=== PATIENT | female | born 1950 | race African-American/Black ===

== ENCOUNTER → 2018-02-22 | Outpatient (RCR) | payer MEDICARE, OTHER ==
[~2018-02-22] MED LIST: CIPRO500 MG PO; CLONAZEPAM1 MG PO; CLONIDINE HCL0.3 MG PO; CYCLOBENZAPRINE10 MG PO; FUROSEMIDE40 MG PO; GABAPENTIN600 MG PO; HYDROCODON-ACE1 EAC9 PO; LEVOTHYROXINE50 MCG PO; LISINOPRIL10 MG PO; LISINOPRIL2.5 MG PO; MELOXICAM7.5 MG PO; METOPROLOL TART50 MG PO; NADOLOL40 MG PO; OMEPRAZOLE40 MG PO; ORENCIA 250 MG250 MG SQ; PREDNISONE5 MG PO; SEROQUEL25 MG PO
== END ==
LOC: PT 09:40
PROVIDERS: ATTEND Internal Medicine
DX: M25.561 Pain in right knee (principal); M54.5 Low back pain; M62.81 Muscle weakness (generalized); R29.6 Repeated falls
CPT/HCPCS: 97110; 97162; G8978; G8979

== ENCOUNTER 2018-03-12 09:43 | Outpatient (RCR) | payer MEDICARE, OTHER | END 2018-03-24 | LOC: PT 09:43 | PROVIDERS: ATTEND Internal Medicine | DX: M54.5 Low back pain (principal); R29.6 Repeated falls ==

== ENCOUNTER → 2019-02-26 | Outpatient (CLI) | payer MEDICARE, OTHER | LOC: MAMMO 09:53 | PROVIDERS: ATTEND Internal Medicine | DX: Z12.31 Encounter for screening mammogram for malignant neoplasm of breast (principal) | CPT/HCPCS: 77067 ==

== ENCOUNTER → 2019-06-10 | Outpatient (CLI) | payer MEDICARE, OTHER ==
--- NOTE | 2019-06-10 09:51 | Diagnostic Imaging Report ---
Examination: MRI BRAIN WO CONTRAST History: Vertigo. Falls. Dizziness. Comparison studies: Not available for comparison. Technique: Sagittal T2; axial DWI, FLAIR, GRE or SWI, T1, Coronal FLAIR. Intravenous contrast: None Findings: Scalp: No abnormal signal. No masses. Bone marrow: Normal in signal intensity. Brain volume: Adequate for age. No volume loss. Ventricles: Normal in size and configuration. No hydrocephalus. Extra-axial spaces: No abnormalities. Parenchyma: Patchy areas of T2/FLAIR signal abnormality in the central marcel. There is mild banding/ capping of the frontal horn of the bilateral lateral ventricles. No masses, hemorrhage, or acute vascular insults. Suprasellar and sellar region: There is a 9.1 mm ovoid T2 hyperintense lesion in the anterior aspect of the sella. This lesion could represent an adenoma or Rathke's cleft cyst. Craniocervical junction: No abnormalities. The foramen magnum is patent. No Chiari malformations. Vessels: Normal flow-voids in the arteries and sinuses. Additional findings:None. IMPRESSION: No acute intracranial abnormalities. 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 A sella MRI with and without contrast is recommended for further evaluation to ensure that this is entirely cystic. Mild chronic microvascular ischemic change of the marcel. Signed by: Dr. Jayla Brian M.D. on 06/10/2019 9:47 AM
== END ==
LOC: MRI 08:00
PROVIDERS: ATTEND Internal Medicine
DX: H81.49 Vertigo of central origin, unspecified ear (principal); H83.09 Labyrinthitis, unspecified ear
CPT/HCPCS: 70551

== ENCOUNTER → 2019-06-25 | Outpatient (CLI) | payer MEDICARE, OTHER ==
[~2019-06-25] MED LIST changes: +FENTANYL CITRATE/PF 100MCG/2 ML INJ ONE; +GADOBENATE DIMEGLUMINE 1 ML IV ONE; +SODIUM CHLORIDE 0.9% 100 ML 100 ML ONE
[2019-06-25 09:57] LABS: CREATININE, SERUM 1.47 mg/dL (0.57-1.11)
--- NOTE | 2019-06-25 16:17 | Diagnostic Imaging Report ---
History: Disorder of the pituitary gland Comparison studies: MRI of the brain 06/10/2019 Technique: Pre-and post coronal and sagittal T1. Coronal T2. Axial DWI through the brain. Dynamic postcontrast coronal through the sella Intravenous contrast: 20 cc of MultiHance Findings: Sella: Normal in size and configuration. Pituitary gland: Nonenhancing cystic lesion at the anterior sella measuring 0.8 x 0.9 x 0.8 cm (SI-AP-Trans), with mild effacement of the suprasellar cistern, without mass effect over the adjacent structures. . Pituitary stalk: Normal in size and at midline. Optic chiasm: Well visualized and unremarkable. Cavernous sinuses: Normal in size and symmetric. Internal carotid arteries: Normal flow void appearance. Sphenoid sinuses: No T2 hyperintense mucosal inflammatory changes. Stable T2/flair hyperintensities of the white matter. IMPRESSION: 1. Stable nonenhancing cystic subcentimeter lesion at the anterior pituitary gland as described above, with similar diagnostic considerations including adenoma, Rathke cleft cysts and pars intermedia cyst. 2. Mild chronic microvascular ischemic changes Signed by: DR Pio Osuna M.D. on 06/25/2019 4:14 PM
== END ==
LOC: MRI 09:13
PROVIDERS: ATTEND Internal Medicine
DX: E23.7 Disorder of pituitary gland, unspecified (principal); D35.2 Benign neoplasm of pituitary gland
CPT/HCPCS: 36415; 70553; 82565; 84520; A9577; J3010

== ENCOUNTER → 2019-11-06 | Outpatient (CLI) | payer MEDICARE, OTHER ==
[~2019-11-06] MED LIST changes: -FENTANYL CITRATE/PF 100MCG/2 ML INJ ONE; -GADOBENATE DIMEGLUMINE 1 ML IV ONE; -SODIUM CHLORIDE 0.9% 100 ML 100 ML ONE
--- NOTE | 2019-11-06 12:43 | Diagnostic Imaging Report ---
EXAMINATION: MR angiogram of the [place] without contrast. CLINICAL HISTORY: Vertigo, imbalance, multiple folds, weakness. COMPARISON: Brain MRI 06/10/2019 TECHNIQUE: 3D TOF MR angiogram sequences of the head was performed without contrast. MIP images of the arteries were isolated into anterior-posterior groups. The source images, reformatted axial and coronal images, and investment representative projections of the MIP images through 180 degrees of rotation and tumbling were reviewed. Image quality: Suboptimal study artifact from patient's motion. FINDINGS: The vessels of the [place] and posterior circulation are patent, there is no evidence of significant stenosis. No vascular malformation or aneurysmal dilatation is identified. Minimal prominence of the basilar tip. Anatomic variation: Anterior Communicating Artery: Probably present, motion prevents an accurate evaluation. Posterior Communicating Arteries: Patent bilaterally The right A1 is hypoplastic. Vertebral arteries: The right is dominant IMPRESSION: Suboptimal evaluation due to motion artifact, grossly no large vessel occlusion, significant stenoses or vascular malformations. Signed by: Dr. Jesica Saab M.D. on 11/06/2019 12:41 PM
--- NOTE | 2019-11-06 12:56 | Diagnostic Imaging Report ---
EXAMINATION: MRI of the brain and sella turcica without contrast HISTORY: Disorder of the pituitary gland.Vertigo, imbalance, multiple folds, weakness. COMPARISON: Brain MRI from 06/10/2019 and similar to seek a MRI from 06/25/2019 TECHNIQUE: Brain: Sagittal T2; axial DWI, T2, FLAIR, T1-IR, T2 gradient echo; coronal FLAIR. Sella turcica: Thin section images of the sella consisting of coronal dynamic T1, sagittal and coronal T1 pre/post contrast, coronal T2. Whole brain DWI/ADC. IMAGE QUALITY: Artifact from patient motion mildly limits evaluation of some of the sequences. Brain MRI findings: Parenchyma: 1. Persistent mild pontine and supratentorial periventricular white matter chronic microvascular ischemic changes. 2. No mass, hemorrhage, acute or chronic infarcts. Skull: Unremarkable. Vessels: Expected flow voids present in the major arteries and dural sinuses. Extra-axial spaces: No abnormal signal intensity or mass effect. Brain volume: Within normal limits for age. Ventricles: No hydrocephalus or displacement. Foramen magnum: Unremarkable. Paranasal / mastoid sinuses: No significant inflammatory disease. Pituitary MRI findings: Pituitary gland: Unchanged approximately 9 mm homogeneously low T1 and high T2 signal intensity lesion within the anterior gland/adenohypophysis, which likely corresponds to a pituitary adenoma with cystic degeneration. The neurohypophysis is not well-visualized. Sella [place]: Normal in size and configuration. Pituitary stalk: Well visualized and unremarkable. Optic chiasm: Well visualized and unremarkable.. Cavernous sinuses: Normal in size and symmetric. Internal carotid arteries: Normal flow void appearance. IMPRESSION: Brain MRI: 1. Stable minimal chronic microvascular ischemic changes compared to MRI of 06/10/2019. 2. Otherwise no intracranial abnormalities. Pituitary gland MRI: Stable approximately 9 mm pituitary adenoma compared to MRI of 06/25/2019. Signed by: Dr. Jesica Saab M.D. on 11/06/2019 12:53 PM
== END ==
LOC: MRI 08:24
PROVIDERS: ATTEND Internal Medicine
DX: E23.7 Disorder of pituitary gland, unspecified (principal); D35.2 Benign neoplasm of pituitary gland; H81.4 Vertigo of central origin
CPT/HCPCS: 70544; 70551

== ENCOUNTER 2019-11-21 12:49 | Inpatient (IN) | payer MEDICARE, OTHER ==
[~2019-11-21] VITALS: Ht 167.6 cm; Wt 136.1 kg
--- OUTSIDE RECORDS SUMMARY | 2019-11-21 12:54 | XMS REPORT ---
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 Allergies, Adverse Reactions, Alerts This patient has no known allergies or adverse reactions. Medications This patient has no known medications. Results Test Description Test Time Test Comments Text Results Atomic Results Result Comments MRI PITUITARY GLAND WO 2019-11-06 12:40:00 [place] [address] Patient Name: GILLES LIZAMA MR #: [id number] : 1950 Age/Sex: 69/F Req #: [id number] Adm Physician: Ordered by: ANA LUISA SORENSEN MD Report #: [id number] Location: MRI Room/Bed: Procedure: [id number] MRI/MRI PITUITARY GLAND WO Exam Date: Exam Time: REPORT STATUS: Signed EXAMINATION: MRI of the brain and sella turcica without contra st HISTORY: Disorder of the pituitary gland.Vertigo, imbalance, multiple folds, weakness. COMPARISON: Brain MRI from 06/10/2019 and similar to seek a MRI from 06/25/2019 TECHNIQUE: Brain: Sagittal T2; axial DWI, T2, FLAIR, T1- IR, T2 gradient echo; coronal FLAIR. Sella turcica: Thin section images of the sella consisting of coronal dynamic T1, sagittal and coronal T1 pre/post contrast, coronal T2. Whole brain DWI/ADC. IMAGE QUALITY: Artifact from patient motion mildly limits evaluation of some of the sequences. Brain MRI findings: Parenchyma: 1. Persistent mild pontine and supratentorial periventricular white matter chronic microvascular ischemic changes. 2. No mass, hemorrhage, acute or chronic infarcts. Skull: Unremarkable. Vessels: Expected flow voids present in the major arteries and dural sinuses. Extra-axial spaces: No abnormal signal intensity or mass effect. Brain volume: Within normal limits for age. Ventricles: No hydrocephalus or displacement. Foramen magnum: Unremarkable. Paranasal / mastoid sinuses: No significant inflammatory disease. Pituitary MRI findings: Pituitary gland: Unchanged approximately 9 mm homogeneously low T1 and high T2 signal intensity lesion within the anterior gland/adenohypophysis, which likely corresponds to a pituitary adenoma with cystic degeneration. The neurohypophysis is not well- visualized. Sella Turc[place]: Normal in size and configuration. Pituitary stalk: Well visualized and unremarkable. Optic chiasm: Well visualized and unremarkable.. Cavernous sinuses: Normal in size and symmetric. Internal carotid arteries: Normal flow void appearance. IMPRESSION: Brain MRI: 1. Stable minimal chronic microvascular ischemic changes compared to MRI of 06/10/2019. 2. Otherwise no intracranial abnormalities. Pituitary gland MRI: Stable approximately 9 mm pituitary adenoma compared to MRI of 06/25/2019. Signed by: Dr. Magan Saab M.D. on 11/06/2019 12:53 PM Dictated By: MAGAN SAAB MD 1253 Transcribed By: JOSE ALBERTO on 11/06/19 1253 COPY TO: ANA LUISA SORENSEN MD MRI BRAIN WO 2019-11-06 12:40:00 [place] [address] Patient Name: GILLES LIZAMA MR #: [id number] : 1950 Age/Sex: 69/F Req #: [id number] Adm Physician: Ordered by: ANA LUISA SORENSEN MD Report #: [id number] Location: MRI Room/Bed: Procedure: [id number] MRI/MRI BRAIN WO Exam Date: Exam Time: REPORT STATUS: Signed EXAMINATION: MRI of the brain and sella turcica without contrast HISTORY: Disorder of the pituitary gland.Vertigo, imbalance, multiple folds, weakness. COMPARISON: Brain MRI from 06/10/2019 and similar to seek a MRI from 06/25/2019 TECHNIQUE: Brain: Sagittal T2; axial DWI, T2, FLAIR, T1-IR, T2 gradient echo; coronal FLAIR. Sella turcica: Thin section images of the sella consisting of coronal dynamic T1, sagittal and coronal T1 pre/post contrast, coronal T2. Whole brain DWI/ADC. IMAGE QUALITY: Artifact from patient motion mildly limits evaluation of some of the sequences. Brain MRI findings: Parenchyma: 1. Persistent mild pontine and supratentorial periventricular white matter chronic microvascular ischemic changes. 2. No mass, hemorrhage, acute or chronic infarcts. Skull: Unremarkable. Vessels: Expected flow voids present in the major arteries and dural sinuses. Extra-axial spaces: No abnormal signal intensity or mass effect. Brain volume: Within normal limits for age. Ventricles: No hydrocephalus or displacement. Foramen magnum: Unremarkable. Paranasal / mastoid sinuses: No significant inflammatory disease. Pituitary MRI findings: Pituitary gland: Unchanged approximately 9 mm homogeneously low T1 and high T2 signal intensity lesion within the anterior gland/adenohypophysis, which likely corresponds to a pituitary adenoma with cystic degeneration. The neurohypophysis is not well-visualized. Sella Turcica: Normal in size and configuration. Pituitary stalk: Well visualized and unremarkable. Optic chiasm: Well visualized and unremarkable.. Cavernous sinuses: Normal in size and symmetric. Internal carotid arteries: Normal flow void appearance. IMPRESSION: Brain MRI: 1. Stable minimal chronic microvascular ischemic changes compared to MRI of 06/10/2019. 2. Otherwise no intracranial abnormalities. Pituitary gland MRI: Stable approximately 9 mm pituitary adenoma compared to MRI of 06/25/2019. Signed by: Dr. Magan Saab M.D. on 11/06/2019 12:53 PM Dictated By: MAGAN SAAB MD 1253 Transcribed By: JOSE ALBERTO on 11/06/19 1253 COPY TO: ANA LUISA SORENSEN MD MRA HEAD WO 2019-11-06 12:15:00 [place] [address] Patient Name: GILLES LIZAMA MR #: [id number] : 1950 Age/Sex: 69/F Req #: [id number] Adm Physician: Ordered by: ANA LUISA SORENSEN MD Report #: [id number] Location: MRI Room/Bed: Procedure: [id number] MRI/MRA HEAD WO Exam Date: Exam Time: REPORT STATUS: Signed EXAMINATION: MR angiogram of the [place] without contrast. CL INICAL HISTORY: Vertigo, imbalance, multiple folds, weakness. COMPARISON: Brain MRI 06/10/2019 TECHNIQUE: 3D TOF MR angiogram sequences of the head was performed without contrast. MIP images of the arteries were isolated into anterior-posterior groups. The source images, reformatted axial and coronal images, and cash applications representative projections of the MIP images through 180 degrees of rotation and tumbling were reviewed. Image quality: Suboptimal study artifact from patient's motion. FINDINGS: The vessels of the [place] and posterior circulation are patent, there is no evidence of significant stenosis. No vascular malformation or aneurysmal dilatation is identified. Minimal prominence of the basilar tip. Anatomic variation: Anterior Communicating Artery: Probably present, motion prevents an accurate evaluation. Posterior Communicating Arteries: Patent bilaterally The right A1 is hypoplastic. Vertebral arteries: The right is dominant IMPRESSION: Suboptimal evaluation due to motion artifact, grossly no large vessel occlusion, significant stenoses or vascular malformations. Signed by: Dr. Magan Saab M.D. on 11/06/2019 12:41 PM Dictated By: MAGAN SAAB MD 1241 Transcribed By: JOSE ALBERTO on 11/06/19 1241 COPY TO: ANA LUISA SORENSEN MD MRI PITUITARY GLAND WOW 2019-06-25 16:05:00 [place] [address] Patient Name: GILLES LIZAMA MR #: [id number] : 1950 Age/Sex: 68/F Req #: [id number] Adm Physician: Ordered by: ANA LUISA SORENSEN MD Report #: [id number] Location: MRI Room/Bed: Procedure: [id number] MRI/MRI PIT[place]ARY GL[place] WOW Exam Date: Exam Time: REPORT STATUS: Signed History: Disorder of the pituitary gland Comparison studies: MRI of the brain 06/10/2019 Technique: Pre-and post coronal and sagittal T1. Coronal T2. Axial DWI through the brain. Dynamic postcontrast coronal through the sella Intravenous contrast: 20 cc of MultiHance Findings: Sella: Normal in size and configuration. Pituitary gland: Nonenhancing cystic lesion at the anterior sella measuring 0.8 x 0.9 x 0.8 cm (SI-AP-Trans), with mild effacement of the suprasellar cistern, without mass effect over the adjacent structures. . Pituitary stalk: Normal in size and at midline. Optic chiasm: Well visualized and unremarkable. Cavernous sinuses: Normal in size and symmetric. Internal carotid arteries: Normal flow void appearance. Sphenoid sinuses: No T2 hyperintense mucosal inflammatory changes. Stable T2/flair hyperintensities of the white matter. IMPRESSION: 1. Stable nonenhancing cystic subcentimeter lesion at the anterior pituitary gland as described above, with similar diagnostic considerations including adenoma, Rathke cleft cysts and pars intermedia cyst. 2. Mild chronic microvascular ischemic changes Signed by: DR Pio Osuna M.D. on 06/25/2019 4:14 PM Dictated By: PIO LYNN MD 13 Transcribed By: JOSE ALBERTO on 06/25/191613 COPY TO: ANA LUISA SORENSEN MD MRI BRAIN WO 2019-06-10 09:39:00 [place] [address] Patient Name: GILLES LIZAMA MR #: [id number] : 1950 Age/Sex: 68/F Req #: [id number] Adm Physician: Ordered by: ANA LUISA SORENSEN MD Report #: [id number] Location: MRI Room/Bed: Procedure: [id number] MRI/MRI BRAIN WO Exam Date: Exam Time: REPORT STATUS: Signed Examination: MRI BRAIN WO CONTRAST History: Vertigo. Falls. Dizziness. Comparison studies: Not available for comparison. Technique: Sagittal T2; axial DWI, FLAIR, GRE or SWI, T1, Coronal FLAIR. Intravenous contrast: None Findings: Scalp: No abnormal signal. No masses. Bone marrow: Normal in signal intensity. Brain volume: Adequate for age. No volume loss. Ventricles: Normal in size and configuration. No hydrocephalus. Extra-axial spaces: No abnormalities. Parenchyma: Patchy areas of T2/FLAIR signal abnormality in the central marcel. There is mild banding/ capping of the frontal horn of the bilateral lateral ventricles. No masses, hemorrhage, or acute vascular insults. Suprasellar and sellar region: There is a 9.1 mm ovoid T2 hyperintense lesion in the anterior aspect of the sella. This lesion could represent an adenoma or Rathke's cleft cyst. Craniocervical junction: No abnormalities. The foramen magnum is patent. No Chiari malformations. Vessels: Normal flow-voids in the arteries and sinuses. Additional findings:None. IMPRESSION: No acute intracranial abnormalities. 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 A sella MRI with and without contrast is recommended for further evaluation to ensure that this is entirely cystic. Mild chronic microvascular ischemic change of the marcel. Signed by: Dr. Jayal Brian M.D. on 06/10/2019 9:47 AM Dictated By: JAYLA DICKSON MD 6 Transcribed By: JOSE ALBERTO on 06/10/19946 COPY TO: ANA LUISA SORENSEN MD MAMMOGRAPHY DIGITAL SCR BILAT 2019-02-26 11:03:00 [place] [address] Patient Name: GILLES LIZAMA MR #: [id number] : 1950 Age/Sex: 68/F Req #: [id number] Adm Physician: Ordered by: ANA LUISA SORENSEN MD Report #: [id number] Location: MAMMO Room/Bed: Procedure: [id number] MG/MAMMOGRAPHY DIGITAL SCR BILAT Exam Date: 02/26/19 Exam Time: 1000 REPORT STATUS: Signed #[id number] - [id number] #BILATERAL DIGITAL SCREENING MAMMOGRAM WITH CAD: 02/26/2019 CLINICAL: Routine screening. Comparison is made to exams dated: 02/05/2018 mammogram and 02/01/2016 mammogram - [facility]. Current study contains 6 films. The tissue of both breasts is predominantly fatty. Current study was also evaluated with a Computer Aided Detection (CAD) system. There are benign vascular calcifications and a lymph node in both breasts. There also are benign scattered calcifications in both breasts. No significant masses, calcifications, or other findings are seen in either breast. There has been no significant interval change. IMPRESSION: BENIGN There is no mammographic evidence of malignancy. A 1 year screening mammogram is recommended. The patient will be notified by letter of the results. Venkatesh pantoja/michael:03/15/2019 09:17:57 [employer]: Jyoti CEDENO)(Hilario), [facility] letter sent: Compared to Prior B9 Mammogram BI-RADS: 2 Benign Dictated By: VENKATESH HEATON DO 6 Transcribed By: MICHAEL on 03/15/19916 COPY TO: ANA LUISA SORENSEN MD
[2019-11-21 13:00] VITALS: BP 176/78
--- NOTE | 2019-11-21 13:00 | NUR ---
Received patient direct admit, sitting at the bedside. Respiration even and unlabored without SOB. Call light in reach.
[2019-11-21] MEDS ORDERED: LOSARTAN POTASSIUM 100 MG TAB PO SCH (13:30)
[2019-11-21 13:33] VITALS: BP 176/78
[2019-11-21] MEDS ORDERED: CLINDAMYCIN 300MG 50 ML IV SCH (14:00)
[2019-11-21] MEDS ORDERED: CLINDAMYCIN 600MG / 50ML 50 ML IV SCH (14:00)
--- NOTE | 2019-11-21 14:14 | History and Physical ---
CHIEF COMPLAINT: "I do not feel well." HISTORY OF PRESENT ILLNESS: This is a 69-year-old woman, who states that for at least the last 6 to 8 weeks, she has not felt well. The patient states she becomes very short of breath with minimal exertion. The patient also states she has been experiencing dizzy spells as well as unsteady gait for the last 4 to 5 weeks. The patient actually underwent an MRI of the head on November 06, 2019, which did not reveal any gross abnormalities. The patient did undergo an MRI of the pituitary gland on November 06, 2019, which revealed persistent mild pontine and supratentorial periventricular white matter chronic microvascular ischemic changes, but no mass, hemorrhages, or obvious infarcts were appreciated. The patient also states she becomes short of breath with minimal exertion. She also complains of abscess-type lesions in the dorsal aspect of right forearm and elbow area that has been present for at least a week. Denies any fever or chills, but states she does not feel well. REVIEW OF SYSTEMS: GENERAL: No fever or chills, but the patient does not feel well for the last 2 weeks. HEENT: No headaches. No vision changes, but she does complain of dizziness intermittently. CARDIOVASCULAR/RESPIRATORY: No chest pain or tightness, but complains of shortness of breath, particularly with any exertion. Denies any palpitations. GI: No nausea, vomiting, diarrhea, or constipation. : No UTI symptoms, but in September 2019, she was diagnosed with E. coli urinary tract infection, but it was fully treated with a 7-day course of oral Bactrim. NEUROMUSCULAR: Complains of worsening swelling in her bilateral lower extremities. She also has chronic pain issues. PAST MEDICAL HISTORY: 1. Chronic fatigue. 2. Extreme obesity, BMI of 45. 3. Depression. 4. Rheumatoid arthritis. 5. 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 6. Stage 3 chronic kidney disease. 7. Chronic diastolic congestive heart failure. 8. Recent urinary tract infection (E. Coli). 9. Chronic venous insufficiency (lower extremities). 10. Hypothyroidism. 11. Obstructive sleep apnea. 12. Peripheral neuropathy. 13. Overactive bladder. 14. Chronic insomnia. 15. Chronic pain syndrome. PAST SURGICAL HISTORY: 1. Lumbar spine surgery. 2. Total abdominal hysterectomy. 3. Left total knee replacement. ALLERGIES: MORPHINE. FAMILY HISTORY: The patient has two sisters, who have coronary artery bypass grafting. The patient's mother had severe osteoarthritis. The patient also has two sisters, who have type 2 diabetes mellitus. SOCIAL HISTORY: This woman is and lives with . She is unemployed, but receiving disability benefits. No history of tobacco or alcohol use. MEDICATIONS: 1. Xyzal 5 mg daily. 2. Gabapentin 600 mg b.i.d. 3. Breo Ellipta inhaler one puff daily. 4. Vitamin B12 1000 mcg daily. 5. Ondansetron 8 mg every 8 hours p.r.n. nausea and vomiting. 6. Levothyroxine 50 mcg daily. 7. Astelin nasal spray two sprays each nostril daily. 8. Flonase two sprays to each nostril twice a day. 9. Metoprolol tartrate 25 mg b.i.d. 10. Seroquel 200 mg at bedtime. 11. Ranitidine 300 mg at bedtime. 12. Prednisone 2.5 mg daily. 13. Omeprazole 40 mg daily. 14. Isosorbide mononitrate 30 mg daily. 15. Duloxetine 30 mg b.i.d. 16. Hydralazine 25 mg daily. 17. Multivitamin daily. 18. Clonazepam 1 mg at bedtime p.r.n. insomnia/anxiety. 19. Hydrocodone/acetaminophen 10/325 one b.i.d. p.r.n. pain. PHYSICAL EXAMINATION: GENERAL: She is awake, alert and fully oriented. She does not appear to be in any obvious respiratory distress, but she does have a flat depressed affect. She is very pleasant and cooperative. VITAL SIGNS: Blood pressure is 150/86, pulse 74, respiratory rate 16, oxygen saturation 99% on room air, and temperature 97.2. Height 5 feet 6 inches, weight 279 pounds, and BMI 45. INTEGUMENT: Skin is warm and dry. No pallor, jaundice, or diaphoresis. HEENT: Anicteric sclerae. Moist mucous membranes. NECK: Supple. CARDIOVASCULAR: Distant heart sounds. Regular rate and rhythm. No S3 or gallop. LUNGS: No rales. No rhonchi. ABDOMEN: Obese. EXTREMITIES: The patient has 3+ edema in bilateral legs. The patient has 4+ edema in bilateral pedal area. On the dorsal aspect of the right forearm, the patient has three abscesses with surrounding erythema and warmth. The patient also has a draining abscess on the right olecranon that has purulent drainage. NEUROLOGIC: Intact. No gross focal deficits. She has decreased pinprick sensation to plantar aspect of bilateral feet. DIAGNOSES: 1. Right forearm folliculitis with surrounding cellulitis. 2. [id number] diastolic heart failure. 3. Rwpbb-fn-dsbwybj renal failure. 4. Extreme obesity, BMI of 45. 5. Depression. 6. Rheumatoid arthritis. 7. 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 8. Rheumatoid arthritis. PLAN: 1. Order 2D echocardiogram. 2. Order blood cultures. 3. Start intravenous antibiotics for the patient's right forearm folliculitis with surrounding cellulitis. 4. Congestive heart failure medical management with intravenous furosemide. 5. Consult Cardiology. 6. Check renal function. 7. Check white blood cell count. 8. Check a B-type natriuretic peptide level to assess for intravascular volume overload. I spent 50 minutes in the care of this patient. MD ARCHIE Mae/KAATRZYNA /[id number] MTDBruce
[2019-11-21] MEDS: METOPROLOL SUCCINATE 50 MG TAB XL PO SCH (15:06)
[2019-11-21] MEDS: FUROSEMIDE INJ 10 MG/ML 4 ML VIAL IV SCH ×2 (15:07→21:49)
[2019-11-21] MEDS: ISOSORBIDE MONONITRATE 30 MG TAB CR PO SCH ×2 (15:07→18:45)
[2019-11-21 15:30] VITALS: BP 215/95
--- NOTE | 2019-11-21 15:42 | Diagnostic Imaging Report ---
EXAMINATION: CHEST SINGLE (PORTABLE) INDICATION: Shortness of breath COMPARISON: None FINDINGS: LINES/TUBES:None LUNGS:The lungs are well-inflated. No focal consolidation or pulmonary edema. PLEURA:No pleural effusion or pneumothorax. MEDIASTINUM:The cardiomediastinal silhouette appears normal in size and shape. Atherosclerotic calcifications of the thoracic aorta. BONES/SOFT TISSUES:No acute osseous injury. ABDOMEN:No free air under the diaphragm. IMPRESSION: No focal pneumonia or pulmonary edema. Signed by: Alberto Hoyt MD on 11/21/2019 3:40 PM
[2019-11-21 16:10] LABS: BASOPHILS # (AUTO) 0.1 (0.0-0.1); BASOPHILS % 0.4 % (0.0-1.0); EOSINOPHILS % 0.1 % (0.0-6.0); HEMATOCRIT 28.2 % (34.2-44.1); HEMOGLOBIN 8.4 g/dL (12.0-16.0); LYMPHOCYTES # (AUTO) 2.6 (1.0-3.2); LYMPHOCYTES % 20.8 % (18.0-39.1); MEAN CORPUSCULAR HEMOGLOBIN 27.5 pg (28-32); MEAN CORPUSCULAR HGB CONC 29.8 g/dL (31-35); MEAN CORPUSCULAR VOLUME 92.2 fL (81-99); MONOCYTES # (AUTO) 0.5 (0.2-0.8); MONOCYTES % 3.9 % (4.4-11.3); NEUTROPHILS # (AUTO) 8.8 (2.1-6.9); NEUTROPHILS % 71.9 % (38.7-80.0); PLATELET COUNT 453 x10e3/uL (140-360); RED BLOOD COUNT 3.06 x10e6/uL (3.6-5.1); RED CELL DISTRIBUTION WIDTH 15.5 % (11.7-14.4)
[2019-11-21 16:32] LABS: ALBUMIN/GLOBULIN RATIO 0.8 (0.8-2.0); ANION GAP 12.2 mmol/L (8-16); CALCIUM 9.1 mg/dL (8.4-10.2); CREATININE, SERUM 1.49 mg/dL (0.57-1.11)
[2019-11-21 16:38] LABS: POTASSIUM 5.2 mmol/L (3.5-5.1)
[2019-11-21 18:27] LABS: BILIRUBIN,URINE NEGATIVE (NEGATIVE); CLARITY,URINE CLEAR (CLEAR); COLOR,URINE YELLOW (YELLOW); KETONES,URINE NEGATIVE (NEGATIVE); LEUKOCYTE ESTERASE ,URINE NEGATIVE (NEGATIVE); NITRITE,URINE NEGATIVE (NEGATIVE); PROTEIN,URINE DIPSTICK NEGATIVE (NEGATIVE); URINE UROBILINOGEN 0.2 mg/dL (0.2 - 1)
[2019-11-21] MEDS: VANCOMYCIN 1GM/NS 250 ML 250 ML IV SCH (18:36)
[2019-11-21 18:37] LABS: FERRITIN 68.25 ng/mL (4.63-204.00)
[2019-11-21 18:39] LABS: BACTERIA,URINE RARE /HPF; EPITHELIAL CELLS,URINE FEW /LPF; WBC,URINE (MAN) 0-5 /HPF (0-5)
[2019-11-21] MEDS ORDERED: SODIUM CHLORIDE 0.9% 250ML 250 ML ONE (18:40)
[2019-11-21] MEDS: HYDRALAZINE HCL 25 MG TAB PO SCH (18:45)
--- NOTE | 2019-11-21 19:10 | NUR ---
Report given to night nurse, patient lying in bed with eyes open. Respiration even and unlabored without SOB. Call light in reach.
[2019-11-21 20:46] LABS: LYMPHOCYTES % (MANUAL) 20 % (19-48); MONOCYTES % (MANUAL) 2 % (3.4-9.0); NEUTROPHILS % (MANUAL) 76 % (40-74); PLATELET ESTIMATE SLIGHTLY INCREASED; PLATELET MORPHOLOGY COMMENT NORMAL; RBC MORPHOLOGY COMMENT NORMAL
[2019-11-21 20:52] VITALS: BP 170/74
[2019-11-21 20:58] VITALS: BP 142/70
[2019-11-21] MEDS: CLONAZEPAM 1 MG TAB PO PRN (21:49)
[2019-11-21] MEDS: HYDROCODONE/APAP 10MG-325MG TAB PO PRN (21:49)
[2019-11-22] VITALS (8 sets, daily range): BP systolic 94–142; BP diastolic 51–69
[2019-11-22] MEDS: CLINDAMYCIN 600MG / 50ML 50 ML IV SCH ×3 (01:29→17:46)
[2019-11-22] MEDS: VANCOMYCIN 1GM/NS 250 ML 250 ML IV SCH (05:39)
[2019-11-22] MEDS: FUROSEMIDE INJ 10 MG/ML 4 ML VIAL IV SCH (05:39)
--- NOTE | 2019-11-22 06:00 | NUR ---
PT C/O PAIN AND MEDICATED WITH ORDERED PAIN MEDICATION
[2019-11-22] MEDS: LEVOTHYROXINE SODIUM 50 MCG TAB PO SCH (06:23)
[2019-11-22 06:55] LABS: BASOPHILS % 0.4 % (0.0-1.0); EOSINOPHILS % 0.1 % (0.0-6.0); HEMATOCRIT 26.3 % (34.2-44.1); HEMOGLOBIN 7.7 g/dL (12.0-16.0); LYMPHOCYTES # (AUTO) 3.4 (1.0-3.2); LYMPHOCYTES % 31.1 % (18.0-39.1); MEAN CORPUSCULAR HEMOGLOBIN 26.9 pg (28-32); MEAN CORPUSCULAR HGB CONC 29.3 g/dL (31-35); MONOCYTES # (AUTO) 0.9 (0.2-0.8); MONOCYTES % 7.7 % (4.4-11.3); NEUTROPHILS # (AUTO) 6.4 (2.1-6.9); NEUTROPHILS % 57.5 % (38.7-80.0); PLATELET COUNT 404 x10e3/uL (140-360); RED BLOOD COUNT 2.86 x10e6/uL (3.6-5.1); RED CELL DISTRIBUTION WIDTH 15.6 % (11.7-14.4)
--- NOTE | 2019-11-22 07:20 | NUR ---
BEDSIDE REPORT GIVEN TO THE ONCOMING NURSE
[2019-11-22 07:21] LABS: ANION GAP 14.2 mmol/L (8-16); CALCIUM 9.3 mg/dL (8.4-10.2); CREATININE, SERUM 1.9 mg/dL (0.57-1.11); POTASSIUM 4.2 mmol/L (3.5-5.1)
[2019-11-22] MEDS: PREDNISONE 5 MG TAB PO SCH (08:38)
[2019-11-22] MEDS: ISOSORBIDE MONONITRATE 30 MG TAB CR PO SCH ×2 (08:38→17:46)
[2019-11-22] MEDS: METOPROLOL SUCCINATE 50 MG TAB XL PO SCH (08:39)
[2019-11-22] MEDS: HYDRALAZINE HCL 25 MG TAB PO SCH ×2 (09:00→17:46)
[2019-11-22 10:23] LABS: CHOL/HDL RATIO 3.6 (3.0-3.6)
--- NOTE | 2019-11-22 10:58 | Progress Note ---
DATE: 11/22/2019 CHIEF COMPLAINT: "I still feel weak". HISTORY OF PRESENT ILLNESS: This is a 69-year-old woman, who is a primary treating diagnosis is right upper extremity folliculitis with surrounding cellulitis. Moreover, she has been diagnosed with kvywm-ta-mfmlibr renal failure as well as acute diastolic heart failure. The patient had blood work performed on admission, which revealed serum iron 23, TIBC level of 273, percent iron saturation of 8, and transferrin level 185. The patient's ferritin level was low at 68. The patient's vitamin B12 level was normal at 1899. The patient's TSH level was normal at 2.264. On admission, the patient's BUN and creatinine was 17 and 1.49 respectively. Today's BUN and creatinine are 23 and 1.9 respectively. The patient had a chest x-ray performed on admission that was unremarkable. The patient's B-type natriuretic peptide level was normal at 80. However, on admission the patient's white blood cell count was 12,200 with 72% segmented neutrophils. White blood cell count today on November 22, 2019, was 11,000 with 57% segmenters. The patient's hemoglobin today is 7.7 g/dL. The patient denies any melena or hematochezia. The patient states she does have constipation issues. The patient states she has not moved her bowels in 2 days. REVIEW OF SYSTEMS: As per HPI. PHYSICAL EXAMINATION: GENERAL: She is awake, alert, and fluent. She has a flat affect, but she is very pleasant and cooperative on exam. VITAL SIGNS: Blood pressure is 104/58, pulse 72, respiratory rate 18, oxygen saturation 98%, and temperature 96.7. Height 5 feet 6 inches, weight is 300 pounds. BMI 48. INTEGUMENT: Skin is warm and dry. No pallor, jaundice, or diaphoresis. HEENT: Anterior sclerae. Moist mucous membranes. NECK: Supple. No evidence of jugular venous distention. CARDIOVASCULAR: Distant hear sounds. Regular rate and rhythm. LUNGS: No rales. No rhonchi. No wheezes. ABDOMEN: Benign. EXTREMITIES: The patient has trace edema in bilateral legs. The patient has 3+ edema in bilateral pedal area. NEUROLOGIC: Intact. No gross deficits appreciated. DIAGNOSES: 1. Right upper extremity folliculitis with surrounding cellulitis. 2. Taiia-ce-tbkossw anemia. 3. Anemia, secondary to chronic disease and iron deficiency. 4. Rheumatoid arthritis. 5. Chronic diastolic congestive heart failure. 6. Jvmcz-rz-nvkykmz renal failure, secondary to acute tubular necrosis. 7. Rheumatoid arthritis. 8. Extreme obesity, BMI 48. PLAN: 1. Consult Nephrology because of the patient's rilrr-rf-ejzglzh renal failure. 2. Order renal ultrasound. 3. Order liver ultrasounds as this patient has fatty liver disease. 4. Hemoccult stool. 5. We will order intravenous iron infusion in the form of ferric sodium gluconate complex 125 mg intravenous daily. 6. We will stop furosemide and angiotensin receptor rico because of the patient's acute renal failure. 7. May consider blood transfusion if hemoglobin drops below 7 g/dL. 8. We will obtain final echocardiogram. 9. Follow blood cultures. 10. Consult Cardiology. I spent 45 minutes in the care of this patient. MD ARCHIE Mae/KATARZYNA /[id number] FATMATA
[2019-11-22] MEDS: DOCUSATE SODIUM 100 MG CAP PO SCH ×2 (12:27→17:46)
[2019-11-22] MEDS: SENNOSIDES 8.6 MG TAB PO SCH ×2 (12:28→17:46)
[2019-11-22] MEDS: SODIUM FERRIC GLUCONATE COMPLX 125 MG in SODIUM CHLORIDE 0.9% 100 ML 100 ML IV SCH (13:09)
--- NOTE | 2019-11-22 13:30 | Diagnostic Imaging Report ---
EXAM: Complete Abdominal Ultrasound INDICATION: ^fatty liver disease, renal failure ^[id number] ^1048 ^Y COMPARISON: None. TECHNIQUE: Transverse and longitudinal images of the upper abdomen were obtained. FINDINGS: Liver: Size: 13.8 cm in the right midclavicular line, normal Appearance: Normal echogenicity, smooth contour Mass: No focal masses Spleen: Size: 7.5 cm in length, normal Echogenicity: Normal Mass: No focal masses Gallbladder: Stones/Sludge: Small amount of sludge. No formed stone. Wall: 0.2 cm Appearance: No pericholecystic fluid or hydrops. Sonographic Soto's Sign: Negative Bile Ducts: Intrahepatic Ducts: No dilatation Extrahepatic Ducts: Common bile duct measures 0.3 cm, no dilatation Pancreas: Visualized portions of the pancreatic head, neck and proximal body are normal. Right Kidney: Size: 10.6 x 5.8 x 4.7 cm Echogenicity: Normal Parenchymal thickness: Normal Collecting System: No hydronephrosis Stone: None Cyst/Mass: None Left Kidney: Size: 9.5 x 4.1 x 4.1 cm Echogenicity: Normal Parenchymal thickness: Normal Collecting System: No hydronephrosis Stone: None Cyst/Mass: None Vessels: Aorta: Visualized portions are normal Inferior Vena Cava: Visualized portions are normal Main Portal Vein: 1.1 cm, normal size with hepatopetal flow. Free Fluid: No ascites or pleural effusion IMPRESSION: Gallbladder sludge. No other sonographic evidence of cholecystitis. Otherwise unremarkable abdominal ultrasound. Signed by: Karl Roberts MD on 11/22/2019 1:28 PM
--- NOTE | 2019-11-22 16:34 | NUR ---
WOUND CARE CONSULT FOR 69 YO FEMALE WITH HX OF RIGHT ARM CELLULITIS. TIANA 19 PUP STATUS AND CONSERVATIVE INTERVENTIONS AND ALTERNATIVE PRESSURE MATTRESS LABS: WBC-11.06 HGB_7.7 GLUCOSE-118 MED: VANCOMYCIN CLINDAMYCIN SKIN ASSESSMENT COMPLETE PATIENT PRESENTS WITH A PARTIAL THICKNESS WOUND TO RIGHT ELBOW MEASURING 0.5 CM X 0.4 CM X 0.8 CM WITH A 0.2 CM CIRCUMFERENTIAL CALLUS UNDERMINING AND PERIWOUND. SEROUS DRAINAGE PRESENT. ABSCESS TO RIGHT LOWER ARM MEASURING 1CMX 1CM. PINK PERIWOUND PRESENT. NO DRAINAGE PRESENT. ABSCESS TO RIGHT DISTAL LOWER ARM MEASURING 1CMX 1CM. PINK PERIWOUND PRESENT. NO DRAINAGE PRESENT. ABSCESS TO RIGHT PROXIMAL LOWER ARM MEASURING 1CMX 1CM. PINK PERIWOUND PRESENT. NO DRAINAGE PRESENT. RECOMMENDATIONS: NURSING TO CONTINUE TO MAINTAIN CONSERVATIVE PUP STATUS AND INTERVENTIONS AND ALTERNATING PRESSURE MATTRESS. NURSING TO CONTINUE TO ASSIST PATIENT OUT OF BED FOR MEALS AND MUCH TOLERATED. NURSING TO CONTINUE TO ASSIST PATIENT NEEDED WITH MEALS AND NUTRITIONAL SUPPLEMENTS TO ENSURE PROPER REQUIREMENTS FOR HEALING. NURSING TO CONTINUE TO OFFLOAD FEET AND HEELS NEEDED WITH PILLOW SUSPENSION WHEN IN BED. NURSING TO CLEAN X 3 ABSCESSES WITH NS DAILY, TO LEAVE OPEN TO AIR AND TO CONTINUE TO MONITOR. NURSING TO CLEAN RIGHT ELBOW PARTIAL THICKNESS WOUND WITH NORMAL SALINE, PAT DRY WITH 4X4 GAUZE, APPLY BACTROBAN OINTMENT, APPLY MAXORB AG, 4X4 GAUZE, SECURE WITH PAPER TAPE DAILY. NURSING TO OBTAIN ANAEROBIC AND AEROBIC WOUND CULTURE TO RIGHT ELBOW WOUND. NURSING TO CONSULT WOUND CARE NEEDED. THANK YOU. Addendum: 11/22/19 at 1652 by Soraida Carlos RN Amended: Links added.
--- NOTE | 2019-11-22 16:46 | Consultation ---
DATE OF CONSULTATION: 11/22/2019 REASON FOR CONSULTATION: CHF. CHIEF COMPLAINT: Shortness of breath and dizziness. HISTORY OF PRESENT ILLNESS: This is a 69-year-old female with history of diastolic dysfunction, hypertension, hypothyroidism, reflux, rheumatoid arthritis, anemia, chronic kidney disease, morbid obesity, frequent UTIs, and chronic pain. The patient presents to [facility] ER with complaints of not feeling well for several weeks with shortness of breath on minimal exertion. Cardiology was consulted for possible CHF exacerbation. The patient is seen in room, reports for the past several months has been short of breath, weak, fatigued, however, went to go see her PCP with the above complaints and was advised to be admitted. BNP noted to be in the 80 range. Chest x-ray with no acute abnormalities. The patient's main complaint is weakness and fatigue. Labs noted with hemoglobin of 7.7. The patient denies any melena, tarry or bloody stools. PAST MEDICAL HISTORY: 1. Hypertension. 2. Hypothyroidism. 3. Reflux. 4. Rheumatoid arthritis. 5. Allergies. 6. Chronic anemia. 7. Chronic kidney disease, stage III. 8. Diastolic dysfunction. 9. Chronic pain. 10. Frequent UTIs. 11. Chronic venous insufficiency. 12. Peripheral neuropathy. 13. Morbid obesity. PAST SURGICAL HISTORY: 1. Left knee replacement 2009. 2. Hysterectomy in 1989. 3. Lumbar surgery. ALLERGIES: MORPHINE. FAMILY HISTORY: Mother at age 73 history of [place], diabetes, and hypertension. Father at age 70 history of hypertension and dementia. Two sisters with history of coronary artery disease, status post bypass surgery. SOCIAL HISTORY: She is retired. She is . No alcohol or tobacco use. REVIEW OF SYSTEMS: GENERAL: Denies any weight changes. Positive for fatigue, weakness. Denies any fevers, chills, or night sweats. SKIN: No rashes. Right elbow sore x1 week. HEENT: Denies any nausea, vision change, blurred vision, double vision, earache, epistaxis, sore throat, or swollen neck. CARDIAC: Denies any chest pain. Positive for dyspnea on exertion. No orthopnea or PND. Positive for lower extremity edema. RESPIRATORY: Positive for shortness of breath. Denies any wheezing, coughing, or hemoptysis. GI: Reports good appetite. Denies any nausea, vomiting, or diarrhea. Positive for constipation. Denies any melena, tarry or bloody stools. URINARY: Positive for frequency or urgency. Denies any dysuria or hematuria. VASCULAR: Positive for lower extremity edema, chronic. MUSCULOSKELETAL: Positive for muscle weakness, joint pains, or back pains. NEUROLOGIC: Denies any tremors, blackout, or seizures. HEMATOLOGY: Denies any bruising. Positive for anemia. ENDOCRINE: Denies any heat or cold intolerance, polyuria, polydipsia, or polyphagia. PHYSICAL EXAMINATION: VITAL SIGNS: Height 66 inches, weight 300 pounds, BMI 48, temperature 98.0, pulse 77, respiratory rate 17, blood pressure 116/63, pulse ox 98% on room air. GENERAL: Appears stated age, reliable informant. No acute distress. SKIN: No rashes, however, there is a right elbow abscess type lesion. HEENT: Normocephalic. pupils are equal and reactive. Extraocular movements intact. Trachea midline. No JVD. No carotid bruit noted. Oral mucosa pink. HEART: Regular rate and rhythm. PMI about 4th and 5th intercostal space. LUNGS: Bilateral breath sounds clear to auscultation. Good airway entry and exit. ABDOMEN: Soft, nontender, and nondistended. No organomegaly noted. MUSCULOSKELETAL: Good muscle strength throughout. Positive lower extremity edema noted VASCULAR: +2 radial pulses bilaterally, +2 DP and PT pulses bilaterally. NEUROLOGIC: Cranial nerves II through XII seem intact. LABORATORY DATA: White count 11.0, hemoglobin 7.7, hematocrit 23, platelets 404. Chemistry of sodium 139, potassium 5.2, chloride 106, bicarb 27, BUN 17, creatinine 1.49. BNP 80. TSH 2.2. Chest x-ray, no acute abnormalities. No EKG in chart. ASSESSMENT: 1. Right elbow cellulitis. 2. Fatigue, weakness, and shortness of breath. 3. Anemia. 4. Chronic kidney disease, stage III. 5. Diastolic dysfunction. 6. Morbid obesity. 7. Hypothyroidism. PLAN: 1. The patient presents to [facility] with complaints of shortness of breath, weakness, fatigue for the past several months, worse in recent history notable anemia 7.7. The patient denies any melena or tarry black stools. 2. We will do echo to evaluate heart function and structure. 3. BNP only 80, which rules out systolic heart failure. 4. Would advise to stop her losartan therapy given her kidney disease plus her hyperkalemia. 5. Would advise to decrease Lasix regimen. 6. We will order fecal occult blood stool. 7. We will continue to monitor the patient and adjust cardiac therapy as clinical course dictates. Thank you very much for this consult. Dictated by Juanpablo Arroyo, LAURO May Torres MD DC/MODL /[id number]
--- NOTE | 2019-11-22 19:00 | NUR ---
Received patient awake, not in distress, no complaints of pain at this time. Call light within reach, advised to call for assistance anytime when needed, advised to elevate arm with pillow, will continue to monitor closely
[2019-11-22] MEDS: CLONAZEPAM 1 MG TAB PO PRN (20:50)
[2019-11-22] MEDS: HYDROCODONE/APAP 10MG-325MG TAB PO PRN (20:50)
[2019-11-23] VITALS (7 sets, daily range): BP systolic 104–147; BP diastolic 55–66
[2019-11-23] MEDS: CLINDAMYCIN 600MG / 50ML 50 ML IV SCH ×3 (02:00→18:20)
[2019-11-23] MEDS: HYDROCODONE/APAP 10MG-325MG TAB PO PRN ×2 (05:09→21:30)
[2019-11-23] MEDS: LEVOTHYROXINE SODIUM 50 MCG TAB PO SCH (05:52)
[2019-11-23 06:50] LABS: BASOPHILS % 0.3 % (0.0-1.0); EOSINOPHILS # (AUTO) 0.2 (0.0-0.4); EOSINOPHILS % 1.6 % (0.0-6.0); HEMATOCRIT 28.3 % (34.2-44.1); HEMOGLOBIN 8.4 g/dL (12.0-16.0); LYMPHOCYTES # (AUTO) 3.4 (1.0-3.2); LYMPHOCYTES % 33.4 % (18.0-39.1); MEAN CORPUSCULAR HEMOGLOBIN 27.4 pg (28-32); MEAN CORPUSCULAR HGB CONC 29.7 g/dL (31-35); MEAN CORPUSCULAR VOLUME 92.2 fL (81-99); MONOCYTES # (AUTO) 0.7 (0.2-0.8); MONOCYTES % 6.5 % (4.4-11.3); NEUTROPHILS # (AUTO) 5.5 (2.1-6.9); NEUTROPHILS % 54.9 % (38.7-80.0); PLATELET COUNT 412 x10e3/uL (140-360); RED BLOOD COUNT 3.07 x10e6/uL (3.6-5.1); RED CELL DISTRIBUTION WIDTH 15.7 % (11.7-14.4)
[2019-11-23 07:08] LABS: ANION GAP 11.4 mmol/L (8-16); CALCIUM 9.3 mg/dL (8.4-10.2); CREATININE, SERUM 1.71 mg/dL (0.57-1.11); POTASSIUM 4.4 mmol/L (3.5-5.1)
--- NOTE | 2019-11-23 07:26 | NUR ---
walking rounds done with rob RN, call light within easy reach
[2019-11-23] MEDS: VANCOMYCIN 1GM/NS 250 ML 250 ML IV SCH (09:00)
[2019-11-23] MEDS: SODIUM FERRIC GLUCONATE COMPLX 125 MG in SODIUM CHLORIDE 0.9% 100 ML 100 ML IV SCH (09:00)
[2019-11-23] MEDS: HYDRALAZINE HCL 25 MG TAB PO SCH ×2 (09:00→17:05)
[2019-11-23] MEDS: MUPIROCIN 2% OINT 22 GM TUBE TOP SCH (09:01)
[2019-11-23] MEDS: DOCUSATE SODIUM 100 MG CAP PO SCH ×2 (09:01→17:05)
[2019-11-23] MEDS: PREDNISONE 5 MG TAB PO SCH (09:01)
[2019-11-23] MEDS: ISOSORBIDE MONONITRATE 30 MG TAB CR PO SCH ×2 (09:01→18:21)
[2019-11-23] MEDS: METOPROLOL SUCCINATE 50 MG TAB XL PO SCH (09:01)
[2019-11-23] MEDS: SENNOSIDES 8.6 MG TAB PO SCH ×2 (09:01→17:00)
[2019-11-23] MEDS: CLONAZEPAM 1 MG TAB PO PRN (09:02)
--- NOTE | 2019-11-23 11:00 | NUR ---
pt right elbow dressing placed, cleaned with normal saline, bactroban placed, covered with 4x4 and secured with paper tape
[2019-11-23] MEDS: ONDANSETRON HCL INJ 2MG/ML 2ML 2 MG/ML VIAL IV PRN ×2 (13:58→21:00)
--- NOTE | 2019-11-23 14:45 | NUR ---
pt c/o nausea, zofran given. pt states she takes zofran at home for nausea after she takes laxatives. pt given education on laxative side effects and difference between stimulant and stimulant free laxatives
--- NOTE | 2019-11-23 15:59 | NUR ---
renal dr to see pt. pt states her stomach cramps. dr explained laxative sennakot given today can have that side effect. pt states pain is between 2-3. abd soft, non distened, pt had a very large solid bm. cont to monitor pt, she states nausea has decreased
--- NOTE | 2019-11-23 20:16 | NUR ---
Received change of shift report from AM nurse. Walking rounds completed.
--- NOTE | 2019-11-23 21:00 | NUR ---
Patient c/o nausea meds given as order by MD. Also c/o abd pain . Called MD and waiting for call back.
[2019-11-23] MEDS ORDERED: PANTOPRAZOLE SOD 40 MG TABEC PO ONE (21:30)
--- NOTE | 2019-11-23 22:00 | NUR ---
S/Yazmin Parada, received orders. Meds given.
--- NOTE | 2019-11-23 23:06 | Consultation ---
DATE OF CONSULTATION: 11/23/2019 REASON FOR CONSULTATION: Acute on chronic kidney disease, stage 3. HISTORY OF PRESENT ILLNESS: The patient is a pleasant 69-year-old female with past medical history of hypertension, CHF with diastolic dysfunction, hypothyroidism, rheumatoid arthritis, obesity, who was admitted with the not feeling well, dizziness on exertion and dizziness. The patient was found to be anemic with a hemoglobin of 8.4. The patient was also found to have right upper extremity cellulitis and started on IV antibiotic. The patient's baseline creatinine is around 1.4. It went up to 1.9 yesterday. The patient was on KIRA inhibitor and Lasix, both of which were put on hold. Today creatinine is better at 1.7. The patient denies having any nausea, vomiting, or diarrhea. PAST MEDICAL HISTORY: As above. PAST SURGICAL HISTORY: Lumbar spine surgery, total abdominal hysterectomy, left total knee replacement. ALLERGIES: TO MORPHINE. FAMILY HISTORY: Positive for osteoarthritis, coronary artery bypass, and diabetes. SOCIAL HISTORY: Lives at home with her . No history of tobacco, alcohol, or intravenous drug abuse. MEDICATIONS: Currently, the patient is on Zofran, clindamycin, isosorbide, prednisone, IV iron, vancomycin, hydralazine 50 mg twice a day, and clonazepam. REVIEW OF SYSTEMS: GENERAL: No fatigue, no fever, no chills. HEENT: No headache or blurry vision. NECK: No dysphagia. CARDIOVASCULAR: No chest pain, PND, or orthopnea. RESPIRATORY: No shortness of breath. Positive dyspnea on exertion. No cough hemoptysis. GI: No nausea, vomiting, diarrhea, constipation, hematemesis, or melena. MUSCULOSKELETAL: No ankle swelling. NEUROLOGIC: No numbness or tingling. SKIN: No new rash. PHYSICAL EXAMINATION: VITAL SIGNS: Blood pressure 104/55, pulse of 79, respirations 18, temperature 98.2, and 98% on room air. GENERAL: Awake, alert, and oriented x3, not in acute distress. HEENT: PERRLA. Extraocular muscles intact. NECK: No elevated JVD. HEART: S1 and S2. LUNGS: Clear to auscultate bilaterally. ABDOMEN: Soft. Bowel sounds positive. Obese. EXTREMITIES: No edema. NEUROLOGICAL: No focal deficits. SKIN: No new rash. LABORATORY DATA: Sodium 138, potassium 4.4, chloride 102, CO2 28, BUN 23, creatinine 1.7, and glucose is 93, calcium 9.3. White count 10.04, hemoglobin 8.4, platelet count 412, ferritin 68, iron 23, percentage saturation 8. BNP 80. Blood culture, urine culture negative. Abdominal ultrasound showed right kidney 10.6 cm, left kidney 9.5 cm. Gallbladder sludge. Echocardiogram done on 11/21/2019. Left ventricle size is normal. EF 65% to 70% and positive diastolic dysfunction. Chest x-ray done on admission, no focal pneumonia, and pulmonary edema. ASSESSMENT AND PLAN: 1. Acute kidney injury, and chronic kidney disease stage 3. The patient likely has underlying hypertensive nephrosclerosis. This acute worsening is likely prerenal insufficiency secondary to infection. Currently on IV antibiotic. Monitor the vancomycin level closely. Currently, off the diuretic and KIRA inhibitor. We will continue to hold those. Repeat lab in the morning. Avoid all other nephrotoxic medications. 2. Right upper extremity cellulitis on clindamycin and vancomycin. Monitor the vancomycin level closely. Blood culture and urine culture negative. 3. Hypertension. Currently blood pressure is on the lower side, moderate. Adjust the medicine as needed. 4. Rheumatoid arthritis, she is currently on prednisone. 5. Anemia which is iron deficient, currently on intravenous iron. 6. Discussed with at bedside. Thank you Dr. Sheppard for the consult. We will follow the patient with you. MD MARGARITA Eastman/MODL /[id number]
[2019-11-24] VITALS (9 sets, daily range): BP systolic 107–144; BP diastolic 58–70
[2019-11-24] MEDS: CLINDAMYCIN 600MG / 50ML 50 ML IV SCH ×3 (01:48→17:26)
--- NOTE | 2019-11-24 02:00 | NUR ---
Patient resting quitly at this time. Removed puric due to patient ambulating to restroom.
[2019-11-24] MEDS: LEVOTHYROXINE SODIUM 50 MCG TAB PO SCH (05:28)
--- NOTE | 2019-11-24 06:46 | NUR ---
Patient resting quitly.
[2019-11-24] MEDS: HYDROCODONE/APAP 10MG-325MG TAB PO PRN ×2 (08:07→19:51)
[2019-11-24] MEDS: PREDNISONE 5 MG TAB PO SCH (08:07)
[2019-11-24] MEDS: SENNOSIDES 8.6 MG TAB PO SCH ×2 (08:07→17:26)
[2019-11-24] MEDS: DOCUSATE SODIUM 100 MG CAP PO SCH ×2 (08:07→17:26)
[2019-11-24] MEDS: VANCOMYCIN 1GM/NS 250 ML 250 ML IV SCH (08:13)
[2019-11-24] MEDS: METOPROLOL SUCCINATE 50 MG TAB XL PO SCH (08:13)
[2019-11-24] MEDS: ISOSORBIDE MONONITRATE 30 MG TAB CR PO SCH ×2 (08:13→17:26)
[2019-11-24] MEDS: HYDRALAZINE HCL 25 MG TAB PO SCH ×2 (09:00→17:26)
[2019-11-24] MEDS ORDERED: PANTOPRAZOLE SOD 40 MG TABEC PO SCH (09:00)
[2019-11-24] MEDS: MUPIROCIN 2% OINT 22 GM TUBE TOP SCH (09:43)
[2019-11-24] MEDS: SODIUM FERRIC GLUCONATE COMPLX 125 MG in SODIUM CHLORIDE 0.9% 100 ML 100 ML IV SCH (09:43)
[2019-11-24] MEDS ORDERED: DIATRIZOATE MEGL/DIATRIZOA SOD 30 ML BTL PO ONE (13:23)
--- NOTE | 2019-11-24 14:30 | NUR ---
Patient walking on hallway with family, she refused any help to assist her, family said she is fine to walk with them . Patient denies any pain or Dizziness.
[2019-11-24] MEDS: ONDANSETRON HCL INJ 2MG/ML 2ML 2 MG/ML VIAL IV PRN ×2 (15:51→19:50)
--- NOTE | 2019-11-24 15:52 | NUR ---
changed dressing on rt elbow, patient tolerated well
--- NOTE | 2019-11-24 17:01 | Diagnostic Imaging Report ---
EXAMINATION: CT of the abdomen and pelvis without contrast. TECHNIQUE: Helical CT images of the abdomen and pelvis were performed from the lung bases to the lesser trochanters. No intravenous contrast was given per renal protocol. Enteric contrast administered. Coronal and sagittal reformatted images were obtained.Dose modulation, iterative reconstruction, and/or weight based adjustment of the mA/kV was utilized to reduce the radiation dose to as low as reasonably achievable. COMPARISON: None. CLINICAL HISTORY:Abdominal pain DISCUSSION: ABSENCE OF INTRAVENOUS CONTRAST DECREASES SENSITIVITY FOR DETECTION OF FOCAL LESIONS AND VASCULAR PATHOLOGY. ABDOMEN/PELVIS: LOWER THORAX: Unremarkable. HEPATOBILIARY:No focal hepatic lesions. No biliary ductal dilation. The gallbladder is normal. SPLEEN: No splenomegaly. PANCREAS: No focal masses or ductal dilatation. ADRENALS: No adrenal nodules. KIDNEYS/URETERS: No hydronephrosis, stones, or solid mass lesions. PELVIC ORGANS/BLADDER: The bladder is normal. Hysterectomy. PERITONEUM/RETROPERITONEUM: No free air or fluid. LYMPH NODES: No intra-abdominal,retroperitoneal, pelvic or inguinal lymphadenopathy. VESSELS: Limited evaluation GI TRACT: No distention or wall thickening. BONES AND SOFT TISSUES: No bony destructive lesions. No soft tissue abnormalities. IMPRESSION: No acute CT finding. Signed by: Dr. Miquel Diehl M.D. on 11/24/2019 4:59 PM
--- NOTE | 2019-11-24 19:31 | NUR ---
Received change of shift report from AM nurse. Walking rounds completed.
--- NOTE | 2019-11-24 22:38 | NUR ---
Patient c/o nausea and pain. Meds given as ordered by MD. Family at bedside.
[2019-11-24] MEDS: CLONAZEPAM 1 MG TAB PO PRN (23:32)
[2019-11-25] VITALS (9 sets, daily range): BP systolic 103–132; BP diastolic 56–72
[2019-11-25] MEDS: CLINDAMYCIN 600MG / 50ML 50 ML IV SCH ×3 (01:08→18:41)
[2019-11-25] MEDS: LEVOTHYROXINE SODIUM 50 MCG TAB PO SCH (05:19)
[2019-11-25 05:57] LABS: BASOPHILS # (AUTO) 0.1 (0.0-0.1); BASOPHILS % 0.5 % (0.0-1.0); EOSINOPHILS # (AUTO) 0.1 (0.0-0.4); EOSINOPHILS % 0.9 % (0.0-6.0); HEMATOCRIT 26.3 % (34.2-44.1); LYMPHOCYTES # (AUTO) 2.7 (1.0-3.2); MEAN CORPUSCULAR HEMOGLOBIN 27.5 pg (28-32); MEAN CORPUSCULAR HGB CONC 30.4 g/dL (31-35); MEAN CORPUSCULAR VOLUME 90.4 fL (81-99); MONOCYTES # (AUTO) 0.7 (0.2-0.8); MONOCYTES % 7.2 % (4.4-11.3); NEUTROPHILS # (AUTO) 6.2 (2.1-6.9); NEUTROPHILS % 62.5 % (38.7-80.0); PLATELET COUNT 391 x10e3/uL (140-360); RED BLOOD COUNT 2.91 x10e6/uL (3.6-5.1); RED CELL DISTRIBUTION WIDTH 15.7 % (11.7-14.4)
[2019-11-25 06:18] LABS: ANION GAP 13.2 mmol/L (8-16); CALCIUM 9.5 mg/dL (8.4-10.2); CREATININE, SERUM 1.75 mg/dL (0.57-1.11); POTASSIUM 4.2 mmol/L (3.5-5.1)
[2019-11-25] MEDS: ISOSORBIDE MONONITRATE 30 MG TAB CR PO SCH ×2 (08:46→17:00)
[2019-11-25] MEDS: DOCUSATE SODIUM 100 MG CAP PO SCH ×2 (08:46→17:00)
[2019-11-25] MEDS: METOPROLOL SUCCINATE 50 MG TAB XL PO SCH (08:46)
[2019-11-25] MEDS: PREDNISONE 5 MG TAB PO SCH (08:46)
[2019-11-25] MEDS: HYDRALAZINE HCL 25 MG TAB PO SCH ×2 (08:46→17:00)
[2019-11-25] MEDS: SENNOSIDES 8.6 MG TAB PO SCH ×2 (08:46→17:00)
[2019-11-25] MEDS: SODIUM FERRIC GLUCONATE COMPLX 125 MG in SODIUM CHLORIDE 0.9% 100 ML 100 ML IV SCH (08:48)
[2019-11-25] MEDS ORDERED: ONDANSETRON HCL INJ 2MG/ML 2ML 2 MG/ML VIAL IV PRN (09:30)
[2019-11-25] MEDS: HYDROCODONE/APAP 10MG-325MG TAB PO PRN ×2 (09:41→18:43)
--- NOTE | 2019-11-25 10:12 | Progress Note ---
DATE: 11/25/2019 CHIEF COMPLAINT/HISTORY OF PRESENT ILLNESS: This is a 69-year-old woman who primary treatment diagnosis is sepsis secondary to right forearm folliculitis with surrounding cellulitis. She was also diagnosed with acute on chronic renal failure on admission. Moreover, she has diastolic heart failure. During this hospitalization, she is found to have Hemoccult-positive stools as well as iron deficiency anemia. The patient is receiving intravenous iron infusion daily in the form of ferric sodium gluconate complex, which she is tolerating quite well. Her main complaint today is periumbilical abdominal pain as well as nausea. The patient underwent an abdominal ultrasound on Monday, November 21, 2019, which revealed gallbladder sludge, otherwise unremarkable. She underwent a CT abdomen and pelvis yesterday on November 24, 2019, which was unremarkable. Today's blood work reveals white blood cell count of 9800 with 62%. Hemoglobin today is 8 g/dL. Blood work today revealed BUN and creatinine of 17 and 1.75 respectively. Potassium 4.2. REVIEW OF SYSTEMS: As per HPI. PHYSICAL EXAMINATION: GENERAL: She is awake and alert. She has a flat depressed affect. Her adult sister is at bedside. VITAL SIGNS: Blood pressure is 132/60, pulse 92, respiratory rate 18, oxygen saturation 95%, and her temperature is 98.8. BMI 48. INTEGUMENT: Skin is warm and dry. No pallor, jaundice, or diaphoresis. HEENT: Anterior sclerae. Moist mucous membranes. NECK: Supple. CARDIOVASCULAR: Distant heart sounds. Regular rate and rhythm. LUNGS: No rales. No rhonchi. ABDOMEN: Obese. She has tenderness on palpating the midepigastric and periumbilical area. Difficult to assess for organomegaly or masses because of the patient's body habitus. EXTREMITIES: The patient has trace edema in bilateral legs. The patient has 3+ edema in the bilateral pedal area, but this is a chronic issue. Right elbow and right forearm abscesses are improving. Surrounding erythema has resolved. NEUROLOGIC: Intact. No gross focal deficits appreciated. DIAGNOSES: 1. Right forearm folliculitis with surrounding cellulitis. 2. Hemoccult-positive stools. 3. Anemia secondary to iron deficiency, chronic disease and chronic kidney disease. 4. Rheumatoid arthritis. 5. Chronic diastolic congestive heart failure. 6. Stage 3 chronic kidney disease. 7. Extreme obesity, BMI 48. 8. Hypertensive heart disease. 9. Depression. PLAN: 1. We will make the patient n.p.o. except medications. 2. We will continue intravenous antibiotics for the patient's folliculitis with cellulitis. 3. We will consult Gastroenterology because of the patient's Hemoccult-positive stools, anemia, and abdominal pain. 4. We will order HIDA scan to assess for any chronic cholecystitis or biliary dyskinesia. 5. We will start antidepressants for patient's depression. 6. We will mobilize the patient with physical therapy. 7. We will continue daily intravenous ferric sodium gluconate infusions for the patient's iron deficiency anemia. 8. I spent 40 minutes in the care of this patient. MD ARCHIE Mae/KATARZYNA /[id number] FATMATA
[2019-11-25] MEDS: MUPIROCIN 2% OINT 22 GM TUBE TOP SCH (10:19)
[2019-11-25] MEDS ORDERED: ONDANSETRON HCL INJ 2MG/ML 2ML 2 MG/ML VIAL IV ONE (10:25)
[2019-11-25] MEDS: PANTOPRAZOLE 40 MG 10ML VIAL IV SCH ×2 (10:43→17:25)
[2019-11-25] MEDS: DESVENLAFAXINE SUCCINATE 50 MG TAB.SR.24H PO SCH (10:43)
[2019-11-25] MEDS: VANCOMYCIN 1GM/NS 250 ML 250 ML IV SCH (11:40)
--- NOTE | 2019-11-25 18:16 | NUR ---
Patient back from Hida scan, c/o abd pain, prn med given, patient refused other oral medications now. family at bedside
--- NOTE | 2019-11-25 20:04 | Diagnostic Imaging Report ---
Hepatobiliary Scan with Gallbladder Ejection Fraction Clinical information: Abdominal pain; gallbladder sludge Report: Following intravenous administration of 6.125 millicuries of Tc-99m mebrofenin, dynamic images of the abdomen in the anterior projection were obtained through 2.7 minutes. Sincalide (CCK analog) 1.5 micrograms was administered intravenously over 30 minutes with additional imaging for determination of gallbladder ejection fraction. Perfusion to the liver is normal. Extraction of tracer from the blood pool by the liver parenchyma is normal. Tracer is seen promptly within the biliary tract. The gallbladder begins to fill by 15 minutes post-injection of tracer and fills adequately. Tracer is seen in the small bowel by 20 minutes. The gallbladder ejection fraction with administration of sincalide is 47% (normal greater than 40%). Impression: 1. Filling of the gallbladder excludes the diagnosis of acute cystic duct obstruction/acute cholecystitis. 2. Normal gallbladder ejection fraction of 47% does not support the clinical diagnosis of chronic cholecystitis/gallbladder dyskinesia. Signed by: Dr. Jyoti Leary M.D. on 11/25/2019 8:01 PM
[2019-11-26] VITALS (10 sets, daily range): BP systolic 111–144; BP diastolic 60–67
[2019-11-26] MEDS: CLINDAMYCIN 600MG / 50ML 50 ML IV SCH ×3 (02:33→18:07)
[2019-11-26 05:48] LABS: BASOPHILS # (AUTO) 0.1 (0.0-0.1); BASOPHILS % 0.9 % (0.0-1.0); EOSINOPHILS # (AUTO) 0.3 (0.0-0.4); EOSINOPHILS % 3.4 % (0.0-6.0); HEMATOCRIT 26.8 % (34.2-44.1); HEMOGLOBIN 8.2 g/dL (12.0-16.0); LYMPHOCYTES # (AUTO) 1.9 (1.0-3.2); MEAN CORPUSCULAR HEMOGLOBIN 27.6 pg (28-32); MEAN CORPUSCULAR HGB CONC 30.6 g/dL (31-35); MEAN CORPUSCULAR VOLUME 90.2 fL (81-99); MONOCYTES # (AUTO) 0.8 (0.2-0.8); MONOCYTES % 8.8 % (4.4-11.3); NEUTROPHILS # (AUTO) 5.9 (2.1-6.9); NEUTROPHILS % 64.6 % (38.7-80.0); PLATELET COUNT 398 x10e3/uL (140-360); RED BLOOD COUNT 2.97 x10e6/uL (3.6-5.1); RED CELL DISTRIBUTION WIDTH 15.7 % (11.7-14.4)
[2019-11-26 06:16] LABS: ALBUMIN 2.9 g/dL (3.5-5.0); ALBUMIN/GLOBULIN RATIO 0.8 (0.8-2.0); ANION GAP 12.8 mmol/L (8-16); CALCIUM 9.3 mg/dL (8.4-10.2); CREATININE, SERUM 1.64 mg/dL (0.57-1.11); POTASSIUM 3.8 mmol/L (3.5-5.1)
[2019-11-26] MEDS: LEVOTHYROXINE SODIUM 50 MCG TAB PO SCH (06:27)
--- NOTE | 2019-11-26 07:30 | NUR ---
PATIENT IN BED RESTING WITH HEAD OF BED ELEVATED, NO DISTRESS NOTED. BED IN LOWER POSITION, CALL LIGHT AT REACH.
[2019-11-26] MEDS: SODIUM FERRIC GLUCONATE COMPLX 125 MG in SODIUM CHLORIDE 0.9% 100 ML 100 ML IV SCH (09:01)
[2019-11-26] MEDS: VANCOMYCIN 1GM/NS 250 ML 250 ML IV SCH (09:20)
[2019-11-26] MEDS: HYDRALAZINE HCL 25 MG TAB PO SCH ×2 (09:31→17:33)
[2019-11-26] MEDS: DOCUSATE SODIUM 100 MG CAP PO SCH ×2 (09:31→17:32)
[2019-11-26] MEDS: PANTOPRAZOLE 40 MG 10ML VIAL IV SCH ×2 (09:31→17:32)
[2019-11-26] MEDS: MUPIROCIN 2% OINT 22 GM TUBE TOP SCH (09:32)
[2019-11-26] MEDS: DESVENLAFAXINE SUCCINATE 50 MG TAB.SR.24H PO SCH (09:32)
[2019-11-26] MEDS: PREDNISONE 5 MG TAB PO SCH (09:32)
[2019-11-26] MEDS: METOPROLOL SUCCINATE 50 MG TAB XL PO SCH (09:32)
[2019-11-26] MEDS: SENNOSIDES 8.6 MG TAB PO SCH ×2 (09:32→17:33)
[2019-11-26] MEDS: ISOSORBIDE MONONITRATE 30 MG TAB CR PO SCH ×2 (09:32→17:32)
--- NOTE | 2019-11-26 10:16 | Progress Note ---
DATE: 11/26/2019 CHIEF COMPLAINT/HISTORY OF PRESENT ILLNESS: This is a 69-year-old woman, whose primary treating diagnosis was right forearm/elbow folliculitis with surrounding cellulitis. The patient was also admitted with a diagnosis of acute on chronic renal failure. The patient's renal function has improved during this hospitalization. The front desk lead felt that the patient's acute kidney injury was likely caused by prerenal insufficiency secondary to infection. Nephrology also felt the patient had underlying hypertensive nephrosclerosis. The patient states she still has mid epigastric abdominal pain. The patient denies any melena or hematochezia. Blood work today revealed white blood cell count of 9100 with 64% segmented neutrophils. Hemoglobin today is 8.2 g/dL. The patient's platelet count is 398,000. The patient's BUN and creatinine today 16 and 1.64 respectively. Potassium is 3.8. Albumin level is 2.9. Amylase is 63 and lipase 9. The patient underwent a HIDA scan yesterday, which revealed a normal gallbladder ejection fraction of 47%, that did not support the clinical diagnosis of chronic cholecystitis/gallbladder dyskinesia. The patient was seen by Gastroenterology yesterday, it is actually scheduled for tentative EGD this afternoon. REVIEW OF SYSTEMS: As per HPI. PHYSICAL EXAMINATION: GENERAL: She is awake and alert. She has a flat depressed affect, but this is her baseline. Her adult sister is at bedside. VITAL SIGNS: Blood pressure 138/64, pulse 98, respiratory rate is 18, temperature 97.1, and oxygen saturation 98% on room air. BMI 48. INTEGUMENT: Skin is warm and dry. No pallor, jaundice, or diaphoresis. HEENT: Anterior sclerae. Moist mucous membranes. NECK: Supple. CARDIOVASCULAR: Distant heart sounds. Regular rate and rhythm. LUNGS: No rales. No rhonchi or wheezes. ABDOMEN: Obese, yet benign. She has mid epigastric tenderness with palpation. Difficult to assess for organomegaly or masses because of the patient's body habitus. EXTREMITIES: Trace edema in the bilateral legs. The patient has 3+ edema in the bilateral pedal area. Right elbow and right forearm abscesses are desiccated and obviously improving. The surrounding erythema and swelling have resolved. NEUROLOGIC: Intact. No gross focal deficits appreciated. DIAGNOSES: 1. Right forearm folliculitis with surrounding cellulitis, resolving. 2. Hemoccult-positive stools. 3. Anemia secondary to iron deficiency, chronic disease and chronic kidney disease. 4. Rheumatoid arthritis. 5. Chronic diastolic congestive heart failure. 6. Stage 3 chronic kidney disease. 7. Acute on chronic renal insufficiency, likely secondary to acute tubular necrosis from infection. 8. Extreme obesity, BMI 48. 9. Hypertensive heart disease. 10. Depression. PLAN: 1. Tentative EGD this afternoon. 2. Intravenous pantoprazole. 3. Continue intravenous iron infusions for the patient's anemia. 4. Continue antidepressants for the patient's depression. 5. Mobilize with physical therapy. I spent 30 minutes in the care of this patient. MD ARCHIE Mae/KATARZYNA /[id number] MTDD
[2019-11-26] MEDS: HYDROCODONE/APAP 10MG-325MG TAB PO PRN ×2 (10:30→15:20)
--- NOTE | 2019-11-26 11:15 | NUR ---
Visit made by Digital Associate. Pt sleeping soundly. Pt's sister at bedside. Digital Associate provided pastoral presence, hospitality, and supportive listening. Digital Associate informed pt's family of the scope of Consumer [employer] Specialist Services and availability. BINTA HICKS Digital Associate Spiritual Care Department O: [phone]
--- NOTE | 2019-11-26 11:31 | NUR ---
MD IN TO SEE PATIENT, NO NEW ORDER RECEIVED.
--- NOTE | 2019-11-26 11:39 | NUR ---
MD IN TO SEE PATIENT, NO NEW ORDER RECEIVED. REMAINS NPO FOR A PROCEDURE.
--- NOTE | 2019-11-26 13:32 | NUR ---
PATIENT OFF UNIT TO ENDO.
--- NOTE | 2019-11-26 15:15 | NUR ---
Visit made by the Spiritual Care Department Pastoral Visitor, Ashley Isaacs. PV provided pastoral presence, hospitality, prayer, and supportive listening. Pastoral Visitor informed pt/family of the scope of Rn Invasive Services and availability. BINTA HICKS Hairpiece Stylist Spiritual Care Department O: [phone]
--- NOTE | 2019-11-26 15:20 | NUR ---
PATIENT BACK TO UNIT FROM ENDO. HAD A EGD, REPORT RECEIVED FROM PACU NURSE. FINDINGS ARE GASTRITIS AND ULCER. C/O PAIN AND WAS MEDICATED ORDERED. BED IN LOWER POSITION, CALL LIGHT AT REACH.
[2019-11-26] MEDS ORDERED: PROPOFOL IV EMULSION 10 MG/ML 20 ML VIAL ONE (17:29)
[2019-11-26] MEDS ORDERED: FENTANYL CITRATE/PF 100MCG/2 ML INJ ONE (17:36)
--- NOTE | 2019-11-26 19:15 | NUR ---
Patient received sitting up in bed. AAO x 3. Sister at bedside. Patient had no complaints of pain. Respirations even and non-labored. Dressing to right elbow clean, dry and intact. Safety measures in place. Patient instructed to call for assistance when needed. Call light within reach.
--- NOTE | 2019-11-26 20:39 | Operative Report ---
DATE OF PROCEDURE: 11/26/2019 SURGEON: Ziggy Taylor MD PROCEDURE: EGD with biopsies. INDICATIONS FOR ESOPHAGOGASTRODUODENOSCOPY: Epigastric pain, guaiac-positive stools. MEDICATIONS: The patient was done under MAC, please see anesthesiologist's note. PROCEDURE IN DETAIL: With the patient in left lateral decubitus position, the flexible fiberoptic Olympus gastroscope was introduced into the esophagus under direct visualization without any difficulty. There was some patchy erythema noted in distal esophagus. The scope was then advanced with ease into the stomach. Mucosa overlying the antrum and the body revealed some diffuse erythema and moderate edema. Biopsies were obtained and sent to stain for H pylori. A serpiginous pyloric ulcer that extends into the pyloric channel was noted. There was no active bleeding. Biopsies were obtained. The scope was then advanced with ease into the duodenal bulb and then to the second portion of the duodenum. It was then withdrawn slowly. Mucosa overlying the proximal second portion and duodenal bulb appeared to be within normal limits. The scope was then withdrawn back into the stomach and retroflexed and mucosa overlying the fundus and cardia appeared to be within normal limits. The scope was then straightened out. It was subsequently withdrawn. The patient tolerated the procedure well. IMPRESSION: 1. Distal esophagitis. 2. Gastritis biopsied, biopsies sent to stain for H pylori. 3. Serpiginous peripyloric ulcer extending into the pyloric channel without active bleeding or stigmata of recent hemorrhage. Biopsies obtained. PLAN: Follow up histology. Continue Protonix 40 mg IV b.i.d. Initiate full liquid diet. Ziggy Taylor MD [facility] /[id number] cc: Quinn Sheppard MD
[2019-11-26] MEDS: SUCRALFATE 1 GM TAB PO SCH (20:54)
[2019-11-27] VITALS: BP 143/70
[2019-11-27] MEDS: CLINDAMYCIN 600MG / 50ML 50 ML IV SCH (02:00)
[2019-11-27 05:38] LABS: BASOPHILS # (AUTO) 0.1 (0.0-0.1); BASOPHILS % 0.6 % (0.0-1.0); EOSINOPHILS # (AUTO) 0.1 (0.0-0.4); EOSINOPHILS % 0.6 % (0.0-6.0); HEMATOCRIT 26.9 % (34.2-44.1); HEMOGLOBIN 8.1 g/dL (12.0-16.0); LYMPHOCYTES # (AUTO) 2.5 (1.0-3.2); LYMPHOCYTES % 26.3 % (18.0-39.1); MEAN CORPUSCULAR HEMOGLOBIN 27.6 pg (28-32); MEAN CORPUSCULAR HGB CONC 30.1 g/dL (31-35); MEAN CORPUSCULAR VOLUME 91.8 fL (81-99); MONOCYTES # (AUTO) 0.8 (0.2-0.8); MONOCYTES % 8.6 % (4.4-11.3); NEUTROPHILS # (AUTO) 5.8 (2.1-6.9); NEUTROPHILS % 62.3 % (38.7-80.0); PLATELET COUNT 378 x10e3/uL (140-360); RED BLOOD COUNT 2.93 x10e6/uL (3.6-5.1)
[2019-11-27] MEDS: LEVOTHYROXINE SODIUM 50 MCG TAB PO SCH (06:00)
[2019-11-27 06:04] LABS: ANION GAP 12.8 mmol/L (8-16); CALCIUM 9.3 mg/dL (8.4-10.2); CREATININE, SERUM 1.39 mg/dL (0.57-1.11); POTASSIUM 3.8 mmol/L (3.5-5.1)
--- NOTE | 2019-11-27 07:00 | NUR ---
Patient resting comfortably. Walking rounds done. Shift report given to oncoming nurse.
--- NOTE | 2019-11-27 07:00 | NUR ---
bedside report done. pt is alert resting in bed, no s/s of distress. call light within reach and instructed pt to call RN for help. sister is at the bedside
[2019-11-27 07:57] VITALS: BP 135/57
[2019-11-27 08:51] VITALS: BP 135/57
[2019-11-27] MEDS: DOCUSATE SODIUM 100 MG CAP PO SCH (09:00)
[2019-11-27] MEDS: SENNOSIDES 8.6 MG TAB PO SCH (09:00)
[2019-11-27] MEDS: ISOSORBIDE MONONITRATE 30 MG TAB CR PO SCH (09:10)
[2019-11-27] MEDS: DESVENLAFAXINE SUCCINATE 50 MG TAB.SR.24H PO SCH (09:11)
[2019-11-27] MEDS: METOPROLOL SUCCINATE 50 MG TAB XL PO SCH (09:11)
[2019-11-27] MEDS: SUCRALFATE 1 GM TAB PO SCH (09:11)
[2019-11-27] MEDS: HYDRALAZINE HCL 25 MG TAB PO SCH (09:11)
[2019-11-27] MEDS: PREDNISONE 5 MG TAB PO SCH (09:11)
[2019-11-27] MEDS: PANTOPRAZOLE 40 MG 10ML VIAL IV SCH (09:15)
[2019-11-27] MEDS: SODIUM FERRIC GLUCONATE COMPLX 125 MG in SODIUM CHLORIDE 0.9% 100 ML 100 ML IV SCH (09:57)
--- NOTE | 2019-11-27 11:00 | NUR ---
Dr. Galvez at the bedside. discussed with pt and sister the option of SNF vs inpatient rehab, pt refused. sister is concerned that the pt will not be compliant with activity at home. Dr. galvez spoke with the pt and both sisters of the patient and discussed that if the pt does not continue activity at home, the could give orders for the patient to be directly admitted to a facility for rehab.
[2019-11-27] MEDS ORDERED: DESVENLAFAXINE100 M2 PO (11:04)
[2019-11-27] MEDS ORDERED: ISOSORBIDE MONO30 MG PO (11:04)
[2019-11-27] MEDS ORDERED: METOPROLOL SUCC50 MG PO (11:04)
[2019-11-27] MEDS ORDERED: DOXYCYCLINE MO100 M1 PO (11:05)
[2019-11-27] MEDS ORDERED: SENNA LAX8.6 MG PO (11:06)
[2019-11-27] MEDS ORDERED: COLACE100 MG PO (11:07)
[2019-11-27] MEDS ORDERED: MUPIROCIN22 GM TOP (11:07)
[2019-11-27] MEDS ORDERED: FERROUS SULFAT325 MG PO (11:08)
[2019-11-27] MEDS ORDERED: HYDRALAZINE HCL25 MG PO (11:09)
[2019-11-27] MEDS ORDERED: SUCRALFATE1 GM PO (11:09)
[2019-11-27] MEDS ORDERED: PANTOPRAZOLE SO40 MG PO (11:09)
--- NOTE | 2019-11-27 11:31 | Discharge Summary ---
ADMIT DIAGNOSES: 1. Right forearm folliculitis with surrounding cellulitis. 2. Sdjcm-gx-cytlxjr diastolic heart failure. 3. Pnsmz-wx-kmkmlcd renal failure. 4. Extreme obesity, BMI of 48. 5. Depression. 6. Rheumatoid arthritis. 7. 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 8. Hypertensive heart disease. DISCHARGE DIAGNOSES: 1. Right forearm folliculitis with surrounding cellulitis, resolved. 2. Zdirz-yc-erenzri diastolic congestive heart failure, resolved. 3. Vccwp-xb-uhgyagi renal failure secondary to acute tubular necrosis, resolved. 4. Stage 3 chronic kidney disease. 5. Extreme obesity, BMI 48. 6. Major depressive disorder. 7. Rheumatoid arthritis. 8. Anemia secondary to chronic kidney disease, iron deficiency and chronic disease. 9. Endoscopically proven peripyloric ulcer. HOSPITAL COURSE: This is a 69-year-old -[place] woman, who was initially admitted to [facility] with diagnosis of right forearm folliculitis with surrounding cellulitis. Also, on admission, she was diagnosed with hrmpj-ol-whgyakr diastolic heart failure as well as adagb-hm-ydzfqci renal insufficiency. It was felt that her qwckp-rc-lkuvdjd renal insufficiency was secondary to acute tubular necrosis. The patient was seen by dietitian teacher during this hospitalization, namely Dr. Cas Jackson. The patient was also seen by Cardiology during this hospital stay, namely Dr. May Torres. The patient underwent echocardiogram during this hospitalization, which revealed a preserved left ventricular ejection fraction of 60 to 65% with diastolic filling pattern indicating impaired relaxation. On admission, the patient's BUN and creatinine got as high as 23 and 1.9 during this hospitalization. On the day of discharge, the patient's BUN and creatinine was 14 and 1.39. The patient underwent abdominal ultrasound during this hospitalization, which was unremarkable, where it did reveal gallbladder sludge. The patient subsequently underwent HIDA scan, which revealed a normal ejection fraction basically excluding chronic cholecystitis/biliary dyskinesia. The patient also underwent a CT of the abdomen and pelvis during this hospitalization, which was unremarkable. The patient was found to have iron-deficiency anemia. During this hospitalization, thus she was started on daily intravenous iron infusions in the form of ferric sodium gluconate complex, which she tolerated quite well. The patient was also found to have Hemoccult-positive stools, thus she was seen by Gastroenterology. The patient underwent EGD, which revealed a small prepyloric ulcer that did not reveal any evidence of active bleeding. The patient's hospitalization was unremarkable. During this hospitalization, she did receive daily physical therapy. Also, during this hospitalization, the patient was started on venlafaxine 50 mg a day for depression. The patient's condition on discharge was stable. DISCHARGE MEDICATIONS: 1. Furosemide 20 mg twice a day (08:00 a.m. and 02:00 p.m.). 2. Mupirocin 2% ointment to be applied each nostril twice a day for 7 days. 3. Colace 100 mg b.i.d. 4. Senokot 17.2 mg b.i.d. 5. Doxycycline 100 mg b.i.d. five days. 6. Metoprolol succinate 50 mg daily. 7. Isosorbide mononitrate 30 mg b.i.d. 8. Venlafaxine 100 mg daily. 9. [place] 10/325 one p.o. b.i.d. p.r.n. pain, 60 prescribed, no refills. 10. Prednisone 5 mg daily. 11. Hydralazine 25 mg b.i.d. 12. Protonix 40 mg b.i.d. 13. Carafate 1 g t.i.d. before meals for the next 6-8 weeks. 14. Iron sulfate 325 mg daily. 15. Clonazepam 1 mg at bedtime p.r.n. anxiety. 16. Levothyroxine 50 mcg daily. FOLLOWUP INSTRUCTIONS: The patient is instructed to follow up with her primary care physician namely myself, Dr. Quinn Sheppard within 1 week. I informed the patient and her adult sisters were present that if the patient does not significantly improve physically within the next 3 days, then I will likely admit her directly to a local alf facility or perhaps an [facility]. MD AAKASH MaeO/MODL /[id number] cc: MD May Ramirez MD [facility]
[2019-11-27 11:48] VITALS: BP 121/60
--- NOTE | 2019-11-27 12:08 | NUR ---
IMM LETTER EXPLAINED TO PT. PT VERBALIZED UNDERSTANDING. IMM LETTER SIGNED. COPY TO PT AND COPY TO CHART. Addendum: 11/27/19 at 1222 by Dori Guy CM PT STATES SHE HAS HOME HEALTH, BUT DOES NOT REMEMBER THE NAME OF THE AGENCY. STATES SHE HAS NURSING AND PHYSICAL THERAPY. PT DENIES SHE NEEDS ANYTHING AT THIS TIME. STATES HER AND 3 SISTERS ALL HELP OUT. PT HAD 2 SISTERS AT THE BEDSIDE. STATES THEY WILL PROVIDE TRANSPORTATION HOME.
[2019-11-27] MEDS ORDERED: ONDANSETRON HCL 4 MG ORAL DISINTEGRATING TAB PO PRN (12:15)
[2019-11-27] MEDS ORDERED: PANTOPRAZOLE SOD 40 MG TABEC PO SCH (16:30)
== END 2019-11-27 12:45 | disposition home or self-care (01) | DRG 606 ==
LOC: MED/SURG3 12:49
PROVIDERS: ADMIT Internal Medicine; ATTEND Internal Medicine
PROC: 0DB78ZX Excision of Stomach, Pylorus, Via Natural or Artificial Opening Endoscopic, Diagnostic (ICD-10-PCS; principal; 2019-11-26 14:00)
DX: L73.9 Follicular disorder, unspecified (principal); I50.33 Acute on chronic diastolic (congestive) heart failure; N17.0 Acute kidney failure with tubular necrosis; I13.0 Hypertensive heart and chronic kidney disease with heart failure and stage 1 through stage 4 chronic kidney disease, or unspecified chronic kidney disease; L03.113 Cellulitis of right upper limb; Z68.42 Body mass index [BMI] 45.0-49.9, adult; F32.2 Major depressive disorder, single episode, severe without psychotic features; F23 Brief psychotic disorder; M06.9 Rheumatoid arthritis, unspecified; N18.3 Chronic kidney disease, stage 3 (moderate); D63.1 Anemia in chronic kidney disease; E03.9 Hypothyroidism, unspecified; E66.01 Morbid (severe) obesity due to excess calories; D63.8 Anemia in other chronic diseases classified elsewhere; K25.9 Gastric ulcer, unspecified as acute or chronic, without hemorrhage or perforation; D50.9 Iron deficiency anemia, unspecified; K20.9 Esophagitis, unspecified; K29.70 Gastritis, unspecified, without bleeding; R53.82 Chronic fatigue, unspecified; I87.2 Venous insufficiency (chronic) (peripheral); G89.4 Chronic pain syndrome; G47.33 Obstructive sleep apnea (adult) (pediatric); G47.00 Insomnia, unspecified
CPT/HCPCS: 36415; 43239; 71045; 74176; 76700; 78227; 80048; 80053; 80061; 80202; 81001; 82150; 82270; 82607; 82728; 82747; 82948; 83540; 83605; 83690; 83880; 84443; 84466; 85025; 87040; 87086; 88305; 88312; 93306; 93307; 97139; 99251; A9537; J1940; J2405; J2916; J3010; J3370; J7050; J7512

== ENCOUNTER 2020-06-07 00:35 | Inpatient (IN) | payer MEDICARE, OTHER ==
[2020-06-07] VITALS (21 sets, daily range): BP systolic 84–139; BP diastolic 42–84
[~2020-06-07] VITALS: Ht 167.6 cm; Wt 121.3 kg
[~2020-06-07 00:35] MED LIST changes: +COLACE100 MG PO; +DESVENLAFAXINE100 M2 PO; +DOXYCYCLINE MO100 M1 PO; +FERROUS SULFAT325 MG PO; +HYDRALAZINE HCL25 MG PO; +ISOSORBIDE MONO30 MG PO; +METOPROLOL SUCC50 MG PO; +MUPIROCIN22 GM TOP; +PANTOPRAZOLE SO40 MG PO; +SENNA LAX8.6 MG PO; +SUCRALFATE1 GM PO
--- NOTE | 2020-06-07 00:39 | Emergency Department Note ---
History of Present Illnes History of Present Illness History of Present Illness This is a 69 year old female brought by EMS for evaluation of decreased mentation and lethargy. Per spouse patient was given her nightly dose of clonazepam and when he went to check on the patient , she was poorly responsive . Seen in ED upon arrival, patient with difficulty to arouse. . Arrival Mode: EMS Brick Tester Required: No Onset (how long ago): hour(s) Radiation: Reports non-radiation Severity: moderate Onset quality: gradual Duration (how long): hour(s) Timing of current episode: constant Progression: unchanged Chronicity: new Context: Reports recent illness Relieving factors: none Exacerbating factors: none Associated symptoms: Reports weakness; Denies fever/chills Treatments prior to arrival: none Past Medical/Family History Physician Review I have reviewed the patient's past medical and family history. Any updates have been documented here. Past Medical History Recent Fever: No Clinical Suspicion of Infectio: No New/Unexplained Change in Ment: Yes Past Medical History: Hypertension, CHF Other Medical History: RHEUMATOID ARTHRITIS OF 1 WEEK AGO PATIENT STOPPED SEEING PAIN DOCTOR. Past Surgical History: Hysterectomy, Knee Replacement Other Surgery: BACK SURGERY Social History Smoking Cessation: Never Smoker Alcohol Use: None Any Illegal Drug Use: No Other Last Tetanus: UTD Review of Systems ROS Narrative Unable to obtain ROS: altered mental status Review of Systems Constitutional: Reports weakness Physical Exam Related Data Allergies: Coded Allergies: morphine (Verified Allergy, Intermediate, SKIN RASH, 10/23/14) Uncoded Allergies: Morphine (Allergy, Unknown, 11/21/19) Triage Vital Signs Vital Signs Date Time Temp Pulse Resp B/P (MAP) Pulse Ox O2 Delivery O2 Flow Rate FiO2 06/07/20 00:35 97.9 95 16 83/61 100 Nasal Cannula 2.0 Vital signs reviewed: Yes Physical Exam CONSTITUTIONAL Constitutional: Present well-nourished, Present morbidly obese, Present ill appearing, Present other (lethargic) HENT HENT: Present normocephalic, Present atraumatic, Present oropharynx clear/moist, Present nose normal HENT L/R: Present left ext ear normal, Present right ext ear normal EYES Eyes: Reports PERRL, Reports conjunctivae normal NECK Neck: Present ROM normal PULMONARY Pulmonary: Present effort normal, Present breath sounds normal CARDIOVASCULAR Cardiovascular: Present LLE edema, Present RLE edema GASTROINTESTINAL Abdominal: Present soft, Present nontender, Present bowel sounds normal GENITOURINARY Genitourinary: Present exam deferred SKIN Skin: Present warm, Present dry MUSCULOSKELETAL Musculoskeletal: Present ROM normal NEUROLOGICAL Neurological: Absent alert, Absent oriented x 3 PSYCHOLOGICAL Psychological: Absent mood/affect normal Results Laboratory Lab results reviewed: Yes Laboratory comments Laboratory Tests Test 06/07/20 02:10 06/07/20 01:23 06/07/20 00:55 Lactic Acid Level 1.5 mmol/L (0.5-2.0) 2.3 mmol/L (0.5-2.0) Urine Color Yellow (YELLOW) Urine Clarity Sl cloudy (CLEAR) Urine pH 5.5 (5 - 7) Urine Specific Foss 1.020 (1.010-1.025) Urine Protein Negative (NEGATIVE) Urine Glucose (UA) Negative (NEGATIVE) Urine Ketones Trace (NEGATIVE) Urine Blood Negative (NEGATIVE) Urine Nitrite Negative (NEGATIVE) Urine Bilirubin Small (NEGATIVE) Urine Urobilinogen 1 mg/dL (0.2 - 1) Urine Leukocyte Esterase Negative (NEGATIVE) Urine RBC 6-10 /HPF (0-5) Urine WBC 6-10 /HPF (0-5) Urine Epithelial Cells Few /LPF (NONE) Urine Amorphous Sediment Moderate (FEW) Urine Bacteria Many /HPF (NONE) Urine Coarse Granular Casts 1-5 (0) Urine Waxy Casts 1-5 (0) White Blood Count 6.40 x10e3/uL (4.8-10.8) Red Blood Count 3.98 x10e6/uL (3.6-5.1) Hemoglobin 10.6 g/dL (12.0-16.0) Hematocrit 35.1 % (34.2-44.1) Mean Corpuscular Volume 88.2 fL (81-99) Mean Corpuscular Hemoglobin 26.6 pg (28-32) Mean Corpuscular Hemoglobin Concent 30.2 g/dL (31-35) Red Cell Distribution Width 15.3 % (11.7-14.4) Platelet Count 378 x10e3/uL (140-360) Neutrophils (%) (Auto) 31.7 % (38.7-80.0) Lymphocytes (%) (Auto) 51.7 % (18.0-39.1) Monocytes (%) (Auto) 10.8 % (4.4-11.3) Eosinophils (%) (Auto) 4.5 % (0.0-6.0) Basophils (%) (Auto) 0.5 % (0.0-1.0) Neutrophils # (Auto) 2.0 (2.1-6.9) Lymphocytes # (Auto) 3.3 (1.0-3.2) Monocytes # (Auto) 0.7 (0.2-0.8) Eosinophils # (Auto) 0.3 (0.0-0.4) Basophils # (Auto) 0.0 (0.0-0.1) Absolute Immature Granulocyte (auto 0.05 x10e3/uL (0-0.1) Prothrombin Time 14.0 seconds (11.9-14.5) Prothromb Time International Ratio 1.03 Sodium Level 142 mmol/L (136-145) Potassium Level 3.0 mmol/L (3.5-5.1) Chloride Level 97 mmol/L (98-107) Carbon Dioxide Level 26 mmol/L (22-29) Anion Gap 22.0 mmol/L (8-16) Blood Urea Nitrogen 15 mg/dL (7-26) Creatinine 3.35 mg/dL (0.57-1.11) Estimat Glomerular Filtration Rate 16 ML/MIN (60-) BUN/Creatinine Ratio 4 (6-25) Glucose Level 107 mg/dL (74-118) Calcium Level 8.8 mg/dL (8.4-10.2) Total Bilirubin 0.3 mg/dL (0.2-1.2) Aspartate Amino Transf (AST/SGOT) 13 IU/L (5-34) Alanine Aminotransferase (ALT/SGPT) < 6 IU/L (0-55) Alkaline Phosphatase 74 IU/L (40-150) Creatine Kinase 40 IU/L (29-168) Creatine Kinase MB 0.50 ng/mL (0-5.0) Troponin I 0.001 ng/mL (0-0.300) B-Type Natriuretic Peptide < 10.0 pg/mL (0-100) Total Protein 6.9 g/dL (6.5-8.1) Albumin 3.6 g/dL (3.5-5.0) Globulin 3.3 g/dL (2.3-3.5) Albumin/Globulin Ratio 1.1 (0.8-2.0) Imaging Imaging results reviewed: Yes Impressions [place] [address] Patient Name: GILLES LIZAMA MR #: [id number] : 1950 Age/Sex: 69/F Req #: [id number] Adm Physician: Ordered by: RAMON ASCENCIO DO Report #: [id number] Location: ER Room/Bed: Procedure: [id number] DX/CHEST SINGLE (PORTABLE) Exam Date: Exam Time: REPORT STATUS: Signed EXAMINATION: CHEST SINGLE (PORTABLE) INDICATION: lethargy COMPARISON: Chest x-ray 11/21/2019 FINDINGS: TUBES and LINES: None. LUNGS: Normal lung volumes. Lungs are clear. No consolidations. PLEURA: No pleural effusion or pneumothorax. HEART AND MEDIASTINUM: The cardiomediastinal silhouette is unremarkable. Aortic calcifications. BONES AND SOFT TISSUES: No acute osseous lesion. Soft tissues are unremarkable. UPPER ABDOMEN: No free air under the diaphragm. IMPRESSION: Left basilar scarring/atelectasis. Signed by: Elroy Mederos DO on 06/07/2020 2:00 AM Dictated By: ELROY MEDEROS DO 9 Transcribed By: JOSE ALBERTO on 06/07/20199 COPY TO: RAMON ASCENCIO DO~ [place] [address] Patient Name: GILLES LIZAMA MR #: [id number] : 1950 Age/Sex: 69/F Req #: [id number] Adm Physician: Ordered by: RAMON ASCENCIO DO Report #: [id number] Location: ER Room/Bed: Procedure: [id number] CT/CT BRAIN WO Exam Date: Exam Time: REPORT STATUS: Signed History: lethargy Comparison studies: None Technique: Axial images were obtained from the skull base to the vertex. Coronal and sagittal images reconstructed from the axial data. Dose modulation, iterative reconstruction, and/or weight based adjustment of the mA/kV was utilized to reduce the radiation dose to as low as reasonably achievable. Intravenous contrast: None Findings: Scalp/skull: No abnormalities. Extra-axial spaces: No masses. No fluid collections. Brain sulci: Appropriate for age Ventricles: Normal in size and configuration. No hydrocephalus. Parenchyma: No abnormal densities No masses, hemorrhage, acute or chronic cortical vascular insults. Sellar/suprasellar region: No abnormalities. Craniocervical junction: Patent foramen magnum. No Chiari one malformation. Incidental findings: Subtle calcifications in the carotid siphons . Impression: No intracranial abnormalities. Signed by: Dr. Benigno Santo M.D. on 06/07/2020 1:54 AM Dictated By: BENIGNO SANTO MD, MD 3 Transcribed By: JOSE ALBERTO on 06/07/20153 COPY TO: RAMON ASCENCIO DO~ Procedures 12 Lead ECG Interpretation ECG Interpretation : ECG: ECG 1 Brick Tester: Interpreted by ED physician Date: Jun 07, 2020 Time: 00:46 Prior ECG tracings: reviewed Rhythm: sinus rhythm Rate: normal BPM: 95 ST segments normal: Yes T waves normal: No T waves flattening: II, III, V1-V6 Other findings: prolonged QTc interval Q waves: V1, V2 Clinical Impression: normal ECG Critical Care Time Total Critical Care Time (min): 31 Critcal care necessary due to: BRAIDER OPERATOR failure or compromise, shock Critcal care time spent by me: discussion w primary provider, evaluation patient response to tx, examination of patient, obtaining hx from patient/surrogate, order/perform tx or interventions, order/review laboratory studies, order/review radiographic studies, re-evaluation of patient condition, review of old charts Assessment & Plan Medical Decision Making MDM Diff Dx : CVA, Sepsis, PNA, UTI, COVID-19 infection, hypovolumia, Assessment & Plan Final Impression: (1) UTI (urinary tract infection) (2) Severe sepsis (3) Renal failure (ARF), acute on chronic Depart Disposition: ADMITTED Home Meds Reported Medications Quetiapine Fumarate (QUETIAPINE FUMARATE) 100 Mg Tablet, 200 MG PO HS, #30 TAB 06/07/20 Lisinopril (LISINOPRIL) 10 Mg Tablet, 40 MG PO BID, #60 TAB 06/07/20 Levocetirizine Dihydrochloride (LEVOCETIRIZINE DIHYDROCHLORIDE) 5 Mg Tablet, 1 TAB PO HS 06/07/20 Gabapentin (GABAPENTIN) 300 Mg Capsule, 300 MG PO TID, #60 CAP 06/07/20 Hydralazine Hcl (HYDRALAZINE HCL) 25 Mg Tab, 25 MG PO BID, TAB 11/27/19 Pantoprazole Sodium* (PROTONIX) 40 Mg Tablet.dr, 40 MG PO BID, TAB 11/27/19 Sucralfate (SUCRALFATE) 1 Gm Tablet, 1 GM PO TIDWM, TAB 11/27/19 Ferrous Sulfate (FERROUS SULFATE) 325 Mg Tablet, 325 MG PO DAILY 11/27/19 Docusate Sodium (COLACE) 100 Mg Cap, 100 MG PO BID, #30 CAP 11/27/19 Mupirocin (MUPIROCIN) 22 Gm Oint...g., 22 GM TOP BID for apply to each nostril, EACH 11/27/19 Sennosides (SENNA LAX) 8.6 Mg Tablet, 17.2 MG PO BID 11/27/19 Doxycycline Monohydrate (DOXYCYCLINE MONOHYDRATE) 100 Mg Tablet, 100 MG PO BID, #10 11/27/19 Metoprolol Succinate (METOPROLOL SUCCINATE) 50 Mg Tab.er.24h, 50 MG PO DAILY, MG 11/27/19 Isosorbide Mononitrate (ISOSORBIDE MONONITRATE ER) 30 Mg Tab.er.24h, 30 MG PO BID, #30 TAB 11/27/19 Desvenlafaxine (Desvenlafaxine ER) 100 Mg Tab.er.24, 100 MG PO DAILY 11/27/19 Furosemide (FUROSEMIDE) 40 Mg Tablet, 20 MG PO BID, #30 TAB 06/21/16 Prednisone (PREDNISONE) 5 Mg Tablet, 5 MG PO DAILY 06/21/16 Levothyroxine Sodium (LEVOTHYROXINE SODIUM) 50 Mcg Tablet, 50 MCG PO DAILY, #30 TAB 06/21/16 Clonazepam (CLONAZEPAM) 1 Mg Tablet, 1 MG PO DAILY, TAB 10/23/14 Hydrocodone Bit/Acetaminophen (HYDROCODON-ACETAMINOPHN 10-325) 1 Each Tablet, MG PO BID PRN for PRN 10/23/14 Medications in the ED Sodium Chloride 1,000 ml @ 0 mls/hr Q0M STAT IV Last administered on 06/07/20at 00:56; Admin Dose 999 MLS/HR; Start 06/07/20 at 00:41; Stop 06/07/20 at 00:43; Status DC Piperacillin Sod/ Tazobactam Sod 50 ml @ 50 mls/hr Q6H IV ; Start 06/07/20 at 01:30; Stop 06/14/20 at 01:29; Status UNV Piperacillin Sod/ Tazobactam Sod 50 ml @ 50 mls/hr ONCE ONCE IV Last administered on 06/07/20at 02:23; Admin Dose 50 MLS/HR; Start 06/07/20 at 01:30; Stop 06/07/20 at 02:29; Status DC RAMON ASCENCIO DO Jun 07, 2020 00:39
[2020-06-07] MEDS ORDERED: SODIUM CHLORIDE 0.9% 1000ML 1,000 ML IV STA ×2 (00:41→02:14)
--- OUTSIDE RECORDS SUMMARY | 2020-06-07 00:49 | XMS REPORT | Clinical Summary ---
Author Author [facility] Address Unknown Phone Unavailable Care Team Providers Care Wheel Roller Name Role Phone Quinn Sheppard MD PCP Allergies Comments Active Allergy Reactions Severity Noted Date Morphine Medications End Date Status Medication Sig Dispensed Refills Start Date Active PROAIR HFA 90 Inhale 1 puff 0 01/07/ mcg/actuation inhaler every 6 (six) 9 hours as needed. Active benzonatate (TESSALON) Take 100 mg 0 01/07/ 01 100 MG capsule by mouth 2 9 (two) times a day as needed. Active carvedilol (COREG) 25 MG Take 25 mg by 0 11/12 / tablet mouth. 9 Active DULoxetine (CYMBALTA) 30 Take 30 mg by 0 01/17 /201 MG capsule mouth 2 (two) 9 times a day. Active fluticasone propionate 2 sprays by 0 12/10/ 01 (FLONASE) 50 Each Nare 9 mcg/actuation nasal spray route daily. Active furosemide (LASIX) 40 mg Take 40 mg by 0 12/10 / tablet mouth daily. 9 Active gabapentin (NEURONTIN) Take 600 mg 0 12/10/ 01 600 mg tablet by mouth 2 9 (two) times a day. Active hydrALAZINE (APRESOLINE) Take 25 mg by 0 01/23 / 25 MG tablet mouth 3 9 (three) times a day. Active HYDROcodone-acetaminophen Take 1 tablet 0 /2 (NORCO) 10-325 mg per by mouth 9 tablet every 8 (eight) hours as needed. Active isosorbide mononitrate Take 30 mg by 0 01/17/2 01 (IMDUR) 30 MG 24 hr mouth 2 (two) 9 tablet times a day. Active SYNTHROID 50 mcg tablet Take 50 mcg 0 by mouth 9 every morning. Active lisinopril Take 40 mg by 0 (PRINIVIL,ZESTRIL) 40 mg mouth 2 (two) 9 tablet times a day. Active omeprazole (PriLOSEC) 40 Take 40 mg by 0 01/17 MG capsule mouth daily. 9 Active predniSONE (DELTASONE) Take 7.5 mg 0 2.5 mg tablet by mouth every morning. rheumatoid arthritis Active QUEtiapine (SEROquel) 100 Take 200 mg 0 MG tablet by mouth nightly. Active Problems Not on file Encounters Care Team Description Date Type Specialty Aretha Davis MA 03/31/2020 Telephone Oncology Aretha Davis MA 03/31/2020 Telephone Oncology 02/26/2020 Travel after 06/07/2019 Social History Date Tobacco Use Types Packs/Day Years Used Never Smoker Smokeless Tobacco: Never Used Drinks/Week oz/Week Comments Alcohol Use No Alcohol Habits Answer Date Recorded How often do you have a drink containing alcohol? Never 01/26/2019 How many drinks containing alcohol do you have on No t asked a typical day when you are drinking? How often do you have six or more drinks on one Not asked occasion? Sex Assigned at Date Recorded Not on file Industry Job Start Date Occupation Not on file Not on file Not on file Travel End Travel History Travel Start No recent travel history available. Last Filed Vital Signs Not on file Plan of Treatment Health Maintenance Due Date Last Done Comments COLONOSCOPY SCREENING 1999 SHINGLES VACCINES (#1) 1999 65+ PNEUMOCOCCAL VACCINE 2014 (1 of 2 - PCV13) BREAST CANCER SCREENING 02/06/2020 02/05/2018, 02/01/2016 INFLUENZA VACCINE 06/25/2020 Results Not on fileafter 06/07/2019 Insurance Type Payer Benefit Subscriber ID Effective Phone Address Plan / Dates Group Medicare MEDICARE MEDICARE xxxxxxxxxxx 2000- DAILY, PART A AND Present [place] Indemnity AETNA AETNA xxxxxxxxxx [id number] [employer] INDEMNITY [id number] Advance Directives For more information, please contact: [phone] 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
--- OUTSIDE RECORDS SUMMARY | 2020-06-07 00:50 | XMS REPORT | Continuity of Care Document ---
Author Author [employer] Address Unknown Phone Unavailable Care Team Providers Care Control Room Helper Name Role Phone [employer] Unavailable Un available Problems Problem Status Onset Date Classification Date Reported Comments Source Obstructive sleep apnea (adult) (pediatric) 09/11/2018 03/25/2019 [facility] Dyspnea, unspecified 08/29/2018 03/13/2019 [facility] SPLIT - 11706 Active 08/23/2018 [facility] R06.00 Active 08/21/2018 [facility] MORBID OBESITY Active 08/17/2015 [facility] 278.01 EXTREME OBESITY / 401.1 BENIGN ES Active 05/14/2015 [facility] 786.50 Active 03/02/2015 [facility] 780.2 Active 04/30/2013 [place] 780.2 - SYNCOPE AND COL Active 04/25/2013 [facility] ORAL ULCERS, DEHYDRATION, ACUTE RENAL FA Active 12/24/2012 [facility] SORE THROAT Active 12/24/2012 [facility] 338 - PAIN NEC Active 01/11/2012 [facility] Arthritis Resolved Problem 05/05/2013 [facility] [place] HTN Resolved Problem 05/05/2013 [facility] [place] HTN (hypertension) Resolved Problem 05/05/2013 [facility] [place],[facility] t Hypertension Resolved Problem 05/05/2013 [facility] [place] Insomnia Resolved Problem 05/05/2013 [facility] [place] Lethargic Active Problem 05/05/2013 [facility] [place] Pain Active Problem 05/05/2013 [facility] [place] Thyroid Resolved Problem 05/05/2013 [facility] [place] Arthritis (disorder) Resolved Problem 03/25/2019 [facility] Essential hypertension (disorder) Resolved Problem 09/2018 [facility] Hypertensive disorder, systemic arterial (disorder) Resolved Problem 03/25/2019 [facility] Insomnia (disorder) Resolved Problem 03/25/2019 [facility] Lethargy (finding) Active Problem 03/25/2019 [facility] Pain (finding) Active Problem 03/25/2019 [facility] Thyroid structure (body structure) Resolved Problem [facility] DEHYDRATION Active [facility] SYNCOPE AND COLLAPSE Active [facility] CHEST PAIN NOS Active [facility] OBSTRUCTIVE SLEEP APNEA (ADULT) (PEDIATR Active [facility] DYSPNEA, UNSPECIFIED Active [facility] Medications Medication Details Route Status Patient Instructions Ordering Provider Order Date Source Omnipaque 350 injectable solution Notes: (same as:Omnipaque 350). WASTE: F/P - Black; E - [facility] Active 08/23/2018 [facility] Clonidine Hydrochloride 0.2 MG Oral Tablet Notes: (Same As: Catapres) Inactive 03/03/2015 [facility] Acetaminophen Notes: Do not ex ceed 4 gm/day. (Same as: Tylenol) No Longer Active 03/03/2015 [facility] Benadryl 50 mg, 2 tab, Route: PO, Drug form: TAB, ONCE, Dosing Weight 129.091, kg, Priority: NOW, Start date: 03/03/15 8:03:00, Stop date: 03/03/15 8:03:00 Inactiv e 03/03/2015 [facility] gabapentin 600 MG Oral Tablet 600 mg = 1 tab, PO, TID, # 270 tab, 0 Refill(s) Active 03/03/2015 [facility] Furosemide 40 MG Oral Tablet 4 0 mg = 1 tab, PO, Daily, # 30 tab, 0 Refill(s) Active 03/03/2015 [facility] Folic Acid 1 MG Oral Tablet 1 mg = 1 tab, PO, Daily, # 30 tab, 0 Refill(s) Active 03/03/2015 [facility] Acetaminophen 325 MG / Hydrocodone Sharda trate 10 MG Oral Tablet 1 tab, PO, Q6H, PRN Pain, # 20 tab, 0 Refill(s) Active 03/03/2015 [facility] quetiapine 200 MG Oral Tablet [Seroquel] 200 mg = 1 tab, PO, Bedtime, # 180 tab, 0 Refill(s) Active 03/03/2015 [facility] cyclobenzaprine 10 mg oral tablet 10 mg = 1 tab, PO, Bedtime, # 30 tab, 0 Refill(s) Active 03/03/2015 [facility] Clonidine Hydrochloride 0.3 MG Oral Tablet 0.3 mg = 1 tab, PO, BID, # 60 tab, 1 Refill(s) Active 03/03/2015 [facility] predniSONE 2.5 mg oral tablet 5 mg = 2 tab, PO, Daily, # 7 tab, 0 Refill(s) Active 03/03/2015 [facility] omeprazole 40 mg oral delayed release capsule 40 mg = 1 cap, PO, Daily, # 30 cap, 0 Refill(s) Active 03/03/2015 [facility] lisinopril 40 mg oral tablet 4 0 mg = 1 tab, PO, Daily, # 30 tab, 0 Refill(s) Active 03/03/2015 [facility] levothyroxine 50 mcg (0.05 mg) oral tablet 50 microgram = 1 tab, PO, Daily, # 30 tab, 0 Refill(s) Active 03/03/2015 [facility] clonazePAM 1 mg oral tablet 1 mg = 1 tab, PO, Bedtime, # 270 tab, 0 Refill(s) Active 03/03/2015 [facility] folic acid 1 mg oral tablet 5 mg, 5 tab, Route: PO, Drug form: TAB, Daily, Start date: 12/28/12 9:00:00, Duration: 30 day, Stop date: 01/26/13 9:00:00 PO No Longer Active Chemo 12/28/2012 [facility] sodium chloride 38.5 mEq + sodium bicarb luis 50 mEq + sterile water 1,000 mL 1,000 mL, 100 ml/hr, Route: IV, Drug For m: INJ, Dosing Weight 126.818, kg, Start date: 12/27/12 13:33:00, Duration: 1 doses or times, Stop date: 12/28/12 0:08:00 IV No Longer Active Michelle 12/27/2012 [facility] magnesium sulfate 50 mL, Rate: 50 ml/hr, Infuse over: 1 hr, Route: IVPB, Total Volume: 50, Start date: 12/27/12 13:32:00, Stop date: 12/27/12 13:32:00 IVPB No Longer Active Michelle 12/27/2012 [facility] potassium phosphate-sodium phosphate 250 mg-278 mg-164 mg oral powder 1 pkt, Route: PO, Drug Form: PDR/REC, ON CE, Start date: 12/27/12 13:32:00, Stop date: 12/27/12 13:32:00 PO No Longer Active Michelle 12/27/2012 [facility] acetaminophen-hydrocodone 325 mg-5 mg oral tablet 1 tab, Route: PO, Drug Form: TAB, Q4H, PRN Headache, Start date: 12/27/12 10:54:00, Duration: 30 day, Stop date: 01/26/13 10:53:00 PO No Longer Active Michelle 12/27/2012 [facility] folic acid 1 mg oral tablet 2 mg, 2 tab, Route: PO, Drug form: TAB, Daily, Start date: 12/27/12 9:00:00, Duration: 30 day, Stop date: 01/25/13 9:00:00 PO No Longer Active Michelle 12/27/2012 [facility] Sodium Chloride 0.9% IV 250 mL , Route: IVPB, Start date: 12/26/12 19:45:00, Duration: 30 day, Stop date: 01/25/13 19:44:00, PRN Line Flush IVPB No Longer Active Michelle 12/27/2012 [facility] BD Normal Saline Flush 10 mL, Route: IVP, Drug Form: INJ, PRN, PRN Line Flush, Start date: 12/26/12 19:45:00, Duration: 30 day, Stop date: 01/25/13 19:44:00 IVP No Longer Active Michelle 12/27/2012 [facility] magic mouth wash 15 mL, Route: S&SWALLOW, Drug Form: SUSP, Q4H, PRN See Nurse's Notes, Start date: 12/26/12 19:44:00, Stop date: 01/25/13 19:43:00 S&SWALLOW No Longer Active Michelle 12/27/2012 [facility] sodium bicarbonate 50 mEq + Sodium Chlor fab 0.45% IV 1,000 mL 1,000 mL, Rate: 100 ml/hr, Infuse over: 10.5 hr, Route: IV, kg, Total Volume: 1,050, Start date: 12/26/12 19:43:00, Duration: 30 day, Stop date: 01/25/13 19:42:00 IV No Longer Active Michelle 12/27/2012 [facility] SoluCortef 50 mg, 1 mL, Route: IV, Drug form: PDR/INJ, Q6H, Start date: 12/26/12 18:00:00, Duration: 30 day, Stop date: 01/25/13 12:00:00 IV No Longer Active Michelle 12/26/2012 [facility] SoluCortef 100 mg, 2 mL, Route : IV, Drug form: PDR/INJ, Q6H, Start date: 12/25/12 18:00:00, Duration: 4 doses or times, Stop date: 12/26/12 12:00:00 IV No Longer Active Michelle 12/25/2012 [facility] Sodium Chloride 0.9% IV 1,000 mL 1,000 mL, Rate: 125 ml/hr, Infuse over: 8 hr, Route: IV, kg, Total Volume: 1,000, Start date: 12/25/12 18:00:00, Duration: 30 day, Stop date: 01/24/13 17:59:00 IV No Longer Active Michelle 12/25/2012 [facility] lidocaine topical 10 mL, Route : S&SPIT, Drug form: SOLN, QID, Start date: 12/25/12 17:00:00, Duration: 30 day, Stop date: 01/24/13 13:00:00 S&SPIT No Longer Active [facility] 12/25/2012 [facility] Sodium Chloride 0.9% IV 1,000 mL 1,000 mL, Rate: 250 ml/hr, Infuse over: 4 hr, Route: IV, kg, Total Volume: 1,000, Start date: 12/25/12 15:54:00, Duration: 2 hr, Stop date: 12/25/12 17:53:00 IV No Longer Active Michelle 12/25/2012 [facility] Sodium Chloride 0.9% IV 500 mL 500 mL, Rate: bolus, Route: IV, kg, Total Volume: 500, Start date: 12/25/12 12:11:00, Stop date: 12/25/12 13:00:00 IV No Longer Active Michelle 12/25/2012 [facility] Cepastat 2 lozenge, Route: MUC OUS MEM, QID, Drug form: HA, Start date: 12/25/12 9:00:00, Duration: 30 day, Stop date: 01/23/13 21:00:00 MUCOUS MEM No Longer Active Michelle 12/25/2012 [facility] folic acid 1 mg oral tablet 1 mg, 1 tab, Route: PO, Drug form: TAB, Daily, Start date: 12/25/12 9:00:00, Duration: 30 day, Stop date: 01/23/13 9:00:00 PO No Longer Active [facility] 12/25/2012 [facility] atenolol 25 mg oral tablet 25 mg, 1 tab, Route: PO, Drug form: TAB, Daily, Start date: 12/25/12 9:00:00, Duration: 30 day, Stop date: 01/23/13 9:00:00 PO No Longer Active [facility] 12/25/2012 [facility] Levothroid 50 microgram, 1 tab , Route: PO, Drug form: TAB, Q630AM, Start date: 12/25/12 6:30:00, Duration: 30 day, Stop date: 01/23/13 6:30:00 PO No Longer Active Michelle 12/25/2012 [facility] vancomycin 1 gm, 200 mL, Route : IVPB, Drug form: INJ, ONCE, Start date: 12/25/12 6:15:00, Stop date: 12/25/12 6:15:00 IVPB No Longer Active Mcihelle 12/25/2012 [facility] Maxipime + Sodium Chloride 0.9% IV 100 mL 1 gm, Route: IVPB, [id number], Start date: 12/25/12 6:00:00, Duration: 30 day, Stop date: 01/23/13 18:00:00 IVPB No Longer Active Michelle 12/25/2012 [facility] Sodium Chloride 0.9% IV 500 mL 500 mL, Rate: BOLUS, Route: IV, kg, Total Volume: 500, Start date: 12/25/12 5:59:00, Duration: 2 hr, Stop date: 12/25/12 7:58:00 IV No Longer Active Michelle 12/25/2012 [facility] Sodium Chloride 0.9% IV 250 mL 250 mL, Rate: BOLUS, REPEAT X1 IF SBP<100, Route: IV, kg, Total Volume: 250, Start date: 12/25/12 2:31:00, Duration: 4 hr, Stop date: 12/25/12 6:30:00 IV No Longer Active Michelle 12/25/2012 [facility] Klonopin 2 mg, 1 tab, Route: P O, Drug form: TAB, Bedtime, Start date: 12/24/12 21:35:00, Duration: 30 day, Stop date: 01/23/13 21:00:00 PO No Longer Active Michelle 12/25/2012 [facility] Seroquel 200 mg, 1 tab, Route: PO, Drug form: TAB, Bedtime, Start date: 12/24/12 21:34:00, Duration: 30 day, Stop date: 01/23/13 21:00:00 PO No Longer Active Michelle 12/25/2012 [facility] Tylenol 650 mg, 2 tab, Route: PO, Drug form: TAB, Q4H, PRN Pain, Start date: 12/24/12 21:33:00, Duration: 30 day, Stop date: 01/23/13 21:32:00 PO No Longer Active Michelle 12/25/2012 [facility] Milk of Magnesia 30 mL, Route: PO, Drug Form: SUSP, Daily, PRN Constipation, Start date: 12/24/12 21:33:00, Duration: 30 day, Stop date: 01/23/13 21:32:00 PO No Longer Active Michelle 12/25/2012 [facility] Zofran 4 mg, 2 mL, Route: IVP, Drug form: INJ, Q4H, PRN Nausea, Start date: 12/24/12 19:44:00, Duration: 30 day, Stop date: 01/23/13 19:43:00 IVP No Longer Active [facility] 12/25/2012 [facility] lidocaine topical 10 mL, Route : S&SPIT, Drug form: SOLN, Q4H, PRN Pain, Start date: 12/24/12 19:44:00, Duration: 30 day, Stop date: 01/23/13 19:43:00 S&SPIT No Longer Active [facility] 12/25/2012 [facility] Dextrose 5% with 0.45% NaCl IV 1,000 mL 1,000 mL, Rate: 125 ml/hr, Infuse over: 8 hr, Route: IV, kg, Total Volume: 1,000, Start date: 12/24/12 19:43:00, Duration: 30 day, Stop date: 01/23/13 19:42:00 IV No Longer Active [facility] 12/25/2012 [facility] D5W 1/2NS 1,000 mL 1,000 mL, R ate: 125 ml/hr, Infuse over: 8 hr, Route: IV, kg, Total Volume: 1,000, Priority: STAT, Start date: 12/24/12 18:22:00, Duration: 1 doses or times, Stop date: 12/25/12 2:21:00 IV No Longer Active [facility] Lidocaine Viscous 2% mucous membrane solution 10 mL, Route: S&SPIT, ONCE, Drug form: SOLN, Start date: 12/24/12 18:22:00, Stop date: 12/24/12 18:22:00 S&SPIT No Longer Active [facility] 12/24/2012 [facility] Sodium Chloride 0.9% (Bolus) IV 500 mL 500 mL, Rate: 500 ml/hr, Infuse over: 1 hr, Route: IV, kg, Total Volume: 500, Priority: STAT, Start date: 12/24/12 16:51:00, Duration: 1 doses or times, Stop date: 12/24/12 17:50:00, Bolus DoseBolus Dose IV No Longer Active [facility] 12/24/2012 [facility] Saline Flush 0.9% 5 mL, Route: IVP, Drug Form: INJ, Dosing Weight 120, kg, PRN, PRN Line Flush, Start date: 12/24/12 16:41:00, Duration: 24 hr, Stop date: 12/25/12 16:40:00 IVP No Longer Active [facility] 12/24/2012 [facility] Allergies, Adverse Reactions, Alerts Substance Category Reaction Severity Reaction type Status Date Reported Comments Source Morphine Sulfate SR Assertion Propensity to adverse reacti ons to substance Active [facility] Immunizations No Data Provided for This Section Results Order Name Results Value Reference Range Date Interpretation Comments Source CHEM PANEL POC Creatinine 1.2 0.5 - 1.4 08/23/2018 [facility] CHEM PANEL eGFR 54 08/23/2018 Result Comment: The eGFR is calculated using the CKD-EPI formula. In most young, healthy individuals the eGFR will be >90 mL/min/1.73m2. The eGFR declines with age. An eGFR of 60-89 may be normal in some populations, particularly the elderly, for whom the CKD-EPI formula has not been extensively validated. Use of the eGFR is not recommended in the following populations:

Individuals with unstable creatinine concentrations, including patients and those with serious co-morbid conditions.

Patients with extremes in muscle mass or diet.

The data above are obtained from the National Kidney Disease Education Program (NKDEP) which additionally recommends that when the eGFR is used in patients with extremes of body mass index for purposes of drug dosing, the eGFR should be multiplied by the estimated BMI. [facility] CHEM PANEL eGFR 55 03/03/2015 <sup>1</sup>Result Comment: The eGFR is calculated using the CKD-EPI formula. In most young, healthy individuals the eGFR will be >90 mL/min/1.73m2. The eGFR declines with age. An eGFR of 60-89 may be normal in some populations, particularly the elderly, for whom the CKD-EPI formula has not been extensively validated. Use of the eGFR is not recommended in the following populations:& lt;br/>
Individuals with unstable creatinine concentrations, including patients and those with serious co-morbid conditions.

Patients with extremes in muscle mass or diet.

The data above are obtained from the National Kidney Disease Education Program (NKDEP) which additionally recommends that when the eGFR is used in patients with extremes of body mass index for purposes of drug dosing, the eGFR should be multiplied by the estimated BMI. [facility] CHEM PANEL Calcium Lvl 8.5 8.5 - 10.5 03/03/2015 [facility] CHEM PANEL CO2 32 24 - 32 03/03/2015 [facility] CHEM PANEL BUN 18 7 - 22 03/03/2015 [facility] CHEM PANEL Chloride Lvl 105 95 - 109 03/03/2015 [facility] CHEM PANEL Potassium Lvl 3.2 3.5 - 5.1 03/03/2015 [facility] CHEM PANEL Sodium Lvl 142 135 - 145 03/03/2015 [facility] CHEM PANEL Creatinine Lvl 1.2 0.5 - 1.4 03/03/2015 [facility] CHEM PANEL Glucose Lvl 123 70 - 99 03/03/2015 <sup>2</sup>Interpretive Data: Adult ref erence range values reflect the clinical guidelines
of the [place] [employer]. [facility] CHEM PANEL AGAP 8.2 10.0 - 20.0 03/03/2015 [facility] HEMATOLOGY Hgb 10.3 12.0 - 16.0 03/03/2015 [facility] CHEM PANEL Globulin 4.4 2.0 - 4.0 02/24/2015 [facility] CHEM PANEL A/G Ratio 0.8 0.7 - 1.6 02/24/2015 [facility] CHEM PANEL Bili Total 0.2 0.2 - 1.3 02/24/2015 [facility] CHEM PANEL Alk Phos 84 39 - 136 02/24/2015 [facility] CHEM PANEL AST 12 0 - 37 02/24/2015 [facility] CHEM PANEL BUN 19 7 - 22 02/24/2015 [facility] CHEM PANEL ALT 19 0 - 65 02/24/2015 [facility] CHEM PANEL Total Protein 7.9 6.4 - 8.4 02/24/2015 [facility] CHEM PANEL B/C Ratio 15 6 - 25 02/24/2015 [facility] CHEM PANEL eGFR 50 02/24/2015 <sup>1</sup>Result Comment: The eGFR is calculated using the CKD-EPI formula. In most young, healthy individuals the eGFR will be >90 mL/min/1.73m2. The eGFR declines with age. An eGFR of 60-89 may be normal in some populations, particularly the elderly, for whom the CKD-EPI formula has not been extensively validated. Use of the eGFR is not recommended in the following populations:& lt;br/>
Individuals with unstable creatinine concentrations, including patients and those with serious co-morbid conditions.

Patients with extremes in muscle mass or diet.

The data above are obtained from the National Kidney Disease Education Program (NKDEP) which additionally recommends that when the eGFR is used in patients with extremes of body mass index for purposes of drug dosing, the eGFR should be multiplied by the estimated BMI. [facility] CHEM PANEL Albumin Lvl 3.5 3.5 - 5.0 02/24/2015 [facility] CHEM PANEL AGAP 6.6 10.0 - 20.0 02/24/2015 [facility] CHEM PANEL Potassium Lvl 4.6 3.5 - 5.1 02/24/2015 [facility] CHEM PANEL Sodium Lvl 139 135 - 145 02/24/2015 [facility] CHEM PANEL Chloride Lvl 103 95 - 109 02/24/2015 [facility] CHEM PANEL Calcium Lvl 9.1 8.5 - 10.5 02/24/2015 [facility] CHEM PANEL CO2 34 24 - 32 02/24/2015 [facility] CHEM PANEL Creatinine Lvl 1.3 0.5 - 1.4 02/24/2015 [facility] CHEM PANEL Glucose Lvl 99 70 - 99 02/24/2015 <sup>2</sup>Interpretive Data: Adult ref erence range values reflect the clinical guidelines
of the [place] [employer]. [facility] HEMATOLOGY MPV 7.4 7.4 - 10.4 02/24/2015 [facility] HEMATOLOGY RDW 15.4 11.5 - 14.5 02/24/2015 [facility] HEMATOLOGY Platelet 308 133 - 450 02/24/2015 [facility] HEMATOLOGY MCHC 33.3 32.0 - 36.0 02/24/2015 [facility] MCH 29.6 27.0 - 31.0 02/24/2015 [facility] MCV 88.9 80.0 - 98.0 02/24/2015 [facility] HEMATOLOGY Hgb 11.7 12.0 - 16.0 02/24/2015 [facility] HEMATOLOGY Hct 35.0 36.0 - 48.0 02/24/2015 [facility] RBC 3.94 4.20 - 5.40 02/24/2015 [facility] HEMATOLOGY WBC 9.5 3.7 - 10.4 02/24/2015 [facility] CHEMISTRY U Eos None S een (12/27/2012 10:20:00) None S een 12/27/2012 Normal [facility] URINALYSIS UA Urobilinogen <=1.0 0.1 - 1.0 12/27/2012 NA [facility] URINALYSIS Micro? Perfo rmed *NA* (12/27/2012 10:20:00) 12/27/2012 NA [facility] URINALYSIS UA Turbidity Sligh t *ABN* (12/27/2012 10:20:00) Clear 12/27/2012 ABN [facility] URINALYSIS UA Spec Grav 1.018 <=1.030 12/27/2012 Normal [facility] URINALYSIS UA pH 6.5 5.0 - 8.0 12/27/2012 Normal [facility] URINALYSIS UA Blood Negat awilda (12/27/2012 10:20:00) Negati ve 12/27/2012 Normal [facility] URINALYSIS UA Bili Negat awilda *NA* (12/27/2012 10:20:00) Negati ve 12/27/2012 NA [facility] URINALYSIS UA Leuk Est Negat awilda (12/27/2012 10:20:00) Negati ve 12/27/2012 Normal [facility] URINALYSIS UA Nitrite Negat awilda (12/27/2012 10:20:00) Negati ve 12/27/2012 Normal [facility] URINALYSIS UA Glucose 100 m g/dL *ABN* (12/27/2012 10:20:00) Negati ve 12/27/2012 ABN [facility] URINALYSIS UA Ketones Negat awilda mg/dL *NA* (12/27/2012 10:20:00) Negati ve 12/27/2012 NA [facility] URINALYSIS UA RBC 1 0 - 2 12/27/2012 Normal [facility] URINALYSIS UA Sq Epi Many /LPF *ABN* (12/27/2012 10:20:00) Few 12/27/2012 ABN [facility] URINALYSIS UA WBC 4 0 - 5 12/27/2012 Normal [facility] URINALYSIS UA Protein 20 mg /dL *ABN* (12/27/2012 10:20:00) Negati ve 12/27/2012 ABN [facility] URINALYSIS UA Bacteria Occas ional /HPF *NA* (12/27/2012 10:20:00) None S een 12/27/2012 [facility] URINALYSIS UA Mucus Few / LPF *NA* (12/27/2012 10:20:00) None S een 12/27/2012 NA [facility] URINALYSIS UA Color Light Yellow *NA* (12/27/2012 10:20:00) Yellow 12/27/2012 NA [facility] STOOL TESTS Fecal Leukocyte Rare 2 (12/27/2012 10:15:00) 12/27/2012 Normal <sup>2</sup>Interpretive Data: A Value of None Seen, Rare, or Few is Normal. [facility] Microbiology Culture: Stool 12/27/2012 [facility] INFECTIOUS DISEASES C difficile DNA Negative 1 (12/27/2012 10:14:00) Negati ve 12/27/2012 Normal <sup>1</sup>Interpretive Data: R[employer] Clostridium difficile assay utilizes loop-mediated isothermal DNA amplification (LAMP) technology to detect a 204 bp region of the tcdA gene within the PaLoc gene segment present in all known toxigenic C. difficile strains.

The assay utilizes FDA cleared IVD reagents. Performance characteristics have been verified by the [facility] within the [facility]. The [facility] is authorized under the Clinical Laboratory Improvement Amendment of 1988 (CLIA-88) to perform high complexity testing. [facility] CHEMISTRY Phosphorus 2.0 2.5 - 4.5 12/27/2012 LOW [facility] CHEMISTRY Magnesium Lvl 1.6 1.8 - 2.4 12/27/2012 LOW [facility] CHEMISTRY Bili Indirect 0.2 0.0 - 1.0 12/27/2012 Normal [facility] CHEMISTRY Bili Total 0.3 0.2 - 1.3 12/27/2012 Normal [facility] CHEMISTRY Bili Direct 0.1 0.0 - 0.3 12/27/2012 Normal [facility] CHEMISTRY AST 30 0 - 37 12/27/2012 Normal [facility] CHEMISTRY A/G Ratio 1.0 0.7 - 1.6 12/27/2012 Normal [facility] CHEMISTRY Globulin 3.0 2.0 - 4.0 12/27/2012 Normal [facility] CHEMISTRY Total Protein 6.0 6.4 - 8.4 12/27/2012 LOW [facility] CHEMISTRY Alk Phos 43 39 - 136 12/27/2012 Normal [facility] CHEMISTRY Albumin Lvl 3.0 3.5 - 5.0 12/27/2012 LOW [facility] CHEMISTRY ALT 52 0 - 65 12/27/2012 Normal [facility] CHEMISTRY AGAP 14.6 10.0 - 20.0 12/27/2012 Normal [facility] CHEMISTRY eGFR 42 12/27/2012 NA <sup>3</sup>Result Comment: The eGFR is calculated using the CKD-EPI formula. In most young, healthy individuals the eGFR will be >90 mL/min/1.73m2. The eGFR declines with age. An eGFR of 60-89 may be normal in some populations, particularly the elderly, for whom the CKD-EPI formula has not been extensively validated. Use of the eGFR is not recommended in the following populations:& lt;br/>
Individuals with unstable creatinine concentrations, including patients and those with serious co-morbid conditions.

Patients with extremes in muscle mass or diet.

The data above are obtained from the National Kidney Disease Education Program (NKDEP) which additionally recommends that when the eGFR is used in patients with extremes of body mass index for purposes of drug dosing, the eGFR should be multiplied by the estimated BMI. [facility] CHEMISTRY CO2 26 24 - 32 12/27/2012 Normal [facility] CHEMISTRY Phosphorus 2.0 2.5 - 4.5 12/27/2012 LOW [facility] CHEMISTRY Calcium Lvl 8.3 8.5 - 10.5 12/27/2012 [facility] CHEMISTRY Chloride Lvl 109 95 - 109 12/27/2012 Normal [facility] CHEMISTRY Creatinine Lvl 1.5 0.5 - 1.4 12/27/2012 [facility] CHEMISTRY Potassium Lvl 3.6 3.5 - 5.1 12/27/2012 Normal [facility] CHEMISTRY Sodium Lvl 146 135 - 145 12/27/2012 [facility] CHEMISTRY Glucose Lvl 148 70 - 99 12/27/2012 HI <sup>6</sup>Interpretive Data: Adult ref erence range values reflect the clinical guidelines
of the [employer]. [facility] CHEMISTRY BUN 22 7 - 22 12/27/2012 Normal [facility] CHEMISTRY Albumin Lvl 3.0 3.5 - 5.0 12/27/2012 [facility] HEMATOLOGY Hgb 8.9 12.0 - 16.0 12/27/2012 [facility] HEMATOLOGY RBC 2.79 4.20 - 5.40 12/27/2012 [facility] HEMATOLOGY MCV 95.7 81.0 - 99.0 12/27/2012 Normal [facility] HEMATOLOGY Hct 26.7 36.0 - 48.0 12/27/2012 [facility] HEMATOLOGY WBC 4.7 3.7 - 10.4 12/27/2012 Normal [facility] HEMATOLOGY Platelet 102 133 - 450 12/27/2012 [facility] HEMATOLOGY MPV 7.8 7.4 - 10.4 12/27/2012 Normal [facility] HEMATOLOGY MCHC 33.5 32.0 - 36.0 12/27/2012 Normal [facility] HEMATOLOGY MCH 32.1 27.0 - 31.0 12/27/2012 [facility] HEMATOLOGY RDW 14.2 11.5 - 14.5 12/27/2012 Normal [facility] HEMATOLOGY Hyperseg Sligh t *ABN* (12/27/2012 09:00:00) None S een 12/27/2012 ABN [facility] HEMATOLOGY Basophils # 0.0 0.0 - 0.2 12/27/2012 Normal [facility] HEMATOLOGY Segs 68.1 45.0 - 75.0 12/27/2012 Normal [facility] HEMATOLOGY RBC Morph Alessandra l (12/27/2012 09:00:00) 12/27/2012 Normal [facility] HEMATOLOGY Plt Morph Alessandra l (12/27/2012 09:00:00) 12/27/2012 Normal [facility] HEMATOLOGY Lymphocytes 30.6 20.0 - 40.0 12/27/2012 Normal [facility] HEMATOLOGY Monocytes 0.9 2.0 - 12.0 12/27/2012 LOW [facility] HEMATOLOGY Basophils 0.1 0.0 - 1.0 12/27/2012 Normal [facility] HEMATOLOGY Segs-Bands # 3.2 1.5 - 8.1 12/27/2012 Normal [facility] HEMATOLOGY Eosinophils 0.3 0.0 - 4.0 12/27/2012 Normal [facility] HEMATOLOGY Lymphocytes # 1.4 1.0 - 5.5 12/27/2012 Normal [facility] HEMATOLOGY Monocytes # 0.0 0.0 - 0.8 12/27/2012 Normal [facility] HEMATOLOGY Eosinophils # 0.0 0.0 - 0.5 12/27/2012 Normal [facility] CHEMISTRY Iron 46 30 - 160 12/27/2012 Normal [facility] CHEMISTRY TIBC 209 228 - 428 12/27/2012 LOW [facility] CHEMISTRY % Satur Fe 22 12 - 57 12/27/2012 Normal [facility] CHEMISTRY UIBC 163 110 - 370 12/27/2012 Normal [facility] CHEMISTRY Methotrxate Lvl <0.3 12/27/2012 NA <sup>9</sup>Interpretive Data: Therapeut ic Range Not Established. [facility] CHEMISTRY LDH 234 98 - 192 12/27/2012 [facility] CHEMISTRY Folate Lvl 42.8 >=3.0 12/27/2012 Normal [facility] CHEMISTRY Vitamin B12 Lvl 916 254 - 1320 12/27/2012 Normal [facility] CHEMISTRY Iron 46 30 - 160 12/27/2012 Normal [facility] CHEMISTRY Ferritin Lvl 286 5 - 204 12/27/2012 [facility] HEMATOLOGY Fibrinogen Lvl 308 230 - 510 12/27/2012 Normal [facility] HEMATOLOGY D-Dimer >4 ug /mL FEU 13 *ABN* (12/26/2012 23:25:00) 12/27/2012 ABN <sup>13</sup>Interpretive Data: In DIC, quantitative D-Dimer is generally greater than
0.66 ug/mL FEU. Values of quantitative D-Dimer less than
0.40 ug/mL FEU have been reported to be associated with a low
probability of deep vein thrombosis/pulmonary embolism.
This test alone should not be used to rule out DVT/PE. [facility] HEMATOLOGY Retic Auto 0.4 0.5 - 1.5 12/27/2012 LOW [facility] IMMUNOLOGY Tot Prot (SPE) 6.1 6.4 - 8.4 12/27/2012 LOW [facility] IMMUNOLOGY Alpha 2 Glob 0.72 0.45 - 1.00 12/27/2012 Normal [facility] IMMUNOLOGY Beta Glob 0.75 0.50 - 1.15 12/27/2012 Normal [facility] IMMUNOLOGY SPE Interp Total protein is decreased with a corresponding decrease in serum albumin. All globulin fractions are present in a normal distribution with minor nonspecific changes. No monoclonal proteins are identified. Interpretation performed at [facility]. 12/27/2012 NA [facility] IMMUNOLOGY Gamma Glob 1.05 0.71 - 1.57 12/27/2012 Normal [facility] IMMUNOLOGY Beta % 12.3 7.8 - 13.7 12/27/2012 Normal [facility] IMMUNOLOGY Alpha 2 % 11.8 7.0 - 11.9 12/27/2012 Normal [facility] Albumin (SPE) 3.27 3.57 - 5.55 12/27/2012 LOW [facility] Gamma % 17.2 11.1 - 18.7 12/27/2012 Normal [facility] Alpha 1 Glob 0.31 0.18 - 0.41 12/27/2012 Normal [facility] Albumin % 53.6 55.8 - 66.1 12/27/2012 LOW [facility] Alpha 1 % 5.1 2.8 - 4.9 12/27/2012 HI [facility] IMMUNOLOGY Haptoglobin 172 16 - 200 12/27/2012 Normal [facility] HEMATOLOGY PT 13.8 12.0 - 14.7 12/26/2012 Normal [facility] PTT 29.3 22.9 - 35.8 12/26/2012 Normal <sup>14</sup>Interpretive Data: Heparin Therapeutic Range: 57 - 92 [facility] INR 1.04 0.85 - 1.17 12/26/2012 Normal <sup>12</sup>Interpretive Data: RECOMMEN DED RANGES FOR PROTIME INR:
2.0-3.0 for most medical and surgical thromboembolic states.
2.5-3.5 for artificial heart valves and recurrent embolism.

INR SHOULD BE USED ONLY FOR PATIENTS ON STABLE ANTICOAGULANT THERAPY. [facility] HEMATOLOGY Sed Rate 47 0 - 20 12/26/2012 HI [facility] C4 Complement 46 16 - 47 12/26/2012 Normal [facility] CRP, High Sensitivity 9.0 12/26/2012 NA <sup>15</sup>Interpretive Data: Low Risk : <1.0 mg/L
Average Risk: 1.0 - 3.0 mg/L
High Risk: >10.0 mg/L [facility] C3 Complement 142 88 - 201 12/26/2012 Normal [facility] SS-B (La) Ab Negat awilda (12/26/2012 17:00:00) Negati ve 12/26/2012 Normal [facility] SS-A (Ro) Ab Negat awilda (12/26/2012 17:00:00) Negati ve 12/26/2012 Normal [facility] Ribonucleic Protein (KELLY) IgG <1.0 NEG <1.0 NEGATIVE 12/26/2012 NA <sup>16</sup>Result Comment : Test Performed at:
[facility]
[address] [place] [address]
[place] [address] Philip Holm MD, PhD [facility] IMMUNOLOGY KEYSHA Negat awilda (12/26/2012 17:00:00) Negati ve 12/26/2012 Normal [facility] DNA Ab (DS) Negat awilda (12/26/2012 17:00:00) Negati ve 12/26/2012 Normal [facility] CHEMISTRY Glucose Lvl 109 70 - 99 12/26/2012 HI <sup>7</sup>Interpretive Data: Adult ref erence range values reflect the clinical guidelines
of the [employer]. [facility] CHEMISTRY BUN 31 7 - 22 12/26/2012 HI [facility] CHEMISTRY Alk Phos 41 39 - 136 12/26/2012 Normal [facility] CHEMISTRY Creatinine Lvl 1.7 0.5 - 1.4 12/26/2012 [facility] CHEMISTRY Sodium Lvl 146 135 - 145 12/26/2012 [facility] CHEMISTRY Potassium Lvl 4.2 3.5 - 5.1 12/26/2012 Normal [facility] CHEMISTRY Chloride Lvl 107 95 - 109 12/26/2012 Normal [facility] CHEMISTRY CO2 30 24 - 32 12/26/2012 Normal [facility] CHEMISTRY eGFR 36 12/26/2012 NA <sup>4</sup>Result Comment: The eGFR is calculated using the CKD-EPI formula. In most young, healthy individuals the eGFR will be >90 mL/min/1.73m2. The eGFR declines with age. An eGFR of 60-89 may be normal in some populations, particularly the elderly, for whom the CKD-EPI formula has not been extensively validated. Use of the eGFR is not recommended in the following populations:& lt;br/>
Individuals with unstable creatinine concentrations, including patients and those with serious co-morbid conditions.

Patients with extremes in muscle mass or diet.

The data above are obtained from the National Kidney Disease Education Program (NKDEP) which additionally recommends that when the eGFR is used in patients with extremes of body mass index for purposes of drug dosing, the eGFR should be multiplied by the estimated BMI. [facility] CHEMISTRY Calcium Lvl 8.7 8.5 - 10.5 12/26/2012 Normal [facility] CHEMISTRY Bili Total 0.5 0.2 - 1.3 12/26/2012 Normal [facility] CHEMISTRY Total Protein 6.1 6.4 - 8.4 12/26/2012 LOW [facility] CHEMISTRY AST 49 0 - 37 12/26/2012 [facility] CHEMISTRY Albumin Lvl 3.1 3.5 - 5.0 12/26/2012 LOW [facility] CHEMISTRY ALT 63 0 - 65 12/26/2012 Normal [facility] CHEMISTRY AGAP 13.2 10.0 - 20.0 12/26/2012 Normal [facility] CHEMISTRY B/C Ratio 18 6 - 25 12/26/2012 Normal [facility] CHEMISTRY Globulin 3.0 2.0 - 4.0 12/26/2012 Normal [facility] CHEMISTRY A/G Ratio 1.0 0.7 - 1.6 12/26/2012 Normal [facility] HEMATOLOGY MCV 95.8 81.0 - 99.0 12/26/2012 Normal [facility] HEMATOLOGY Platelet 113 133 - 450 12/26/2012 [facility] HEMATOLOGY Hct 28.3 36.0 - 48.0 12/26/2012 [facility] HEMATOLOGY MCH 31.5 27.0 - 31.0 12/26/2012 [facility] HEMATOLOGY MCHC 32.9 32.0 - 36.0 12/26/2012 [facility] HEMATOLOGY RDW 14.9 11.5 - 14.5 12/26/2012 [facility] HEMATOLOGY MPV 8.1 7.4 - 10.4 12/26/2012 [facility] HEMATOLOGY WBC 3.5 3.7 - 10.4 12/26/2012 [facility] HEMATOLOGY Hgb 9.3 12.0 - 16.0 12/26/2012 [facility] HEMATOLOGY RBC 2.95 4.20 - 5.40 12/26/2012 [facility] HEMATOLOGY Eosinophils # 0.1 0.0 - 0.5 12/26/2012 [facility] HEMATOLOGY Basophils 0.2 0.0 - 1.0 12/26/2012 [facility] HEMATOLOGY Eosinophils 2.1 0.0 - 4.0 12/26/2012 [facility] HEMATOLOGY Segs-Bands # 1.6 1.5 - 8.1 12/26/2012 [facility] HEMATOLOGY Monocytes # 0.0 0.0 - 0.8 12/26/2012 [facility] HEMATOLOGY Lymphocytes # 1.8 1.0 - 5.5 12/26/2012 [facility] HEMATOLOGY Basophils # 0.0 0.0 - 0.2 12/26/2012 [facility] HEMATOLOGY Plt Morph Alessandra l (12/26/2012 08:54:00) 12/26/2012 [facility] HEMATOLOGY Monocytes 0.5 2.0 - 12.0 12/26/2012 [facility] HEMATOLOGY Segs 46.1 45.0 - 75.0 12/26/2012 [facility] HEMATOLOGY Lymphocytes 51.1 20.0 - 40.0 12/26/2012 [facility] HEMATOLOGY RBC Morph Alessandra l (12/26/2012 08:54:00) 12/26/2012 [facility] Microbiology Culture: Blood 12/26/2012 [facility] CHEMISTRY Sodium Lvl 142 135 - 145 12/26/2012 [facility] CHEMISTRY Creatinine Lvl 2.0 0.5 - 1.4 12/26/2012 [facility] CHEMISTRY BUN 36 7 - 22 12/26/2012 [facility] CHEMISTRY Glucose Lvl 119 70 - 99 12/26/2012 HI <sup>8</sup>Interpretive Data: Adult ref erence range values reflect the clinical guidelines
of the [employer]. [facility] CHEMISTRY eGFR 30 12/26/2012 NA <sup>5</sup>Result Comment: The eGFR is calculated using the CKD-EPI formula. In most young, healthy individuals the eGFR will be >90 mL/min/1.73m2. The eGFR declines with age. An eGFR of 60-89 may be normal in some populations, particularly the elderly, for whom the CKD-EPI formula has not been extensively validated. Use of the eGFR is not recommended in the following populations:& lt;br/>
Individuals with unstable creatinine concentrations, including patients and those with serious co-morbid conditions.

Patients with extremes in muscle mass or diet.

The data above are obtained from the National Kidney Disease Education Program (NKDEP) which additionally recommends that when the eGFR is used in patients with extremes of body mass index for purposes of drug dosing, the eGFR should be multiplied by the estimated BMI. [facility] CHEMISTRY AGAP 15.3 10.0 - 20.0 12/26/2012 Normal [facility] CHEMISTRY Calcium Lvl 9.0 8.5 - 10.5 12/26/2012 Normal [facility] CHEMISTRY CO2 29 24 - 32 12/26/2012 Normal [facility] CHEMISTRY Chloride Lvl 102 95 - 109 12/26/2012 Normal [facility] CHEMISTRY Potassium Lvl 4.3 3.5 - 5.1 12/26/2012 Normal [facility] Microbiology Culture: Blood 12/26/2012 [facility] CHEMISTRY U Sodium 65 12/25/2012 NA <sup>11</sup>Interpretive Data: No established reference ranges. [facility] CHEMISTRY U Osmolality 473 300 - 800 12/25/2012 Normal [facility] CHEMISTRY U Creatinine 138.0 12/25/2012 NA <sup>10</sup>Interpretive Data: No estab lished reference ranges. [facility] HEMATOLOGY Monocytes 4.0 2.0 - 12.0 12/25/2012 Normal [facility] HEMATOLOGY Bands 1.0 0.0 - 11.0 12/25/2012 Normal [facility] HEMATOLOGY Lymphocytes 68.0 20.0 - 40.0 12/25/2012 [facility] HEMATOLOGY RBC Morph Alessandra l (12/25/2012 12:45:00) 12/25/2012 Normal [facility] HEMATOLOGY Eosinophils 3.0 0.0 - 4.0 12/25/2012 Normal [facility] HEMATOLOGY Atypical Lymphs 0.0 <=0.0 12/25/2012 Normal [facility] HEMATOLOGY Lymphocytes # 1.7 1.0 - 5.5 12/25/2012 Normal [facility] HEMATOLOGY Monocytes # 0.1 0.0 - 0.8 12/25/2012 Normal [facility] HEMATOLOGY Segs-Bands # 0.6 1.5 - 8.1 12/25/2012 LOW [facility] HEMATOLOGY Eosinophils # 0.1 0.0 - 0.5 12/25/2012 Normal [facility] HEMATOLOGY Segs 24.0 45.0 - 75.0 12/25/2012 [facility] HEMATOLOGY MPV 8.1 7.4 - 10.4 12/25/2012 Normal [facility] HEMATOLOGY MCH 32.5 27.0 - 31.0 12/25/2012 [facility] HEMATOLOGY Platelet 133 133 - 450 12/25/2012 Normal [facility] HEMATOLOGY RDW 14.6 11.5 - 14.5 12/25/2012 [facility] HEMATOLOGY MCHC 33.7 32.0 - 36.0 12/25/2012 Normal [facility] HEMATOLOGY MCV 96.5 81.0 - 99.0 12/25/2012 [facility] HEMATOLOGY Hct 32.1 36.0 - 48.0 12/25/2012 [facility] HEMATOLOGY Hgb 10.8 12.0 - 16.0 12/25/2012 [facility] HEMATOLOGY RBC 3.33 4.20 - 5.40 12/25/2012 [facility] HEMATOLOGY WBC 2.5 3.7 - 10.4 12/25/2012 [facility] HEMATOLOGY Sed Rate 32 0 - 20 12/25/2012 [facility] CHEMISTRY Troponin-I <0.02 0.00 - 0.40 12/25/2012 Normal [facility] CHEMISTRY CK MB <0.5 0.5 - 3.6 12/25/2012 Normal [facility] CHEMISTRY Globulin 3.3 2.0 - 4.0 12/25/2012 Normal [facility] CHEMISTRY A/G Ratio 0.9 0.7 - 1.6 12/25/2012 [facility] CHEMISTRY B/C Ratio 20 6 - 25 12/25/2012 [facility] CHEMISTRY AST 60 0 - 37 12/25/2012 [facility] CHEMISTRY Total Protein 6.4 6.4 - 8.4 12/25/2012 Normal [facility] CHEMISTRY Bili Total 0.5 0.2 - 1.3 12/25/2012 Normal [facility] CHEMISTRY Alk Phos 45 39 - 136 12/25/2012 Normal [facility] CHEMISTRY ALT 72 0 - 65 12/25/2012 HI [facility] CHEMISTRY Total CK 85 12 - 191 12/25/2012 Normal [facility] CHEMISTRY CK MB Index <0.6 0.0 - 2.5 12/25/2012 Normal [facility] IMMUNOLOGY [place] Scr Negat awilda (12/25/2012 11:30:00) Negati ve 12/25/2012 Normal [facility] IMMUNOLOGY Hep B Core IgM Negat awilda *NA* (12/25/2012 11:30:00) Negati ve 12/25/2012 NA [facility] IMMUNOLOGY Hep C Ab Negat awilda *NA* (12/25/2012 11:30:00) Negati ve 12/25/2012 NA [facility] IMMUNOLOGY Hep A IgM Negat awilda *NA* (12/25/2012 11:30:00) Negati ve 12/25/2012 NA [facility] IMMUNOLOGY Hep Bs Ag Negat awilda *NA* (12/25/2012 11:30:00) Negati ve 12/25/2012 NA [facility] URINALYSIS UA RBC 2 0 - 2 12/25/2012 Normal [facility] URINALYSIS UA Urobilinogen <=1.0 0.1 - 1.0 12/25/2012 NA [facility] URINALYSIS UA Hyal Cast 11 0 - 2 12/25/2012 [facility] URINALYSIS UA Bacteria Moder ate /HPF *ABN* (12/25/2012 09:10:00) None S een 12/25/2012 ABN [facility] URINALYSIS UA Mucus Few / LPF *NA* (12/25/2012 09:10:00) None S een 12/25/2012 [facility] URINALYSIS UA Color Yello w *NA* (12/25/2012 09:10:00) Yellow 12/25/2012 NA [facility] URINALYSIS UA Turbidity Sligh t *ABN* (12/25/2012 09:10:00) Clear 12/25/2012 ABN [facility] URINALYSIS UA Spec Grav 1.014 <=1.030 12/25/2012 Normal [facility] URINALYSIS UA pH 6.5 5.0 - 8.0 12/25/2012 Normal [facility] URINALYSIS Micro? Perfo rmed *NA* (12/25/2012 09:10:00) 12/25/2012 NA [facility] URINALYSIS UA Leuk Est Moder ate *ABN* (12/25/2012 09:10:00) Negati ve 12/25/2012 ABN [facility] URINALYSIS UA Nitrite Negat awilda (12/25/2012 09:10:00) Negati ve 12/25/2012 Normal [facility] URINALYSIS UA WBC 16 0 - 5 12/25/2012 HI [facility] URINALYSIS UA Sq Epi Many /LPF *ABN* (12/25/2012 09:10:00) Few 12/25/2012 ABN [facility] URINALYSIS UA Protein 20 mg /dL *ABN* (12/25/2012 09:10:00) Negati ve 12/25/2012 ABN [facility] URINALYSIS UA Ketones Negat awilda mg/dL *NA* (12/25/2012 09:10:00) Negati ve 12/25/2012 NA [facility] URINALYSIS UA Glucose Negat awilda mg/dL *NA* (12/25/2012 09:10:00) Negati ve 12/25/2012 NA [facility] URINALYSIS UA Blood Negat awilda (12/25/2012 09:10:00) Negati ve 12/25/2012 Normal [facility] URINALYSIS UA Bili Negat awilda *NA* (12/25/2012 09:10:00) Negati ve 12/25/2012 NA [facility] Microbiology Culture: Urine 12/25/2012 [facility] CHEMISTRY Ammonia 30.0 <=45.0 12/25/2012 Normal [facility] CHEMISTRY Phosphorus 2.7 2.5 - 4.5 12/24/2012 Normal [facility] CHEMISTRY Magnesium Lvl 2.4 1.8 - 2.4 12/24/2012 Normal [facility] CHEMISTRY B/C Ratio 25 6 - 25 12/24/2012 Normal [facility] CHEMISTRY Folate Lvl > 100. 0 ng/mL (12/24/2012 17:00:00) >=3.0 12/24/2012 Normal [facility] HEMATOLOGY Basophils # 0.0 0.0 - 0.2 12/24/2012 Normal [facility] HEMATOLOGY Macrocyte 1+ *ABN* (12/24/2012 17:00:00) None S een 12/24/2012 ABN [facility] HEMATOLOGY Basophils 0.1 0.0 - 1.0 12/24/2012 Normal [facility] Microbiology Culture: Throat Strep S creen 12/24/2012 [facility] Pathology Reports No Data Provided for This Section Diagnostic Reports Report Value Date Source Chest Pulmonary Embolism CTA Patient Name: GILLES LIZAMA : 1950; Age: 67 years y/o Female MR: [id number] Study: CHEST PULMONARY EMBOLISM CTA 08/23/2018 1:25 PM [employer] Ordering Physician: Hans Gil MD Clinical Indication: - R06.00 Dyspnea, unspecified; cough and shortness of breath Comparison: 02/24/2015 chest radiograph TECHNIQUE: Sequential trans-axial images were obtained thru the chest and upper abdomen after administration of iodinated contrast. Maximum image projection multiplanar reformatting and 3-D postprocessing reconstructions were performed at the workstation. 100 cc of Omnipaque 350 nonionic contras t material was used for the exam. Dose: DLP = 1867 mGy-cm FINDINGS: LUNG PARENCHYMA AND PLEURA: There are no lung nodules. There is no significant interstitial lung disease. There are no pleural effusions. There is no pneumothorax. AIRWAY: The central airway is normal. MEDIASTINUM: No significant mediastinal lymphadenopathy. HEART: The cardiac chambers are otherwise unremarkable. There is no pericardial effusion. The coronary arteries demonstrate probable atherosclerotic changes but difficult to visualize. VASCULAR STRUCTURES: There are no segmental pulmonary emboli noted. The main, right and left pulmonary arteries are normal. The great vessels are unremarkable. The thoracic aorta is is free of aneurysm or dissection. The superior vena cava is unremarkable. OSSEOUS STRUCTURES: There are no definite significant osseous abnormalities seen. Onycholysis. VISUALIZED UPPER ABDOMEN: The visualized upper abdomen is within normal limits. Fatty liver. IMPRESSION: 1. No evidence of pulmonary emboli. 2. Chest CT with contrast within normal limits. Chronic age-related changes. SL: [id number] 08/23/2018 [facility] Chest 2 views DX Examination: Chest x-ray, 2 views History: 786.50 Unspecified Chest Pain Comparison: 12/25/2012 Findings: The lungs are clear and without focal consolidation. The cardiomediastinal silhouette is within normal limits. No pleural effusion or pneumothorax is seen. The osseous structures are without focal abnormality. IMPRESSION: No acute cardiopulmonary disease. SL: 16 02/24/2015 [facility] Brain wo contrast CT CT BRAIN WITHOUT CONTRAST HISTORY: 780.2 Syncope and Collapse COMPARISON: None. TECHNIQUE: Noncontrast CT with sagittal and coronal reconstructions. DISCUSSION: No acute intracranial hemorrhage, major ischemia, mass effect or extraaxial fluid collection is seen. The volume of the brain is age-appropriate. The ventricles and basilar cisterns are unremarkable. The visualized paranasal sinuses and mastoids are clear. There is evidence of a chronic maxillary sinusitis and prior left sinonasal surgery. IMPRESSION: No acute intracranial abnormalities. 05/01/2013 [facility] Carotid artery Doppler US TEJEDA TID DOPPLER SONOGRAM History: 62-year-old with syncope and 52-year-old female with syncope and collapse, the patient has a history of hypertension.. Comparison: None. Findings right carotid: The right carotid has small amount of plaque at the bulb and ICA causing a less than 50% stenosis. No major hemodynamic abnormality seen. Peak systolic flow velocities are: Common carotid artery 115 cm/sec, proximal ICA 110, ECA 140 and vertebral artery 64 cm/sec. The systolic ratio IC/CC is 1.13. Left carotid: Small amount of plaque seen at the bulb and ICA causing a less than 50% stenosis. No hemodynamic abnormality seen. Peak systolic flow velocities are: Common carotid 115 cm/sec, proximal ICA 82, ECA 125 and vertebral artery 60 cm/sec. The systolic ratio IC/CC is 0.71. Antegrade flow seen in both vertebral arteries. IMPRESSION: 1. Small amount of plaque in both caroti ds, no significant hemodynamic abnormality seen. 05/01/2013 [facility] Lanza Consultation Notes No Data Provided for This Section Discharge Summaries No Data Provided for This Section History and Physicals No Data Provided for This Section Vital Signs Vital Sign Value Date Comments Source Heart Rate 73 03/03/2015 [facility] Temperature Oral (F) 97.9 F 03/03/2015 [facility] Systolic (mm Hg) 160 03/03/2015 [facility] Diastolic (mm Hg) 70 03/03/2015 [facility] Weight 129.091 03/03/2015 [facility] BMI Calculated 45.93 03/03/2015 [facility] Height 167.64 cm 03/03/2015 [facility] Height 167.64 cm 05/03/2013 [facility] Weight 133.182 05/03/2013 [facility] Temperature Oral (F) 98.6 F 12/27/2012 [facility] Diastolic (mm Hg) 82 12/27/2012 [facility] Heart Rate 94 12/27/2012 [facility] Systolic (mm Hg) 148 12/27/2012 [facility] Respitory Rate 20 12/27/2012 [facility] Diastolic (mm Hg) 82 12/27/2012 [facility] Heart Rate 87 12/27/2012 [facility] Temperature Oral (F) 98.4 F 12/27/2012 [facility] [facility] Sy[facility]olic (mm Hg) 133 12/27/2012 [facility] Respitory Rate 18 12/27/2012 [facility] Respitory Rate 16 12/27/2012 [facility] Heart Rate 101 12/27/2012 [facility] Diastolic (mm Hg) 84 12/27/2012 [facility] Systolic (mm Hg) 151 12/27/2012 [facility] Temperature Oral (F) 98.4 F 12/27/2012 [facility] Height 167.64 cm 12/25/2012 [facility] Weight 126.818 12/25/2012 [facility] Encounters Location Location Details Encounter Type Encounter Number Reason For Visit Attending Provider ADM Date DC Date Status Source OD [id number] 338 - PAIN NEC HARIS CHEMO 01/11/2012 Active [facility] Inpatient [id number] PEYTON MICHELLE 12/25/2012 12/27/2012 Discharged [facility] Outpatient [id number] 780.2 SUPRABHA ARNALDO 05/03/2013 Active [facility] Outpatient [id number] Monse Chowdhury 02/24/2015 02/25/[address] [facility] Bedded Outpatient [id number] Monse Luciana 03/03/2015 03/03/[address] [facility] OP Recurring [id number] Librado Nahomi 05/19/2015 06/18/[address] [facility] OP Recurring [id number] Librado Nahomi 07/16/2015 08/15/[address] [facility] OP Recurring [id number] Librado Garciaanda 08/18/2015 09/17/[address] [facility] Outpatient [id number] Hans Gil 08/22/2018 08/22/[address] [facility] Outpatient [id number] Mohammad Gil 08/23/2018 08/24/[address] [facility] Outpatient [id number] Mohammad Gil 09/05/2018 09/05/2018 [facility] Not Sent Ou tpatient [id number] 780.2 SUPRABHA ARNALDO Active [facility] Procedures Procedure Code Date Perfomer Comments Source Hysterectomy [id number] [facility] Miscellaneous operations <sup>1</sup> [id number] 1Knee Replacement [facility] Miscellaneous operations <sup>2</sup> [id number] 2Back Sx [facility] Hysterectomy [id number] [facility] Knee replacement [id number] [facility] Miscellaneous operations<sup>1</sup> [id number] Back Sx [facility] Miscellaneous operations<sup>2</sup> [id number] Knee Replacement [facility] Assessment and Plan No Data Provided for This Section Plan of Care No Data Provided for This Section Social History Social History Date Source Social History TypeResponse Alcohol Never Smoking Status Never smoker; Exposure to Tobacco Smoke None; Cigarette Smoking Last 365 Days No; Reg Smoking Cessation Counseling No entered on: 03/03/15 03/03/2015 [facility] Family History No Data Provided for This Section Advance Directives No Data Provided for This Section Functional Status No Data Provided for This Section
--- OUTSIDE RECORDS SUMMARY | 2020-06-07 00:50 | XMS REPORT | Continuity of Care Document ---
Author Author [facility] Organization [facility] Address [address] [place] [address] Phone Unavailable Care Team Providers Care Dental Assistant Instructor Name Role Phone ANA LUISA SORENSEN MD PCP Aretha Davis MA Attphys Unavailable ANA LUISA SORENSEN Attphys Unavailable Pao Gil Attphys Lei Comer Attphys Luciana, V Palur Attphys ANA LUISA SORENSEN Admphys Unavailable Luciana, Jacek Palur Admphys Payers Payer Name Policy Type Policy Number Effective Date Expiration Date Abdulaziz stella MEDICAREMEDICARE PART A AND [id number]/09/1999-PresentHOU [facility]ER[facility] x[facility]xx 2000 00:00:00 [facility] AETNAAETNA [facility]MNITYxxxxxxxxxx1998-PresentI ndemnity xxxxxxxxxx 1998 00:00:00 [facility] Medicare A & B [id number] 2000 00:00:00 [facility] Aetna o [id number] 1998 00:00:00 [facility] Problems Condition Name Condition Details Condition Category Status Onset Date Resolution Date Last Treatment Date Treating Clinician Comments Source SPLIT - 00572 [facility] T - 22949 Active 08/23/2018 [facility] Active 2018-08-23 00:00:00 2018-09-04 19:21:00 [facility] R06.00 R06. 00 Active 08/21/2018 [facility] Active 2018-08-21 00:00:00 2018-08-24 16:12:00 [facility] MORBID OBESITY MORB ID OBESITY Active 08/17/2015 [facility] Active 2015-08-17 00:00:00 2015-08-18 09:02:00 [facility] 278.01 EXTREME OBESITY / 401.1 BENIGN ES 278.01 EXTREME OBESITY / 401.1 BENIGN ES Active 05/14/2015 [facility] Ac tive 2015-05-14 00:00:00 2015-05-19 08[facility] [facility].50 786. 50 Active 03/02/2015 [facility] Diagnosis Active 2015-03-02 00:00:00 2015-03-03 07:38:00 [facility] Chest pain Chest pain Problem Active 2014-10-23 00:00:00 [facility] Urinary tract infection UTI (urinary tract infection) Problem Active 2014-10-23 00:00:00 [facility] 780.2 780. 2 Active 04/30/2013 [facility] Diagnosis Active 2013-04-30 00:00:00 2014-05-15 21:07:00 [facility] 780.2 - SYNCOPE AND COL 780. 2 - SYNCOPE AND COL Active 04/25/2013 [facility] Active 2013-04-25 00:01:00 2014-05-20 06:57:00 [facility] ORAL ULCERS, DEHYDRATION, ACUTE RENAL FA ORAL ULCERS, DEHYDRATION, ACUTE RENAL FA Active 12/24/2012 [facility] Diagnosis Ac tive 2012-12-24 00:00:00 2012-12-26 14:34:00 [facility] SORE THROAT SORE THROAT Active 12/24/2012 [facility] Diagnosis Active 2012-12-24 00:00:00 2012-12-24 18:10:00 [facility] 338 - PAIN NEC 338 - PAIN NEC Active 01/11/2012 [facility] Active 2012-01-11 00:01:00 2012-01-11 11:47:00 [facility] Arthritis Arth ritis Resolved Problem 05/05/2013 DEYSI Lanza, [facility] Problem Resolved 2013-05-05 20:51: 10 [facility] HTN HTN Resolved Problem 05/05/2013 [facility] 2013-05-05 20:51:10 Reynold orial Da Hypertension Hype rtension Resolved Problem 05/05/2013 [facility]olved 2013-05-05 20:51:[address] [place] Insomnia Inso mnia Resolved Problem 05/05/2013 [facility] 2013-05-05 20:51: 10 Brown Danielsann Thyroid Thyr oid Resolved Problem 05/05/2013 [facility] 2013-05-05 20:51:10 [facility] Arthritis (disorder) Arth ritis (disorder) Resolved Problem 03/25/2019 [facility] Problem Resolved 2019-03-25 11:17: 53 Brown Da Essential hypertension (disorder) Essential hypertension (disorder) Resolved Problem 03/25/2019 [facility] Problem Resolved 2019-03-25 11:17:53 [facility] Hypertensive disorder, systemic arterial (disorder) Hypertensive disorder, systemic arterial (disorder) Resolved Problem 03/25/2019 [facility] Problem Resolved 2019-03-25 11:17:53 Brown Da Insomnia (disorder) Inso mnia (disorder) Resolved Problem 03/25/2019 [facility] Problem Resolved 2019-03-25 11:17: 53 [facility] [place] Thyroid structure (body structure) Thyroid structure (body structure) Resolved Problem 09/19/2015 [facility] Problem Resolved 2015-09-19 01:23:46 Brown Roberson Lethargic Leth argic Active Problem 05/05/2013 [place] Problem Active 2013-05-05 20:51:10 [facility] Pain Pain Active Problem 05/05/2013 [place] Problem Active 2013-05-05 20:51:1 0 Brown Roberson Lethargy (finding) Leth argy (finding) Active Problem 03/25/2019 [facility] Problem Active 2019-03-25 11:17:53 [facility] Da Pain (finding) Pain (finding) Active Problem 03/25/2019 [facility] Problem Active 2019-03-25 11:17:53 [facility] DEHYDRATION DEHY DRATION Active [facility] Diagnosis Active 2012-12-26 14:34:00 Mark Roberson SYNCOPE AND COLLAPSE SYNC OPE AND COLLAPSE Active [facility] Active 2014-05-15 21:07:00 Brown Roberson CHEST PAIN NOS CHES T PAIN NOS Active [facility] Active 2015-03-03 07:38:00 Brown Roberson OBSTRUCTIVE SLEEP APNEA (ADULT) (PEDIATR OBSTRUCTIVE SLEEP APNEA (ADULT) (PEDIATR Active [facility] Active 2018-09-04 19:21:00 Brown Roberson DYSPNEA, UNSPECIFIED DYSP PRAFUL, UNSPECIFIED Active [facility] Active 2018-08-24 16:12:00 Me alanis Roberson Obstructive sleep apnea (adult) (pediatric) Obstructive sleep apnea (adult) (pediatric) 09/11/2018 03/25/2019 [facility] Problem 2018-09-11 04:39:07 2019-03-25 11:17:53 2019-03-25 11:17:53 Brown Robreson Dyspnea, unspecified Dysp praful, unspecified 08/29/2018 03/13/2019 [facility] Problem 2018-08-29 04:35:34 2019-03-13 11:1 6:16 2019-03-13 11:16:16 Brown Roberson Allergies, Adverse Reactions, Alerts Allergy Name Allergy Type Status Severity Reaction(s) Onset Date Inacti ve Date Treating Clinician Comments Source Morphine Allergy to Substance Active 2019-11-21 00:00:00 [facility] Morphine Propensity to adverse reactions to drug Active [facility] Morphine Sulfate SR Morphine Sulfate SR Active [facility] Social History Social Habit Start Date Stop Date Quantity Comments Source History SDOH Alcohol Std Drinks [facility] History SDOH Alcohol Binge [facility] Sex Assigned At Codey l[facility] Alcohol intake 2019-01-26 00:00:00 2019-01-26 00:00:00 Current non-drinker of alcohol (finding) [facility] History SDOH Alcohol Frequency 2019-01-26 00:00:00 2019-01-26 00:00:0 0 1 Daily [facility] Social History 2015-03-03 12:53:02 2015-03-03 12:53:02 Brown Roberson Smoking Status Start Date Stop Date Source Never smoker Killian dinero Medications Ordered Medication Name Filled Medication Name Start Date Stop Da te Current Medication? Ordering Clinician Indication Dosage Frequency Signature (SIG) Comments Components Source predniSONE (DELTASONE) 2.5 mg tablet 2019-01-26 18:00:27 Ye s 7.5mg QD Take 7.5 mg by mouth every morning. rheumatoid arthritis Killian Syed QUEtiapine (SEROquel) 100 MG tablet 2019-01-26 18:00:27 Yes 200mg QD Take 200 mg by mouth nightly. Killian johnson hydrALAZINE (APRESOLINE) 25 MG tablet 2019-01-23 00:00:00 Yes 25mg Q.[id number] Take 25 mg by mouth 3 (three) times a day. Killian Syed DULoxetine (CYMBALTA) 30 MG capsule 2019-01-17 00:00:00 Yes 30mg Q.5D Take 30 mg by mouth 2 (two) times a day. Killian Syed HYDROcodone-acetaminophen (NORCO) 10-325 mg per tablet 2019-01-17 00:00:00 Yes 1{tbl} Q8H Take 1 tablet by mouth every 8 (eight) h ours as needed. Killian Syed isosorbide mononitrate (IMDUR) 30 MG 24 hr tablet 2019-01-17 00:00:00 Yes 30mg Q.5D Take 30 mg by mouth 2 (two) times a day. Killian Syed omeprazole (PriLOSEC) 40 MG capsule 2019-01-17 00:00:00 Yes 40mg QD Take 40 mg by mouth daily. Killian Syed PROAIR HFA 90 mcg/actuation inhaler 2019-01-07 00:00:00 Yes 1{puff} Q6H Inhale 1 puff every 6 (six) hours as needed. Killian Syed benzonatate (TESSALON) 100 MG capsule 2019-01-07 00:00:00 Yes 100mg Q.5D Take 100 mg by mouth 2 (two) times a day as needed. Killian Syed fluticasone propionate (FLONASE) 50 mcg/actuation nasal spra y 2018-12-10 00:00:00 Yes 2{spray} QD 2 sprays by Each Nare route daily. Killian Syed furosemide (LASIX) 40 mg tablet 2018-12-10 00:00:00 Yes 40mg QD Take 40 mg by mouth daily. Killian Syed gabapentin (NEURONTIN) 600 mg tablet 2018-12-10 00:00:00 Ye s 600mg Q.5D Take 600 mg by mouth 2 (two) times a day. Killian Syed SYNTHROID 50 mcg tablet 2018-12-10 00:00:00 Yes 50ug QD Take 50 mcg by mouth every morning. Daily [facility] lisinopril (PRINIVIL,ZESTRIL) 40 mg tablet 2018-12-10 00:00:00 Yes 40mg Q.5D Take 40 mg by mouth 2 (two) times a day. Killian Campbellist carvedilol (COREG) 25 MG tablet 2018-11-12 00:00:00 Yes 25mg Take 25 mg by mouth. Killian Campbellist Omnipaque 350 injectable solution 2018-08-23 20:00:00 Yes Notes: (same as:Omnipaque 350). WASTE: F/P - Black; E - [employer] Trash [facility] Brown Roberson Clonidine Hydrochloride 0.2 MG Oral Tablet 2015-03-03 16:35:00 No Notes: (Same As: Catapres) Brown shen Acetaminophen 2015-03-03 16:05:00 No Notes: Do not exceed 4 gm/day. (Same as: Tylenol) Brown Roberson Benadryl 2015-03-03 13:03:00 No 50 mg, 2 tab, Route: PO, Drug form: TAB, ONCE, Dosing Weight 129.091, kg, Priority: NOW, Start date: 03/03/15 8:03:00, Stop date: 03/03/15 8:03:00 Reynold Roberson gabapentin 600 MG Oral Tablet 2015-03-03 13:01:00 Yes 600 mg = 1 tab, PO, TID, # 270 tab, 0 Refill(s) Reynold Roberson Furosemide 40 MG Oral Tablet 2015-03-03 13:01:00 Yes 40 mg = 1 tab, PO, Daily, # 30 tab, 0 Refill(s) Latosha Roberson Folic Acid 1 MG Oral Tablet 2015-03-03 13:01:00 Yes 1 mg = 1 tab, PO, Daily, # 30 tab, 0 Refill(s) Latosha Roberson Acetaminophen 325 MG / Hydrocodone Bitartrate 10 MG Oral Tab let 2015-03-03 13:01:00 Yes 1 tab, PO, Q6H, PRN Pain, # 2 0 tab, 0 Refill(s) Brown Roberson quetiapine 200 MG Oral Tablet [Seroquel] 2015-03-03 13:01:00 Yes 200 mg = 1 tab, PO, Bedtime, # 180 tab, 0 Refill(s) [facility] [place] cyclobenzaprine 10 mg oral tablet 2015-03-03 13:01:00 Yes 10 mg = 1 tab, PO, Bedtime, # 30 tab, 0 Refill(s) [facility] Clonidine Hydrochloride 0.3 MG Oral Tablet 2015-03-03 13:01:00 Yes 0.3 mg = 1 tab, PO, BID, # 60 tab, 1 Refill(s) [facility] predniSONE 2.5 mg oral tablet 2015-03-03 13:01:00 Yes 5 mg = 2 tab, PO, Daily, # 7 tab, 0 Refill(s) [facility] omeprazole 40 mg oral delayed release capsule 2015-03-03 13:01:0 0 Yes 40 mg = 1 cap, PO, Daily, # 30 cap, 0 Refill(s) [facility] lisinopril 40 mg oral tablet 2015-03-03 13:01:00 Yes 40 mg = 1 tab, PO, Daily, # 30 tab, 0 Refill(s) Latosha marshall [place] levothyroxine 50 mcg (0.05 mg) oral tablet 2015-03-03 13:01:00 Yes 50 microgram = 1 tab, PO, Daily, # 30 tab, 0 Refill(s) [facility] clonazePAM 1 mg oral tablet 2015-03-03 13:01:00 Yes 1 mg = 1 tab, PO, Bedtime, # 270 tab, 0 Refill(s) Andre charu Da folic acid 1 mg oral tablet 2012-12-28 14:00:00 No Xavi Munguia Chemo 5 mg, 5 tab, Route: PO, Drug form: TAB, Daily, Start date: 12/28/12 9:00:00, Duration: 30 day, Stop date: 01/26/13 9:00:00 [facility] sodium chloride 38.5 mEq + sodium bicarbonate 50 mEq + steri le water 1,000 mL 2012-12-27 18:33:00 No Vasqeuz I Michelle 1,000 mL, 100 ml/hr, Route: IV, Drug Form: INJ, Dosing Weight 126.818, kg, Start date: 12/27/12 13:33:00, Duration: 1 doses or times, Stop date: 12/28/12 0:08:00 [facility] magnesium sulfate 2012-12-27 18:32:00 No Vasquez I Michelle 50 mL, Rate: 50 ml/hr, Infuse over: 1 hr, Route: IVPB, Total Volume: 50, Start date: 12/27/12 13:32:00, Stop date: 12/27/12 13:32:00 M [facility] potassium phosphate-sodium phosphate 250 mg-278 mg-164 mg or al powder 2012-12-27 18:32:00 No Vasquez I Michelle 1 pkt, Route: PO, Drug Form: PDR/REC, ONCE, Start date: 12/27/12 13:32:00, Stop date: 12/27/12 13:32:00 [facility] acetaminophen-hydrocodone 325 mg-5 mg oral tablet 15:54:00 No Vasquez I Michelle 1 tab, Route: PO , Drug Form: TAB, Q4H, PRN Headache, Start date: 12/27/12 10:54:00, Duration: 30 day, Stop date: 01/26/13 10:53:00 [facility] folic acid 1 mg oral tablet 2012-12-27 14:00:00 No Harrison elizabeth I Michelle 2 mg, 2 tab, Route: PO, Drug form: TAB, Daily, Start date: 12/27/12 9:00:00, Duration: 30 day, Stop date: 01/25/13 9:00:00 [facility] Sodium Chloride 0.9% IV 2012-12-27 00:45:00 No Vasquez I Michelle 250 mL, Route: IVPB, Start date: 12/26/12 19:45:00, Duration: 30 day, Stop date: 01/25/13 19:44:00, PRN Line Flush [facility] BD Normal Saline Flush 2012-12-27 00:45:00 No Vasquez I Michelle 10 mL, Route: IVP, Drug Form: INJ, PRN, PRN Line Flush, Start date: 12/26/12 19:45:00, Duration: 30 day, Stop date: 01/25/13 19:44:00 [facility] magic mouth wash 2012-12-27 00:44:00 No Vasquez I Michelle 15 mL, Route: S&SWALLOW, Drug Form: SUSP, Q4H, PRN See Nurse's Notes, Start date: 12/26/12 19:44:00, Stop date: 01/25/13 19:43:00 [facility] sodium bicarbonate 50 mEq + Sodium Chloride 0.45% IV 1,000 m L 2012-12-27 00:43:00 No Vasquez I Michelle 1,000 mL, Rate: 100 ml/hr, Infuse over: 10.5 hr, Route: IV, kg, Total Volume: 1,050, Start date: 12/26/12 19:43:00, Duration: 30 day, Stop date: 01/25/13 19:42:00 [facility] Da SoluCortef 2012-12-26 23:00:00 No Vasquez I Michelle 50 mg, 1 mL, Route: IV, Drug form: PDR/INJ, Q6H, Start date: 12/26/12 18:00:00, Duration: 30 day, Stop date: 01/25/13 12:00:00 [facility] SoluCortef 2012-12-25 23:00:00 No Vasquez I Michelle 100 mg, 2 mL, Route: IV, Drug form: PDR/INJ, Q6H, Start date: 12/25/12 18:00:00, Duration: 4 doses or times, Stop date: 12/26/12 12:00:00 [facility] [place] Sodium Chloride 0.9% IV 1,000 mL 2012-12-25 23:00:00 No Vasquez I Michelle 1,000 mL, Rate: 125 ml/hr, Infuse over: 8 hr, Route: IV, kg, Total Volume: 1,000, Start date: 12/25/12 18:00:00, Duration: 30 day, Stop date: 01/24/13 17:59:00 [facility] lidocaine topical 2012-12-25 22:00:00 No Karl J Hoberm an 10 mL, Route: S&SPIT, Drug form: SOLN, QID, Start date: 12/25/12 17:00:00, Duration: 30 day, Stop date: 01/24/13 13:00:00 [facility] Sodium Chloride 0.9% IV 1,000 mL 2012-12-25 20:54:00 No Vasquez I Michelle 1,000 mL, Rate: 250 ml/hr, Infuse over: 4 hr, Route: IV, kg, Total Volume: 1,000, Start date: 12/25/12 15:54:00, Duration: 2 hr, Stop date: 12/25/12 17:53:00 [facility] Sodium Chloride 0.9% IV 500 mL 2012-12-25 17:11:00 No Philip kristenon I Michelle 500 mL, Rate: bolus, Route: IV, kg, Total Volume: 500, Start date: 12/25/12 12:11:00, Stop date: 12/25/12 13:00:00 [facility] [place] Cepastat 2012-12-25 14:00:00 No Vasquez I Michelle 2 lozenge, Route: MUCOUS MEM, QID, Drug form: HA, Start date: 12/25/12 9:00:00, Duration: 30 day, Stop date: 01/23/13 21:00:00 [facility] folic acid 1 mg oral tablet 2012-12-25 14:00:00 No Vonda Gr 1 mg, 1 tab, Route: PO, Drug form: TAB, Daily, Start date: 12/25/12 9:00:00, Duration: 30 day, Stop date: 01/23/13 9:00:00 [facility] atenolol 25 mg oral tablet 2012-12-25 14:00:00 No Karl Gr 25 mg, 1 tab, Route: PO, Drug form: TAB, Daily, Start date: 12/25/12 9:00:00, Duration: 30 day, Stop date: 01/23/13 9:00:00 [facility] Levothroid 2012-12-25 11:30:00 No Vasquez Soto Michelle 50 microgram, 1 tab, Route: PO, Drug form: TAB, Q630AM, Start date: 12/25/12 6:30:00, Duration: 30 day, Stop date: 01/23/13 6:30:00 Latosha Roberson vancomycin 2012-12-25 11:15:00 No Vasquez I Michelle 1 gm, 200 mL, Route: IVPB, Drug form: INJ, ONCE, Start date: 12/25/12 6:15:00, Stop date: 12/25/12 6:15:00 [facility] Maxipime + Sodium Chloride 0.9% IV 100 mL 2012-12-25 11:00 :00 No Vasquez I Michelle 1 gm, Route: IVP B, [id number], Start date: 12/25/12 6:00:00, Duration: 30 day, Stop date: 01/23/13 18:00:00 Mark christine [place] Sodium Chloride 0.9% IV 500 mL 2012-12-25 10:59:00 No J ohnson I Michelle 500 mL, Rate: BOLUS, Route: IV, kg, Total Volume: 500, Start date: 12/25/12 5:59:00, Duration: 2 hr, Stop date: 12/25/12 7:58:00 [facility] Sodium Chloride 0.9% IV 250 mL 2012-12-25 07:31:00 No J ohnson I Michelle 250 mL, Rate: BOLUS, REPEAT X1 IF SBP<100, Route: IV, kg, Total Volume: 250, Start date: 12/25/12 2:31:00, Duration: 4 hr, Stop date: 12/25/12 6:30:00 [facility] Klonopin 2012-12-25 02:35:00 No Vasquez I Michelle 2 mg, 1 tab, Route: PO, Drug form: TAB, Bedtime, Start date: 12/24/12 21:35:00, Duration: 30 day, Stop date: 01/23/13 21:00:00 [facility] Seroquel 2012-12-25 02:34:00 No Vasquez I Michelle 200 mg, 1 tab, Route: PO, Drug form: TAB, Bedtime, Start date: 12/24/12 21:34:00, Duration: 30 day, Stop date: 01/23/13 21:00:00 [facility] Tylenol 2012-12-25 02:33:00 No Vasquez I Michelle 650 mg, 2 tab, Route: PO, Drug form: TAB, Q4H, PRN Pain, Start date: 12/24/12 21:33:00, Duration: 30 day, Stop date: 01/23/13 21:32:00 [facility] Milk of Magnesia 2012-12-25 02:33:00 No Vasquez I Michelle 30 mL, Route: PO, Drug Form: SUSP, Daily, PRN Constipation, Start date: 12/24/12 21:33:00, Duration: 30 day, Stop date: 01/23/13 21:32:00 [facility] Zofran 2012-12-25 00:44:00 No Karl Gr 4 mg, 2 mL, Route: IVP, Drug form: INJ, Q4H, PRN Nausea, Start date: 12/24/12 19:44:00, Duration: 30 day, Stop date: 01/23/13 19:43:00 [facility] lidocaine topical 2012-12-25 00:44:00 No Karl Esteban an 10 mL, Route: S&SPIT, Drug form: SOLN, Q4H, PRN Pain, Start date: 12/24/12 19:44:00, Duration: 30 day, Stop date: 01/23/13 19:43:00 [facility] Dextrose 5% with 0.45% NaCl IV 1,000 mL 2012-12-25 00:43:0 0 No Karl Gr 1,000 mL, Rate: 125 ml/hr, Infuse over: 8 hr, Route: IV, kg, Total Volume: 1,000, Start date: 12/24/12 19:43:00, Duration: 30 day, Stop date: 01/23/13 19:42:00 [facility] D5W 1/2NS 1,000 mL 2012-12-24 23:22:00 No Karl Alberts man 1,000 mL, Rate: 125 ml/hr, Infuse over: 8 hr, Route: IV, kg, Total Volume: 1,000, Priority: STAT, Start date: 12/24/12 18:22:00, Duration: 1 doses or times, Stop date: 12/25/12 2:21:00 [facility] Lidocaine Viscous 2% mucous membrane solution 2012-12-24 2 3:22:00 No Karl Gr 10 mL, Route: S& SPIT, ONCE, Drug form: SOLN, Start date: 12/24/12 18:22:00, Stop date: 12/24/12 18:22:00 [facility] Sodium Chloride 0.9% (Bolus) IV 500 mL 2012-12-24 21:51:00 No Karl Gr 500 mL, Rate: 50 0 ml/hr, Infuse over: 1 hr, Route: IV, kg, Total Volume: 500, Priority: STAT, Start date: 12/24/12 16:51:00, Duration: 1 doses or times, Stop date: 12/24/12 17:50:00, Bolus DoseBolus Dose [facility] Saline Flush 0.9% 2012-12-24 21:41:00 No Karl Esteban an 5 mL, Route: IVP, Drug Form: INJ, Dosing Weight 120, kg, PRN, PRN Line Flush, Start date: 12/24/12 16:41:00, Duration: 24 hr, Stop date: 12/25/12 16:40:00 [facility] Clonazepam 1 Mg Tablet Clonazepam 1 Mg Tablet Yes 1 Daily [facility] Desvenlafaxine (Desvenlafaxine Er) 100 Mg Tab.er.24 De svenlafaxine (Desvenlafaxine Er) 100 Mg Tab.er.24 Yes 100 D aily [facility] Docusate Sodium (Colace) 100 Mg Cap Docusate Sodium (Colace) 100 Mg C ap Yes 100 Twice A Day [facility] Doxycycline Monohydrate 100 Mg Tablet Doxycycline Monohydrate 100 M g Tablet Yes 100 Twice A Day [facility] Ferrous Sulfate 325 Mg Tablet Ferrous Sulfate 325 Mg Tablet Yes 325 Daily [facility] Furosemide 40 Mg Tablet Furosemide 40 Mg Tablet Yes 20 Twice A Day [facility] Hydralazine Hcl 25 Mg Tab Hydralazine Hcl 25 Mg Tab Yes 25 Twice A Day [facility] Hydrocodone Bit/Acetaminophen (Hydrocodon-Acetaminophn 10-325) 1 Each Tablet Hydrocodone Bit/Acetaminophen (Hydrocodon-Acetaminophn 10-325) 1 Each Tablet Yes Twice A Day as needed for Prn [facility] Isosorbide Mononitrate (Isosorbide Mononitrate Er) 30 Mg Tab.er.24h Isosorbide Mononitrate (Isosorbide Mononitrate Er) 30 Mg Tab.er.24h Yes 30 Twice A Day [facility] Levothyroxine Sodium 50 Mcg Tablet Levothyroxine Sodium 50 Mcg Tablet Yes 50 Daily [facility] Metoprolol Succinate 50 Mg Tab.er.24h Metoprolol Succinate 50 Mg Ta b.er.24h Yes 50 Daily [facility] Mupirocin 22 Gm Oint...g. Mupirocin 22 Gm Oint...g. Yes 22 Twice A Day for Apply To Each Nostril [facility] Pantoprazole Sodium (Protonix) 40 Mg Tablet. Pantopr azole Sodium (Protonix) 40 Mg Tablet. Yes 40 Twice A Day [facility] Prednisone 5 Mg Tablet Prednisone 5 Mg Tablet Yes 5 Daily [facility] Sennosides (Senna Lax) 8.6 Mg Tablet Sennosides (Senna Lax) 8.6 Mg Tablet Yes 17.2 Twice A Day [facility] Sucralfate 1 Gm Tablet Sucralfate 1 Gm Tablet Yes 1 Three Times Daily With Meals [facility] Clonidine Hcl 0.3 Mg Tablet, 0.3 Mg Oral Clonidine Hcl 0.3 Mg Tablet, 0.3 Mg Oral 2019-11-27 00:00:00 No .3 Daily [facility] Cyclobenzaprine Hcl 10 Mg Tablet, 10 Mg Oral Cyclobenz aprine Hcl 10 Mg Tablet, 10 Mg Oral 2019-11-27 00:00:00 No 10 Three Times A Day [facility] Gabapentin 600 Mg Tablet, Mg Oral Gabapentin 600 Mg Tablet, Mg Oral 2019-11-27 00:00:00 No Twice A Day [facility] Lisinopril 10 Mg Tablet, 40 Mg Oral Lisinopril 10 Mg Tablet, 40 Mg Oral 2019-11-27 00:00:00 No 40 Daily [facility] Meloxicam 7.5 Mg Tablet, 15 Mg Oral Meloxicam 7.5 Mg Tablet, 15 Mg Oral 2019-11-27 00:00:00 No 15 Daily [facility] Omeprazole 40 Mg Capsule., 40 Mg Oral Omeprazole 40 Mg Cap abbey., 40 Mg Oral 2019-11-27 00:00:00 No 40 Daily [facility] Quetiapine Fumarate (Seroquel) 25 Mg Tablet, 200 Mg Or al Quetiapine Fumarate (Seroquel) 25 Mg Tablet, 200 Mg Oral 2019-11-27 00:00:00 No 200 Bed [facility] Abatacept/Maltose (Orencia 250 Mg Vial) 250 Mg Vial, Sub-Q Abatacept/Maltose (Orencia 250 Mg Vial) 250 Mg Vial, Sub-Q 2016-06-21 00:00:00 No Once [facility] Ciprofloxacin Hcl (Cipro) 500 Mg Tablet, 500 Mg Oral C iprofloxacin Hcl (Cipro) 500 Mg Tablet, 500 Mg Oral 2016-06-21 00:00:00 No 500 Every 12 Hours [facility] Metoprolol Tartrate 50 Mg Tablet, 50 Mg Oral Metoprolo l Tartrate 50 Mg Tablet, 50 Mg Oral 2016-06-21 00:00:00 No 50 Twice A Day [facility] Clonidine Hcl 0.3 Mg Tablet, 0.3 Mg Oral Clonidine Hcl 0.3 Mg Tablet, 0.3 Mg Oral 2014-10-24 00:00:00 No .3 Twice A Day [facility] Lisinopril 2.5 Mg Tablet, 2.5 Mg Oral Lisinopril 2.5 Mg Tablet, 2.5 Mg Oral 2014-10-24 00:00:00 No 2.5 Daily [facility] Nadolol 40 Mg Tablet, Mg Oral Nadolol 40 Mg Tablet, Mg Oral 2014-10-24 00:00:00 No Daily [facility] Vital Signs Vital Name Observation Time Observation Value Comments Source Heart Rate 2015-03-03 13:25:00 [facility] Temperature Oral (F) 2015-03-03 13:25:00 97.9 F [facility] Systolic (mm Hg) 2015-03-03 13:25:00 Andreany box [place] Diastolic (mm Hg) 2015-03-03 13:25:00 [facility] orial [place] Weight 2015-03-03 12:56:00 [facility] [place] BMI Calculated 2015-03-03 12:56:00 [facility] Height 2015-03-03 12:56:00 167.64 cm [facility] [place] Height 2013-05-03 14:48:00 167.64 cm [facility] Weight 2013-05-03 14:48:00 [facility] Temperature Oral (F) 2012-12-27 21:00:00 98.6 F [facility] [place] Diastolic (mm Hg) 2012-12-27 21:00:00 Mem o[facility] [place] Heart Rate 2012-12-27 21:00:00 [facility] [place] Systolic (mm Hg) 2012-12-27 21:00:00 Andre rial [place] Respitory Rate 2012-12-27 21:00:00 Mem[facility] Diastolic (mm Hg) 2012-12-27 16:45:00 Mem orial Da Heart Rate 2012-12-27 16:45:00 [facility] Temperature Oral (F) 2012-12-27 16:45:00 98.4 F [facility] Systolic (mm Hg) 2012-12-27 16:45:00 Andre rial [place] Respitory Rate 2012-12-27 16:45:00 Mem[facility] al Da Respitory Rate 2012-12-27 13:20:00 Memori al [place] Heart Rate 2012-12-27 13:20:00 [facility] [place] Diastolic (mm Hg) 2012-12-27 13:20:00 Mem orial [place] Systolic (mm Hg) 2012-12-27 13:20:00 Andre rial [place] Temperature Oral (F) 2012-12-27 13:20:00 98.4 F [facility] [place] Height 2012-12-25 00:41:00 167.64 cm [facility] [place] Weight 2012-12-25 00:41:00 [facility] Procedures Procedure Date / Time Performed Performing Clinician Sourc e EGD with biopsy 2019-11-26 00:00:00 NEGRITA MURPHY [facility] CT of abdomen and pelvis without contrast 2019-11-24 00:00:00 BALL KENTON GODINEZ [facility] US abdomen complete 2019-11-22 00:00:00 ANA LUISA SORENSEN [facility] Magnetic resonance angiography of head without contrast 2019 00:00:00 [facility] Magnetic resonance imaging of brain without contrast 2019-10 00:00:00 [facility] Magnetic resonance imaging of pituitary gland without contrast 2019-11-06 00:00:00 [facility] Magnetic resonance imaging of pituitary gland without then with contrast 2019-06-25 00:00:00 [facility] Magnetic resonance imaging of brain without contrast 2019-05 00:00:00 [facility] Hysterectomy [facility] Miscellaneous operations <sup>1</sup> [facility] Hysterectomy [facility] Knee replacement [facility] n Miscellaneous operations<sup>1</sup> [facility] Plan of Care Planned Activity Planned Date Details Comments Source Future Scheduled Test 2020-06-25 00:00:00 INFLUENZA VACCINE [code = INFLUENZA VACCINE] [facility] Scheduled Test 2020-02-06 00:00:00 BREAST CANCER SCRE ENING [code = BREAST CANCER SCREENING] [facility] Scheduled Test 2014 00:00:00 65+ PNEUMOCOCCAL V ACCINE (1 of 2 - PCV13) [code = 65+ PNEUMOCOCCAL VACCINE (1 of 2 - PCV13)] [facility] Scheduled Test 1999 00:00:00 COLONOSCOPY SCREEN ING [code = COLONOSCOPY SCREENING] [facility] Scheduled Test 1999 00:00:00 SHINGLES VACCINES (#1) [code = SHINGLES VACCINES (#1)] [facility] Encounters Start Date/Time End Date/Time Encounter Type Admission Type Attendi [facility] Care Department Encounter ID Source 2019-11-21 12:49:00 2019-11-27 12:45:00 Discharged Inpatient 3 [facility] [id number] [facility] 2019-11-06 08:24:00 2019-11-06 08:24:00 Registered Clinic 3 [facility] [id number] [facility] 2019-06-25 09:13:00 2019-06-25 09:13:00 [facility] [id number] [facility] 2019-06-10 08:00:00 2019-06-10 08:00:00 Registered Clinic 3 [facility] [id number] [facility] 2019-02-26 09:53:00 2019-02-26 09:53:00 Registered Clinic 3 VAEMILIANO [facility] [id number] [facility] 2018-09-04 19:13:00 2018-09-04 23:59:00 Outpatient S idkimberlyi Alexbruce Naikihuddin [facility] [id number] 2018-08-23 13:00:00 2018-08-23 23:59:00 Outpatient S iddiquiHansihuddin MHSE [facility]SE [id number] 2018-08-21 19:10:00 2018-08-21 23:59:00 Outpatient S iddiqui Yenimargie Naikihuddin MHSE [facility]SE [id number] 2018-03-12 09:43:00 2018-03-24 23:59:00 Discharged Recurring [facility] [id number] [facility] 2018-02-22 09:40:00 2018-02-22 23:59:00 Discharged Recurring [facility] [id number] [facility] 2017-04-25 08:42:00 2017-05-25 23:59:00 Discharged Recurring [facility] [id number] [facility] 2015-08-18 09:00:00 2015-09-16 23:59:00 Outpatient Librado Comer E MHSE MHSE [id number] 2015-07-16 12:15:00 2015-08-14 23:59:00 Outpatient Pako Comernando E [facility]SE [facility]SE [id number] 2015-05-19 08:45:00 2015-06-17 23:59:00 Outpatient Librado Comer [facility] [id number] 2015-03-03 07:27:00 2015-03-03 15:00:00 Outpatient Monse Peace V EWAELBA ELBA [id number] 2015-02-24 16:10:00 2015-02-24 23:59:00 Outpatient Monse Peace V ELBA ELBA [id number] Results Test Description Test Time Test Comments Results Result Comments Source Sodium Level 2019-11-27 06:09:00 Test Item Sodium Level (test code = 2951-2) 139 136-145 [facility]Potassium Amvkn9709-45-72 06:09:00* Test Item Value Reference Range Interpretation Comments Potassium Level (test code = 2823-3) 3.8 3.5-5.1 [facility] CenterChloride Dmare5773-57-95 06:09:00* Test Item Value Reference Range Interpretation Comments Chloride Level (test code = 2075-0) 104 98-107 [facility] CenterCarbon Dioxide Oxypf4938-59-71 06:09:00* Test Item Value Reference Range Interpretation Comments Carbon Dioxide Level (test code = 2028-9) 26 22-29 [facility] CenterAnion Veu4809-80-89 06:09:00* Test Item Value Reference Range Interpretation Comments Anion Gap (test code = 43053-4) 12.8 8-16 [facility] CenterBlood Urea Huunnngl5728-20-48 06:09:00* Test Item Value Reference Range Interpretation Comments Blood Urea Nitrogen (test code = 3094-0) 14 7-26 [facility] CenterCreatinine2020-03-04 06:09:00* Test Item Value Reference Range Interpretation Comments Creatinine (test code = 2160-0) 1.39 0.57-1.11 H [facility] CenterBUN/Creatinine Orfzl9331-77-37 06:09:00* Test Item Value Reference Range Interpretation Comments BUN/Creatinine Ratio (test code = 3097-3) 10 6-25 [facility] CenterEstimat Glomerular Filtration Rate 2019-11-27 06:09:00* Test Item Value Reference Range Interpretation Comments Estimat Glomerular Filtration Rate (test code = 879485046) 45 >60 L Ranges were taken from the National Kidney Disease Education Program and the [facility] Kidney Foundation literature.Reference ranges:60 or greater: Qauyzb43-66 ( for 3 consecutive months): Chronic kidney disease 15 or less: Kidney failureSaint Camillus Medical CenterGlucose Ncfze2962-76-66 06:09:00* Test Item Value Reference Range Interpretation Comments Glucose Level (test code = HVZ9075) 87 74-118 [facility] CenterCalcium Waepv3712-21-11 06:09:00* Test Item Value Reference Range Interpretation Comments Calcium Level (test code = 21883-3) 9.3 8.4-10.2 [facility] CenterWhite Blood Hxtqu6677-58-76 05:40:00* Test Item Value Reference Range Interpretation Comments White Blood Count (test code = 6690-2) 9.31 4.8-10.8 [facility] CenterRed Blood Orjib2339-32-41 05:40:00* Test Item Value Reference Range Interpretation Comments Red Blood Count (test code = 789-8) 2.93 3.6-5.1 L [facility] CenterHemoglobin2020-03-04 05:40:00* Test Item Value Reference Range Interpretation Comments Hemoglobin (test code = 25501-6) 8.1 12.0-16.0 L [facility] CenterHematocrit2020-03-04 05:40:00* Test Item Value Reference Range Interpretation Comments Hematocrit (test code = 4544-3) 26.9 34.2-44.1 L [facility] CenterMean Corpuscular Cxvjgg6469-62-11 05:40:00* Test Item Value Reference Range Interpretation Comments Mean Corpuscular Volume (test code = 787-2) 91.8 81-99 [facility] CenterMean Corpuscular Vgcjnxrhho6838-51-01 05:40:00* Test Item Value Reference Range Interpretation Comments Mean Corpuscular Hemoglobin (test code = 785-6) 27.6 28-32 L [facility] CenterMean Corpuscular Hemoglobin Concent 2019-11-27 05:40:00* Test Item Value Reference Range Interpretation Comments Mean Corpuscular Hemoglobin Concent (test code = 786-4) 30.1 31-35 L [facility] CenterRed Cell Distribution Enppu8621-79-70 05:40:00* Test Item Value Reference Range Interpretation Comments Red Cell Distribution Width (test code = 34756-5) 16.0 11.7 -14.4 H [facility] CenterPlatelet Ymiuj4750-89-99 05:40:00* Test Item Value Reference Range Interpretation Comments Platelet Count (test code = 777-3) 378 140-360 H [facility] CenterNeutrophils (%) (Auto)2019-11-27 05:40:00 * Test Item Value Reference Range Interpretation Comments Neutrophils (%) (Auto) (test code = 88802-0) 62.3 38.7-80.0 [facility] CenterLymphocytes (%) (Auto)2019-11-27 05:40:00 * Test Item Value Reference Range Interpretation Comments Lymphocytes (%) (Auto) (test code = 736-9) 26.3 18.0-39.1 [facility] CenterMonocytes (%) (Auto)2019-11-27 05:40:00* Test Item Value Reference Range Interpretation Comments Monocytes (%) (Auto) (test code = 5905-5) 8.6 4.4-11.3 [facility] CenterEosinophils (%) (Auto)2019-11-27 05:40:00 * Test Item Value Reference Range Interpretation Comments Eosinophils (%) (Auto) (test code = 713-8) 0.6 0.0-6.0 [facility] CenterBasophils (%) (Auto)2019-11-27 05:40:00* Test Item Value Reference Range Interpretation Comments Basophils (%) (Auto) (test code = 706-2) 0.6 0.0-1.0 [facility] CenterIM GRANULOCYTES %2019-11-27 05:40:00* Test Item Value Reference Range Interpretation Comments IM GRANULOCYTES % (test code = IM GRANULOCYTES %) 1.6 0.0- 1.0 H [facility] CenterNeutrophils # (Auto)2019-11-27 05:40:00* Test Item Value Reference Range Interpretation Comments Neutrophils # (Auto) (test code = 751-8) 5.8 2.1-6.9 [facility] CenterLymphocytes # (Auto)2019-11-27 05:40:00* Test Item Value Reference Range Interpretation Comments Lymphocytes # (Auto) (test code = 93163-6) 2.5 1.0-3.2 [facility] CenterMonocytes # (Auto)2019-11-27 05:40:00* Test Item Value Reference Range Interpretation Comments Monocytes # (Auto) (test code = 742-7) 0.8 0.2-0.8 [facility] CenterEosinophils # (Auto)2019-11-27 05:40:00* Test Item Value Reference Range Interpretation Comments Eosinophils # (Auto) (test code = 711-2) 0.1 0.0-0.4 [facility] CenterBasophils # (Auto)2019-11-27 05:40:00* Test Item Value Reference Range Interpretation Comments Basophils # (Auto) (test code = 704-7) 0.1 0.0-0.1 [facility] CenterAbsolute Immature Granulocyte (auto 2019-11-27 05:40:00* Test Item Value Reference Range Interpretation Comments Absolute Immature Granulocyte (auto (cornel t code = Absolute Immature Granulocyte (auto) 0.15 0-0.1 H [facility] CenterBlood Fbjfyik3809-88-25 16:16:00* Test Item Value Reference Range Interpretation Comments Blood Culture (test code = 92555515) NO GROWTH AFTER 5 DAYS, FINAL REPORT [facility] CenterTotal Nqgusiccy5098-42-51 06:18:00* Test Item Value Reference Range Interpretation Comments Total Bilirubin (test code = 1975-2) 0.3 0.2-1.2 [facility] CenterAspartate Amino Transf (AST/SGOT) 2019-11-26 06:18:00* Test Item Value Reference Range Interpretation Comments Aspartate Amino Transf (AST/SGOT) (test code = Aspartate Amino Transf (AST/SGOT)) 11 5-34 [facility] CenterAlanine Aminotransferase (ALT/SGPT) 2019-11-26 06:18:00* Test Item Value Reference Range Interpretation Comments Alanine Aminotransferase (ALT/SGPT) (test code = 1742-6) 6 0-55 [facility] CenterTotal Jpikvyh1680-05-16 06:18:00* Test Item Value Reference Range Interpretation Comments Total Protein (test code = 2885-2) 6.6 6.5-8.1 [facility] CenterAlbumin2020-03-03 06:18:00* Test Item Value Reference Range Interpretation Comments Albumin (test code = 1751-7) 2.9 3.5-5.0 L [facility] CenterGlobulin2020-03-03 06:18:00* Test Item Value Reference Range Interpretation Comments Globulin (test code = 75224-7) 3.7 2.3-3.5 H [facility] CenterAlbumin/Globulin Qhqxz6119-03-77 06:18:00 * Test Item Value Reference Range Interpretation Comments Albumin/Globulin Ratio (test code = 1759-0) 0.8 0.8-2.0 [facility] CenterAlkaline Odhdjerprsk5144-93-70 06:18:00* Test Item Value Reference Range Interpretation Comments Alkaline Phosphatase (test code = 6768-6) 71 40-150 [facility] CenterAmylase Cuqyj5018-10-42 06:18:00* Test Item Value Reference Range Interpretation Comments Amylase Level (test code = 1798-8) 63 25-125 [facility] CenterLipase2020-03-03 06:18:00* Test Item Value Reference Range Interpretation Comments Lipase (test code = 3040-3) 9 8-78 [facility] CenterRBC Folate Vakshkhqur7132-25-62 20:56:00 * Test Item Value Reference Range Interpretation Comments RBC Folate Hemolysate (test code = 2282-2) 271.0 Not Estab. [facility] CenterHematocrit2020-03-02 20:56:00* Test Item Value Reference Range Interpretation Comments Hematocrit (test code = 4544-3) 27.2 34.0-46.6 L [facility] Nxkfxhbilt4175-25-93 20:56:00 * Test Item Value Reference Range Interpretation Comments RBC Folate Hemolysate (test code = 2283-0) 996 >498 Performed at: [facility] [id number] Director: Americo Shrestha MD, Phone: [phone] [facility]HE[facility] W TSIVN4105-76-37 19:59:00 [facility] [address] [place] [address] Patient Name: GILLES LIZAMA MR #: [id number] : 1950 Age/Sex: 69/F Req #: [id number] Adm Physician: ANA LUISA SORENSEN MD Ordered by: ANA LUISA SORENSEN MD Report #: [id number] Location: MED/SURG3 Room/Bed: [facility] Procedure: [id number] NM /HEPTOBILIARY W PHARM Exam Date: 11/25/19 Exam Time: 1700 REPORT STATUS: Signed Hepa tobiliary Scan with Gallbladder Ejection Fraction Clinical information: Abd ominal pain; gallbladder sludge Report: Following intravenous administratio n of 6.125 millicuries of Tc-99m mebrofenin, dynamic images of the abdomen in the anterior projection were obtained through 2.7 minutes. Sincalide (CCK enrrique log) 1.5 micrograms was administered intravenously over 30 minutes with additi onal imaging for determination of gallbladder ejection fraction. Perfusio n to the liver is normal. Extraction of tracer from the blood pool by the aminta er parenchyma is normal. Tracer is seen promptly within the biliary tract. T he gallbladder begins to fill by 15 minutes post-injection of tracer and fills adequately. Tracer is seen in the small bowel by 20 minutes. The gallbladder ejection fraction with administration of sincalide is 47% (normal greater than 40%). Impression: 1. Filling of the gallbladder excludes the diag nosis of acute cystic duct obstruction/acute cholecystitis. 2. Normal gallb ladder ejection fraction of 47% does not support the clinical diagnosis of chr onic cholecystitis/gallbladder dyskinesia. Signed by: Dr. Jyoti Leary M.D. on 11/25/2019 8:01 PM Dictated By: JYOTI LEARY MD 00 Transcribed By: JOSE ALBERTO on 11/25/192000 COPY TO: ANA LUISA SORENSEN MD Vancomycin Level Dsfkns3452-98-63 08:08:00 * Test Item Value Reference Range Interpretation Comments Vancomycin Level Trough (test code = 4092-3) 8.8 5.0-10.0 [facility]PELVIS RX0047-93-18 16:22:00 [place] [address] Patient Name: GILLES LIZAMA MR #: [id number] : 1950 Age/Sex: 69/F Req #: [id number] Adm Physician: ANA LUISA SORENSEN MD Ordered by: KENTON MURPHY MD Report #: [id number] Location: MED/SURG3 Room/Bed: [facility] Procedure: [id number] C T/CT ABDOMEN/PELVIS WO Exam Date: 11/24/19 Exam Time : 1600 REPORT STATUS: Signed EXA MINATION: CT of the abdomen and pelvis without contrast. TECHNIQUE: Helica l CT images of the abdomen and pelvis were performed from the lung bases to th e lesser trochanters. No intravenous contrast was given per renal protocol. Enteric contrast administered. Coronal and sagittal reformatted images were ob tained.Dose modulation, iterative reconstruction, and/or weight based adjustme nt of the mA/kV was utilized to reduce the radiation dose to as low as reasona madiha achievable. COMPARISON: None. CLINICAL HISTORY:Abdominal pain DISCUSSION: ABSENCE OF INTRAVENOUS CONTRAST DECREASES SENSITIVITY FOR DE TECTION OF FOCAL LESIONS AND VASCULAR PATHOLOGY. ABDOMEN/PELVIS: LOW ER THORAX: Unremarkable. HEPATOBILIARY:No focal hepatic lesions. No bilia ry ductal dilation. The gallbladder is normal. SPLEEN: No splenomegaly. PANCREAS: No focal masses or ductal dilatation. ADRENALS: No adrenal n odules. KIDNEYS/URETERS: No hydronephrosis, stones, or solid mass lesions. PELVIC ORGANS/BLADDER: The bladder is normal. Hysterectomy. PERITONEU M/RETROPERITONEUM: No free air or fluid. LYMPH NODES: No intra-abdominal,re troperitoneal, pelvic or inguinal lymphadenopathy. VESSELS: Limited evalu ation GI TRACT: No distention or wall thickening. BONES AND SOFT TISSU ES: No bony destructive lesions. No soft tissue abnormalities. IMPRESS ION: No acute CT finding. Signed by: Dr. Aric Nunez M.D. on 2019 4:59 PM Dictated By: ARIC NUNEZ MD 58 Transcribed By: JOSE ALBERTO on 11/24/191658 COPY TO: KENTON MURPHY MD Stool Occult Kedkg5673-80-80 10:16:00* Test Item Value Reference Range Interpretation Comments Stool Occult Blood (test code = 2335-8) POSITIVE NEGATIVE H [facility] HospitalBedside Ebfapcp7324-59-70 21:11:00* Test Item Value Reference Range Interpretation Comments Bedside Glucose (test code = 53897-3) 134 70-120 H Meter ID: [id number] [facility]illus Medical CenterUS ABDOMEN COMPLETE 2019-11-22 13:26:00 [facility] [address] [place] [address] Patient Name: GILLES LIZAMA MR #: [id number] : 1950 Age/Sex: 69/F Req #: [id number] Adm Physician: ANA LUISA SORENSEN MD Ordered by: ANA LUISA SORENSEN MD Report #: [id number] [facility]: [facility] Room/Bed: [facility] Procedure: [id number] US /US ABDOMEN COMPLETE Exam Date: 11/22/19 Exam Time: 1048 REPORT STATUS: Signed EXAM: Complete Abdominal Ultrasound INDICATION: fatty liver disease, carolina al failure [id number] Y COMPARISON: None. TECHNIQUE: Transverse and longitudinal images of the upper abdomen were obtained. FINDINGS: Liver: Size: 13.8 cm in the right midclavicular line, normal Appearance: Normal echogenicity, smooth contour Mass: No focal masses Spleen: Size: 7.5 cm in length, normal Echogenicity: Normal Mass: No focal masses Gallbladder: Stones/Sludge: Small amount of sludge. No formed stone. Wall: 0.2 cm Appearance: No perichol ecystic fluid or hydrops. Sonographic Soto's Sign: Negative Bile Ducts: Intrahepatic Ducts: No dilatation Extrahepatic Ducts: Comm on bile duct measures 0.3 cm, no dilatation Pancreas: Visualized por tions of the pancreatic head, neck and proximal body are normal. Right Ki dney: Size: 10.6 x 5.8 x 4.7 cm Echogenicity: Normal Pare nchymal thickness: Normal Collecting System: No hydronephrosis S tone: None Cyst/Mass: None Left Kidney: Size: 9.5 x 4.1 x 4.1 cm Echogenicity: Normal Parenchymal thickness: Normal Collecting System: No hydronephrosis Stone: None Cyst/Mass: None Vessels: Aorta: Visualized portions are normal Inferior Vena Cava: Visualized portions are normal Main Portal Vein: 1.1 cm, normal size with hepatopetal flow. Free Fluid: No ascites or p leural effusion IMPRESSION: Gallbladder sludge. No other sonographic e vidence of cholecystitis. Otherwise unremarkable abdominal ultrasound. Signed by: Karl Cochran MD on 11/22/2019 1:28 PM Dictated By: KARL COCHRAN MD 1328 Transcr ibed By: JOSE ALBERTO on 11/22/19 1328 COPY TO: ANA LUISA SORENSEN MD Triglycerides Blpxw1452-29-50 10:24:00* Test Item Value Reference Range Interpretation Comments Triglycerides Level (test code = 2571-8) 152 0-149 H [facility] CenterCholesterol Vpfqk6300-22-87 10:24:00* Test Item Value Reference Range Interpretation Comments Cholesterol Level (test code = 2093-3) 189 0-199 Less than 200 mg/dL Low Kzpo339 - 239 mg/dL Borderline Ylqh831 m g/dl and greater High Risk [facility] CenterLDL Iekwcfhcxwu0839-38-26 10:24:00* Test Item Value Reference Range Interpretation Comments LDL Cholesterol (test code = 2089-1) 106 60-130 [facility] CenterHDL Jjzuqlovfah7783-97-35 10:24:00* Test Item Value Reference Range Interpretation Comments HDL Cholesterol (test code = 2085-9) 53 40-60 [facility] CenterCholesterol/HDL Gpoqp6038-59-56 10:24:00 * Test Item Value Reference Range Interpretation Comments Cholesterol/HDL Ratio (test code = 9830-1) 3.6 3.0-3.6 [facility] CenterLactic Acid Vqfzh5014-62-08 07:15:00* Test Item Value Reference Range Interpretation Comments Lactic Acid Level (test code = Lactic Acid Level) 1.5 0.5- 2.0 [facility] CenterDifferential Total Cells Counted 2019-11-21 20:46:00* Test Item Value Reference Range Interpretation Comments Differential Total Cells Counted (test code = Differen tial Total Cells Counted) 100 [facility] CenterNeutrophils % (Manual)2019-11-21 20:46:00 * Test Item Value Reference Range Interpretation Comments Neutrophils % (Manual) (test code = 42661-2) 76 40-74 H [facility] CenterLymphocytes % (Manual)2019-11-21 20:46:00 * Test Item Value Reference Range Interpretation Comments Lymphocytes % (Manual) (test code = 737-7) 20 19-48 [facility] CenterMonocytes % (Manual)2019-11-21 20:46:00* Test Item Value Reference Range Interpretation Comments Monocytes % (Manual) (test code = 744-3) 2 3.4-9.0 L [facility] CenterReactive Heiczyquzvc6148-58-80 20:46:00* Test Item Value Reference Range Interpretation Comments Reactive Lymphocytes (test code = 87342-1) 2 [facility] CenterPlatelet Axpgtrnx3515-10-07 20:46:00* Test Item Value Reference Range Interpretation Comments Platelet Estimate (test code = 10899-6) SLIGHTLY INCREASED [facility] CenterPlatelet Morphology Vgnctsg4831-53-96 20:46:00* Test Item Value Reference Range Interpretation Comments Platelet Morphology Comment (test code = 21374-9) NORMAL [facility] CenterRed Cell Morphology Dhhgedd8781-05-42 20:46:00* Test Item Value Reference Range Interpretation Comments Red Cell Morphology Comment (test code = 6742-1) NORMAL [facility] CenterVitamin B12 Bfwjv2358-83-82 18:50:00* Test Item Value Reference Range Interpretation Comments Vitamin B12 Level (test code = 15161-5) 1899 213-816 H [facility] CenterUrine VIV9386-30-85 18:39:00* Test Item Value Reference Range Interpretation Comments Urine WBC (test code = 5821-4) 0-5 0-5 [facility] CenterUrine BER7014-44-01 18:39:00* Test Item Value Reference Range Interpretation Comments Urine RBC (test code = 24711-8) NONE 0-5 [facility] CenterUrine Mpsrqxfs8224-63-77 18:39:00* Test Item Value Reference Range Interpretation Comments Urine Bacteria (test code = 66119-8) RARE NONE [facility] CenterUrine Epithelial Yrinp5561-04-27 18:39:00 * Test Item Value Reference Range Interpretation Comments Urine Epithelial Cells (test code = 74762-4) FEW NONE [facility] CenterFerritin2020-02-27 18:39:00* Test Item Value Reference Range Interpretation Comments Ferritin (test code = 2276-4) 68.25 4.63-204.00 [facility] Cdtgn0369-52-78 18:27:00* Test Item Value Reference Range Interpretation Comments Urine Color (test code = 5778-6) YELLOW YELLOW [facility] Mqmgjns1939-27-11 18:27:00* Test Item Value Reference Range Interpretation Comments Urine Clarity (test code = 32611-2) CLEAR CLEAR [facility] Specific Ieysdvh1979-66-59 18:27:00 * Test Item Value Reference Range Interpretation Comments Urine Specific [place] (test code = 5811-5) 1.020 1.010-1.02 5 [facility] sE6901-72-76 18:27:00* Test Item Value Reference Range Interpretation Comments Urine pH (test code = 02191-8) 7 5-7 [facility] Leukocyte Rjghobom1810-69-19 18:27:00* Test Item Value Reference Range Interpretation Comments Urine Leukocyte Esterase (test code = 5799-2) NEGATIVE NEGATIVE [facility] Bcrqfha2399-58-25 18:27:00* Test Item Value Reference Range Interpretation Comments Urine Nitrite (test code = 22035-8) NEGATIVE NEGATIVE [facility] Blgkcsn7107-58-49 18:27:00* Test Item Value Reference Range Interpretation Comments Urine Protein (test code = 5804-0) NEGATIVE NEGATIVE [facility] Glucose (UA)2019-11-21 18:27:00* Test Item Value Reference Range Interpretation Comments Urine Glucose (UA) (test code = 2349-9) NEGATIVE NEGATIVE [facility] Nefygma0020-05-46 18:27:00* Test Item Value Reference Range Interpretation Comments Urine Ketones (test code = 49602-2) NEGATIVE NEGATIVE [facility] Agxgkltkgvvg0947-66-56 18:27:00* Test Item Value Reference Range Interpretation Comments Urine Urobilinogen (test code = 54225-9) 0.2 0.2-1 [facility] Fvqmsbsdb1630-19-49 18:27:00* Test Item Value Reference Range Interpretation Comments Urine Bilirubin (test code = 1978-6) NEGATIVE NEGATIVE [facility] Oiwmz0625-70-94 18:27:00* Test Item Value Reference Range Interpretation Comments Urine Blood (test code = 42088-4) TRACE NEGATIVE H [facility] CenterIron Uoryw9656-62-73 18:22:00* Test Item Value Reference Range Interpretation Comments Iron Level (test code = 2498-4) 23 50-170 L [facility] CenterTotal Iron Binding Xpgejdrm1467-40-63 18:22:00* Test Item Value Reference Range Interpretation Comments Total Iron Binding Capacity (test code = 2500-7) 273 261-4 78 [facility] CenterPercent Iron Pebzcgjlmd5793-58-56 18:22:00* Test Item Value Reference Range Interpretation Comments Percent Iron Saturation (test code = 2502-3) 8 15-50 L [facility] CenterTransferrin2020-02-27 18:22:00* Test Item Value Reference Range Interpretation Comments Transferrin (test code = 3034-6) 195 180-382 [facility] CenterThyroid Stimulating Hormone (TSH) 2019-11-21 17:06:00* Test Item Value Reference Range Interpretation Comments Thyroid Stimulating Hormone (TSH) (test code = 37693-8) 2.264 0.350-4.940 [facility] CenterB-Type Natriuretic Alnxebv1655-80-64 16:38:00* Test Item Value Reference Range Interpretation Comments B-Type Natriuretic Peptide (test code = 90566-6) 80.1 0-100 [facility] CenterCHEST SINGLE (PORTABLE)2019-11-21 15:39:00 [place] [address] Patient Name: GILLES LIZAMA MR #: [id number] : 1950 Age/Sex: 69/F Req #: [id number] Adm Physician: ANA LUISA SORENSEN MD Ordered by: ANA LUISA SORENSEN MD Report #: [id number] Location: MED/SURG3 Room/Bed: [facility] Procedure: [id number] DX /CHEST SINGLE (PORTABLE) Exam Date: 11/21/19 Exam Ti me: 1414 REPORT STATUS: Signed E XAMINATION: CHEST SINGLE (PORTABLE) INDICATION: Shortness of breath COMPARISON: None FINDINGS: LINES/TUBES:None LUNGS:The debra gs are well-inflated. No focal consolidation or pulmonary edema. PLEURA:No pleural effusion or pneumothorax. MEDIASTINUM:The cardiomediastinal silhoue tte appears normal in size and shape. Atherosclerotic calcifications of the th oracic aorta. BONES/SOFT TISSUES:No acute osseous injury. ABDOMEN:No f ree air under the diaphragm. IMPRESSION: No focal pneumonia or pulmon vitaly edema. Signed by: Jose Macias MD on 11/21/2019 3:40 PM Dictated B y: JOSE MACIAS MD 39 Ryan scribed By: JOSE ALBERTO on 11/21/191539 COPY TO: ANA LUISA SORENSEN MD MRI P[place]ARY [place] HA0254-63-36 12:40:00 [place] [address] Patient Name: GILLES LIZAMA MR #: [id number] : 1950 Age/Sex: 69/F Req #: [id number] Adm Physician: Ordered by: ANA LUISA SORENSEN MD Report #: [id number] Location: MRI Room/Bed: Procedure: [id number] MRI /MRI P[place] WO Exam Date: Exam Time: REPORT STATUS: Signed EXAMINATION: M RI of the brain and sella turcica without contrast HISTORY: Disorder of the pituitary gland.Vertigo, imbalance, multiple folds, weakness. COMPARISON: B rain MRI from 06/10/2019 and similar to seek a MRI from 06/25/2019 TECHNIQUE: Brain: Sagittal T2; axial DWI, T2, FLAIR, T1-IR, T2 gradient echo; coronal FL AIR. Sella turcica: Thin section images of the sella consisting of coronal d ynamic T1, sagittal and coronal T1 pre/post contrast, coronal T2. Whole brain DWI/ADC. IMAGE QUALITY: Artifact from patient motion mildly limits evalua tion of some of the sequences. Brain MRI findings: Parenchyma: 1. Persistent mild pontine and supratentorial periventricular white matter ch ronic microvascular ischemic changes. 2. No mass, hemorrhage, acute or chron ic infarcts. Skull: Unremarkable. Vessels: Expected flow voids present in the major arteries and dural sinuses. Extra-axial spa giovanna: No abnormal signal intensity or mass effect. Brain volume: Within no rmal limits for age. Ventricles: No hydrocephalus or displacement. Foramen magnum: Unremarkable. Paranasal / mastoid sinuses: No signific ant inflammatory disease. Pituitary MRI findings: Pituitary gland: Unc hanged approximately 9 mm homogeneously low T1 and high T2 signal intensity le marychuy within the anterior gland/adenohypophysis, which likely corresponds to a pituitary adenoma with cystic degeneration. The neurohypophysis is not well-vi sualized. Sella Turcica: Normal in size and configuration. Pituitary s talk: Well visualized and unremarkable. Optic chiasm: Well visualized and u nremarkable.. Cavernous sinuses: Normal in size and symmetric. Inverted Block Operator al carotid arteries: Normal flow void appearance. IMPRESSION: Brain MR I: 1. Stable minimal chronic microvascular ischemic changes compared to MRI o f 06/10/2019. 2. Otherwise no intracranial abnormalities. Pituitary gla nd MRI: Stable approximately 9 mm pituitary adenoma compared to MRI of 06/25/20 19. Signed by: Dr. Magan Saab M.D. on 11/06/2019 12:53 PM Dictat ed By: MAGAN SAAB MD 1253 Transcribed By: JOSE ALBERTO on 11/06/19 1253 COPY TO: ANA LUISA SORENSEN MD MRI BRAIN [id number] 12:40:00 [place] [address] Patient Name: GILLES LIZAMA MR #: [id number] : 1950 Age/Sex: 69/F Req #: [id number] Adm Physician: Ordered by: ANA LUISA SORENSEN MD Report #: [id number] Location: MRI Room/Bed: Procedure: [id number] MRI /MRI BRAIN WO Exam Date: Exam Time: REPORT STATUS: Signed EXAMINATION: MRI of the brain and sella turcica without contrast HISTORY: Disorder of the pituitary gland.Vertigo, imbalance, multiple folds, weakness. COMPARISON: Brain MRI f rom 06/10/2019 and similar to seek a MRI from 06/25/2019 TECHNIQUE: Brain: Sa gittal T2; axial DWI, T2, FLAIR, T1-IR, T2 gradient echo; coronal FLAIR. Se lla turcica: Thin section images of the sella consisting of coronal dynamic T 1, sagittal and coronal T1 pre/post contrast, coronal T2. Whole brain DWI/ADC . IMAGE QUALITY: Artifact from patient motion mildly limits evaluation of so me of the sequences. Brain MRI findings: Parenchyma: 1. Persis tent mild pontine and supratentorial periventricular white matter chronic micr ovascular ischemic changes. 2. No mass, hemorrhage, acute or chronic infarct s. Skull: Unremarkable. Vessels: Expected flow voids pre sent in the major arteries and dural sinuses. Extra-axial spaces: No ab normal signal intensity or mass effect. Brain volume: Within normal limit s for age. Ventricles: No hydrocephalus or displacement. Foramen m agnum: Unremarkable. Paranasal / mastoid sinuses: No significant inflam matory disease. Pituitary MRI findings: Pituitary gland: Unchanged mireille roximately 9 mm homogeneously low T1 and high T2 signal intensity lesion withi n the anterior gland/adenohypophysis, which likely corresponds to a pituitary adenoma with cystic degeneration. The neurohypophysis is not well-visualized. Sella Turcica: Normal in size and configuration. Pituitary stalk: Well visualized and unremarkable. Optic chiasm: Well visualized and unremarkabl e.. Cavernous sinuses: Normal in size and symmetric. Internal carotid arteries: Normal flow void appearance. IMPRESSION: Brain MRI: 1. S table minimal chronic microvascular ischemic changes compared to MRI of 019. 2. Otherwise no intracranial abnormalities. Pituitary gland MRI: Stable approximately 9 mm pituitary adenoma compared to MRI of 06/25/2019. Signed by: Dr. Magan Saab M.D. on 11/06/2019 12:53 PM Dictated By: MAGDALENA SAAB MD 1253 Transcri bed By: JOSE ALBERTO on 11/06/19 1257 COPY TO: ANA LUISA SORENSEN MD MRA HEAD [id number] 12:15:00 [place] [address] Patient Name: GILLES LIZAMA MR #: [id number] : 1950 Age/Sex: 69/F Req #: [id number] Adm Physician: Ordered by: ANA LUISA SORENSEN MD Report #: [id number] Location: MRI Room/Bed: Procedure: [id number] MRI /MRA HEAD WO Exam Date: Exam Time: REPORT STATUS: Signed EXAMINATION: MR angiogram of the [place] of [place] without contrast. CLINICAL HISTORY: Vertigo, imbal ance, multiple folds, weakness. COMPARISON: Brain MRI 06/10/2019 TECHNIQUE: 3 D TOF MR angiogram sequences of the head was performed without contrast. AK P images of the arteries were isolated into anterior-posterior groups. The so urce images, reformatted axial and coronal images, and outside sales representative insurance projecti ons of the MIP images through 180 degrees of rotation and tumbling were review ed. Image quality: Suboptimal study artifact from patient's motion. FINDINGS: The vessels of the [place] of [place] and posterior circulation are patent, there is no evidence of significant stenosis. No vascular malformation or aneurysmal dilatation is identified. Minimal prominence of the basilar t ip. Anatomic variation: Anterior Communicating Artery: Probably present, motion prevents an accurate evaluation. Posterior Communicating Arteries: Pa tent bilaterally The right A1 is hypoplastic. Vertebral arteries: The right is dominant IMPRESSION: Suboptimal evaluation due to motion artifact, grossly no large vessel occlusion, significant stenoses or vascular malformati ons. Signed by: Dr. Magan Saab M.D. on 11/06/2019 12:41 PM Di ctated By: MAGAN SAAB MD 1241 Transcribed By: JOSE ALBERTO on 11/06/19 1241 COPY TO: ANA LUISA SORENSEN MD MRI [place] [id number] 16:05:00 [place] [address] Patient Name: GILLES LIZAMA MR #: [id number] : 1950 Age/Sex: 68/F Req #: [id number] [facility] Physician: Ordered by: ANA LUISA SORENSEN MD Report #: [id number] Location: MRI Room/Bed: Procedure: [id number] MRI /MRI [place] WOW Exam Date: Exam Time: REPORT STATUS: Signed History: Diso rder of the pituitary gland Comparison studies: MRI of the brain 06/10/2019 Technique: Pre-and post coronal and sagittal T1. Coronal T2. Axial DWI thr ough the brain. Dynamic postcontrast coronal through the sella Intravenous contrast: 20 cc of MultiHance Findings: Sella: Normal in size and c onfiguration. Pituitary gland: Nonenhancing cystic lesion at the anterio r sella measuring 0.8 x 0.9 x 0.8 cm (SI-AP-Trans), with mild effacement of th e suprasellar cistern, without mass effect over the adjacent structures. . Pituitary stalk: Normal in size and at midline. Optic chiasm: Well visualized and unremarkable. Cavernous sinuses: Normal in size and symmetric. Internal carotid arteries: Normal flow void appearance. Sphenoid sinuses: No T2 hyperintense mucosal inflammatory changes. St able T2/flair hyperintensities of the white matter. IMPRESSION: 1. St able nonenhancing cystic subcentimeter lesion at the anterior pituitary gland as described above, with similar diagnostic considerations including adenoma, Rathke cleft cysts and pars intermedia cyst. 2. Mild chronic microvascular is chemic changes Signed by: DR Pio Osuna M.D. on 06/25/2019 4:1 4 PM Dictated By: PIO LYNN MD Transcribed By: JOSE ALBERTO on 06/25/191613 COPY TO: ANA LUISA SORENSEN MD MRI BRAIN [id number] 09:39:00 [place] [address] Patient Name: GILLES LIZAMA MR #: [id number] : 1950 Age/Sex: 68/F Req #: [id number] Adm Physician: Ordered by: ANA LUISA SORENSEN MD Report #: [id number] Location: MRI Room/Bed: Procedure: [id number] MRI /MRI BRAIN WO Exam Date: Exam Time: REPORT STATUS: Signed Examination: MRI BRAIN WO CONTRAST History: Vertigo. Falls. Dizziness. Comparison studies: Not avail able for comparison. Technique: Sagittal T2; axial DWI, FLAIR, GRE or SW I, T1, Coronal FLAIR. Intravenous contrast: None Findings: Scalp: No abnormal signal. No masses. Bone marrow: Normal in signal intensity. Br ain volume: Adequate for age. No volume loss. Ventricles: Normal in size and configuration. No hydrocephalus. Extra-axial spaces: No abnormalities . Parenchyma: Patchy areas of T2/FLAIR signal abnormality in the central marcel. There is mild banding/ capping of the frontal horn of the bilateral late ral ventricles. No masses, hemorrhage, or acute vascular insults. Suprase llar and sellar region: There is a 9.1 mm ovoid T2 hyperintense lesion in the anterior aspect of the sella. This lesion could represent an adenoma or Rathke 's cleft cyst. Craniocervical junction: No abnormalities. The foramen magnum i s patent. No Chiari malformations. Vessels: Normal flow-voids in the arterie s and sinuses. Additional findings:None. IMPRESSION: No acute int racranial abnormalities. A 9.1 mm ovoid T2 hyperintense lesion/2 anterior g land, presumed adenoma or Rathke's cleft cyst, in the anterior sella/pituitary gland. A sella MRI with and without contrast is recommended for further evalu ation to ensure that this is entirely cystic. Mild chronic microvascular ischemic change of the marcel. Signed by: Dr. Jayla Brian M.D. on 2018 9:47 AM Dictated By: JAYLA DICKSON MD Electronically Sig prateek By: JAYLA DICKSON MD on 06/10/19946 Transcribed By: JOSE ALBERTO on 06/10/19946 COPY TO: ANA LUISA SORENSEN MD MAMMOGRAPHY DIGITAL SCR [id number] 11:03:00 [place] [address] Patient Name: GILLES LIZAMA MR #: [id number] : 1950 Age/Sex: 68/F Req #: [id number] Adm Physician: Ordered by: ANA LUISA SORENSEN MD Report #: [id number] Location: MAMMO Room/Bed: Procedure: [id number] MG/ MAMMOGRAPHY DIGITAL SCR BILAT Exam Date: 02/26/19 Ex am Time: 1000 REPORT STATUS: Signed #[id number] - MGSCRBIL #BILATERAL DIGITAL SCREENING MAMMOGRAM WITH C AD: 02/26/2019 CLINICAL: Routine screening. Comparison is made to exams d ated: 02/05/2018 mammogram and 02/01/2016 mammogram - [facility]il [facility]. Current study contains 6 films. The tissue of both breasts is predom inantly fatty. Current study was also evaluated with a Computer Aided Detect ion (CAD) system. There are benign vascular calcifications and a lymph node in both breasts. There also are benign scattered calcifications in both ras sts. No significant masses, calcifications, or other findings are seen in ei ther breast. There has been no significant interval change. IMPRESSION: BENIGN There is no mammographic evidence of malignancy. A 1 year screening m ammogram is recommended. The patient will be notified by letter of the result s. Venkatesh pantoja/michael:03/15/2019 09:17:57 [employer]: Jyoti DUMONT(Francisca)(M), [facility] enter letter sent: Compared to Prior B9 Mammogram BI-RADS: 2 Benign Di ctated By: VENKATESH HEATON DO 6 COPY TO: ANA LUISA SORENSEN MD CHEM RPIKN6619-30-49 20:45:001.2[facility] PFUHF4657-51-07 20:45:0054[facility] GVRAO1105-97-53 18:56:0055[facility] SZABI5255-88-13 18:56:008.5[facility] RIGWO6054-94-73 18:56:0032 [facility] POLRX1293-09-13 18:56:0018[facility]annCHEM PANEL 2015-03-03 18:56:41423Yukegxxt HermannCHEM WFQAG9991-74-69 18:56:003.2[facility] ZRLTK0836-84-87 18:56:69154Qduldyai HermannCHEM JKSQB8005-00-94 18:56:001.2[facility]annCHE[facility] XWKWV7191-16-01 18:56:84037Grxgebqn [facility]annCHE[facility] KLAUY8006-83-72 18:56:008.2[facility] DwhhchqNEIZFNDTXM0163-74-52 18:56:0010.3 [facility] BUHYB5597-33-74 21:25:004.4[facility]annCHEM PANEL 2015-02-24 21:25:000.8[facility]CHE[facility] NVUSE5503-83-70 21:25:000.2[facility]annCHE[facility] EDVRL3561-60-45 21:25:0084[facility]annCHEM DAYDZ4242-29-52 21:25:0012[facility]annCHE[facility] EHLUV0808-55-74 21:25:0019[facility] CXMCC1318-80-44 21:25:0019[facility]annCHE[facility] DJIOQ7614-28-81 21:25:007.9 [facility]CHE[facility] REBYX0674-87-49 21:25:0015[facility]annCHEM PANEL 2015-02-24 21:25:0050[facility]annCHE[facility] QOBWZ6306-30-20 21:25:003.5[facility]annCHE[facility] OJIKZ4521-41-71 21:25:006.6[facility]CHE[facility] GJBSY2882-37-41 21:25:004.6[facility]CHE[facility] FWRDJ0313-94-19 21:25:27611Mvsdjxcr [facility]annCHEM MYMYS4796-97-76 21:25:83863Gawtmhrk [facility]annCHE[facility] VJDDL4562-46-37 21:25:009.1 [facility] QLPLS0522-52-85 21:25:0034[facility]annCHEM PANEL 2015-02-24 21:25:001.3[facility]annCHE[facility] CBIPH0708-46-49 21:25:0099[facility] XkcfaffLJVSIJNLKR8299-71-80 21:25:007.4[facility] JchcjqgSIBTBZFZTQ3377-48-33 21:25:0015.4[facility] XhyfngzJXACRRYWGA8572-05-46 21:25:02518Pabgwprr Da PJNMEXMZKX9756-03-48 21:25:0033.3[facility] GwuotqwFVMHUYUAWD4409-68-58 21:25:00* Test Item Value Reference Range Interpretation Comments MCH (test code = MCH) 29.6 pg 27.0-31.0 [facility] MshevncHFEYNSXNSF1827-62-60 21:25:0088.9[facility]annHEMATOLOGY 2015-02-24 21:25:0011.7[facility] VjnydicCUIYKAAUDU8228-40-87 21:25:0035.0[facility] NiirwqwKMBYFIAMQF0901-32-73 21:25:003.94[facility] ElcvnaqNPQYHAFUAA5813-92-46 21:25:009.5[facility] MwjbyhqWLQAQKSUJ0062-98-11 15:20:00None Seen (12/27/2012 10:20:00) [facility] HvexzerOLSNXJSRDW4333-72-55 15:20:00<=1.0[facility] Da PRDQMQXSTV2772-97-18 15:20:00Performed *NA*(12/27/2012 10:20:00) [facility] MtodjjoMYURDCKVZW8778-35-39 15:20:00Slight *ABN*(12/27/2012 10:20:00) [facility] DzyktvyXAGJELTRJX0639-04-01 15:20:001.018[facility] BevslejDDOPOACZKH7952-00-48 15:20:006.5[facility] GgpffkfNQUMJVEONY4354-03-17 15:20:00Negative (12/27/2012 10:20:00) [facility] YpmptamBTACSEQXDQ1129-89-06 15:20:00Negative *NA*(12/27/2012 10:20:00) [facility] DcbsycdVBCBPUBKHR1383-79-56 15:20:00Negative (12/27/2012 10:20:00) [facility] YrnyhlfHWRMSMCIXS7484-06-89 15:20:00Negative (12/27/2012 10:20:00) [facility] EetnwkkHOTEFYIOIA7478-60-93 15:20:70554 mg/dL *ABN*(12/27/2012 10:20:00) [facility] NwgnxmmNWRZQKUSNG6861-91-14 15:20:00 Negative mg/dL *NA*(12/27/2012 10:20:00) [facility] WxksznuICVTYGAZWR9510-33-00 15:20:001[facility] ZgmiiuzISBUHCKTUF5224-76-75 15:20:00Many /LPF *ABN*(12/27/2012 10:20:00) [facility] XwrvqupBRMDZDRTKF6166-05-29 15:20:004[facility] Da ASFYPETJLM4080-30-78 15:20:0020 mg/dL *ABN*(12/27/2012 10:20:00) [facility] MgivacaZFMDVKAKSG9024-44-54 15:20:00Occasional /HPF *NA*(12/27/2012 10:20:00) [facility] CzvicegHPIRIXWKSQ6231-24-19 15:20:00Few /LPF *NA*(12/27/2012 10:20:00) [facility] OnprhbtWGKGMZCHCF5139-24-63 15:20:00Light Yellow *NA*(12/27/2012 10:20:00) [facility] HermannSTOOL BEJVB8478-96-86 15:15:00Rare 2(12/27/2012 10:15:00) [facility] HermannINFECTIOUS BZNEEISV9306-21-90 15:14:00Negative 1(12/27/2012 10:14:00) [facility] ElqcytjNFFPMTSPF0050-98-78 14:00:002.0[facility] OuvhprfFGZFPZTYQ3533-42-95 14:00:001.6[facility] IiiiyjpMYCRGYASL5027-17-83 14:00:000.2[facility] UpcrdszRQIBOMZDX4646-49-70 14:00:000.3[facility] Da CNOSVIYYA3347-97-72 14:00:000.1[facility] UaizxjzANKGALRAE2613-43-01 14:00:0030 [facility] NuvhgptHBPIEZISO5069-32-70 14:00:001.0[facility] HermannCHEMISTRY 2012-12-27 14:00:003.0[facility] YtpkguyCNUROAOHS1160-24-37 14:00:006.0[facility] OkewkjtDWKXWPMXF3368-89-46 14:00:0043[facility] ThqwnevNPRMBOAWT1818-07-82 14:00:003.0[facility] JuqumwsPMRXHPUKA3860-75-52 14:00:0052[facility] Da KFZARUAQW8008-88-03 14:00:0014.6[facility] InhsevbFCLODJTIO0696-22-29 14:00:0042 [facility] QvpauknRIXZCWGZR0228-69-75 14:00:0026[facility] HermannCHEMISTRY 2012-12-27 14:00:002.0[facility] BnmgnxuDNREBTEBB8506-20-93 14:00:008.3[facility] IfjlwzcVDHJSQXGR1527-65-07 14:00:63297Zjseoave GgoeqqdDBOQFWIIU2498-22-90 14:00:001.5[facility] FygcrzmVMDRXYZPU2930-45-94 14:00:003.6[facility] Da GARPWDPHH3637-65-28 14:00:76031Mitwbijq CpjkjcbVHPSKHZIT4790-66-99 14:00:61238 [facility] JkokdczRSHJOIDHB7124-17-82 14:00:0022[facility] HermannCHEMISTRY 2012-12-27 14:00:003.0[facility] DtimqrsKFZLQHAYFW2595-63-21 14:00:008.9[facility] WuqbgtqGYVHLMFPBN3218-11-36 14:00:002.79[facility] YpcyedhZLHWCQEYJX4991-06-61 14:00:0095.7[facility] BlsedezJYLHRCYEDI6496-68-57 14:00:0026.7[facility] Da RJERSYXIGF8081-45-65 14:00:004.7[facility] YsukdksCEBTASATGI8203-56-28 14:00:78966 [facility] JqcpdtfBQMSJLBZNU4350-83-04 14:00:007.8[facility]annHEMATOLOGY 2012-12-27 14:00:0033.5[facility] UtwgowrLHUDJLMMQW2140-08-01 14:00:00* Test Item Value Reference Range Interpretation Comments MCH (test code = MCH) 32.1 pg 27.0-31.0 H [facility] HgleuuqVLCXNMTHHO6256-76-81 14:00:0014.2[facility]annHEMATOLOGY 2012-12-27 14:00:00Slight *ABN*(12/27/2012 09:00:00) [facility]annHEMATOLOGY 2012-12-27 14:00:000.0[facility] SmnvoanXWEWAOLGZF3207-36-53 14:00:0068.1[facility] YptbdyqDXBYCNZRUE2503-64-22 14:00:00Normal (12/27/2012 09:00:00) [facility] KjjveihETNCCXLNNR7908-62-26 14:00:00Normal (12/27/2012 09:00:00) [facility] CzkndabYTFBTSRBWF8638-27-34 14:00:0030.6[facility] OhcxsfrXVOPWFEAYC5080-65-41 14:00:000.9[facility] VkjjfhzUCBZDNKSJE0160-70-69 14:00:000.1[facility] [place] GPAOJHKMNX2045-31-55 14:00:003.2[facility] IwdhfhjCQSRQRGELB8437-11-92 14:00:000.3 [facility] BfhbltsJSHPGGGBHO2957-15-46 14:00:001.4[facility]annHEMATOLOGY 2012-12-27 14:00:000.0[facility] HxzqsqqARFUXGBEMB8362-98-40 14:00:000.0[facility] QbejpeqEFLIHYSLZ0585-19-84 04:25:0046[facility] PirqlpbZGXJQKTWS3093-26-97 04:25:19754Xvvdilae AsmvetbMICWXVXJP9780-80-08 04:25:0022[facility] BZMXXJNMU2674-64-34 04:25:45428Byxdowjd AzagufqIEWOKLUGC0572-87-96 04:25:00<0.3 [facility] DthmhruNDEXDDKUS0374-81-13 04:25:38913Qobvezdp HermannCHEMISTRY 2012-12-27 04:25:0042.8[facility] KlqjmtoDSTXVCSVF2431-38-85 04:25:09065Vepwjjmg OkcvcvmPOCHCGHZM4969-99-24 04:25:0046[facility] RuysigoQTNVXDBDZ2626-47-70 04:25:16285Likiqovi FxqkgeyVVJFZUHDUW4454-55-65 04:25:69971Mbhlrauw [place] NFDMRODCRG9352-01-58 04:25:00>4 ug/mL FEU 13*ABN*(12/26/2012 23:25:00) [facility] RlizsxeSQTIIYOLJA7162-20-64 04:25:000.4[facility] NscnglrADDMBMJRNG4837-30-44 04:25:006.1[facility] PvfxkdkZJUBFGRVXR2836-65-45 04:25:000.72[facility] Da NROGMLOFUS0309-53-46 04:25:000.75[facility] ZfwfjszCJNDXQGIWV3391-61-63 04:25:00 1.05[facility] FygbubmQNQUAXUDYB3867-52-86 04:25:0012.3[facility] HermannIMMUNOLOGY 2012-12-27 04:25:0011.8[facility] DwvdiyuUZQANVQDPJ7746-05-65 04:25:003.27[facility] HfqrskuYCKCYOOSHH0813-51-71 04:25:0017.2[facility] SctuwgrEBTGPXYSKD9915-87-92 04:25:000.31[facility] ObjmzpnWOPMLMYYXS6893-52-83 04:25:0053.6[facility] Da JQUDSFZNVM2419-89-16 04:25:005.1[facility] DablvvdMLZEYOKBWN3892-59-07 04:25:22994 [facility] AjemvufWCPQUCWDEF9296-63-99 22:00:00* Test Item Value Reference Range Interpretation Comments PT (test code = PT) 13.8 s 12.0-14.7 N [facility] VupejbqCUBRREFTAC1533-43-62 22:00:00* Test Item Value Reference Range Interpretation Comments PTT (test code = PTT) 29.3 s 22.9-35.8 N [facility] WsyumsuWUCQELIDTJ2805-81-55 22:00:001.04[facility]annHEMATOLOGY 2012-12-26 22:00:0047[facility] OrufmsqHGRBOAEXNB6774-72-98 22:00:0046[facility] QbxpheyWXODTFELRS8759-09-97 22:00:009.0[facility] LbkadacTXBYUMDFPT9045-89-26 22:00:22098Kgnrtrwi XweuicrIBKSSKQRTG5525-70-82 22:00:00Negative (12/26/2012 17:00:00) [facility] ImztcirJIYXJGXDSQ0870-97-17 22:00:00Negative (12/26/2012 17:00:00) [facility] CwycolsGHATTRIPJF4705-16-51 22:00:00Negative (12/26/2012 17:00:00) [facility] IuuonbfXAJSMSIJXR7802-70-92 22:00:00Negative (12/26/2012 17:00:00) [facility] KxgpuwqWTNJLIWOQ0771-37-71 13:54:56261Kyjqhfnm Da PPHSTBCZS0153-99-98 13:54:0031[facility] VmdomeyVQREJCDSY1164-88-14 13:54:0041 [facility] TqqmlasQBFNBWUEK4346-55-38 13:54:001.7[facility] HermannCHEMISTRY 2012-12-26 13:54:27157Akihjtri OyanwszAYAZAQBYJ2813-29-70 13:54:004.2[facility] JkqilmzVVAKUYSQP1841-50-98 13:54:57232Mxuzpixw ZgdirjmTCMXABTVC7404-28-37 13:54:0030[facility] XlgaggeRTFEAYNRE1425-44-18 13:54:0036[facility] WAPWDVRUK7485-07-32 13:54:008.7[facility] GxtfzxuIQNULMYNV1727-81-00 13:54:000.5 [facility] XjivjucCXAOKIJQC8955-80-25 13:54:006.1[facility] HermannCHEMISTRY 2012-12-26 13:54:0049[facility] MirfdnlCBKSYZVJB2378-55-30 13:54:003.1[facility] MwfklrcGEQYGBTXV1918-27-46 13:54:0063[facility] HlbfnbmFAAIIGABJ3747-54-11 13:54:0013.2[facility] GrlysdmZTGGPJKKQ9918-76-80 13:54:0018[facility] Da MUQDJSNVT6124-51-84 13:54:003.0[facility] GggnlmwJXJAEFTUE6444-11-59 13:54:001.0 [facility] IbgbfdhJAYOCCQGSZ3760-29-82 13:54:0095.8[facility] HermannHEMATOLOGY 2012-12-26 13:54:46954Fgfsfrqp FsfejneSBJYWKXORG3995-83-83 13:54:0028.3[facility] BlcuobnIVWXQOZPIE7485-57-58 13:54:00* Test Item Value Reference Range Interpretation Comments MCH (test code = MCH) 31.5 pg 27.0-31.0 H [facility] VvfxvdpNGUDWSKWWS4320-20-09 13:54:0032.9[facility] HermannHEMATOLOGY 2012-12-26 13:54:0014.9[facility] LxwtrdyWSGGQLHEGA7184-13-11 13:54:008.1[facility] NjpuxcjDONIJHCODL2500-04-86 13:54:003.5[facility] SquewtoTOOUVTEPTI8078-42-40 13:54:009.3[facility] ElxfhqaLFXRHIYDWJ8444-79-27 13:54:002.95[facility] QHZKOOHCHA3279-94-55 13:54:000.1[facility] UxngyniXZVOQUTJYH6058-95-89 13:54:000.2 [facility] FuvbpqkRTIXVVCNWR8038-95-04 13:54:002.1[facility] HermannHEMATOLOGY 2012-12-26 13:54:001.6[facility] NfxexwlAWGWDEILUI7160-20-95 13:54:000.0[facility] QqyuoadVRDPBFBLQU7418-55-30 13:54:001.8[facility] JqjfacbMNTTLEVDRJ9536-27-49 13:54:000.0[facility] ZtncmyjXHZEIXSAUL3605-30-57 13:54:00Normal (12/26/2012 08:54:00) [facility] LhxrpilVJKYDMWHAH0095-07-31 13:54:000.5[facility] PITWLKLFLY3986-29-71 13:54:0046.1[facility] MxclvvhILGZLSICLR6258-52-31 13:54:00 51.1[facility] KgcgyxiNULMIYNASH1725-47-22 13:54:00Normal (12/26/2012 08:54:00) [facility] DcfkeshTGNKBWQFW0643-53-22 02:41:67571Njbkwbgp HermannCHEMISTRY 2012-12-26 02:41:502.0[facility] NcmodvkDOOEOIPJW9627-93-27 02:41:5036[facility] LentyneEGWKKCTTA7617-86-32 02:41:11072Ajdwfkbi QbogarrSKQPBMZZL9783-71-73 02:41:5030[facility] NibuzibCHZAYUQCQ2617-88-76 02:41:5015.3[facility] Da XGWGUBWOS6811-96-82 02:41:509.0[facility] FzegirrKTPSTISYD8010-70-75 02:41:5029 [facility] TvqsfpuOALZVSXGY6799-27-03 02:41:75356Eaqfquqa HermannCHEMISTRY 2012-12-26 02:41:504.3[facility] YunscrpNUMMISIIW4706-88-58 22:15:0065[facility] NvjmzrtBULZFCZYM7590-55-03 22:15:42230Hxdcabew AfmrnjmWLADOTMZF6386-21-56 22:15:69813.0[facility] TlnikbfXIGSXLYOMX1883-37-54 17:45:004.0[facility] Da FNEALAHQNN6266-28-19 17:45:001.0[facility] CrkxgrkPUGXQCGTMH4135-47-83 17:45:00 68.0[facility] ZdveahjTPUITOMGLP5992-04-98 17:45:00Normal (12/25/2012 12:45:00) [facility] PykhemzVZJMLGDDXP7175-98-84 17:45:003.0[facility] HermannHEMATOLOGY 2012-12-25 17:45:000.0[facility] NjvjbvpDJXCLILUXU6714-96-90 17:45:001.7[facility] VjndfdwJBDMYUDMGW4891-91-64 17:45:000.1[facility] IphuylpLROWLZEUXH1042-31-11 17:45:000.6[facility] RmkgrmiRYMTXUSZII6334-47-05 17:45:000.1[facility] SCOUPSGMTD8582-45-56 17:45:0024.0[facility] MclydymPHEVQNJVRR9299-61-97 17:45:00 8.1[facility] TjkgiuxQKZIXYIKXG2386-77-85 17:45:00* Test Item Value Reference Range Interpretation Comments MCH (test code = MCH) 32.5 pg 27.0-31.0 H [facility] KcoprnkUBAHLOYDDL1588-19-89 17:45:26506Onxxhrhy HermannHEMATOLOGY 2012-12-25 17:45:0014.6[facility] GhspheuNPQPSMCGWH8182-99-77 17:45:0033.7[facility] BxajxsjBGVDYKOFEA6819-07-18 17:45:0096.5[facility] HiiawrcJBNXQIUMVZ5725-43-40 17:45:0032.1[facility] QrhskfrLAHJTOIPNR4464-66-81 17:45:0010.8[facility] SGCCRJXOMM3412-56-50 17:45:003.33[facility] KilkavxXLNCEIPWZR9706-59-64 17:45:00 2.5[facility] BebiiqrXKCFWXEXNH7223-81-35 17:45:0032[facility] HermannCHEMISTRY 2012-12-25 16:30:00<0.02[facility] KpifxmbIVUEOQWMD4147-31-71 16:30:00<0.5[facility] FtirqpbPUZTGMWAP5796-40-24 16:30:003.3[facility] AincnzgROFMJVAZT0780-37-39 16:30:000.9[facility] TetsinhFTNIOIQNC9355-10-33 16:30:0020[facility] CMSEPRDXX0856-00-76 16:30:0060[facility] MbiviusTNIQNBDSF2629-19-73 16:30:006.4 [facility] ByruswdMPYGMRNJR9261-02-66 16:30:000.5[facility] HermannCHEMISTRY 2012-12-25 16:30:0045[facility] BcuwkjxBGESQKULI5010-65-66 16:30:0072[facility] QxofbuzVPNQSFMTB6901-62-15 16:30:0085[facility] KvwyqmtMUIVXXFRT2624-86-06 16:30:00<0.6[facility] FpguxceBUFLAIVAHL9454-33-94 16:30:00Negative (12/25/2012 11:30:00) [facility] TmrpawwNFDLQSKMLY7144-34-97 16:30:00Negative *NA*(12/25/2012 11:30:00) [facility] MfhpimrRGMHEWRAJN1946-46-93 16:30:00Negative *NA*(12/25/2012 11:30:00) [facility] NalawjuDQEFDHPDLH0479-03-34 16:30:00Negative *NA*(12/25/2012 11:30:00) [facility] HxfqxqrBFWRINYAWX5276-06-79 16:30:00Negative *NA*(12/25/2012 11:30:00) [facility] ChxougyCWZWKPBMPD1156-71-44 14:10:002[facility] PFFNPTONNL9306-54-31 14:10:00<=1.0[facility] ArcnhpyGQVIBEJTDA9010-13-78 14:10:00 11[facility] ImtmejvZMDSMRVKPV7876-87-31 14:10:00Moderate /HPF *ABN*(12/25/2012 09:10:00) [facility] FoamfxdKSKWJVMSOY4623-61-82 14:10:00Few /LPF *NA*(12/25/2012 09:10:00) [facility] AthqfqfBJYDGBQUYH7274-51-16 14:10:00Yellow *NA*(12/25/2012 09:10:00) [facility] PfyhqltDTFMQXJZPW5601-15-95 14:10:00Slight *ABN*(12/25/2012 09:10:00) [facility] BzzvtroIYLHLAHBAJ6989-03-68 14:10:001.014[facility] Da OJOXZFTLFV9260-36-55 14:10:006.5[facility] JpxkqmyDXWYZIOQRE1677-68-03 14:10:00 Performed *NA*(12/25/2012 09:10:00) [facility] HczvealCBEYWIYQDS1040-37-13 14:10:00Moderate *ABN*(12/25/2012 09:10:00) [facility]annURINALYSIS 2012-12-25 14:10:00Negative (12/25/2012 09:10:00) [facility]annURINALYSIS 2012-12-25 14:10:0016[facility] XflubtvUSQSINXAJR9190-62-66 14:10:00Many /LPF *ABN*(12/25/2012 09:10:00) [facility] EvndxibEOZFQEQMWG6702-96-17 14:10:0020 mg/dL *ABN*(12/25/2012 09:10:00) [facility] VgguegqFDDWOEWERR8726-73-24 14:10:00 Negative mg/dL *NA*(12/25/2012 09:10:00) [facility] HkjnhsoZZWTZBOACE5005-76-94 14:10:00Negative mg/dL *NA*(12/25/2012 09:10:00) [facility] HermannURINALYSIS 2012-12-25 14:10:00Negative (12/25/2012 09:10:00) [facility] HermannURINALYSIS 2012-12-25 14:10:00Negative *NA*(12/25/2012 09:10:00) [facility] HermannCHEMISTRY 2012-12-25 09:32:4730.0[facility] VvwheisKFQFZGMNG9900-53-17 22:00:002.7[facility] CfimsxjLSOXIGWPY0515-84-57 22:00:002.4[facility] VvhzvkuAHSDVQTMU7713-72-53 22:00:0025[facility] BdpbxpqZFQWWEBAY4249-92-54 22:00:00> 100.0 ng/mL (12/24/2012 17:00:00) [facility] PlogalpIFAXLVSVCH7102-54-32 22:00:000.0[facility] HPHTCYTHQP1158-97-74 22:00:001+ *ABN*(12/24/2012 17:00:00) [facility] Da VZUAUOXMJH1758-15-36 22:00:000.1[facility]
[2020-06-07 01:00] LABS: BASOPHILS % 0.5 % (0.0-1.0); EOSINOPHILS # (AUTO) 0.3 (0.0-0.4); EOSINOPHILS % 4.5 % (0.0-6.0); HEMATOCRIT 35.1 % (34.2-44.1); HEMOGLOBIN 10.6 g/dL (12.0-16.0); LYMPHOCYTES # (AUTO) 3.3 (1.0-3.2); LYMPHOCYTES % 51.7 % (18.0-39.1); MEAN CORPUSCULAR HEMOGLOBIN 26.6 pg (28-32); MEAN CORPUSCULAR HGB CONC 30.2 g/dL (31-35); MEAN CORPUSCULAR VOLUME 88.2 fL (81-99); MONOCYTES # (AUTO) 0.7 (0.2-0.8); MONOCYTES % 10.8 % (4.4-11.3); NEUTROPHILS % 31.7 % (38.7-80.0); PLATELET COUNT 378 x10e3/uL (140-360); RED BLOOD COUNT 3.98 x10e6/uL (3.6-5.1); RED CELL DISTRIBUTION WIDTH 15.3 % (11.7-14.4)
[2020-06-07 01:10] LABS: INR 1.03
[2020-06-07 01:20] LABS: ALBUMIN 3.6 g/dL (3.5-5.0); ALBUMIN/GLOBULIN RATIO 1.1 (0.8-2.0); ALKALINE PHOSPHATASE 74 IU/L (40-150); BLOOD UREA NITROGEN 15 mg/dL (7-26); BUN/CREATININE RATIO 4 (6-25); CALCIUM 8.8 mg/dL (8.4-10.2); CARBON DIOXIDE 26 mmol/L (22-29); CHLORIDE 97 mmol/L (98-107); CREATINE KINASE 40 IU/L (29-168); CREATININE, SERUM 3.35 mg/dL (0.57-1.11); EST GLOMERULAR FILTRATION RATE 16 ML/MIN (60-); GLUCOSE 107 mg/dL (74-118); SODIUM 142 mmol/L (136-145)
[2020-06-07] MEDS ORDERED: PIPER-TAZ 3.375 GM 50 ML IV ONE (01:30)
[2020-06-07 01:35] LABS: ALANINE AMINOTRANSFERASE < 6 IU/L (0-55)
--- NOTE | 2020-06-07 01:35 | NUR ---
ER MD AND PRIMARY RN NOTIFIED AND AWARE OF CRITICAL LAB VALUE, LACTIC ACID 2.3.
[2020-06-07 01:50] LABS: CLARITY,URINE SL CLOUDY (CLEAR); COLOR,URINE YELLOW (YELLOW); KETONES,URINE TRACE (NEGATIVE); LEUKOCYTE ESTERASE ,URINE NEGATIVE (NEGATIVE); NITRITE,URINE NEGATIVE (NEGATIVE); PROTEIN,URINE DIPSTICK NEGATIVE (NEGATIVE); URINE UROBILINOGEN 1 mg/dL (0.2 - 1)
[2020-06-07 01:51] LABS: AMORPHOUS SEDIMENT,URINE MODERATE (FEW); BACTERIA,URINE MANY /HPF; BILIRUBIN,URINE SMALL (NEGATIVE); EPITHELIAL CELLS,URINE FEW /LPF
--- NOTE | 2020-06-07 01:57 | Diagnostic Imaging Report ---
History: lethargy Comparison studies: None Technique: Axial images were obtained from the skull base to the vertex. Coronal and sagittal images reconstructed from the axial data. Dose modulation, iterative reconstruction, and/or weight based adjustment of the mA/kV was utilized to reduce the radiation dose to as low as reasonably achievable. Intravenous contrast: None Findings: Scalp/skull: No abnormalities. Extra-axial spaces: No masses. No fluid collections. Brain sulci: Appropriate for age Ventricles: Normal in size and configuration. No hydrocephalus. Parenchyma: No abnormal densities No masses, hemorrhage, acute or chronic cortical vascular insults. Sellar/suprasellar region: No abnormalities. Craniocervical junction: Patent foramen magnum. No Chiari one malformation. Incidental findings: Subtle calcifications in the carotid siphons . Impression: No intracranial abnormalities. Signed by: Dr. Benigno Santo M.D. on 06/07/2020 1:54 AM
--- NOTE | 2020-06-07 02:03 | Diagnostic Imaging Report ---
EXAMINATION: CHEST SINGLE (PORTABLE) INDICATION: lethargy COMPARISON: Chest x-ray 11/21/2019 FINDINGS: TUBES and LINES: None. LUNGS: Normal lung volumes. Lungs are clear. No consolidations. PLEURA: No pleural effusion or pneumothorax. HEART AND MEDIASTINUM: The cardiomediastinal silhouette is unremarkable. Aortic calcifications. BONES AND SOFT TISSUES: No acute osseous lesion. Soft tissues are unremarkable. UPPER ABDOMEN: No free air under the diaphragm. IMPRESSION: Left basilar scarring/atelectasis. Signed by: Elroy Mederos DO on 06/07/2020 2:00 AM
--- OUTSIDE RECORDS SUMMARY | 2020-06-07 02:27 | XMS REPORT | Clinical Summary ---
Author Author [facility] Organization [employer] Address Unknown Phone Unavailable Care Team Providers Care Alterations Expert Name Role Phone Quinn Sheppard MD PCP [...] [employer] xxxxxxxxxx 1998-P [facility] [employer] [phone] Advance Directives For more information, please contact: [phone] Patient Logistics Supply Officer Explanation Type Date Recorded Advance Directives, Living Will and Medical Power of Driver Trainee
--- OUTSIDE RECORDS SUMMARY | 2020-06-07 02:28 | XMS REPORT | Continuity of Care Document ---
Author Author Brown RIVSGILLES [employer] Address Unknown Phone Unavailable Care Team Providers Care Statistical Reporting Analyst Name Role Phone [employer] Unavailable Un available Problems Problem Status Onset Date Classification Date Reported Comments Source Obstructive sleep apnea (adult) (pediatric) 09/11/2018 03/25/2019 [facility] Dyspnea, unspecified 08/29/2018 03/13/2019 [facility] SPLIT - 73911 Active 08/23/2018 [facility] R06.00 Active 08/21/2018 [facility] MORBID OBESITY Active 08/17/2015 [facility] 278.01 EXTREME OBESITY / 401.1 BENIGN ES Active 05/14/2015 [facility] 786.50 Active 03/02/2015 [facility] 780.2 Active 04/30/2013 [place] 780.2 - SYNCOPE AND COL Active 04/25/2013 [facility] ORAL ULCERS, DEHYDRATION, ACUTE RENAL FA Active 12/24/2012 [facility] SORE THROAT Active 12/24/2012 [facility] 338 - PAIN NEC Active 01/11/2012 [facility] Arthritis Resolved Problem 05/05/2013 [facility] [place] HTN Resolved Problem 05/05/2013 [facility] [place] HTN (hypertension) Resolved Problem 05/05/2013 [facility] [place] Hypertension Resolved Problem 05/05/2013 [facility] [place] Insomnia Resolved Problem 05/05/2013 [facility] [place] Lethargic Active Problem 05/05/2013 [facility] [place] Pain Active Problem 05/05/2013 [facility] [place] Thyroid Resolved Problem 05/05/2013 [facility] [place] Arthritis (disorder) Resolved Problem 03/25/2019 [facility] Essential hypertension (disorder) Resolved Problem 09/2018 [facility] Hypertensive disorder, systemic arterial (disorder) Resolved Problem 03/25/2019 [facility] Insomnia (disorder) Resolved Problem 03/25/2019 [facility] Lethargy (finding) Active Problem 03/25/2019 [facility] Pain (finding) Active Problem 03/25/2019 [facility] Thyroid structure (body structure) Resolved Problem [facility] DEHYDRATION Active [facility] SYNCOPE AND COLLAPSE Active [facility] CHEST PAIN NOS Active [facility] OBSTRUCTIVE SLEEP APNEA (ADULT) (PEDIATR Active [facility] DYSPNEA, UNSPECIFIED Active [facility] Medications Medication Details Route Status Patient Instructions Ordering Provider Order Date Source Omnipaque 350 injectable solution Notes: (same as:Omnipaque 350). WASTE: F/P - Black; E - [employer] Active 08/23/2018 [facility] Clonidine Hydrochloride 0.2 MG Oral Tablet Notes: (Same As: Catapres) Inactive 03/03/2015 [facility] Acetaminophen Notes: Do not ex ceed 4 gm/day. (Same as: Tylenol) No Longer Active 03/03/2015 [facility] Benadryl 50 mg, 2 tab, Route: PO, Drug form: TAB, ONCE, Dosing Weight 129.091, kg, Priority: NOW, Start date: 03/03/15 8:03:00, Stop date: 03/03/15 8:03:00 Inactiv e 03/03/2015 [facility] gabapentin 600 MG Oral Tablet 600 mg = 1 tab, PO, TID, # 270 tab, 0 Refill(s) Active 03/03/2015 [facility] Furosemide 40 MG Oral Tablet 4 0 mg = 1 tab, PO, Daily, # 30 tab, 0 Refill(s) Active 03/03/2015 [facility] Folic Acid 1 MG Oral Tablet 1 mg = 1 tab, PO, Daily, # 30 tab, 0 Refill(s) Active 03/03/2015 [facility] Acetaminophen 325 MG / Hydrocodone Sharda trate 10 MG Oral Tablet 1 tab, PO, Q6H, PRN Pain, # 20 tab, 0 Refill(s) Active 03/03/2015 [facility] quetiapine 200 MG Oral Tablet [Seroquel] 200 mg = 1 tab, PO, Bedtime, # 180 tab, 0 Refill(s) Active 03/03/2015 [facility] cyclobenzaprine 10 mg oral tablet 10 mg = 1 tab, PO, Bedtime, # 30 tab, 0 Refill(s) Active 03/03/2015 [facility] Clonidine Hydrochloride 0.3 MG Oral Tablet 0.3 mg = 1 tab, PO, BID, # 60 tab, 1 Refill(s) Active 03/03/2015 [facility] predniSONE 2.5 mg oral tablet 5 mg = 2 tab, PO, Daily, # 7 tab, 0 Refill(s) Active 03/03/2015 [facility] omeprazole 40 mg oral delayed release capsule 40 mg = 1 cap, PO, Daily, # 30 cap, 0 Refill(s) Active 03/03/2015 [facility] lisinopril 40 mg oral tablet 4 0 mg = 1 tab, PO, Daily, # 30 tab, 0 Refill(s) Active 03/03/2015 [facility] levothyroxine 50 mcg (0.05 mg) oral tablet 50 microgram = 1 tab, PO, Daily, # 30 tab, 0 Refill(s) Active 03/03/2015 [facility] clonazePAM 1 mg oral tablet 1 mg = 1 tab, PO, Bedtime, # 270 tab, 0 Refill(s) Active 03/03/2015 [facility] folic acid 1 mg oral tablet 5 mg, 5 tab, Route: PO, Drug form: TAB, Daily, Start date: 12/28/12 9:00:00, Duration: 30 day, Stop date: 01/26/13 9:00:00 PO No Longer Active Chemo 12/28/2012 [facility] sodium chloride 38.5 mEq + sodium bicarb luis 50 mEq + sterile water 1,000 mL 1,000 mL, 100 ml/hr, Route: IV, Drug For m: INJ, Dosing Weight 126.818, kg, Start date: 12/27/12 13:33:00, Duration: 1 doses or times, Stop date: 12/28/12 0:08:00 IV No Longer Active Michelle 12/27/2012 [facility] magnesium sulfate 50 mL, Rate: 50 ml/hr, Infuse over: 1 hr, Route: IVPB, Total Volume: 50, Start date: 12/27/12 13:32:00, Stop date: 12/27/12 13:32:00 IVPB No Longer Active Michelle 12/27/2012 [facility] potassium phosphate-sodium phosphate 250 mg-278 mg-164 mg oral powder 1 pkt, Route: PO, Drug Form: PDR/REC, ON CE, Start date: 12/27/12 13:32:00, Stop date: 12/27/12 13:32:00 PO No Longer Active Michelle 12/27/2012 [facility] acetaminophen-hydrocodone 325 mg-5 mg oral tablet 1 tab, Route: PO, Drug Form: TAB, Q4H, PRN Headache, Start date: 12/27/12 10:54:00, Duration: 30 day, Stop date: 01/26/13 10:53:00 PO No Longer Active Michelle 12/27/2012 [facility] folic acid 1 mg oral tablet 2 mg, 2 tab, Route: PO, Drug form: TAB, Daily, Start date: 12/27/12 9:00:00, Duration: 30 day, Stop date: 01/25/13 9:00:00 PO No Longer Active Michelle 12/27/2012 [facility] Sodium Chloride 0.9% IV 250 mL , Route: IVPB, Start date: 12/26/12 19:45:00, Duration: 30 day, Stop date: 01/25/13 19:44:00, PRN Line Flush IVPB No Longer Active Michelle 12/27/2012 [facility] BD Normal Saline Flush 10 mL, Route: IVP, Drug Form: INJ, PRN, PRN Line Flush, Start date: 12/26/12 19:45:00, Duration: 30 day, Stop date: 01/25/13 19:44:00 IVP No Longer Active Michelle 12/27/2012 [facility] magic mouth wash 15 mL, Route: S&SWALLOW, Drug Form: SUSP, Q4H, PRN See Nurse's Notes, Start date: 12/26/12 19:44:00, Stop date: 01/25/13 19:43:00 S&SWALLOW No Longer Active Michelle 12/27/2012 [facility] sodium bicarbonate 50 mEq + Sodium Chlor fab 0.45% IV 1,000 mL 1,000 mL, Rate: 100 ml/hr, Infuse over: 10.5 hr, Route: IV, kg, Total Volume: 1,050, Start date: 12/26/12 19:43:00, Duration: 30 day, Stop date: 01/25/13 19:42:00 IV No Longer Active Michelle 12/27/2012 [facility] SoluCortef 50 mg, 1 mL, Route: IV, Drug form: PDR/INJ, Q6H, Start date: 12/26/12 18:00:00, Duration: 30 day, Stop date: 01/25/13 12:00:00 IV No Longer Active Michelle 12/26/2012 [facility] SoluCortef 100 mg, 2 mL, Route : IV, Drug form: PDR/INJ, Q6H, Start date: 12/25/12 18:00:00, Duration: 4 doses or times, Stop date: 12/26/12 12:00:00 IV No Longer Active Michelle 12/25/2012 [facility] Sodium Chloride 0.9% IV 1,000 mL 1,000 mL, Rate: 125 ml/hr, Infuse over: 8 hr, Route: IV, kg, Total Volume: 1,000, Start date: 12/25/12 18:00:00, Duration: 30 day, Stop date: 01/24/13 17:59:00 IV No Longer Active Michelle 12/25/2012 [facility] lidocaine topical 10 mL, Route : S&SPIT, Drug form: SOLN, QID, Start date: 12/25/12 17:00:00, Duration: 30 day, Stop date: 01/24/13 13:00:00 S&SPIT No Longer Active [facility] 12/25/2012 [facility] Sodium Chloride 0.9% IV 1,000 mL 1,000 mL, Rate: 250 ml/hr, Infuse over: 4 hr, Route: IV, kg, Total Volume: 1,000, Start date: 12/25/12 15:54:00, Duration: 2 hr, Stop date: 12/25/12 17:53:00 IV No Longer Active Michelle 12/25/2012 [facility] Sodium Chloride 0.9% IV 500 mL 500 mL, Rate: bolus, Route: IV, kg, Total Volume: 500, Start date: 12/25/12 12:11:00, Stop date: 12/25/12 13:00:00 IV No Longer Active [facility] 12/25/2012 [facility] Cepastat 2 lozenge, Route: MUC OUS MEM, QID, Drug form: HA, Start date: 12/25/12 9:00:00, Duration: 30 day, Stop date: 01/23/13 21:00:00 MUCOUS MEM No Longer Active Michelle 12/25/2012 [facility] folic acid 1 mg oral tablet 1 mg, 1 tab, Route: PO, Drug form: TAB, Daily, Start date: 12/25/12 9:00:00, Duration: 30 day, Stop date: 01/23/13 9:00:00 PO No Longer Active [facility] 12/25/2012 [facility] atenolol 25 mg oral tablet 25 mg, 1 tab, Route: PO, Drug form: TAB, Daily, Start date: 12/25/12 9:00:00, Duration: 30 day, Stop date: 01/23/13 9:00:00 PO No Longer Active [facility] 12/25/2012 [facility] Levothroid 50 microgram, 1 tab , Route: PO, Drug form: TAB, Q630AM, Start date: 12/25/12 6:30:00, Duration: 30 day, Stop date: 01/23/13 6:30:00 PO No Longer Active Michelle 12/25/2012 [facility] vancomycin 1 gm, 200 mL, Route : IVPB, Drug form: INJ, ONCE, Start date: 12/25/12 6:15:00, Stop date: 12/25/12 6:15:00 IVPB No Longer Active Michelle 12/25/2012 [facility] Maxipime + Sodium Chloride 0.9% IV 100 mL 1 gm, Route: IVPB, [id number], Start date: 12/25/12 6:00:00, Duration: 30 day, Stop date: 01/23/13 18:00:00 IVPB No Longer Active Michelle 12/25/2012 [facility] Sodium Chloride 0.9% IV 500 mL 500 mL, Rate: BOLUS, Route: IV, kg, Total Volume: 500, Start date: 12/25/12 5:59:00, Duration: 2 hr, Stop date: 12/25/12 7:58:00 IV No Longer Active Michelle 12/25/2012 [facility] Sodium Chloride 0.9% IV 250 mL 250 mL, Rate: BOLUS, REPEAT X1 IF SBP<100, Route: IV, kg, Total Volume: 250, Start date: 12/25/12 2:31:00, Duration: 4 hr, Stop date: 12/25/12 6:30:00 IV No Longer Active [facility] 12/25/2012 [facility] Klonopin 2 mg, 1 tab, Route: P O, Drug form: TAB, Bedtime, Start date: 12/24/12 21:35:00, Duration: 30 day, Stop date: 01/23/13 21:00:00 PO No Longer Active Michelle 12/25/2012 [facility] Seroquel 200 mg, 1 tab, Route: PO, Drug form: TAB, Bedtime, Start date: 12/24/12 21:34:00, Duration: 30 day, Stop date: 01/23/13 21:00:00 PO No Longer Active Michelle 12/25/2012 [facility] Tylenol 650 mg, 2 tab, Route: PO, Drug form: TAB, Q4H, PRN Pain, Start date: 12/24/12 21:33:00, Duration: 30 day, Stop date: 01/23/13 21:32:00 PO No Longer Active Michelle 12/25/2012 [facility] Milk of Magnesia 30 mL, Route: PO, Drug Form: SUSP, Daily, PRN Constipation, Start date: 12/24/12 21:33:00, Duration: 30 day, Stop date: 01/23/13 21:32:00 PO No Longer Active Michelle 12/25/2012 [facility] Zofran 4 mg, 2 mL, Route: IVP, Drug form: INJ, Q4H, PRN Nausea, Start date: 12/24/12 19:44:00, Duration: 30 day, Stop date: 01/23/13 19:43:00 IVP No Longer Active [facility] 12/25/2012 [facility] lidocaine topical 10 mL, Route : S&SPIT, Drug form: SOLN, Q4H, PRN Pain, Start date: 12/24/12 19:44:00, Duration: 30 day, Stop date: 01/23/13 19:43:00 S&SPIT No Longer Active [facility] 12/25/2012 [facility] Dextrose 5% with 0.45% NaCl IV 1,000 mL 1,000 mL, Rate: 125 ml/hr, Infuse over: 8 hr, Route: IV, kg, Total Volume: 1,000, Start date: 12/24/12 19:43:00, Duration: 30 day, Stop date: 01/23/13 19:42:00 IV No Longer Active [facility] 12/25/2012 [facility] D5W 1/2NS 1,000 mL 1,000 mL, R ate: 125 ml/hr, Infuse over: 8 hr, Route: IV, kg, Total Volume: 1,000, Priority: STAT, Start date: 12/24/12 18:22:00, Duration: 1 doses or times, Stop date: 12/25/12 2:21:00 IV No Longer Active [facility] Lidocaine Viscous 2% mucous membrane solution 10 mL, Route: S&SPIT, ONCE, Drug form: SOLN, Start date: 12/24/12 18:22:00, Stop date: 12/24/12 18:22:00 S&SPIT No Longer Active [facility] 12/24/2012 [facility] Sodium Chloride 0.9% (Bolus) IV 500 mL 500 mL, Rate: 500 ml/hr, Infuse over: 1 hr, Route: IV, kg, Total Volume: 500, Priority: STAT, Start date: 12/24/12 16:51:00, Duration: 1 doses or times, Stop date: 12/24/12 17:50:00, Bolus DoseBolus Dose IV No Longer Active [facility] 12/24/2012 [facility] Saline Flush 0.9% 5 mL, Route: IVP, Drug Form: INJ, Dosing Weight 120, kg, PRN, PRN Line Flush, Start date: 12/24/12 16:41:00, Duration: 24 hr, Stop date: 12/25/12 16:40:00 IVP No Longer Active [facility] 12/24/2012 [facility] Allergies, Adverse Reactions, Alerts Substance Category Reaction Severity Reaction type Status Date Reported Comments Source Morphine Sulfate SR Assertion Propensity to adverse reacti ons to substance Active [facility] Immunizations No Data Provided for This Section Results Order Name Results Value Reference Range Date Interpretation Comments Source CHEM PANEL POC Creatinine 1.2 0.5 - 1.4 08/23/2018 [facility] CHEM PANEL eGFR 54 08/23/2018 Result [...] values reflect the clinical guidelines
of the [place] [employer]. [place] CHEM PANEL AGAP 8.2 10.0 - 20.0 03/03/2015 [facility] HEMATOLOGY Hgb 10.3 12.0 - 16.0 03/03/2015 [facility] CHEM PANEL Globulin 4.4 2.0 - 4.0 02/24/2015 [facility] CHEM PANEL A/G Ratio 0.8 0.7 - 1.6 02/24/2015 [facility] CHEM PANEL Bili Total 0.2 0.2 - 1.3 02/24/2015 [facility] CHEM PANEL Alk Phos 84 39 - 136 02/24/2015 [facility] CHEM PANEL AST 12 0 - 37 02/24/2015 [facility] CHEM PANEL BUN 19 7 - 22 02/24/2015 [facility] CHEM PANEL ALT 19 0 - 65 02/24/2015 [facility] CHEM PANEL Total Protein 7.9 6.4 - 8.4 02/24/2015 [facility] CHEM PANEL B/C Ratio 15 6 - 25 02/24/2015 [facility] CHEM PANEL eGFR 50 02/24/2015 <sup>1</sup>Result [...] should be multiplied by the estimated BMI. [facility] CHEM PANEL Albumin Lvl 3.5 3.5 - 5.0 02/24/2015 [facility] CHEM PANEL AGAP 6.6 10.0 - 20.0 02/24/2015 [facility] CHEM PANEL Potassium Lvl 4.6 3.5 - 5.1 02/24/2015 [facility] CHEM PANEL Sodium Lvl 139 135 - 145 02/24/2015 [facility] CHEM PANEL Chloride Lvl 103 95 - 109 02/24/2015 [facility] CHEM PANEL Calcium Lvl 9.1 8.5 - 10.5 02/24/2015 [facility] CHEM PANEL CO2 34 24 - 32 02/24/2015 [facility] CHEM PANEL Creatinine Lvl 1.3 0.5 - 1.4 02/24/2015 [facility] CHEM PANEL Glucose Lvl 99 70 - 99 02/24/2015 <sup>2</sup>Interpretive Data: Adult ref erence range values reflect the clinical guidelines
of the [place] [employer]. [facility] HEMATOLOGY MPV 7.4 7.4 - 10.4 02/24/2015 [facility] HEMATOLOGY RDW 15.4 11.5 - 14.5 02/24/2015 [facility] HEMATOLOGY Platelet 308 133 - 450 02/24/2015 [facility] HEMATOLOGY MCHC 33.3 32.0 - 36.0 02/24/2015 [facility] MCH 29.6 27.0 - 31.0 02/24/2015 [facility] MCV 88.9 80.0 - 98.0 02/24/2015 [facility] HEMATOLOGY Hgb 11.7 12.0 - 16.0 02/24/2015 [facility] HEMATOLOGY Hct 35.0 36.0 - 48.0 02/24/2015 [facility] RBC 3.94 4.20 - 5.40 02/24/2015 [facility] HEMATOLOGY WBC 9.5 3.7 - 10.4 02/24/2015 [facility] CHEMISTRY U Eos None S een (12/27/2012 10:20:00) None S een 12/27/2012 Normal [facility] URINALYSIS UA Urobilinogen <=1.0 0.1 - 1.0 12/27/2012 NA [facility] URINALYSIS Micro? Perfo rmed *NA* (12/27/2012 10:20:00) 12/27/2012 NA [facility] URINALYSIS UA Turbidity Sligh t *ABN* (12/27/2012 10:20:00) Clear 12/27/2012 ABN [facility] URINALYSIS UA Spec Grav 1.018 <=1.030 12/27/2012 Normal [facility] URINALYSIS UA pH 6.5 5.0 - 8.0 12/27/2012 Normal [facility] URINALYSIS UA Blood Negat awilda (12/27/2012 10:20:00) Negati ve 12/27/2012 Normal [facility] URINALYSIS UA Bili Negat awilda *NA* (12/27/2012 10:20:00) Negati ve 12/27/2012 NA [facility] URINALYSIS UA Leuk Est Negat awilda (12/27/2012 10:20:00) Negati ve 12/27/2012 Normal [facility] URINALYSIS UA Nitrite Negat awilda (12/27/2012 10:20:00) Negati ve 12/27/2012 Normal [facility] URINALYSIS UA Glucose 100 m g/dL *ABN* (12/27/2012 10:20:00) Negati ve 12/27/2012 ABN [facility] URINALYSIS UA Ketones Negat awilda mg/dL *NA* (12/27/2012 10:20:00) Negati ve 12/27/2012 NA [facility] URINALYSIS UA RBC 1 0 - 2 12/27/2012 Normal [facility] URINALYSIS UA Sq Epi Many /LPF *ABN* (12/27/2012 10:20:00) Few 12/27/2012 ABN [facility] URINALYSIS UA WBC 4 0 - 5 12/27/2012 Normal [facility] URINALYSIS UA Protein 20 mg /dL *ABN* (12/27/2012 10:20:00) Negati ve 12/27/2012 ABN [facility] URINALYSIS UA Bacteria Occas ional /HPF *NA* (12/27/2012 10:20:00) None S een 12/27/2012 [facility] URINALYSIS UA Mucus Few / LPF *NA* (12/27/2012 10:20:00) None S een 12/27/2012 NA [facility] URINALYSIS UA Color Light Yellow *NA* (12/27/2012 10:20:00) Yellow 12/27/2012 NA [facility] STOOL TESTS Fecal Leukocyte Rare 2 (12/27/2012 10:15:00) 12/27/2012 Normal <sup>2</sup>Interpretive Data: A Value of None Seen, Rare, or Few is Normal. [facility] Microbiology Culture: Stool 12/27/2012 [facility] INFECTIOUS DISEASES C difficile DNA Negative 1 (12/27/2012 10:14:00) Negati ve 12/27/2012 Normal <sup>1</sup>Interpretive Data: [employer] Clostridium difficile assay utilizes loop-mediated isothermal DNA amplification (LAMP) technology to detect a 204 bp region of the tcdA gene within the PaLoc gene segment present in all known toxigenic C. difficile strains.

The assay utilizes FDA cleared IVD reagents. Performance characteristics have been verified by the [facility] within the [facility]. The [facility] is authorized under the Clinical Laboratory Improvement Amendment of 1988 (CLIA-88) to perform high complexity testing. [facility] CHEMISTRY Phosphorus 2.0 2.5 - 4.5 12/27/2012 LOW [facility] CHEMISTRY Magnesium Lvl 1.6 1.8 - 2.4 12/27/2012 LOW [facility] CHEMISTRY Bili Indirect 0.2 0.0 - 1.0 12/27/2012 Normal [facility] CHEMISTRY Bili Total 0.3 0.2 - 1.3 12/27/2012 Normal [facility] CHEMISTRY Bili Direct 0.1 0.0 - 0.3 12/27/2012 Normal [facility] CHEMISTRY AST 30 0 - 37 12/27/2012 Normal [facility] CHEMISTRY A/G Ratio 1.0 0.7 - 1.6 12/27/2012 Normal [facility] CHEMISTRY Globulin 3.0 2.0 - 4.0 12/27/2012 Normal [facility] CHEMISTRY Total Protein 6.0 6.4 - 8.4 12/27/2012 LOW [facility] CHEMISTRY Alk Phos 43 39 - 136 12/27/2012 Normal [facility] CHEMISTRY Albumin Lvl 3.0 3.5 - 5.0 12/27/2012 LOW [facility] CHEMISTRY ALT 52 0 - 65 12/27/2012 Normal [facility] CHEMISTRY AGAP 14.6 10.0 - 20.0 12/27/2012 Normal [facility] CHEMISTRY eGFR 42 12/27/2012 NA <sup>3</sup>Result Comment: [...] should be multiplied by the estimated BMI. [facility] CHEMISTRY CO2 26 24 - 32 12/27/2012 Normal [facility] CHEMISTRY Phosphorus 2.0 2.5 - 4.5 12/27/2012 LOW [facility] CHEMISTRY Calcium Lvl 8.3 8.5 - 10.5 12/27/2012 [facility] CHEMISTRY Chloride Lvl 109 95 - 109 12/27/2012 Normal [facility] CHEMISTRY Creatinine Lvl 1.5 0.5 - 1.4 12/27/2012 [facility] CHEMISTRY Potassium Lvl 3.6 3.5 - 5.1 12/27/2012 Normal [facility] CHEMISTRY Sodium Lvl 146 135 - 145 12/27/2012 [facility] CHEMISTRY Glucose Lvl 148 70 - 99 12/27/2012 [place] <sup>6</sup>Interpretive Data: Adult ref erence range values reflect the clinical guidelines
of the [place] [employer]. [facility] CHEMISTRY BUN 22 7 - 22 12/27/2012 Normal [facility] CHEMISTRY Albumin Lvl 3.0 3.5 - 5.0 12/27/2012 [facility] HEMATOLOGY Hgb 8.9 12.0 - 16.0 12/27/2012 [facility] HEMATOLOGY RBC 2.79 4.20 - 5.40 12/27/2012 [facility] HEMATOLOGY MCV 95.7 81.0 - 99.0 12/27/2012 Normal [facility] HEMATOLOGY Hct 26.7 36.0 - 48.0 12/27/2012 [facility] HEMATOLOGY WBC 4.7 3.7 - 10.4 12/27/2012 Normal [facility] HEMATOLOGY Platelet 102 133 - 450 12/27/2012 [facility] HEMATOLOGY MPV 7.8 7.4 - 10.4 12/27/2012 Normal [facility] HEMATOLOGY MCHC 33.5 32.0 - 36.0 12/27/2012 Normal [facility] HEMATOLOGY MCH 32.1 27.0 - 31.0 12/27/2012 [facility] HEMATOLOGY RDW 14.2 11.5 - 14.5 12/27/2012 Normal [facility] HEMATOLOGY Hyperseg Sligh t *ABN* (12/27/2012 09:00:00) None S een 12/27/2012 ABN [facility] HEMATOLOGY Basophils # 0.0 0.0 - 0.2 12/27/2012 Normal [facility] HEMATOLOGY Segs 68.1 45.0 - 75.0 12/27/2012 Normal [facility] HEMATOLOGY RBC Morph Alessandra l (12/27/2012 09:00:00) 12/27/2012 Normal [facility] HEMATOLOGY Plt Morph Alessandra l (12/27/2012 09:00:00) 12/27/2012 Normal [facility] HEMATOLOGY Lymphocytes 30.6 20.0 - 40.0 12/27/2012 Normal [facility] HEMATOLOGY Monocytes 0.9 2.0 - 12.0 12/27/2012 LOW [facility] HEMATOLOGY Basophils 0.1 0.0 - 1.0 12/27/2012 Normal [facility] HEMATOLOGY Segs-Bands # 3.2 1.5 - 8.1 12/27/2012 Normal [facility] HEMATOLOGY Eosinophils 0.3 0.0 - 4.0 12/27/2012 Normal [facility] HEMATOLOGY Lymphocytes # 1.4 1.0 - 5.5 12/27/2012 Normal [facility] HEMATOLOGY Monocytes # 0.0 0.0 - 0.8 12/27/2012 Normal [facility] HEMATOLOGY Eosinophils # 0.0 0.0 - 0.5 12/27/2012 Normal [facility] CHEMISTRY Iron 46 30 - 160 12/27/2012 Normal [facility] CHEMISTRY TIBC 209 228 - 428 12/27/2012 LOW [facility] CHEMISTRY % [place] 22 12 - 57 12/27/2012 Normal [facility] CHEMISTRY UIBC 163 110 - 370 12/27/2012 Normal [facility] CHEMISTRY Methotrxate Lvl <0.3 12/27/2012 NA <sup>9</sup>Interpretive Data: Therapeut ic Range Not Established. [facility] CHEMISTRY LDH 234 98 - 192 12/27/2012 [facility] CHEMISTRY Folate Lvl 42.8 >=3.0 12/27/2012 Normal [facility] CHEMISTRY Vitamin B12 Lvl 916 254 - 1320 12/27/2012 Normal [facility] CHEMISTRY Iron 46 30 - 160 12/27/2012 Normal [facility] CHEMISTRY Ferritin Lvl 286 5 - 204 12/27/2012 [facility] HEMATOLOGY Fibrinogen Lvl 308 230 - 510 12/27/2012 Normal [facility] HEMATOLOGY D-Dimer >4 ug /mL FEU 13 *ABN* (12/26/2012 23:25:00) 12/27/2012 ABN <sup>13</sup>Interpretive Data: In DIC, quantitative D-Dimer is generally greater than
0.66 ug/mL FEU. Values of quantitative D-Dimer less than
0.40 ug/mL FEU have been reported to be associated with a low
probability of deep vein thrombosis/pulmonary embolism.
This test alone should not be used to rule out DVT/PE. [facility] HEMATOLOGY Retic Auto 0.4 0.5 - 1.5 12/27/2012 LOW [facility] IMMUNOLOGY Tot Prot (SPE) 6.1 6.4 - 8.4 12/27/2012 LOW [facility] IMMUNOLOGY Alpha 2 Glob 0.72 0.45 - 1.00 12/27/2012 Normal [facility] IMMUNOLOGY Beta Glob 0.75 0.50 - 1.15 12/27/2012 Normal [facility] IMMUNOLOGY SPE Interp Total protein is decreased with a corresponding decrease in serum albumin. All globulin fractions are present in a normal distribution with minor nonspecific changes. No monoclonal proteins are identified. Interpretation performed at [facility]. 12/27/2012 NA [facility] IMMUNOLOGY Gamma Glob 1.05 0.71 - 1.57 12/27/2012 Normal [facility] IMMUNOLOGY Beta % 12.3 7.8 - 13.7 12/27/2012 Normal [facility] IMMUNOLOGY Alpha 2 % 11.8 7.0 - 11.9 12/27/2012 Normal [facility] Albumin (SPE) 3.27 3.57 - 5.55 12/27/2012 LOW [facility] Gamma % 17.2 11.1 - 18.7 12/27/2012 Normal [facility] Alpha 1 Glob 0.31 0.18 - 0.41 12/27/2012 Normal [facility] Albumin % 53.6 55.8 - 66.1 12/27/2012 LOW [facility] Alpha 1 % 5.1 2.8 - 4.9 12/27/2012 HI [facility] IMMUNOLOGY Haptoglobin 172 16 - 200 12/27/2012 Normal [facility] HEMATOLOGY PT 13.8 12.0 - 14.7 12/26/2012 Normal [facility] PTT 29.3 22.9 - 35.8 12/26/2012 Normal <sup>14</sup>Interpretive Data: Heparin Therapeutic Range: 57 - 92 Seconds [facility] named [facility] INR 1.04 0.85 - 1.17 12/26/2012 Normal <sup>12</sup>Interpretive Data: RECOMMEN DED RANGES FOR PROTIME INR:
2.0-3.0 for most medical and surgical thromboembolic states.
2.5-3.5 for artificial heart valves and recurrent embolism.

INR SHOULD BE USED ONLY FOR PATIENTS ON STABLE ANTICOAGULANT THERAPY. [facility] HEMATOLOGY Sed Rate 47 0 - 20 12/26/2012 HI [facility] C4 Complement 46 16 - 47 12/26/2012 Normal [facility] CRP, High Sensitivity 9.0 12/26/2012 NA <sup>15</sup>Interpretive Data: Low Risk : <1.0 mg/L
Average Risk: 1.0 - 3.0 mg/L
High Risk: >10.0 mg/L [facility] C3 Complement 142 88 - 201 12/26/2012 Normal [facility] SS-B (La) Ab Negat awilda (12/26/2012 17:00:00) Negati ve 12/26/2012 Normal [facility] SS-A (Ro) Ab Negat awilda (12/26/2012 17:00:00) Negati ve 12/26/2012 Normal [facility] Ribonucleic Protein (KELLY) IgG <1.0 NEG <1.0 NEGATIVE 12/26/2012 NA <sup>16</sup>Result Comment : Test Performed at:
[facility]
[address] [place] [address]
[place] [address] Philip Holm MD, PhD [facility] IMMUNOLOGY KEYSHA Negat awilda (12/26/2012 17:00:00) Negati ve 12/26/2012 Normal [facility] DNA Ab (DS) Negat awilda (12/26/2012 17:00:00) Negati ve 12/26/2012 Normal [facility] CHEMISTRY Glucose Lvl 109 70 - 99 12/26/2012 HI <sup>7</sup>Interpretive Data: Adult ref erence range values reflect the clinical guidelines
of the [place] [employer]. [facility] CHEMISTRY BUN 31 7 - 22 12/26/2012 HI [facility] CHEMISTRY Alk Phos 41 39 - 136 12/26/2012 Normal [facility] CHEMISTRY Creatinine Lvl 1.7 0.5 - 1.4 12/26/2012 [facility] CHEMISTRY Sodium Lvl 146 135 - 145 12/26/2012 [facility] CHEMISTRY Potassium Lvl 4.2 3.5 - 5.1 12/26/2012 Normal [facility] CHEMISTRY Chloride Lvl 107 95 - 109 12/26/2012 Normal [facility] CHEMISTRY CO2 30 24 - 32 12/26/2012 Normal [facility] CHEMISTRY eGFR 36 12/26/2012 NA <sup>4</sup>Result Comment: [...] should be multiplied by the estimated BMI. [facility] CHEMISTRY Calcium Lvl 8.7 8.5 - 10.5 12/26/2012 Normal [facility] CHEMISTRY Bili Total 0.5 0.2 - 1.3 12/26/2012 Normal [facility] CHEMISTRY Total Protein 6.1 6.4 - 8.4 12/26/2012 LOW [facility] CHEMISTRY AST 49 0 - 37 12/26/2012 [facility] CHEMISTRY Albumin Lvl 3.1 3.5 - 5.0 12/26/2012 LOW [facility] CHEMISTRY ALT 63 0 - 65 12/26/2012 Normal [facility] CHEMISTRY AGAP 13.2 10.0 - 20.0 12/26/2012 Normal [facility] CHEMISTRY B/C Ratio 18 6 - 25 12/26/2012 Normal [facility] CHEMISTRY Globulin 3.0 2.0 - 4.0 12/26/2012 Normal [facility] CHEMISTRY A/G Ratio 1.0 0.7 - 1.6 12/26/2012 Normal [facility] HEMATOLOGY MCV 95.8 81.0 - 99.0 12/26/2012 Normal [facility] HEMATOLOGY Platelet 113 133 - 450 12/26/2012 [facility] HEMATOLOGY Hct 28.3 36.0 - 48.0 12/26/2012 [facility] HEMATOLOGY MCH 31.5 27.0 - 31.0 12/26/2012 [facility] HEMATOLOGY MCHC 32.9 32.0 - 36.0 12/26/2012 [facility] HEMATOLOGY RDW 14.9 11.5 - 14.5 12/26/2012 [facility] HEMATOLOGY MPV 8.1 7.4 - 10.4 12/26/2012 [facility] HEMATOLOGY WBC 3.5 3.7 - 10.4 12/26/2012 [facility] HEMATOLOGY Hgb 9.3 12.0 - 16.0 12/26/2012 [facility] HEMATOLOGY RBC 2.95 4.20 - 5.40 12/26/2012 [facility] HEMATOLOGY Eosinophils # 0.1 0.0 - 0.5 12/26/2012 [facility] HEMATOLOGY Basophils 0.2 0.0 - 1.0 12/26/2012 [facility] HEMATOLOGY Eosinophils 2.1 0.0 - 4.0 12/26/2012 [facility] HEMATOLOGY Segs-Bands # 1.6 1.5 - 8.1 12/26/2012 [facility] HEMATOLOGY Monocytes # 0.0 0.0 - 0.8 12/26/2012 [facility] HEMATOLOGY Lymphocytes # 1.8 1.0 - 5.5 12/26/2012 [facility] HEMATOLOGY Basophils # 0.0 0.0 - 0.2 12/26/2012 [facility] HEMATOLOGY Plt Morph Alessandra l (12/26/2012 08:54:00) 12/26/2012 [facility] HEMATOLOGY Monocytes 0.5 2.0 - 12.0 12/26/2012 [facility] HEMATOLOGY Segs 46.1 45.0 - 75.0 12/26/2012 [facility] HEMATOLOGY Lymphocytes 51.1 20.0 - 40.0 12/26/2012 [facility] HEMATOLOGY RBC Morph Alessandra l (12/26/2012 08:54:00) 12/26/2012 [facility] Microbiology Culture: Blood 12/26/2012 [facility] CHEMISTRY Sodium Lvl 142 135 - 145 12/26/2012 [facility] CHEMISTRY Creatinine Lvl 2.0 0.5 - 1.4 12/26/2012 [facility] CHEMISTRY BUN 36 7 - 22 12/26/2012 [facility] CHEMISTRY Glucose Lvl 119 70 - 99 12/26/2012 HI <sup>8</sup>Interpretive Data: Adult ref erence range values reflect the clinical guidelines
of the [place] [employer]. [facility] CHEMISTRY eGFR 30 12/26/2012 NA <sup>5</sup>Result Comment: [...] should be multiplied by the estimated BMI. [facility] CHEMISTRY AGAP 15.3 10.0 - 20.0 12/26/2012 Normal [facility] CHEMISTRY Calcium Lvl 9.0 8.5 - 10.5 12/26/2012 Normal [facility] CHEMISTRY CO2 29 24 - 32 12/26/2012 Normal [facility] CHEMISTRY Chloride Lvl 102 95 - 109 12/26/2012 Normal [facility] CHEMISTRY Potassium Lvl 4.3 3.5 - 5.1 12/26/2012 Normal [facility] Microbiology Culture: Blood 12/26/2012 [facility] CHEMISTRY U Sodium 65 12/25/2012 NA <sup>11</sup>Interpretive Data: No established reference ranges. [facility] CHEMISTRY U Osmolality 473 300 - 800 12/25/2012 Normal [facility] CHEMISTRY U Creatinine 138.0 12/25/2012 NA <sup>10</sup>Interpretive Data: No estab lished reference ranges. [facility] HEMATOLOGY Monocytes 4.0 2.0 - 12.0 12/25/2012 Normal [facility] HEMATOLOGY Bands 1.0 0.0 - 11.0 12/25/2012 Normal [facility] HEMATOLOGY Lymphocytes 68.0 20.0 - 40.0 12/25/2012 [facility] HEMATOLOGY RBC Morph Alessandra l (12/25/2012 12:45:00) 12/25/2012 Normal [facility] HEMATOLOGY Eosinophils 3.0 0.0 - 4.0 12/25/2012 Normal [facility] HEMATOLOGY Atypical Lymphs 0.0 <=0.0 12/25/2012 Normal [facility] HEMATOLOGY Lymphocytes # 1.7 1.0 - 5.5 12/25/2012 Normal [facility] HEMATOLOGY Monocytes # 0.1 0.0 - 0.8 12/25/2012 Normal [facility] HEMATOLOGY Segs-Bands # 0.6 1.5 - 8.1 12/25/2012 LOW [facility] HEMATOLOGY Eosinophils # 0.1 0.0 - 0.5 12/25/2012 Normal [facility] HEMATOLOGY Segs 24.0 45.0 - 75.0 12/25/2012 [facility] HEMATOLOGY MPV 8.1 7.4 - 10.4 12/25/2012 Normal [facility] HEMATOLOGY MCH 32.5 27.0 - 31.0 12/25/2012 [facility] HEMATOLOGY Platelet 133 133 - 450 12/25/2012 Normal [facility] HEMATOLOGY RDW 14.6 11.5 - 14.5 12/25/2012 [facility] HEMATOLOGY MCHC 33.7 32.0 - 36.0 12/25/2012 Normal [facility] HEMATOLOGY MCV 96.5 81.0 - 99.0 12/25/2012 [facility] HEMATOLOGY Hct 32.1 36.0 - 48.0 12/25/2012 [facility] HEMATOLOGY Hgb 10.8 12.0 - 16.0 12/25/2012 [facility] HEMATOLOGY RBC 3.33 4.20 - 5.40 12/25/2012 [facility] HEMATOLOGY WBC 2.5 3.7 - 10.4 12/25/2012 [facility] HEMATOLOGY Sed Rate 32 0 - 20 12/25/2012 [facility] CHEMISTRY Troponin-I <0.02 0.00 - 0.40 12/25/2012 Normal [facility] CHEMISTRY CK MB <0.5 0.5 - 3.6 12/25/2012 Normal [facility] CHEMISTRY Globulin 3.3 2.0 - 4.0 12/25/2012 Normal [facility] CHEMISTRY A/G Ratio 0.9 0.7 - 1.6 12/25/2012 [facility] CHEMISTRY B/C Ratio 20 6 - 25 12/25/2012 [facility] CHEMISTRY AST 60 0 - 37 12/25/2012 [facility] CHEMISTRY Total Protein 6.4 6.4 - 8.4 12/25/2012 Normal [facility] CHEMISTRY Bili Total 0.5 0.2 - 1.3 12/25/2012 Normal [facility] CHEMISTRY Alk Phos 45 39 - 136 12/25/2012 Normal [facility] CHEMISTRY ALT 72 0 - 65 12/25/2012 HI [facility] CHEMISTRY Total CK 85 12 - 191 12/25/2012 Normal [facility] CHEMISTRY CK MB Index <0.6 0.0 - 2.5 12/25/2012 Normal [facility] IMMUNOLOGY [place]r Negat awilda (12/25/2012 11:30:00) Negati ve 12/25/2012 Normal [facility] IMMUNOLOGY Hep B Core IgM Negat awilda *NA* (12/25/2012 11:30:00) Negati ve 12/25/2012 NA [facility] IMMUNOLOGY Hep C Ab Negat awilda *NA* (12/25/2012 11:30:00) Negati ve 12/25/2012 NA [facility] IMMUNOLOGY Hep A IgM Negat awilda *NA* (12/25/2012 11:30:00) Negati ve 12/25/2012 NA [facility] IMMUNOLOGY Hep Bs Ag Negat awilda *NA* (12/25/2012 11:30:00) Negati ve 12/25/2012 NA [facility] URINALYSIS UA RBC 2 0 - 2 12/25/2012 Normal [facility] URINALYSIS UA Urobilinogen <=1.0 0.1 - 1.0 12/25/2012 NA [facility] URINALYSIS UA Hyal Cast 11 0 - 2 12/25/2012 [facility] URINALYSIS UA Bacteria Moder ate /HPF *ABN* (12/25/2012 09:10:00) None S een 12/25/2012 ABN [facility] URINALYSIS UA Mucus Few / LPF *NA* (12/25/2012 09:10:00) None S een 12/25/2012 [facility] URINALYSIS UA Color Yello w *NA* (12/25/2012 09:10:00) Yellow 12/25/2012 NA [facility] URINALYSIS UA Turbidity Sligh t *ABN* (12/25/2012 09:10:00) Clear 12/25/2012 ABN [facility] URINALYSIS UA Spec Grav 1.014 <=1.030 12/25/2012 Normal [facility] URINALYSIS UA pH 6.5 5.0 - 8.0 12/25/2012 Normal [facility] URINALYSIS Micro? Perfo rmed *NA* (12/25/2012 09:10:00) 12/25/2012 NA [facility] URINALYSIS UA Leuk Est Moder ate *ABN* (12/25/2012 09:10:00) Negati ve 12/25/2012 ABN [facility] URINALYSIS UA Nitrite Negat awilda (12/25/2012 09:10:00) Negati ve 12/25/2012 Normal [facility] URINALYSIS UA WBC 16 0 - 5 12/25/2012 HI [facility] URINALYSIS UA Sq Epi Many /LPF *ABN* (12/25/2012 09:10:00) Few 12/25/2012 ABN [facility] URINALYSIS UA Protein 20 mg /dL *ABN* (12/25/2012 09:10:00) Negati ve 12/25/2012 ABN [facility] URINALYSIS UA Ketones Negat awilda mg/dL *NA* (12/25/2012 09:10:00) Negati ve 12/25/2012 NA [facility] URINALYSIS UA Glucose Negat awilda mg/dL *NA* (12/25/2012 09:10:00) Negati ve 12/25/2012 NA [facility] URINALYSIS UA Blood Negat awilda (12/25/2012 09:10:00) Negati ve 12/25/2012 Normal [facility] URINALYSIS UA Bili Negat awilda *NA* (12/25/2012 09:10:00) Negati ve 12/25/2012 NA [facility] Microbiology Culture: Urine 12/25/2012 [facility] CHEMISTRY Ammonia 30.0 <=45.0 12/25/2012 Normal [facility] CHEMISTRY Phosphorus 2.7 2.5 - 4.5 12/24/2012 Normal [facility] CHEMISTRY Magnesium Lvl 2.4 1.8 - 2.4 12/24/2012 Normal [facility] CHEMISTRY B/C Ratio 25 6 - 25 12/24/2012 Normal [facility] CHEMISTRY Folate Lvl > 100. 0 ng/mL (12/24/2012 17:00:00) >=3.0 12/24/2012 Normal [facility] HEMATOLOGY Basophils # 0.0 0.0 - 0.2 12/24/2012 Normal [facility] HEMATOLOGY Macrocyte 1+ *ABN* (12/24/2012 17:00:00) None S een 12/24/2012 ABN [facility] HEMATOLOGY Basophils 0.1 0.0 - 1.0 12/24/2012 Normal [facility] Microbiology Culture: Throat Strep S creen 12/24/2012 [facility] Pathology Reports No Data Provided for This Section Diagnostic Reports Report Value Date Source Chest Pulmonary Embolism CTA Patient Name: GILLES LIZAMA : 1950; Age: 67 years y/o Female MR: [id number] Study: CHEST PULMONARY EMBOLISM CTA 08/23/2018 1:25 PM [employer] Ordering Physician: Hans Gil MD Clinical Indication: [...] limits. Chronic age-related changes. SL: WR3-M 08/23/2018 [facility] Chest 2 views DX Examination: Chest x-ray, 2 views History: 786.50 Unspecified Chest Pain Comparison: 12/25/2012 Findings: The lungs are clear and without focal consolidation. The cardiomediastinal silhouette is within normal limits. No pleural effusion or pneumothorax is seen. The osseous structures are without focal abnormality. IMPRESSION: No acute cardiopulmonary disease. SL: 16 02/24/2015 [facility] Brain wo contrast CT CT BRAIN [...] Date Comments Source Heart Rate 73 03/03/2015 [facility] Temperature Oral (F) 97.9 F 03/03/2015 [facility] Systolic (mm Hg) 160 03/03/2015 [facility] Diastolic (mm Hg) 70 03/03/2015 [facility] Weight 129.091 03/03/2015 [facility] BMI Calculated 45.93 03/03/2015 [facility] Height 167.64 cm 03/03/2015 [facility] Height 167.64 cm 05/03/2013 [facility] Weight 133.182 05/03/2013 [facility] Temperature Oral (F) 98.6 F 12/27/2012 [facility] Diastolic (mm Hg) 82 12/27/2012 [facility] Heart Rate 94 12/27/2012 [facility] Systolic (mm Hg) 148 12/27/2012 [facility] Respitory Rate 20 12/27/2012 [facility] Diastolic (mm Hg) 82 12/27/2012 [facility] Heart Rate 87 12/27/2012 [facility] Temperature Oral (F) 98.4 F 12/27/2012 [facility] Systolic (mm Hg) 133 12/27/2012 [facility] Respitory Rate 18 12/27/2012 [facility] Respitory Rate 16 12/27/2012 [facility] Heart Rate 101 12/27/2012 [facility] Diastolic (mm Hg) 84 12/27/2012 [facility] Systolic (mm Hg) 151 12/27/2012 [facility] Temperature Oral (F) 98.4 F 12/27/2012 [facility] Height 167.64 cm 12/25/2012 [facility] Weight 126.818 12/25/2012 [facility] Encounters Location Location Details Encounter Type Encounter Number Reason For Visit Attending Provider ADM Date DC Date Status Source OD [id number] 338 - PAIN NEC HARIS CHEMO 01/11/2012 Active [facility] Inpatient [id number] PEYTON MICHELLE 12/25/2012 12/27/2012 Discharged [facility] Outpatient [id number] 780.2 SUPRABHA ARNALDO 05/03/2013 Active [facility] Outpatient [id number] Monse Chowdhury 02/24/2015 02/25/2015 [facility] Bedded Outpatient [id number] Monse Luciana 03/03/2015 03/03/2015 [facility] OP Recurring [id number] Librado Nahomi 05/19/2015 06/18/2015 [facility] OP Recurring [id number] Librado Nahomi 07/16/2015 08/15/2015 [facility] OP Recurring [id number] Librado Garciaanda 08/18/2015 09/17/2015 [facility] Outpatient [id number] Hans Gil 08/22/2018 08/22/2018 [facility] Outpatient [id number] Mohammad Gil 08/23/2018 08/24/2018 [facility] Outpatient [id number] Mohammad Gil 09/05/2018 09/05/2018 [facility] Not Sent Ou tpatient [id number] 780.2 SUPRABHA ARNALDO Active [facility] Procedures Procedure Code Date Perfomer Comments Source Hysterectomy [id number] [facility] Miscellaneous operations <sup>1</sup> [id number] 1Knee Replacement [facility] Miscellaneous operations <sup>2</sup> [id number] 2Back Sx [facility] Hysterectomy [id number] [facility] Knee replacement [id number] [facility] Miscellaneous operations<sup>1</sup> [id number] Back Sx [facility] Miscellaneous operations<sup>2</sup> [id number] Knee Replacement [facility] Assessment and Plan No Data Provided for This Section Plan of Care No Data Provided for This Section Social History Social History Date Source Social History TypeResponse Alcohol Never Smoking Status Never smoker; Exposure to Tobacco Smoke None; Cigarette Smoking Last 365 Days No; Reg Smoking Cessation Counseling No entered on: 03/03/15 03/03/2015 [facility] Family History No Data Provided for This Section Advance Directives No Data Provided for This Section Functional Status No Data Provided for This Section
--- OUTSIDE RECORDS SUMMARY | 2020-06-07 02:28 | XMS REPORT | Continuity of Care Document ---
Author Author [facility] t Organization [facility] Address [address] [place] [address] Phone Unavailable Care Team Providers Care Application Infrastructure Engineer Name Role Phone ANA LUISA SORENSEN MD PCP RAMON ASCENCIO Attphys Unavailable Aretha Davis MA Attphys Unavailable ANA LUISA SORENSEN Attphys Unavailable Pao Gil Attphys Lei Comer Attphys Luciana, Jacek Palur Attphys ANA LUISA SORENSEN Admphys Unavailable Luciana, V Palur Admphys Payers Payer Name Policy Type Policy Number Effective Date Expiration Date S stella MEDICAREMEDICARE PART A AND [id number]/09/1999-PresentHOU GERHARD WAMedicare xxxxxxxxxxx 2000 00:00:00 Knott Sabianism AETNAAET [facility] INDEMNITYxxxxxxxxxx1998-PresentI ndemnity xxxxxxxxxx 1998 00:00:00 [facility] Medicare A & B [id number] 2000 00:00:00 [facility] Aetna o [id number] 1998 00:00:00 [facility] Problems Condition Name Condition Details Condition Category Status Onset Date Resolution Date Last Treatment Date Treating Clinician Comments Source SPLIT - [id number] [facility] T - [id number] Active 08/23/2018 [facility] Active 2018-08-23 00:00:00 2018-09-04 19:21:00 [facility] R06.00 R06. 00 Active 08/21/2018 [facility] Diagnosis Active 2018-08-21 00:00:00 2018-08-24 16:12:00 [facility] MORBID OBESITY MORB ID OBESITY Active 08/17/2015 [facility] Active 2015-08-17 00:00:00 2015-08-18 09:02:00 [facility] 278.01 EXTREME OBESITY / 401.1 BENIGN ES 278.01 EXTREME OBESITY / 401.1 BENIGN ES Active 05/14/2015 [facility] Diagnosis Ac tive 2015-05-14 00:00:00 2015-05-19 08:47:00 [facility] 786.50 786. 50 Active 03/02/2015 [facility] Diagnosis Active 2015-03-02 00:00:00 2015-03-03 07:38:00 [facility] Chest pain Chest pain Problem Active 2014-10-23 00:00:00 [facility] Urinary tract infection UTI (urinary tract infection) Problem Active 2014-10-23 00:00:00 [facility] 780.2 780. 2 Active 04/30/2013 [facility] Diagnosis Active 2013-04-30 00:00:00 2014-05-15 21:07:00 [facility] 780.2 - SYNCOPE AND COL 780. 2 - SYNCOPE AND COL Active 04/25/2013 [facility] Diagnosis Active 2013-04-25 00:01:00 2014-05-20 06:57:00 [facility] ORAL ULCERS, DEHYDRATION, ACUTE RENAL FA ORAL ULCERS, DEHYDRATION, ACUTE RENAL FA Active 12/24/2012 [facility] Diagnosis Ac tive 2012-12-24 00:00:00 2012-12-26 14:34:00 [facility] SORE THROAT SORE THROAT Active 12/24/2012 [facility] Diagnosis Active 2012-12-24 00:00:00 2012-12-24 18:10:00 [facility] 338 - PAIN NEC 338 - PAIN NEC Active 01/11/2012 [facility] Diagnosis Active 2012-01-11 00:01:00 2012-01-11 11:47:00 [facility] Arthritis Arth ritis Resolved Problem 05/05/2013 [facility] Problem Resolved 2013-05-05 20:51: 10 Brown Roberson HTN HTN Resolved Problem 05/05/2013 [facility] Resolved 2013-05-05 20:51:10 Reynold orial Da Hypertension Hype rtension Resolved Problem 05/05/2013 [facility] Resolved 2013-05-05 20:51:10 [facility] Insomnia Inso mnia Resolved Problem 05/05/2013 [facility] Resolved 2013-05-05 20:51: 10 Borwn Da Thyroid Thyr oid Resolved Problem 05/05/2013 [facility] Resolved 2013-05-05 20:51:10 Brown Roberson Arthritis (disorder) Arth ritis (disorder) Resolved Problem 03/25/2019 [facility] Problem Resolved 2019-03-25 11:17: 53 Brown Roberson Essential hypertension (disorder) Essential hypertension (disorder) Resolved Problem 03/25/2019 [facility] Problem Resolved 2019-03-25 11:17:53 Brown Roberson Hypertensive disorder, systemic arterial (disorder) Hypertensive disorder, systemic arterial (disorder) Resolved Problem 03/25/2019 [facility] Problem Resolved 2019-03-25 11:17:53 Brown Roberson Insomnia (disorder) Inso mnia (disorder) Resolved Problem 03/25/2019 [facility] Problem Resolved 2019-03-25 11:17: 53 Brown Roberson Thyroid structure (body structure) Thyroid structure (body structure) Resolved Problem 09/19/2015 [facility] Problem Resolved 2015-09-19 01:23:46 Brown Roberson Lethargic Leth argic Active Problem 05/05/2013 [place] Problem Active 2013-05-05 20:51:10 Brown Roberson Pain Pain Active Problem 05/05/2013 [place] Problem Active 2013-05-05 20:51:1 0 Brown Roberson Lethargy (finding) Leth argy (finding) Active Problem 03/25/2019 [facility] Problem Active 2019-03-25 11:17:53 Brown Roberson Pain (finding) Pain (finding) Active Problem 03/25/2019 [facility] Problem Active 2019-03-25 11:17:53 Brown Roberson DEHYDRATION DEHY DRATION Active [facility] Diagnosis Active 2012-12-26 14:34:00 Mark Roberson SYNCOPE [...] 2018-09-11 04:39:07 2019-03-25 11:17:53 2019-03-25 11:17:53 Brown Roberson Dyspnea, unspecified Dysp praful, unspecified 08/29/2018 03/13/2019 [facility] Problem 2018-08-29 04:35:34 2019-03-13 11:1 6:16 2019-03-13 11:16:16 [facility] Allergies, Adverse Reactions, Alerts Allergy Name Allergy Type Status Severity Reaction(s) Onset Date Inacti ve Date Treating Clinician Comments Source Morphine Allergy to Substance Active 2019-11-21 00:00:00 [facility] Morphine Propensity to adverse reactions to drug Active Killian Syed Morphine Sulfate SR Morphine Sulfate SR Active [facility] Social History Social Habit Start Date Stop Date Quantity Comments Source History SDOH Alcohol Std Drinks Knott Sabianism History SDOH Alcohol Binge Knott Sabianism Sex Assigned At Codeyalessio lopez Sabianism Alcohol intake 2019-01-26 00:00:00 2019-01-26 00:00:00 Current non-drinker of alcohol (finding) Knott Sabianism History SDOH Alcohol Frequency 2019-01-26 00:00:00 2019-01-26 00:00:0 0 1 Daily Sabianism Social History 2015-03-03 12:53:02 2015-03-03 12:53:02 Brown [...] 25 MG tablet 2019-01-23 00:00:00 Yes 25mg [id number] Take 25 mg by mouth 3 (three) [...] 2 (two) times a day. Killian Campbellist SYNTHROID 50 mcg tablet 2018-12-10 00:00:00 Yes 50ug QD Take 50 mcg by mouth every morning. Killian Campbellist lisinopril (PRINIVIL,ZESTRIL) 40 mg tablet 2018-12-10 00:00:00 Yes 40mg Q.5D Take 40 mg by mouth 2 (two) times a day. Killian Campbellist carvedilol (COREG) 25 MG tablet 2018-11-12 00:00:00 Yes 25mg Take 25 mg by mouth. Killian Syed Omnipaque 350 injectable solution 2018-08-23 20:00:00 Yes [...] PO, Bedtime, # 180 tab, 0 Refill(s) Brown Danielsann cyclobenzaprine 10 mg oral tablet 2015-03-03 13:01:00 Yes 10 mg = 1 tab, PO, Bedtime, # 30 tab, 0 Refill(s) [facility] [place] Clonidine Hydrochloride 0.3 MG Oral Tablet 2015-03-03 13:01:00 Yes 0.3 mg = 1 tab, PO, BID, # 60 tab, 1 Refill(s) [facility] predniSONE 2.5 mg oral tablet 2015-03-03 13:01:00 Yes 5 mg = 2 tab, PO, Daily, # 7 tab, 0 Refill(s) [facility] omeprazole 40 mg oral delayed release capsule 2015-03-03 13:01:0 0 Yes 40 mg = 1 cap, PO, Daily, # 30 cap, 0 [facility] mg oral tablet 2015-03-03 13:01:00 Yes 40 mg = 1 tab, PO, Daily, # 30 tab, 0 Refill(s) Latosha Roberson levothyroxine 50 mcg (0.05 mg) oral tablet 2015-03-03 13:01:00 Yes 50 microgram = 1 tab, PO, Daily, # 30 tab, 0 Refill(s) [facility] clonazePAM 1 mg oral tablet 2015-03-03 13:01:00 Yes 1 mg = 1 tab, PO, Bedtime, # 270 tab, 0 Refill(s) Andre Roberson folic acid 1 mg oral tablet 2012-12-28 14:00:00 No Xavi Munguia Chemo 5 mg, 5 tab, Route: PO, Drug form: TAB, Daily, Start date: 12/28/12 9:00:00, Duration: 30 day, Stop date: 01/26/13 9:00:00 [facility] sodium chloride 38.5 mEq + sodium bicarbonate 50 mEq + steri le water 1,000 mL 2012-12-27 18:33:00 No Vasquez I Michelle 1,000 mL, 100 ml/hr, Route: IV, Drug Form: INJ, Dosing Weight 126.818, kg, Start date: 12/27/12 13:33:00, Duration: 1 doses or times, Stop date: 12/28/12 0:08:00 [facility] magnesium sulfate 2012-12-27 18:32:00 No Vasquez I Michelle 50 mL, Rate: 50 ml/hr, Infuse over: 1 hr, Route: IVPB, Total Volume: 50, Start date: 12/27/12 13:32:00, Stop date: 12/27/12 13:32:00 M [facility] potassium phosphate-sodium phosphate 250 mg-278 mg-164 mg or al powder 2012-12-27 18:32:00 No Vasquez I Michelle 1 pkt, Route: PO, Drug Form: PDR/REC, ONCE, Start date: 12/27/12 13:32:00, Stop date: 12/27/12 13:32:00 [facility] acetaminophen-hydrocodone 325 mg-5 mg oral tablet 15:54:00 No Vasquez I Michelle 1 tab, Route: PO , Drug Form: TAB, Q4H, PRN Headache, Start date: 12/27/12 10:54:00, Duration: 30 day, Stop date: 01/26/13 10:53:00 [facility] folic acid 1 mg oral tablet 2012-12-27 14:00:00 No Harrison elizabeth I Michelle 2 mg, 2 tab, Route: PO, Drug form: TAB, Daily, Start date: 12/27/12 9:00:00, Duration: 30 day, Stop date: 01/25/13 9:00:00 [facility] Sodium Chloride 0.9% IV 2012-12-27 00:45:00 No Vasquez I Michelle 250 mL, Route: IVPB, Start date: 12/26/12 19:45:00, Duration: 30 day, Stop date: 01/25/13 19:44:00, PRN Line Flush Memori [facility] BD Normal Saline Flush 2012-12-27 00:45:00 No Vasquez I Michelle 10 mL, Route: IVP, Drug Form: INJ, PRN, PRN Line Flush, Start date: 12/26/12 19:45:00, Duration: 30 day, Stop date: 01/25/13 19:44:00 [facility] magic mouth wash 2012-12-27 00:44:00 No Vasquez [...] Duration: 30 day, Stop date: 01/25/13 19:42:00 [facility] [place] SoluCortef 2012-12-26 23:00:00 No Vasquez I Michelle 50 mg, 1 mL, Route: IV, Drug form: PDR/INJ, Q6H, Start date: 12/26/12 18:00:00, Duration: 30 day, Stop date: 01/25/13 12:00:00 [facility] 2012-12-25 23:00:00 No Vasquez I Michelle 100 mg, 2 mL, Route: IV, Drug form: PDR/INJ, Q6H, Start date: 12/25/12 18:00:00, Duration: 4 doses or times, Stop date: 12/26/12 12:00:00 [facility] orial Da Sodium Chloride 0.9% IV 1,000 mL 2012-12-25 23:00:00 No Vasquez I Michelle 1,000 mL, Rate: 125 ml/hr, Infuse over: 8 hr, Route: IV, kg, Total Volume: 1,000, Start date: 12/25/12 18:00:00, Duration: 30 day, Stop date: 01/24/13 17:59:00 [facility] lidocaine topical 2012-12-25 22:00:00 No Karl J Hoberm an 10 mL, Route: S&SPIT, Drug form: SOLN, QID, Start date: 12/25/12 17:00:00, Duration: 30 day, Stop date: 01/24/13 13:00:00 [facility] [place] Sodium Chloride 0.9% IV 1,000 mL 2012-12-25 20:54:00 No Vasquez I Michelle 1,000 mL, Rate: 250 ml/hr, Infuse over: 4 hr, Route: IV, kg, Total Volume: 1,000, Start date: 12/25/12 15:54:00, Duration: 2 hr, Stop date: 12/25/12 17:53:00 [facility] Sodium Chloride 0.9% IV 500 mL 2012-12-25 17:11:00 No Philip kristenon I Michelle 500 mL, Rate: bolus, Route: IV, kg, Total Volume: 500, Start date: 12/25/12 12:11:00, Stop date: 12/25/12 13:00:00 [facility] Cepastat 2012-12-25 14:00:00 No Vasquez I Michelle 2 lozenge, Route: MUCOUS MEM, QID, Drug form: HA, Start date: 12/25/12 9:00:00, Duration: 30 day, Stop date: 01/23/13 21:00:00 [facility] folic acid 1 mg oral tablet 2012-12-25 14:00:00 No Vonda Gr 1 mg, 1 tab, Route: PO, Drug form: TAB, Daily, Start date: 12/25/12 9:00:00, Duration: 30 day, Stop date: 01/23/13 9:00:00 [facility] atenolol 25 mg oral tablet 2012-12-25 14:00:00 No Karl Gr 25 mg, 1 tab, Route: PO, Drug form: TAB, Daily, Start date: 12/25/12 9:00:00, Duration: 30 day, Stop date: 01/23/13 9:00:00 [facility] Levothroid 2012-12-25 11:30:00 No Vasquez Brittany Michelle 50 microgram, 1 tab, Route: PO, Drug form: TAB, Q630AM, Start date: 12/25/12 6:30:00, Duration: 30 day, Stop date: 01/23/13 6:30:00 Latosha Roberson vancomycin 2012-12-25 11:15:00 No Vasquez I Michelle 1 gm, 200 mL, Route: IVPB, Drug form: INJ, ONCE, Start date: 12/25/12 6:15:00, Stop date: 12/25/12 6:15:00 [facility] Maxipime + Sodium Chloride 0.9% IV 100 mL 2012-12-25 11:00 :00 No Vasquez I Michelle 1 gm, Route: IVP B, [id number], Start date: 12/25/12 6:00:00, Duration: 30 day, Stop date: 01/23/13 18:00:00 Reynoldtommie christine [place] Sodium Chloride 0.9% IV 500 mL 2012-12-25 10:59:00 No J ohnson I Michelle 500 mL, Rate: BOLUS, Route: IV, kg, Total Volume: 500, Start date: 12/25/12 5:59:00, Duration: 2 hr, Stop date: 12/25/12 7:58:00 [facility] Sodium Chloride 0.9% IV 250 mL 2012-12-25 07:31:00 No J ohnson I Michelle 250 mL, Rate: BOLUS, REPEAT X1 IF SBP<100, Route: IV, kg, Total Volume: 250, Start date: 12/25/12 2:31:00, Duration: 4 hr, Stop date: 12/25/12 6:30:00 [facility] Klonopin 2012-12-25 02:35:00 No Vasquez I Michelle 2 mg, 1 tab, Route: PO, Drug form: TAB, Bedtime, Start date: 12/24/12 21:35:00, Duration: 30 day, Stop date: 01/23/13 21:00:00 [facility] Seroquel 2012-12-25 02:34:00 No Vasquez I Michelle 200 mg, 1 tab, Route: PO, Drug form: TAB, Bedtime, Start date: 12/24/12 21:34:00, Duration: 30 day, Stop date: 01/23/13 21:00:00 [facility] Tylenol 2012-12-25 02:33:00 No Vasquez I Michelle 650 mg, 2 tab, Route: PO, Drug form: TAB, Q4H, PRN Pain, Start date: 12/24/12 21:33:00, Duration: 30 day, Stop date: 01/23/13 21:32:00 [facility] Milk of Magnesia 2012-12-25 02:33:00 No Vasquez I Michelle 30 mL, Route: PO, Drug Form: SUSP, Daily, PRN Constipation, Start date: 12/24/12 21:33:00, Duration: 30 day, Stop date: 01/23/13 21:32:00 [facility] Zofran 2012-12-25 00:44:00 No Karl Gr 4 mg, 2 mL, Route: IVP, Drug form: INJ, Q4H, PRN Nausea, Start date: 12/24/12 19:44:00, Duration: 30 day, Stop date: 01/23/13 19:43:00 [facility] 2012-12-25 00:44:00 No Karl Esteban an 10 mL, Route: S&SPIT, Drug form: SOLN, Q4H, PRN Pain, Start date: 12/24/12 19:44:00, Duration: 30 day, Stop date: 01/23/13 19:43:00 [facility] Dextrose 5% with 0.45% NaCl IV 1,000 mL 2012-12-25 00:43:0 0 No Karl Gr 1,000 mL, Rate: 125 ml/hr, Infuse over: 8 hr, Route: IV, kg, Total Volume: 1,000, Start date: 12/24/12 19:43:00, Duration: 30 day, Stop date: 01/23/13 19:42:00 [facility] D5W 1/2NS 1,000 mL 2012-12-24 23:22:00 Fior Alberts man 1,000 mL, Rate: 125 ml/hr, Infuse over: 8 hr, Route: IV, kg, Total Volume: 1,000, Priority: STAT, Start date: 12/24/12 18:22:00, Duration: 1 doses or times, Stop date: 12/25/12 2:21:00 [facility] Lidocaine Viscous 2% mucous membrane solution 2012-12-24 2 3:22:00 No Karl Gr 10 mL, Route: S& SPIT, ONCE, Drug form: SOLN, Start date: 12/24/12 18:22:00, Stop date: 12/24/12 18:22:00 [facility] Sodium Chloride 0.9% (Bolus) IV 500 mL 2012-12-24 21:51:00 No Karl Gr 500 mL, Rate: 50 0 ml/hr, Infuse over: 1 hr, Route: IV, kg, Total Volume: 500, Priority: STAT, Start date: 12/24/12 16:51:00, Duration: 1 doses or times, Stop date: 12/24/12 17:50:00, Bolus DoseBolus Dose [facility] Saline Flush 0.9% 2012-12-24 21:41:00 No Karl Esteban an 5 mL, Route: IVP, Drug Form: INJ, Dosing Weight 120, kg, PRN, PRN Line Flush, Start date: 12/24/12 16:41:00, Duration: 24 hr, Stop date: 12/25/12 16:40:00 [facility] Clonazepam 1 Mg Tablet Clonazepam 1 Mg Tablet Yes 1 Daily [facility] Desvenlafaxine (Desvenlafaxine Er) 100 Mg Tab.er.24 De svenlafaxine (Desvenlafaxine Er) 100 Mg Tab.er.24 Yes 100 D aily [facility] Docusate Sodium (Colace) 100 Mg Cap Docusate Sodium (Colace) 100 Mg C ap Yes 100 Twice A Day [facility] Doxycycline Monohydrate 100 Mg Tablet Doxycycline Monohydrate 100 M g Tablet Yes 100 Twice A Day [facility] Ferrous Sulfate 325 Mg Tablet Ferrous Sulfate 325 Mg Tablet Yes 325 Daily [facility] Furosemide 40 Mg Tablet Furosemide 40 Mg Tablet Yes 20 Twice A Day [facility] Hydralazine Hcl 25 Mg Tab Hydralazine Hcl 25 Mg Tab Yes 25 Twice A Day [facility] Hydrocodone Bit/Acetaminophen (Hydrocodon-Acetaminophn 10-325) 1 Each Tablet Hydrocodone Bit/Acetaminophen (Hydrocodon-Acetaminophn 10-325) 1 Each Tablet Yes Twice A Day as needed for Prn [facility] Isosorbide Mononitrate (Isosorbide Mononitrate Er) 30 Mg Tab.er.24h Isosorbide Mononitrate (Isosorbide Mononitrate Er) 30 Mg Tab.er.24h Yes 30 Twice A Day [facility] Levothyroxine Sodium 50 Mcg Tablet Levothyroxine Sodium 50 Mcg Tablet Yes 50 Daily [facility] Metoprolol Succinate 50 Mg Tab.er.24h Metoprolol Succinate 50 Mg Ta b.er.24h Yes 50 Daily [facility] Mupirocin 22 Gm Oint...g. Mupirocin 22 Gm Oint...g. Yes 22 Twice A Day for Apply To Each Nostril [facility] Pantoprazole Sodium (Protonix) 40 Mg Tablet. Pantopr azole Sodium (Protonix) 40 Mg Tablet. Yes 40 Twice A Day [facility] Prednisone 5 Mg Tablet Prednisone 5 Mg Tablet Yes 5 Daily [facility] Sennosides (Senna Lax) 8.6 Mg Tablet Sennosides (Senna Lax) 8.6 Mg Tablet Yes 17.2 Twice A Day [facility] Sucralfate 1 Gm Tablet Sucralfate 1 Gm Tablet Yes 1 Three Times Daily With Meals [facility] Clonidine Hcl 0.3 Mg Tablet, 0.3 Mg Oral Clonidine Hcl 0.3 Mg Tablet, 0.3 Mg Oral 2019-11-27 00:00:00 No .3 Daily [facility] Cyclobenzaprine Hcl 10 Mg Tablet, 10 Mg Oral Cyclobenz aprine Hcl 10 Mg Tablet, 10 Mg Oral 2019-11-27 00:00:00 No 10 Three Times A Day [facility] Gabapentin 600 Mg Tablet, Mg Oral Gabapentin 600 Mg Tablet, Mg Oral 2019-11-27 00:00:00 No Twice A Day [facility] Lisinopril 10 Mg Tablet, 40 Mg Oral Lisinopril 10 Mg Tablet, 40 Mg Oral 2019-11-27 00:00:00 No 40 Daily [facility] Meloxicam 7.5 Mg Tablet, 15 Mg Oral Meloxicam 7.5 Mg Tablet, 15 Mg Oral 2019-11-27 00:00:00 No 15 Daily [facility] Omeprazole 40 Mg Capsule., 40 Mg Oral Omeprazole 40 Mg Cap abbey., 40 Mg Oral 2019-11-27 00:00:00 No 40 Daily [facility] Quetiapine Fumarate (Seroquel) 25 Mg Tablet, 200 Mg Or al Quetiapine Fumarate (Seroquel) 25 Mg Tablet, 200 Mg Oral 2019-11-27 00:00:00 No 200 Bed [facility] Abatacept/Maltose (Orencia 250 Mg Vial) 250 Mg Vial, Sub-Q Abatacept/Maltose (Orencia 250 Mg Vial) 250 Mg Vial, Sub-Q 2016-06-21 00:00:00 No Once [facility] Ciprofloxacin Hcl (Cipro) 500 Mg Tablet, 500 Mg Oral C iprofloxacin Hcl (Cipro) 500 Mg Tablet, 500 Mg Oral 2016-06-21 00:00:00 No 500 Every 12 Hours [facility] Metoprolol Tartrate 50 Mg Tablet, 50 Mg Oral Metoprolo l Tartrate 50 Mg Tablet, 50 Mg Oral 2016-06-21 00:00:00 No 50 Twice A Day [facility] Clonidine Hcl 0.3 Mg Tablet, 0.3 Mg Oral Clonidine Hcl 0.3 Mg Tablet, 0.3 Mg Oral 2014-10-24 00:00:00 No .3 Twice A Day [facility] Lisinopril 2.5 Mg Tablet, 2.5 Mg Oral Lisinopril 2.5 Mg Tablet, 2.5 Mg Oral 2014-10-24 00:00:00 No 2.5 Daily [facility] Nadolol 40 Mg Tablet, Mg Oral Nadolol 40 Mg Tablet, Mg Oral 2014-10-24 00:00:00 No Daily [facility] Vital Signs Vital Name Observation Time Observation Value Comments Source Heart Rate 2015-03-03 13:25:00 [facility] Temperature Oral (F) 2015-03-03 13:25:00 97.9 F [facility] Systolic (mm Hg) 2015-03-03 13:25:00 Andreany Roberson Diastolic (mm Hg) 2015-03-03 13:25:00 Mem orial Da Weight 2015-03-03 12:56:00 [facility] BMI Calculated 2015-03-03 12:56:00 [facility] [place] Height 2015-03-03 12:56:00 167.64 cm [facility] [place] Height 2013-05-03 14:48:00 167.64 cm [facility] Weight 2013-05-03 14:48:00 [facility] [place] Temperature Oral (F) 2012-12-27 21:00:00 98.6 F [facility] Diastolic (mm Hg) 2012-12-27 21:00:00 Mem orial [place] Heart Rate 2012-12-27 21:00:00 [facility] Systolic (mm Hg) 2012-12-27 21:00:00 Andre rial Da Respitory Rate 2012-12-27 21:00:00 Memori al [place] Diastolic (mm Hg) 2012-12-27 16:45:00 Mem orial [place] Heart Rate 2012-12-27 16:45:00 [facility] [place] Temperature Oral (F) 2012-12-27 16:45:00 98.4 F [facility] [place] Systolic (mm Hg) 2012-12-27 16:45:00 Andre rial [place] Respitory Rate 2012-12-27 16:45:00 Memori al Da Respitory Rate 2012-12-27 13:20:00 Memori al Da Heart Rate 2012-12-27 13:20:00 [facility] [place] Diastolic (mm Hg) 2012-12-27 13:20:00 Mem orial [place] Systolic (mm Hg) 2012-12-27 13:20:00 Andre rial [place] Temperature Oral (F) 2012-12-27 13:20:00 98.4 F [facility] Height 2012-12-25 00:41:00 167.64 cm [facility] Weight 2012-12-25 00:41:00 [facility] [place] Procedures Procedure Date / Time Performed Performing Clinician [facility] e EGD with biopsy 2019-11-26 00:00:00 NEGRITA MURPHY [facility] CT of abdomen and pelvis without contrast 2019-11-24 00:00:00 KENTON KRUGER [facility] US abdomen complete 2019-11-22 00:00:00 ANA LUISA SORENSEN [facility] Magnetic resonance angiography of head without contrast 2019 00:00:00 [facility] Magnetic resonance imaging of brain without contrast 2019-10 00:00:00 [facility] Magnetic resonance imaging of pituitary gland without contrast 2019-11-06 00:00:00 [facility] Magnetic resonance imaging of pituitary gland without then with contrast 2019-06-25 00:00:00 [facility] Magnetic resonance imaging of brain without contrast 2019-05 00:00:00 [facility] Hysterectomy [facility] Miscellaneous operations <sup>1</sup> [facility] Hysterectomy [facility] Knee replacement [facility] n Miscellaneous operations<sup>1</sup> [facility] Plan of Care Planned Activity Planned Date Details Comments Source Future Scheduled Test 2020-06-25 00:00:00 INFLUENZA VACCINE [code = INFLUENZA VACCINE] [facility] Future Scheduled Test 2020-02-06 00:00:00 BREAST CANCER SCRE ENING [code = BREAST CANCER SCREENING] [facility] Future Scheduled Test 2014 00:00:00 65+ PNEUMOCOCCAL V ACCINE (1 of 2 - PCV13) [code = 65+ PNEUMOCOCCAL VACCINE (1 of 2 - PCV13)] [facility] Future Scheduled Test 1999 00:00:00 COLONOSCOPY SCREEN ING [code = COLONOSCOPY SCREENING] [facility] Scheduled Test 1999 00:00:00 SHINGLES VACCINES (#1) [code = SHINGLES VACCINES (#1)] [facility] Encounters Start Date/Time End Date/Time Encounter Type Admission Type Attendi [facility] Care Department Encounter ID Source 2019-11-21 12:49:00 2019-11-27 12:45:00 Discharged Inpatient [address] [facility] [id number] [facility] 2019-11-06 08:24:00 2019-11-06 08:24:00 Registered Clinic [address] [facility] [id number] [facility] 2019-06-25 09:13:00 2019-06-25 09:13:00 Registered Clinic 3 [facility] [id number] [facility] 2019-06-10 08:00:00 2019-06-10 08:00:00 Registered Clinic 3 [facility] [id number] [facility] 2019-02-26 09:53:00 2019-02-26 09:53:00 Registered Clinic 3 [facility] [id number] [facility] 2018-09-04 19:13:00 2018-09-04 23:59:00 Outpatient S pingiHans [facility]SE [facility] [id number] 2018-08-23 13:00:00 2018-08-23 23:59:00 Outpatient S teridiquiHans MHSE MHSE [id number] 2018-08-21 19:10:00 2018-08-21 23:59:00 Outpatient S iddiquiHans MHSE MHSE [id number] 2018-03-12 09:43:00 2018-03-24 23:59:00 Discharged Recurring [facility] [id number] [facility] 2018-02-22 09:40:00 2018-02-22 23:59:00 Discharged Recurring [facility] [id number] [facility] 2017-04-25 08:42:00 2017-05-25 23:59:00 Discharged Recurring [facility] [id number] [facility] 2015-08-18 09:00:00 2015-09-16 23:59:00 Outpatient Librado Comer [facility] [id number] 2015-07-16 12:15:00 2015-08-14 23:59:00 Outpatient Librado Comer [facility]SE [id number] 2015-05-19 08:45:00 2015-06-17 23:59:00 Outpatient Librado Comer [facility] [id number] 2015-03-03 07:27:00 2015-03-03 15:00:00 Outpatient Monse Peace [facility] [id number] 2015-02-24 16:10:00 2015-02-24 23:59:00 Outpatient Monse Peace [facility] [id number] Results Test Description Test Time Test Comments Results Result Comments Source CHEST SINGLE (PORTABLE) 2020-06-07 01:59:00 [facility] [address] [place] [address] Patient Name: GILLES LIZAMA MR #: [id number] : 1950 Age/Sex: 69/F Req #: [id number] Adm Physician: Ordered by: RAMON ASCENCIO DO Report #: [id number] Location: ER Room/Bed: Procedure: [id number] DX/CHEST SINGLE (PORTABLE) Exam Date: Exam Time: REPORT STATUS: Signed EXAMINATION: CHEST SINGLE (PORTABLE) INDICATION: lethargy COMPARISON: Chest x-ray 11/21/2019 FINDINGS: TUBES and LINES: None. LUNGS: Normal lung volumes. Lungs are clear. No consolidations. PLEURA: No pleural effusion or pne umothorax. HEART AND MEDIASTINUM: The cardiomediastinal silhouette is unremarkable. Aortic calcifications. BONES AND SOFT TISSUES: No acute osseous lesion. Soft tissues are unremarkable. UPPER ABDOMEN: No free air under the diaphragm. IMPRESSION: Left basilar scarring/atelectasis. Signed by: Elroy Ramos DO on 06/07/2020 2:00 AM Dictated By: ELROY RAMOS DO 0200 Transcribed By: JOSE ALBERTO on 06/07/20199 COPY TO: RAMON ASCENCIO DO CT BRAIN WO 2020-06-07 01:52:00 [place] [address] Patient Name: GILLES LIZAMA MR #: [id number] : 1950 Age/Sex: 69/F Req #: [id number] Adm Physician: Ordered by: RAMON ASCENCIO DO Report #: [id number] Location: ER Room/Bed: Procedure: [id number] CT/CT BRAIN WO Exam Date: Exam Time: REPORT STATUS: Signed History: lethargy Comparison studies: None Technique: Axial images were obtained from the skull base to the vertex. Coronal and sagittal images reconstructed from the axial data. Dose modulation, iterative reconstruction, and/or weight based adjustment of the mA/kV was utilized to reduce the radiation dose to as low as reasonably achievable. Intravenous contrast: None Findings: Scalp/skull: No abnormalities. Extra-axial spaces: No masses. No fluid collections. Brain sulci: Appropriate for age Ventricles: Normal in size and configuration. No hydrocephalus. Parenchyma: No abnormal densities No masses, hemorrhage, acute or chronic cortical vascular insults. Sellar/suprasellar region: No abnormalities. Craniocervical junction: Patent foramen magnum. No Chiari one malformation. Incidental findings: Subtle calcifications in the carotid siphons . Impression: No intracranial abnormalities. Signed by: Dr. Lennox Hardy M.D. on 06/07/2020 1:54 AM Dictated By: LENNOX HARDY MD, MD 3 Transcribed By: JOSE ALBERTO on 06/07/20153 COPY TO: RAMON ASCENCIO Sodium Level 2019-11-27 06:09:00 Test Item Sodium Level (test code = 2951-2) 139 136-145 [facility] Cteba3981-19-29 06:09:00* Test Item Value Reference Range Interpretation Comments Potassium Level (test code = 2823-3) 3.8 3.5-5.1 [facility]manChloride Ywvra1770-68-36 06:09:00* Test Item Value Reference Range Interpretation Comments Chloride Level (test code = 2075-0) 104 98-107 [facility]manCarbon Dioxide Jbieq2752-37-78 06:09:00* Test Item Value Reference Range Interpretation Comments Carbon Dioxide Level (test code = 2028-9) 26 22-29 [facility]manAnion Iwk7009-64-75 06:09:00* Test Item Value Reference Range Interpretation Comments Anion Gap (test code = 29085-2) 12.8 8-16 [facility]manBlood Urea Xuotrjvt9525-79-49 06:09:00* Test Item Value Reference Range Interpretation Comments Blood Urea Nitrogen (test code = 3094-0) 14 7-26 [facility]manCreatinine2020-03-04 06:09:00* Test Item Value Reference Range Interpretation Comments Creatinine (test code = 2160-0) 1.39 0.57-1.11 H [facility]manBUN/Creatinine Wkiqr2258-24-92 06:09:00* Test Item Value Reference Range Interpretation Comments BUN/Creatinine Ratio (test code = 3097-3) 10 6-25 [facility]aufmanEstimat Glomerular Filtration Rate 2019-11-27 06:09:00* Test Item Value Reference Range Interpretation Comments Estimat Glomerular Filtration Rate (test code = 925843475) 45 >60 L Ranges were taken from the National Kidney Disease Education Program and the [facility] [employer] literature.Reference ranges:60 or greater: Zxllrf05-69 ( for 3 consecutive months): Chronic kidney disease 15 or less: Kidney failureTexas Health KaufmanGlucose Dlvev6809-46-14 06:09:00* Test Item Value Reference Range Interpretation Comments Glucose Level (test code = XNY1875) 87 74-118 [facility]manCalcium Srhlg8227-72-52 06:09:00* Test Item Value Reference Range Interpretation Comments Calcium Level (test code = 25935-6) 9.3 8.4-10.2 [facility]manWhite Blood Ybecy1658-72-48 05:40:00* Test Item Value Reference Range Interpretation Comments White Blood Count (test code = 6690-2) 9.31 4.8-10.8 [facility]manRed Blood Kqodu2430-35-46 05:40:00* Test Item Value Reference Range Interpretation Comments Red Blood Count (test code = 789-8) 2.93 3.6-5.1 L [facility]manHemoglobin2020-03-04 05:40:00* Test Item Value Reference Range Interpretation Comments Hemoglobin (test code = 00808-6) 8.1 12.0-16.0 L [facility]manHematocrit2020-03-04 05:40:00* Test Item Value Reference Range Interpretation Comments Hematocrit (test code = 4544-3) 26.9 34.2-44.1 L [facility]manMean Corpuscular Kqdmvt2611-25-76 05:40:00* Test Item Value Reference Range Interpretation Comments Mean Corpuscular Volume (test code = 787-2) 91.8 81-99 [facility]manMean Corpuscular Qckrdwffkb4526-95-76 05:40:00* Test Item Value Reference Range Interpretation Comments Mean Corpuscular Hemoglobin (test code = 785-6) 27.6 28-32 L [facility]manMean Corpuscular Hemoglobin Concent 2019-11-27 05:40:00* Test Item Value Reference Range Interpretation Comments Mean Corpuscular Hemoglobin Concent (test code = 786-4) 30.1 31-35 L [facility]manRed Cell Distribution Yakyq5023-05-90 05:40:00* Test Item Value Reference Range Interpretation Comments Red Cell Distribution Width (test code = 54116-0) 16.0 11.7 -14.4 H [facility]aufmanPlatelet Jfxsw3677-97-97 05:40:00* Test Item Value Reference Range Interpretation Comments Platelet Count (test code = 777-3) 378 140-360 H [facility]manNeutrophils (%) (Auto)2019-11-27 05:40:00 * Test Item Value Reference Range Interpretation Comments Neutrophils (%) (Auto) (test code = 85995-6) 62.3 38.7-80.0 [facility]manLymphocytes (%) (Auto)2019-11-27 05:40:00 * Test Item Value Reference Range Interpretation Comments Lymphocytes (%) (Auto) (test code = 736-9) 26.3 18.0-39.1 [facility]manMonocytes (%) (Auto)2019-11-27 05:40:00* Test Item Value Reference Range Interpretation Comments Monocytes (%) (Auto) (test code = 5905-5) 8.6 4.4-11.3 [facility]manEosinophils (%) (Auto)2019-11-27 05:40:00 * Test Item Value Reference Range Interpretation Comments Eosinophils (%) (Auto) (test code = 713-8) 0.6 0.0-6.0 [facility]manBasophils (%) (Auto)2019-11-27 05:40:00* Test Item Value Reference Range Interpretation Comments Basophils (%) (Auto) (test code = 706-2) 0.6 0.0-1.0 [facility]manIM GRANULOCYTES %2019-11-27 05:40:00* Test Item Value Reference Range Interpretation Comments IM GRANULOCYTES % (test code = IM GRANULOCYTES %) 1.6 0.0- 1.0 H [facility]manNeutrophils # (Auto)2019-11-27 05:40:00* Test Item Value Reference Range Interpretation Comments Neutrophils # (Auto) (test code = 751-8) 5.8 2.1-6.9 [facility]manLymphocytes # (Auto)2019-11-27 05:40:00* Test Item Value Reference Range Interpretation Comments Lymphocytes # (Auto) (test code = 77620-0) 2.5 1.0-3.2 [facility]manMonocytes # (Auto)2019-11-27 05:40:00* Test Item Value Reference Range Interpretation Comments Monocytes # (Auto) (test code = 742-7) 0.8 0.2-0.8 [facility]manEosinophils # (Auto)2019-11-27 05:40:00* Test Item Value Reference Range Interpretation Comments Eosinophils # (Auto) (test code = 711-2) 0.1 0.0-0.4 [facility]manBasophils # (Auto)2019-11-27 05:40:00* Test Item Value Reference Range Interpretation Comments Basophils # (Auto) (test code = 704-7) 0.1 0.0-0.1 [facility]manAbsolute Immature Granulocyte (auto 2019-11-27 05:40:00* Test Item Value Reference Range Interpretation Comments Absolute Immature Granulocyte (auto (cornel t code = Absolute Immature Granulocyte (auto) 0.15 0-0.1 H [facility]manBlood Dqpzvqk0192-35-56 16:16:00* Test Item Value Reference Range Interpretation Comments Blood Culture (test code = 50609555) NO GROWTH AFTER 5 DAYS, FINAL REPORT [facility]manTotal Ocmgatuqn3073-73-70 06:18:00* Test Item Value Reference Range Interpretation Comments Total Bilirubin (test code = 1975-2) 0.3 0.2-1.2 [facility]aufmanAspartate Amino Transf (AST/SGOT) 2019-11-26 06:18:00* Test Item Value Reference Range Interpretation Comments Aspartate Amino Transf (AST/SGOT) (test code = Aspartate Amino Transf (AST/SGOT)) 11 5-34 [facility]manAlanine Aminotransferase (ALT/SGPT) 2019-11-26 06:18:00* Test Item Value Reference Range Interpretation Comments Alanine Aminotransferase (ALT/SGPT) (test code = 1742-6) 6 0-55 [facility]manTotal Nlchkas3382-06-66 06:18:00* Test Item Value Reference Range Interpretation Comments Total Protein (test code = 2885-2) 6.6 6.5-8.1 [facility]manAlbumin2020-03-03 06:18:00* Test Item Value Reference Range Interpretation Comments Albumin (test code = 1751-7) 2.9 3.5-5.0 L [facility]manGlobulin2020-03-03 06:18:00* Test Item Value Reference Range Interpretation Comments Globulin (test code = 56032-0) 3.7 2.3-3.5 H [facility]aufmanAlbumin/Globulin Jxsnk4591-00-61 06:18:00 * Test Item Value Reference Range Interpretation Comments Albumin/Globulin Ratio (test code = 1759-0) 0.8 0.8-2.0 [facility]aufmanAlkaline Oxzzkjrbooz8210-75-84 06:18:00* Test Item Value Reference Range Interpretation Comments Alkaline Phosphatase (test code = 6768-6) 71 40-150 [facility]manAmylase Flhrz4518-08-63 06:18:00* Test Item Value Reference Range Interpretation Comments Amylase Level (test code = 1798-8) 63 25-125 [facility]aufmanLipase2020-03-03 06:18:00* Test Item Value Reference Range Interpretation Comments Lipase (test code = 3040-3) 9 8-78 [facility] Folate Xsiebokijq8833-16-42 20:56:00 * Test Item Value Reference Range Interpretation Comments RBC Folate Hemolysate (test code = 2282-2) 271.0 Not Estab. [facility]aufmanHematocrit2020-03-02 20:56:00* Test Item Value Reference Range Interpretation Comments Hematocrit (test code = 4544-3) 27.2 34.0-46.6 L [facility] Folate Xcosjtvell4954-55-75 20:56:00 * Test Item Value Reference Range Interpretation Comments RBC Folate Hemolysate (test code = 2283-0) 996 >498 Performed at: [facility] [address] [place], [place] [id number] Director: Americo Shrestha MD, Phone: [phone]HEPTOBILI[facility] W UOQMH6378-69-08 19:59:00 [facility] [address] [place], [place] [address] Patient Name: GILLES LIZAMA MR #: [id number] : 1950 Age/Sex: 69/F Req #: [id number] Adm Physician: ANA LUISA SORENSEN MD Ordered by: ANA LUISA SORENSEN MD Report #: [id number] Location: MED/SURG3 Room/Bed: [facility] Procedure: [id number] NM /HEPTOBILIARY W PHARM Exam Date: 11/25/19 [...] TO: ANA LUISA SORENSEN MD Vancomycin Level Wliuyl3193-34-43 08:08:00 * Test Item Value Reference Range Interpretation Comments Vancomycin Level Trough (test code = 4092-3) 8.8 5.0-10.0 [facility]PELVIS OZ3506-56-67 16:22:00 [place] [address] Patient Name: GILLES LIZAMA MR #: [id number] : 1950 Age/Sex: 69/F Req #: [id number] Adm Physician: ANA LUISA SORENSEN MD Ordered by: KENTON MURPHY MD Report #: [id number] Location: MED/SURG3 Room/Bed: [facility] Procedure: [id number] C T/CT ABDOMEN/PELVIS WO Exam Date: 11/24/19 [...] COPY TO: KENTON MURPHY MD Stool Occult Fckdp8380-23-92 10:16:00* Test Item Value Reference Range Interpretation Comments Stool Occult Blood (test code = 2335-8) POSITIVE NEGATIVE H [facility] CenterBedside Oqsdhmr8265-17-19 21:11:00* Test Item Value Reference Range Interpretation Comments Bedside Glucose (test code = 31127-6) 134 70-120 H Meter ID: [id number] Health KaufmanUS ABDOMEN COMPLETE 2019-11-22 13:26:00 [place] [address] Patient Name: GILLES LIZAMA MR #: [id number] : 1950 Age/Sex: 69/F Req #: [id number] Adm Physician: ANA LUISA SORENSEN MD Ordered by: ANA LUISA SORENSEN MD Report #: [id number] Location: MED/SURG3 Room/Bed: [facility] Procedure: [id number] US /US ABDOMEN COMPLETE Exam Date: 11/22/19 Exam Time: 1048 REPORT STATUS: Signed EXAM: Complete Abdominal Ultrasound INDICATION: fatty liver disease, [place] al failure [id number] Y COMPARISON: None. TECHNIQUE: Transverse and longitudinal [...] COPY TO: ANA LUISA SORENSEN MD Triglycerides Fwmem6785-72-76 10:24:00* Test Item Value Reference Range Interpretation Comments Triglycerides Level (test code = 2571-8) 152 0-149 H [facility]manCholesterol Vqzjl6439-79-08 10:24:00* Test Item Value Reference Range Interpretation Comments Cholesterol Level (test code = 2093-3) 189 0-199 Less than 200 mg/dL Low Mcac857 - 239 mg/dL Borderline Tgsf938 m g/dl and greater High Risk [facility]aufmanLDL Ansgpvvszrc5062-76-51 10:24:00* Test Item Value Reference Range Interpretation Comments LDL Cholesterol (test code = 2089-1) 106 60-130 [facility]manHDL Ltpclxuupep8611-06-77 10:24:00* Test Item Value Reference Range Interpretation Comments HDL Cholesterol (test code = 2085-9) 53 40-60 [facility]manCholesterol/HDL Vawrh0266-52-38 10:24:00 * Test Item Value Reference Range Interpretation Comments Cholesterol/HDL Ratio (test code = 9830-1) 3.6 3.0-3.6 [facility]aufmanLactic Acid Fwtxa8354-93-97 07:15:00* Test Item Value Reference Range Interpretation Comments Lactic Acid Level (test code = Lactic Acid Level) 1.5 0.5- 2.0 [facility]aufmanDifferential Total Cells Counted 2019-11-21 20:46:00* Test Item Value Reference Range Interpretation Comments Differential Total Cells Counted (test code = Differen tial Total Cells Counted) 100 [facility]manNeutrophils % (Manual)2019-11-21 20:46:00 * Test Item Value Reference Range Interpretation Comments Neutrophils % (Manual) (test code = 19644-7) 76 40-74 H [facility]manLymphocytes % (Manual)2019-11-21 20:46:00 * Test Item Value Reference Range Interpretation Comments Lymphocytes % (Manual) (test code = 737-7) 20 19-48 [facility]manMonocytes % (Manual)2019-11-21 20:46:00* Test Item Value Reference Range Interpretation Comments Monocytes % (Manual) (test code = 744-3) 2 3.4-9.0 L [facility]aufmanReactive Xxgptkivsja4900-61-79 20:46:00* Test Item Value Reference Range Interpretation Comments Reactive Lymphocytes (test code = 99237-6) 2 [facility]aufmanPlatelet Zauyzdae4350-04-08 20:46:00* Test Item Value Reference Range Interpretation Comments Platelet Estimate (test code = 15732-7) SLIGHTLY INCREASED [facility]aufmanPlatelet Morphology Jzxhnvm5181-99-21 20:46:00* Test Item Value Reference Range Interpretation Comments Platelet Morphology Comment (test code = 97280-3) NORMAL [facility]manRed Cell Morphology Vvthcmx9420-99-33 20:46:00* Test Item Value Reference Range Interpretation Comments Red Cell Morphology Comment (test code = 6742-1) NORMAL [facility]manVitamin B12 Ryudy7772-15-28 18:50:00* Test Item Value Reference Range Interpretation Comments Vitamin B12 Level (test code = 66098-8) 1899 213-816 H [facility]aufmanUrine EWH2544-26-96 18:39:00* Test Item Value Reference Range Interpretation Comments Urine WBC (test code = 5821-4) 0-5 0-5 [facility]manUrine TAH5916-03-54 18:39:00* Test Item Value Reference Range Interpretation Comments Urine RBC (test code = 63779-6) NONE 0-5 [facility]manUrine Btccsidj3634-74-10 18:39:00* Test Item Value Reference Range Interpretation Comments Urine Bacteria (test code = 15635-7) RARE NONE [facility]manUrine Epithelial Aprxl6144-81-51 18:39:00 * Test Item Value Reference Range Interpretation Comments Urine Epithelial Cells (test code = 31234-4) FEW NONE [facility]aufmanFerritin2020-02-27 18:39:00* Test Item Value Reference Range Interpretation Comments Ferritin (test code = 2276-4) 68.25 4.63-204.00 [facility]manUrine Vpuqz2130-10-94 18:27:00* Test Item Value Reference Range Interpretation Comments Urine Color (test code = 5778-6) YELLOW YELLOW [facility]manUrine Sijvboa7224-25-32 18:27:00* Test Item Value Reference Range Interpretation Comments Urine Clarity (test code = 95559-9) CLEAR CLEAR [facility]manUrine Specific Emgqohq7695-47-86 18:27:00 * Test Item Value Reference Range Interpretation Comments Urine Specific [place] (test code = 5811-5) 1.020 1.010-1.02 5 [facility]aufmanUrine eZ2640-17-55 18:27:00* Test Item Value Reference Range Interpretation Comments Urine pH (test code = 45061-8) 7 5-7 [facility]manUrine Leukocyte Imzazaii9550-48-00 18:27:00* Test Item Value Reference Range Interpretation Comments Urine Leukocyte Esterase (test code = 5799-2) NEGATIVE NEGATIVE [facility]manUrine Mlgnvek9168-93-76 18:27:00* Test Item Value Reference Range Interpretation Comments Urine Nitrite (test code = 38152-9) NEGATIVE NEGATIVE [facility]manUrine Trqgvaj9123-05-54 18:27:00* Test Item Value Reference Range Interpretation Comments Urine Protein (test code = 5804-0) NEGATIVE NEGATIVE [facility]manUrine Glucose (UA)2019-11-21 18:27:00* Test Item Value Reference Range Interpretation Comments Urine Glucose (UA) (test code = 2349-9) NEGATIVE NEGATIVE [facility]manUrine Hfislyn0776-93-41 18:27:00* Test Item Value Reference Range Interpretation Comments Urine Ketones (test code = 20030-6) NEGATIVE NEGATIVE [facility]manUrine Qzfrhgeoxnpt9457-89-58 18:27:00* Test Item Value Reference Range Interpretation Comments Urine Urobilinogen (test code = 35311-7) 0.2 0.2-1 [facility]manUrine Tyfmipulp6645-67-33 18:27:00* Test Item Value Reference Range Interpretation Comments Urine Bilirubin (test code = 1978-6) NEGATIVE NEGATIVE [facility]manUrine Flzoh7917-69-40 18:27:00* Test Item Value Reference Range Interpretation Comments Urine Blood (test code = 61092-5) TRACE NEGATIVE H [facility]aufmanIron Jtojm7359-70-39 18:22:00* Test Item Value Reference Range Interpretation Comments Iron Level (test code = 2498-4) 23 50-170 L [facility]manTotal Iron Binding Jlccprwn9458-40-08 18:22:00* Test Item Value Reference Range Interpretation Comments Total Iron Binding Capacity (test code = 2500-7) 273 261-4 78 [facility]manPercent Iron Nmrvaebjgy2663-00-46 18:22:00* Test Item Value Reference Range Interpretation Comments Percent Iron Saturation (test code = 2502-3) 8 15-50 L [facility]aufmanTransferrin2020-02-27 18:22:00* Test Item Value Reference Range Interpretation Comments Transferrin (test code = 3034-6) 195 180-382 [facility]manThyroid Stimulating Hormone (TSH) 2019-11-21 17:06:00* Test Item Value Reference Range Interpretation Comments Thyroid Stimulating Hormone (TSH) (test code = 61002-5) 2.264 0.350-4.940 [facility]manB-Type Natriuretic Uuxepak1808-19-96 16:38:00* Test Item Value Reference Range Interpretation Comments B-Type Natriuretic Peptide (test code = 53029-2) 80.1 0-100 [facility]manCHEST SINGLE (PORTABLE)2019-11-21 15:39:00 [facility] [address] [place] [address] Patient Name: GILLES LIZAMA MR #: [id number] : 1950 Age/Sex: 69/F Req #: [id number] Adm Physician: ANA LUISA SORENSEN MD Ordered by: ANA LUISA SORENSEN MD Report #: [id number] Location: MED/SURG3 Room/Bed: 291-1 Procedure: [id number] DX /CHEST SINGLE (PORTABLE) Exam Date: 11/21/19 [...] PM Dictated B y: JOSE MACIAS MD 154 Ascencio scribed By: JOSE ALBERTO on 11/21/19 154 COPY TO: ANA LUISA SORENSEN MD MRI PITUITARY GLAND MD0606-73-08 12:40:00 [place] [address] Patient Name: GILLES LIZAMA MR #: [id number] : 1950 Age/Sex: 69/F Req #: [id number] Adm Physician: Ordered by: ANA LUISA SORENSEN MD Report #: [id number] Location: MRI Room/Bed: Procedure: [id number] MRI /MRI PITUITARY GLAND WO Exam Date: [...] Cavernous sinuses: Normal in size and symmetric. Pricing Lead al carotid arteries: Normal flow void appearance. IMPRESSION: Brain MR I: 1. Stable minimal chronic microvascular ischemic changes compared to MRI o f 06/10/2019. 2. Otherwise no intracranial abnormalities. Pituitary gla nd MRI: Stable approximately 9 mm pituitary adenoma compared to MRI of 06/25/20 19. Signed by: Dr. Magan Saab M.D. on 11/06/2019 12:53 PM Dictat ed By: MAGAN SAAB MD 52 Transcribed By: JOSE ALBERTO on 11/06/19 125 COPY TO: ANA LUISA SORENSEN MD MRI BRAIN BV6792-84-58 12:40:00 [place] [address] Patient Name: GILLES LIZAMA MR #: [id number] : 1950 Age/Sex: 69/F Req #: [id number] Adm Physician: Ordered by: ANA LUISA SORENSEN MD Report #: [id number] Location: MRI Room/Bed: Procedure: [id number] MRI /MRI BRAIN WO Exam Date: Exam [...] Transcri bed By: JOSE ALBERTO on 11/06/19 1253 COPY TO: ANA LUISA SORENSEN MD MRA HEAD FG2634-17-46 12:15:00 [place] [address] Patient Name: GILLES LIZAMA MR #: [id number] : 1950 Age/Sex: 69/F Req #: [id number] Adm Physician: Ordered by: ANA LUISA SORENSEN MD Report #: [id number] Location: MRI Room/Bed: Procedure: [id number] MRI /MRA HEAD WO Exam Date: Exam Time: REPORT STATUS: Signed EXAMINATION: MR angiogram of the agdaagux of Brennan without contrast. CLINICAL HISTORY: Vertigo, imbal ance, multiple folds, weakness. COMPARISON: Brain MRI 06/10/2019 TECHNIQUE: 3 D TOF MR angiogram sequences of the head was performed without contrast. NC P images of the arteries were isolated into anterior-posterior groups. The so urce images, reformatted axial and coronal images, and claims customer service representative projecti ons of the MIP images through 180 degrees of rotation and tumbling were review ed. Image quality: Suboptimal study artifact from patient's motion. FINDINGS: The vessels of the agdaagux of Brennan and posterior circulation are patent, [...] ANA LUISA SORENSEN MD MRI PITUITARY GLAND LWB4024-30-03 16:05:00 [place] [address] Patient Name: GILLES LIZAMA MR #: [id number] : 1950 Age/Sex: 68/F Req #: [id number] Adm Physician: Ordered by: ANA LUISA SORENSEN MD Report #: [id number] Location: MRI Room/Bed: Procedure: [id number] MRI /MRI PITUITARY GLAND WOW Exam Date: [...] 4 PM Dictated By: PIO LYNN MD 13 Transcribed By: JOSE ALBERTO on 06/25/191613 COPY TO: ANA LUISA SORENSEN MD MRI BRAIN WY8389-23-77 09:39:00 [place] [address] Patient Name: GILLES LIZAMA MR #: [id number] : 1950 Age/Sex: 68/F Req #: [id number] Adm Physician: Ordered by: ANA LUISA SORENSEN MD Report #: [id number] Location: MRI Room/Bed: Procedure: [id number] MRI /MRI BRAIN WO Exam Date: Exam [...] ANA LUISA SORENSEN MD MAMMOGRAPHY DIGITAL SCR QLWFV6123-50-82 11:03:00 [place] [address] Patient Name: GILLES LIZAMA MR #: [id number] : 1950 Age/Sex: 68/F Req #: [id number] Adm Physician: Ordered by: ANA LUISA SORENSEN MD Report #: [id number] Location: MAMMO Room/Bed: Procedure: [id number] MG/ MAMMOGRAPHY DIGITAL SCR BILAT Exam Date: 02/26/19 Ex am Time: 1000 REPORT STATUS: Signed #[id number] - MGSCRBIL #BILATERAL DIGITAL SCREENING MAMMOGRAM WITH C AD: 02/26/2019 CLINICAL: Routine screening. Comparison is made to exams d ated: 02/05/2018 mammogram and 02/01/2016 mammogram - [facility]. Current study contains 6 films. The tissue [...] be notified by letter of the result nilsa pantoja/michael:03/15/2019 09:17:57 Painter Supervisor: Jyoti Ivan RT(R)(M), [facility] enter letter sent: Compared to Prior B9 Mammogram BI-RADS: 2 Benign Di ctated By: VENKATESH HEATON DO 6 COPY TO: ANA LUISA SORENSEN MD CHEM CUUCW0821-62-28 20:45:001.2[facility] RWSEW4861-90-76 20:45:0054[facility] TGCGF7062-46-01 18:56:0055[facility] YCWAB6831-45-01 18:56:008.5[facility]ann[facility] VJYIL7452-40-42 18:56:0032 [facility] YMTDX0895-93-33 18:56:0018[facility]annCHEM PANEL 2015-03-03 18:56:90559Cahybjab HermannCHEM KEWQJ4647-15-01 18:56:003.2[facility]annCHE[facility] KHFFP8819-85-01 18:56:53646Bykodsys HermannCHEM IYUPJ2985-19-77 18:56:001.2[facility]annCHE[facility] YASHE4817-11-74 18:56:60748Nsfcbgns HermannCHEM RQABX2547-91-51 18:56:008.2[facility] SgtbkfhDZKJLBUPLQ5991-45-69 18:56:0010.3 [facility] LIMMV6375-17-79 21:25:004.4[facility]annCHEM PANEL 2015-02-24 21:25:000.8[facility]ann[facility] ERDGY6853-70-10 21:25:000.2[facility]ann[facility] YLTFM6554-90-19 21:25:0084[facility]annCHE[facility] RQIBQ9260-49-48 21:25:0012[facility]annCHE[facility] TOSGW8480-22-07 21:25:0019[facility]ann[facility] CTLJY6609-53-48 21:25:0019[facility]ann[facility] QEXRD1183-20-79 21:25:007.9 [facility] NEPFY3038-03-57 21:25:0015[facility]annCHEM PANEL 2015-02-24 21:25:0050[facility]annCHE[facility] TXPWE7485-48-78 21:25:003.5[facility]annCHE[facility] YOLCM8850-47-90 21:25:006.6[facility]annCHE[facility] ADBFK5476-29-49 21:25:004.6[facility]annCHE[facility] SJWCF5144-56-78 21:25:13027Drghzdhs HermannCHEM TDBIF4276-16-29 21:25:53769Nhmrgmay HermannCHEM EVTKK5293-21-99 21:25:009.1 [facility] VCQEW8922-73-61 21:25:0034[facility]annCHEM PANEL 2015-02-24 21:25:001.3[facility]annCHE[facility] ZFBWJ0583-97-50 21:25:0099[facility] XlwuhzfHUSEHOCYQL6992-69-93 21:25:007.4[facility] NxszeicBZUJFFNDEM5910-80-07 21:25:0015.4[facility] QfzmhytPHSHKLZQFO3988-24-56 21:25:07027Mhgsdrdf Da LHULBNAHRC3945-46-69 21:25:0033.3[facility] SjrxvspHIOEDULFYF2909-86-73 21:25:00* Test Item Value Reference Range Interpretation Comments MCH (test code = MCH) 29.6 pg 27.0-31.0 [facility] PrcbzjdBZYAQADOWL7659-68-80 21:25:0088.9[facility] HermannHEMATOLOGY 2015-02-24 21:25:0011.7[facility] XtwuefpMWVKBCHBTW7865-24-59 21:25:0035.0[facility] AfcasedNSZGECAESN4390-57-84 21:25:003.94[facility] ErqpmayYQCSQAYIYF0689-38-58 21:25:009.5[facility] UuogkqmWZDSMSYHV3491-48-75 15:20:00None Seen (12/27/2012 10:20:00) [facility] SgiygwvBMIWNJKMMH4165-80-01 15:20:00<=1.0[facility] CBIJDTKXSO5053-84-16 15:20:00Performed *NA*(12/27/2012 10:20:00) [facility] BxtiqvhUMPPRDHLJY0752-94-98 15:20:00Slight *ABN*(12/27/2012 10:20:00) [facility] XevzrrxZTXLPGTHUO3073-73-01 15:20:001.018[facility] XpgdoomNGOCPTKFMC2810-62-08 15:20:006.5[facility] YizlnnaRVWFBRXTMK7941-61-47 15:20:00Negative (12/27/2012 10:20:00) [facility] MhjjeqeJYMCDTNSMW8510-47-07 15:20:00Negative *NA*(12/27/2012 10:20:00) [facility] DzopycsJUXKAYBCTG2786-46-10 15:20:00Negative (12/27/2012 10:20:00) [facility] RnkatsbQURAKUQLIY3922-33-67 15:20:00Negative (12/27/2012 10:20:00) [facility] IezqjqpBCXNIFMFDT7518-31-92 15:20:46923 mg/dL *ABN*(12/27/2012 10:20:00) [facility] NumsqtpBOQXAGWPOQ4890-23-03 15:20:00 Negative mg/dL *NA*(12/27/2012 10:20:00) [facility] WaxcsiiHGUEARAHBY8931-13-03 15:20:001[facility] UodmsobGBYCZYFRZS3911-10-13 15:20:00Many /LPF *ABN*(12/27/2012 10:20:00) [facility] NmctbsyCEQUIYOPOK8717-17-08 15:20:004[facility] Da JXFDIVTJVT8211-26-06 15:20:0020 mg/dL *ABN*(12/27/2012 10:20:00) [facility] JivseznQIWFFQPEUE9186-49-24 15:20:00Occasional /HPF *NA*(12/27/2012 10:20:00) [facility] DpwevpiAKTTFQFRAW1785-87-06 15:20:00Few /LPF *NA*(12/27/2012 10:20:00) [facility] RqjbkcdBJTPDBRDWB2681-27-18 15:20:00Light Yellow *NA*(12/27/2012 10:20:00) [facility] HermannSTOOL VPZIH9784-86-56 15:15:00Rare 2(12/27/2012 10:15:00) [facility] HermannINFECTIOUS NWGDSEWM6911-98-66 15:14:00Negative 1(12/27/2012 10:14:00) [facility] QmomgbuLITFHYKLL8020-80-83 14:00:002.0[facility] GcirjddBOYTQYOML7686-77-29 14:00:001.6[facility] DlwmdbbGFIKZCDTV0936-03-67 14:00:000.2[facility] KrupsqiDHCDYFMFC6501-64-86 14:00:000.3[facility] JXNWTMTFP9826-54-05 14:00:000.1[facility] JjspwprVKUYWRDJP5419-86-42 14:00:0030 [facility] GwupphhNDIFUGELS7979-14-88 14:00:001.0[facility] HermannCHEMISTRY 2012-12-27 14:00:003.0[facility] UbxfxkkMGIDNOHOY8099-14-80 14:00:006.0[facility] QciykotYOWWVGFSG7725-67-66 14:00:0043[facility] DrpsmijCTZUCCZTQ0045-49-06 14:00:003.0[facility] KczheyrPLRBCJDSJ5464-79-22 14:00:0052[facility] Da GXYFRNQMV9029-58-42 14:00:0014.6[facility] XthzfcrHUJAZPNAJ1122-54-13 14:00:0042 [facility] AwrdeduZJVQAASVE4690-31-79 14:00:0026[facility] HermannCHEMISTRY 2012-12-27 14:00:002.0[facility] BpugwrhRUZTSDXCG2626-45-70 14:00:008.3[facility] SkbnwjyNUWGHYWQD4559-40-28 14:00:26493Uplneogy UyvbfzbTXUBZSVHQ6252-19-36 14:00:001.5[facility] FjqvldxXUKGXFWSN6548-51-48 14:00:003.6[facility] LNDKFIXAS3219-57-32 14:00:27967Crsuyfhp TpqoaodJLFBXIMPJ5261-26-95 14:00:60773 [facility] UumftpjADBEUDKUL3308-26-94 14:00:0022[facility] HermannCHEMISTRY 2012-12-27 14:00:003.0[facility] EmlcqyvKVSOZXVJBP5860-66-35 14:00:008.9[facility] KzoftuxKWMZEEYJOL4446-46-44 14:00:002.79[facility] KhvufatXWSEUNKCTZ0926-67-07 14:00:0095.7[facility] YpddaybZACCHLKBKN7508-57-77 14:00:0026.7[facility] Da ATEUGVZGVF2982-55-73 14:00:004.7[facility] YnipfblAXAJDVRZCU6463-52-97 14:00:20109 [facility] YgpesheZKZNFZJULF2206-70-88 14:00:007.8[facility] HermannHEMATOLOGY 2012-12-27 14:00:0033.5[facility] QwpvvynFVUFXSSQRU2041-90-97 14:00:00* Test Item Value Reference Range Interpretation Comments MCH (test code = MCH) 32.1 pg 27.0-31.0 H [facility] XkakcsrGLPDZUGVXF7800-78-24 14:00:0014.2[facility] HermannHEMATOLOGY 2012-12-27 14:00:00Slight *ABN*(12/27/2012 09:00:00) [facility]annHEMATOLOGY 2012-12-27 14:00:000.0[facility] OwdpfleVEOMNNMRFS8130-28-24 14:00:0068.1[facility] KkhmledCGNFHCUURV7003-83-00 14:00:00Normal (12/27/2012 09:00:00) [facility] DrtxpmuGVKNGLSJWE2289-26-30 14:00:00Normal (12/27/2012 09:00:00) [facility] HyjujmmEWWOFNHNBI1552-84-56 14:00:0030.6[facility] HoryymsWFZUOBPISH7532-01-68 14:00:000.9[facility] CtjcrldUESLTHKETV2688-48-49 14:00:000.1[facility] Da MJNLVUNUZW0107-16-46 14:00:003.2[facility] PoxxleeMQRHXRSXFE2179-51-04 14:00:000.3 [facility] GqsrviyYJBAMEABYR0315-79-54 14:00:001.4[facility] HermannHEMATOLOGY 2012-12-27 14:00:000.0[facility] NwfnxypYBHJZVQRJQ5870-90-26 14:00:000.0[facility] HrchpyrQWTRZZOZA2217-10-47 04:25:0046[facility] CvpbaviELJPRZYPI8853-49-58 04:25:09758Rwgifbtw NoknvwvTZJSEXQKF4575-94-94 04:25:0022[facility] ZWODHMZUF6223-70-46 04:25:71103Dnerdcwa FakzplpSCFPOFWTQ8589-42-78 04:25:00<0.3 [facility] OmknmluZIWWPKGGU9106-14-81 04:25:93656Kyyzinpb HermannCHEMISTRY 2012-12-27 04:25:0042.8[facility] MgatrfzGVXCUHVSJ9136-79-31 04:25:07403Rgdoilox OadyexbSNEEAKBYB6946-54-46 04:25:0046[facility] WsprvrqQEHIXERAP5275-73-82 04:25:58570Hvhqfjiy BpjuwosXMSRQVIGGK0881-65-99 04:25:00840Yxeczxhg Da CIVUFXFCAI5466-71-86 04:25:00>4 ug/mL FEU 13*ABN*(12/26/2012 23:25:00) [facility] KhsavkiJLZBFUJZIY1106-71-13 04:25:000.4[facility] XtjpwukIHBNODHSJE8979-52-52 04:25:006.1[facility] MnbhppmOQPIUVGWXT7691-79-09 04:25:000.72[facility] Da FUZNGJZZRS6852-35-23 04:25:000.75[facility] JeazglfASTEHEREDO6336-90-10 04:25:00 1.05[facility] QwsdjdzUZIVTXNWAE7671-26-00 04:25:0012.3[facility] HermannIMMUNOLOGY 2012-12-27 04:25:0011.8[facility] BqpjzuwQIZCIZMGKM5067-34-58 04:25:003.27[facility] OefdtwjERUYFEJGFH9022-26-58 04:25:0017.2[facility] PwovijgWYAWPFWJYP4862-45-83 04:25:000.31[facility] OtmtgqqIUFOTNDCGK4873-13-89 04:25:0053.6[facility] Da FIODTYOMHM5828-83-34 04:25:005.1[facility] PoucdelGMTRZJMLXQ4833-60-07 04:25:76627 [facility] SxqngotYODAFMGYOX5764-53-68 22:00:00* Test Item Value Reference Range Interpretation Comments PT (test code = PT) 13.8 s 12.0-14.7 N [facility] GpwtdrfGHOYJCRAPG4102-96-32 22:00:00* Test Item Value Reference Range Interpretation Comments PTT (test code = PTT) 29.3 s 22.9-35.8 N [facility] RklxfufOUSHFWBJUU0325-39-41 22:00:001.04[facility]annHEMATOLOGY 2012-12-26 22:00:0047[facility] OenrtkoMDEHLCYCQB6396-56-31 22:00:0046[facility] BtxciktZALUYHQZKD7878-02-28 22:00:009.0[facility] SwqjtqcRNSOYAWJPY1608-25-16 22:00:66128Yomreois SzzqtirQMZBGTHSUF9819-53-44 22:00:00Negative (12/26/2012 17:00:00) [facility] WorsdvlLNHKJGRUVU7315-85-80 22:00:00Negative (12/26/2012 17:00:00) [facility] GatjvfbUTRFRAIREX2569-52-56 22:00:00Negative (12/26/2012 17:00:00) [facility] OqxgakuAYCURFOIDH8222-42-43 22:00:00Negative (12/26/2012 17:00:00) [facility] ErddubwLHLYCSEGC4623-73-52 13:54:11319Qvmewgls [facility] CMDQNXUFE3891-62-48 13:54:0031[facility] PxrorhkFDULSPHYU4805-89-28 13:54:0041 [facility] WanhwobOEKTRQJIT7838-93-26 13:54:001.7[facility] HermannCHEMISTRY 2012-12-26 13:54:81587Qfnbjsfl GmodhyxLWJCUPSWH1117-91-58 13:54:004.2[facility] GkklrdqGVJHVEZQJ0672-63-10 13:54:37712Tlrpqtua SkpqreyUVWGQZMRU4066-78-32 13:54:0030[facility] MbzwytkLMWRNNHPL5092-15-44 13:54:0036[facility] LJMBLIYFK5306-73-76 13:54:008.7[facility] OkwnbigBAOHQTEHB8571-33-21 13:54:000.5 [facility] NbcqgemYOCRBXPNS3756-83-12 13:54:006.1[facility] HermannCHEMISTRY 2012-12-26 13:54:0049[facility] LlwknpjCQAQNLXKQ1166-49-48 13:54:003.1[facility] XwmgzbjQXIFAWWJK6485-87-42 13:54:0063[facility] VlcgdnxQNQPOFAYL1165-30-23 13:54:0013.2[facility] KzutrclBNPOTQQCB9143-59-17 13:54:0018[facility] RSFDOHPMU0127-60-61 13:54:003.0[facility] WghkfncRVZIWOSTI2150-33-80 13:54:001.0 [facility] SvhkvakRPBLQCCDMO2597-17-93 13:54:0095.8[facility] HermannHEMATOLOGY 2012-12-26 13:54:12909Kwpymnhq LdnznmlZLWBGGRZCM2966-54-65 13:54:0028.3[facility] WtggxrdQUYBGVHZKZ0871-11-11 13:54:00* Test Item Value Reference Range Interpretation Comments MCH (test code = MCH) 31.5 pg 27.0-31.0 H [facility] IahsmqbZNQGUMFMUC9815-71-46 13:54:0032.9[facility] HermannHEMATOLOGY 2012-12-26 13:54:0014.9[facility] IroqqpkUZHJVAVUWW6084-82-59 13:54:008.1[facility] JyigiavEVGIRKORCL6934-78-80 13:54:003.5[facility] MapqxrmGMLOWFSILA9920-95-77 13:54:009.3[facility] GxwzzpxMOXYGYNYRH3423-83-04 13:54:002.95[facility] DLELKXAJBM2089-61-83 13:54:000.1[facility] TrguzxjNXVHVTLVDM7699-40-77 13:54:000.2 [facility] JqwkkbkYFAGRGQMXH1806-96-46 13:54:002.1[facility] HermannHEMATOLOGY 2012-12-26 13:54:001.6[facility] MqwfyoePIMIQJFAEH6921-92-98 13:54:000.0[facility] TwxioojOCHTMYIXWU9827-68-85 13:54:001.8[facility] HigeoacOCRNROQBEE8665-58-31 13:54:000.0[facility] HthojeaIJFMETBLIF3337-60-14 13:54:00Normal (12/26/2012 08:54:00) [facility] XgdpmfyZYSLLTPHIE7576-75-18 13:54:000.5[facility] Da ISXKJYCLSD2363-01-31 13:54:0046.1[facility] YsmyrekBDZNRHIRDK9365-46-13 13:54:00 51.1[facility] OsxhpijDQZLLUCTGL4267-35-98 13:54:00Normal (12/26/2012 08:54:00) [facility] NqfftebBZBQJHXQO0374-31-29 02:41:18177Hiubffui HermannCHEMISTRY 2012-12-26 02:41:502.0[facility] SyuoanhLFYMMKNDZ6396-90-68 02:41:5036[facility] IqypxbdABTVNBFBF2407-58-63 02:41:09883Mgcimqie HrpqkgtSIUPVBGCJ1490-81-19 02:41:5030[facility] AyfysgpZZJUVYUKJ2064-05-46 02:41:5015.3[facility] JHDLCVTTR5317-02-91 02:41:509.0[facility] KvflgslLACRLCBXW4739-14-07 02:41:5029 [facility] AdrizyrPEJMDOQQJ2927-07-98 02:41:46012Opnhkjit HermannCHEMISTRY 2012-12-26 02:41:504.3[facility] XwjextpUUZPGIPEO9779-68-71 22:15:0065[facility] UwotxsiPWLJCAMXC5708-94-67 22:15:62608Gtghspba JipflveRYIAMSAWB7657-37-65 22:15:63092.0[facility] LgdzrvnMFGWFHCVOS1460-80-41 17:45:004.0[facility] EOOINPRNOM4646-80-74 17:45:001.0[facility] HyztstnPWREVHWBRP6600-38-87 17:45:00 68.0[facility] HzxozknPFRYSWLTKR3764-84-16 17:45:00Normal (12/25/2012 12:45:00) [facility] TnkilvcFCQDYKJPKP0768-82-39 17:45:003.0[facility]annHEMATOLOGY 2012-12-25 17:45:000.0[facility] OuaxvskUPNPKRQAQO0339-04-25 17:45:001.7[facility] UxwiqfpHLOLQJSKMF3036-03-28 17:45:000.1[facility] WilxlroTZSFJQEYML6298-54-56 17:45:000.6[facility] ExrsxdfHWJZQSUWKQ2408-72-62 17:45:000.1[facility] AHUWGKZHTF1741-76-88 17:45:0024.0[facility] HmblkjwKTHZRXKZJR9581-00-95 17:45:00 8.1[facility] FjttlohWHXXAZBCKI4163-41-87 17:45:00* Test Item Value Reference Range Interpretation Comments MCH (test code = MCH) 32.5 pg 27.0-31.0 H [facility] DedaijpCMJGYPURLT3661-56-49 17:45:56781Clcscdvb HermannHEMATOLOGY 2012-12-25 17:45:0014.6[facility] XplxdevHVPDLJRUFU4825-69-97 17:45:0033.7[facility] KxkfzujCUHBZAPFCW9566-10-45 17:45:0096.5[facility] MnupafgIMJILMCBDK5912-19-68 17:45:0032.1[facility] DdrcvpxKPGSOMKEQG4815-64-18 17:45:0010.8[facility] Da FLOSNPEGIA1446-48-87 17:45:003.33[facility] VutykhoCQUTZYGYUL3386-03-95 17:45:00 2.5[facility] BxemzbrLNTXXOGKKU6770-82-11 17:45:0032[facility]annCHEMISTRY 2012-12-25 16:30:00<0.02[facility] EyfppdsBXLYLLBKV3368-47-28 16:30:00<0.5[facility] XmdvnlwQYIAPOHCG6002-45-58 16:30:003.3[facility] ZkcszxcWWBRSVBEE0942-17-43 16:30:000.9[facility] LchhkajVKRTRMSMH3257-07-75 16:30:0020[facility] OKQYBOHRP5580-79-20 16:30:0060[facility] WfonxttZDRYANCNM7776-38-50 16:30:006.4 [facility] WnhdzinDLEPJCQGD6410-84-11 16:30:000.5[facility]annCHEMISTRY 2012-12-25 16:30:0045[facility] XhewyxyOTPYMINLN2121-55-14 16:30:0072[facility] KealrfcIHUBMSPHS5659-87-23 16:30:0085[facility] YfkbsabXPKSSMUIA0106-93-29 16:30:00<0.6[facility] GnitrrmPSESFCVLUY7946-39-74 16:30:00Negative (12/25/2012 11:30:00) [facility] GfkllqbEXUEAJWFYN0058-09-54 16:30:00Negative *NA*(12/25/2012 11:30:00) [facility] FsfeoedUGPWWABMEM6818-75-91 16:30:00Negative *NA*(12/25/2012 11:30:00) [facility] RbugepvWQAEWUXGAE6320-35-15 16:30:00Negative *NA*(12/25/2012 11:30:00) [facility] HsjumnnKDWHRCEAFL4455-21-39 16:30:00Negative *NA*(12/25/2012 11:30:00) [facility] PabwotfHAPTKFENEI1265-39-34 14:10:002[facility] ZOEAVQSHAP7187-50-22 14:10:00<=1.0[facility] LtkunxwYFYKSQQXVK6715-23-24 14:10:00 11[facility] MaivqubCYEOCFMHFK5277-32-94 14:10:00Moderate /HPF *ABN*(12/25/2012 09:10:00) [facility] GkaodbzESXSPIWTGO6667-34-64 14:10:00Few /LPF *NA*(12/25/2012 09:10:00) [facility] IlqbrkjJKHCELZZBZ9986-58-51 14:10:00Yellow *NA*(12/25/2012 09:10:00) [facility] KmkkpqzPVVUEEHKZW4385-89-45 14:10:00Slight *ABN*(12/25/2012 09:10:00) [facility] CpopmkvKQBWQQTIKM1437-90-88 14:10:001.014[facility] Da EKWLBMFSKH0935-50-15 14:10:006.5[facility] LxegciuIHQWHYULSJ1861-07-76 14:10:00 Performed *NA*(12/25/2012 09:10:00) [facility] UhyalzqYISFWTDZTX6684-38-40 14:10:00Moderate *ABN*(12/25/2012 09:10:00) [facility]annURINALYSIS 2012-12-25 14:10:00Negative (12/25/2012 09:10:00) [facility]annURINALYSIS 2012-12-25 14:10:0016[facility] IjiyabjOXFFDBKWCO5865-97-70 14:10:00Many /LPF *ABN*(12/25/2012 09:10:00) [facility] DermeswLHQUMYMDVR2867-54-63 14:10:0020 mg/dL *ABN*(12/25/2012 09:10:00) [facility] BdvinizDHFXWPOJDY0714-59-65 14:10:00 Negative mg/dL *NA*(12/25/2012 09:10:00) [facility] BchzqarVUVVEBRTHB8645-89-20 14:10:00Negative mg/dL *NA*(12/25/2012 09:10:00) [facility]annURINALYSIS 2012-12-25 14:10:00Negative (12/25/2012 09:10:00) [facility]annURINALYSIS 2012-12-25 14:10:00Negative *NA*(12/25/2012 09:10:00) [facility]annCHEMISTRY 2012-12-25 09:32:4730.0[facility] SnyxwujWABUXGRDQ4467-30-10 22:00:002.7[facility] EwycfecZPRAADQHY6301-81-08 22:00:002.4[facility] BuqmdqzRYYHXYWQK0067-83-27 22:00:0025[facility] SapkrpqVPTEQRVVC8448-44-79 22:00:00> 100.0 ng/mL (12/24/2012 17:00:00) [facility] LnryuffAXETVHRUBQ5329-72-72 22:00:000.0[facility] SBCMGIIDGR4490-99-60 22:00:001+ *ABN*(12/24/2012 17:00:00) [facility] Da QGNZQSIEIQ5253-38-88 22:00:000.1[facility]
[2020-06-07] MEDS ORDERED: LISINOPRIL10 MG PO (02:46)
[2020-06-07] MEDS ORDERED: GABAPENTIN300 MG PO (02:46)
[2020-06-07] MEDS ORDERED: LEVOCETIRIZINE D5 MG PO (02:46)
[2020-06-07] MEDS ORDERED: QUETIAPINE FUM100 MG PO (02:46)
[2020-06-07] MEDS ORDERED: PIPER-TAZ 3.375 GM 50 ML IV SCH ×3 (06:30→08:30)
[2020-06-07 07:09] LABS: CREATINE KINASE 36 IU/L (29-168)
[2020-06-07] MEDS ORDERED: SODIUM CHLORIDE 0.9% 1000ML 1,000 ML IV SCH (08:15)
[2020-06-07 08:35] LABS: BASOPHILS % 0.7 % (0.0-1.0); EOSINOPHILS # (AUTO) 0.3 (0.0-0.4); EOSINOPHILS % 5.7 % (0.0-6.0); HEMATOCRIT 30.9 % (34.2-44.1); HEMOGLOBIN 9.4 g/dL (12.0-16.0); LYMPHOCYTES # (AUTO) 2.7 (1.0-3.2); LYMPHOCYTES % 47.2 % (18.0-39.1); MEAN CORPUSCULAR HEMOGLOBIN 27.1 pg (28-32); MEAN CORPUSCULAR HGB CONC 30.4 g/dL (31-35); MONOCYTES # (AUTO) 0.8 (0.2-0.8); MONOCYTES % 13.7 % (4.4-11.3); NEUTROPHILS # (AUTO) 1.9 (2.1-6.9); NEUTROPHILS % 32.4 % (38.7-80.0); PLATELET COUNT 322 x10e3/uL (140-360); RED BLOOD COUNT 3.47 x10e6/uL (3.6-5.1); RED CELL DISTRIBUTION WIDTH 15.3 % (11.7-14.4)
[2020-06-07] MEDS: CEFEPIME 1GM/NS 0.9% 50 ML 50 ML IV SCH (08:42)
[2020-06-07 08:54] LABS: ANION GAP 18.2 mmol/L (8-16); CREATININE, SERUM 2.94 mg/dL (0.57-1.11); POTASSIUM 3.2 mmol/L (3.5-5.1)
[2020-06-07] MEDS ORDERED: SENNOSIDES 8.6 MG TAB PO PRN (09:30)
[2020-06-07] MEDS ORDERED: POTASSIUM CHLORIDE 20 MEQ TAB CR PO STA (09:33)
[2020-06-07] MEDS ORDERED: HYDROCODONE/APAP 10MG-325MG TAB PO PRN (09:45)
[2020-06-07] MEDS: LEVOTHYROXINE SODIUM 50 MCG TAB PO SCH (09:51)
[2020-06-07] MEDS: SOD CHL 0.45%/POT CHL 20MEQ 1,000 ML IV SCH ×2 (09:56→20:13)
[2020-06-07] MEDS ORDERED: POTASSIUM CHLORIDE 20 MEQ TAB CR PO ONE (11:30)
--- NOTE | 2020-06-07 12:35 | Consultation ---
DATE OF CONSULTATION: Pulmonary Critical Care Consultation CHIEF COMPLAINT: Decreased responsiveness, elevated creatinine. HISTORY OF PRESENT ILLNESS: The patient is a 69-year-old woman. She has a history of rheumatoid arthritis. She also has a history of hypertension and stage 3 chronic renal failure. She required admission to [facility] in October 2019 with cellulitis and worsening renal insufficiency. She required IV antibiotics as well as the evaluation by Cardiology and Nephrology. She now comes to the hospital complaining of increased lethargy for 1-2 days. She had no fever. There is no nausea or vomiting. There is no diarrhea. Upon arrival to the emergency department, she had a creatinine of 3.35 and a lactic acid of 2.3. She received some intravenous fluids and has noticed some clinical improvement. She has less malaise and is not feeling lightheaded. PAST MEDICAL HISTORY: 1. Hypertension. 2. Chronic diastolic heart failure. 3. Chronic renal failure stage 3. 4. Rheumatoid arthritis. 5. Hypothyroidism. 6. Obstructive sleep apnea. 7. Chronic back pain. PAST SURGICAL HISTORY: 1. Status post lumbar spine surgery. 2. Status post abdominal hysterectomy. 3. Status post total knee replacement on the left side. ALLERGIES: THE PATIENT REPORTS THE ALLERGY TO MORPHINE. FAMILY HISTORY: There is a history of coronary artery disease as well as diabetes in the family. SOCIAL HISTORY: The patient is not a smoker. She is not a drinker. REVIEW OF SYSTEMS: She does not have any fevers. She has no headache. She has no neck pain. She is not complaining of any chest pain. She is not having any abdominal pain. There is no nausea or vomiting. She has no diarrhea. She has no leg edema. She has no focal neurological complaints. PHYSICAL EXAMINATION: VITAL SIGNS: Her blood pressure is now 92/65 and the saturation is 100% on 2 L and her pulse is 93. HEENT: No facial swelling or erythema. LYMPHATIC: No submandibular, cervical, or supraclavicular adenopathy. NECK: No JVD or thyromegaly. There is no nuchal rigidity. CARDIAC: Regular rate and rhythm with normal S1, S2. LUNGS: Auscultation of lungs shows clear breath sounds bilaterally. There is no wheezing. ABDOMEN: Soft, nontender. There is no rebound or guarding. EXTREMITIES: No leg edema or calf tenderness. There is no cyanosis or clubbing. SKIN: No rashes. NEUROLOGICAL: No focal abnormalities. LABORATORY DATA: The BUN to creatinine ratio is 15 to 2.94. The potassium is 3.2. The hemoglobin is 9.4. The platelet count is 322, and the white blood cell count is 5.78. RADIOGRAPHIC DATA: Chest x-ray shows some basilar scarring or atelectasis. There is no acute disease. IMPRESSION: 1. [id number] renal failure, possibly secondary to dehydration. 2. Metabolic encephalopathy. 3. Chronic back pain. 4. Rheumatoid arthritis. 5. Possible urinary tract infection with sepsis, present on admission. 6. Moderate obesity. 7. Chronic diastolic heart failure. 8. Hypothyroidism. PLAN: 1. Continue IV hydration and monitor creatinine. 2. Continue antibiotics. The patient has been pancultured. 3. Hold Seroquel and [place] for now. These may be contributing to her altered mental status. We will restart the med at a lower dose when ready. 4. Continue to monitor and control blood pressure. 5. Continue thyroid medications. Sadiq Serna MD Roger/MODL /[id number]
[2020-06-07] MEDS ORDERED: VANCOMYCIN 1GM/NS 250 ML 250 ML IV ONE (12:45)
[2020-06-07] MEDS: METHYLPREDNISOLONE SOD SUCC 40 MG/ML VIAL 1ML IV SCH ×2 (13:11→21:37)
[2020-06-07] MEDS ORDERED: GABAPENTIN 300 MG CAP PO SCH (15:00)
[2020-06-07 15:50] LABS: CREATINE KINASE MB 0.5 ng/mL (0-5.0)
[2020-06-07] MEDS: DOCUSATE SODIUM 100 MG CAP PO SCH (16:17)
[2020-06-07] MEDS: PANTOPRAZOLE SOD 40 MG TABEC PO SCH (16:17)
[2020-06-07] MEDS: GABAPENTIN 100 MG CAP PO SCH ×2 (16:17→21:00)
[2020-06-07] MEDS ORDERED: DICLOFENAC SOD 1% GEL 100 GM TUBE TP PRN (17:45)
[2020-06-07] MEDS ORDERED: QUETIAPINE FUMARATE 100 MG TAB PO SCH (21:00)
[2020-06-08] VITALS (16 sets, daily range): BP systolic 90–193; BP diastolic 55–115
--- NOTE | 2020-06-08 02:51 | History and Physical ---
CHIEF COMPLAINT: Lethargy. HISTORY OF PRESENT ILLNESS: This is a 69-year-old woman, who was brought to [facility] Emergency Room by [facility] for evaluation of decreased mentation and lethargy. states the patient took her nightly dose of clonazepam and when he went to check on the patient, she was minimally responsive. In the emergency room, the patient was found to have a BUN and creatinine of 50 and 3.35 respectively. Potassium is 3.0. The patient has B type natriuretic peptide level less than 10. The patient's white blood cell count was 6400 with 31% segmented neutrophils. The patient's hemoglobin was 10.6 g/dL. Urinalysis performed in the emergency room revealed a slightly cloudy yellow urine with pH of 5.5. It also revealed trace ketones. Moreover, the patient was found to have 6-10 white blood cells per high power field and 6-10 red blood cells per high power field. Moreover, the urinalysis revealed many bacteria as well as 1-5 coarse granular casts. Chest film performed in emergency room revealed left basilar scarring/atelectasis, which is a new finding compared to chest x-ray performed on November 14, 2019. The patient also underwent CT of the head that did not reveal any acute intracranial abnormalities. In the emergency room, the patient was found to have a blood pressure as low as 79/65. The patient underwent echocardiogram in October 2019, which revealed preserved left ventricular ejection fraction with 65% to 70%, but it did reveal a diastolic filling pattern indicating impaired relaxation. REVIEW OF SYSTEMS: GENERAL: Weight has been stable. No fever or chills. lethargy that occurred early this morning. HEENT: No headaches, no visual changes. CARDIOVASCULAR/RESPIRATORY: No chest pain. No shortness of breath. GI: No nausea, vomiting, diarrhea, or constipation. The patient has no melena or hematochezia. : The patient states lately in the last few days she has been urinating more, but denies any dysuria or incontinence. NEUROMUSCULAR: Complains of arthritic pain in her hands secondary to rheumatoid arthritis. The patient's states that over last 2 or 3 weeks she has been more weak than usual. ALLERGIES: MORPHINE. HOME MEDICATIONS: 1. Clonazepam 1 mg b.i.d. 2. Pristiq 100 mg daily. 3. Colace 100 mg b.i.d. 4. Doxycycline 100 mg daily. 5. Ferrous sulfate 325 mg daily. 6. Furosemide 20 mg daily. 7. Gabapentin 300 mg t.i.d. 8. Hydralazine 25 mg b.i.d. 9. Hydrocodone/acetaminophen 10/325 one t.i.d. for pain. 10. Isosorbide mononitrate 30 mg b.i.d. 11. Xyzal 5 mg at bedtime. 12. Levothyroxine 50 mcg daily. 13. Lisinopril 40 mg b.i.d. 14. Metoprolol Succinate 50 mg daily. 15. Mupirocin ointment apply to the affected area twice a day. 16. Pantoprazole 40 mg b.i.d. 17. Prednisone 5 mg daily. 18. Quetiapine 200 mg at bedtime. 19. Senna 17.2 mg b.i.d. 20. Carafate 1 mg t.i.d. with meals. PAST MEDICAL HISTORY: 1. Chronic diastolic congestive heart failure. 2. Extreme obesity, BMI of 43. 3. Stage 3 chronic kidney disease. 4. Major depressive disorder. 5. Rheumatoid arthritis. 6. Anemia secondary to chronic disease/chronic kidney disease and iron deficiency. 7. Chronic pain syndrome. 8. Hypothyroidism. 9. Chronic venous insufficiency (lower extremities). 10. Peripheral neuropathy. 11. Overactive bladder. 12. Chronic insomnia. PAST SURGICAL HISTORY: 1. Lumbar spine surgery. 2. Total abdominal hysterectomy. 3. Left total knee replacement. 4. EGD on November 26, 2019 that revealed serpiginous kedar-pyloric ulcer. FAMILY HISTORY: The patient has two sisters who have undergone coronary artery bypass grafting. The patient's mother had severe osteoarthritis. The patient also has sisters who have type 2 diabetes mellitus. This woman is and lives with her . She is currently unemployed, but receiving disability benefits. The patient has no history of tobacco or alcohol use. PHYSICAL EXAMINATION: GENERAL: She is awake, alert. She has a flat, depressed affect. She does appear to be fully oriented. Does not appear to be in any obvious distress. VITAL SIGNS: Blood pressure at this time is 126/56. In the emergency room, blood pressure did give as lowest 79/50. Her heart rate currently is 88, in the emergency room, the heart rate was 100. Currently, respiratory rate 16, ox saturation is 100% on 2 liters of oxygen, temperature 97.7. Height 5 feet 6 inches. Weight is 270 pounds, BMI of 43. INTEGUMENT: Skin is warm and dry. No pallor, jaundice, or diaphoresis. HEENT: Anterior sclerae with moist mucous membranes. CARDIOVASCULAR: Tachycardiac rate with regular rhythm. The patient has S3 gallop. LUNGS: No rales. No rhonchi. No wheezes. ABDOMEN: Obese. EXTREMITIES: The patient has trace edema in the legs. NEURO: Intact. No gross deficits. DIAGNOSES: 1. Sepsis secondary urinary tract infection. 2. Acute chronic renal insufficiency secondary to acute tubular necrosis. 3. Rheumatoid arthritis. 4. Chronic diastolic congestive heart failure. 5. Polypharmacy. 6. Extreme obesity, BMI 43. PLAN: 1. Hold sedating medications. 2. Start intravenous methylprednisone in regard to rheumatoid arthritis. 3. Continue intravenous fluids. 4. Repeat chest film after the patient adequately is hydrated to assess new finding of the left basilar atelectasis. 5. Send urine for culture. 6. Start intravenous antibiotics namely cefepime and vancomycin for patient's sepsis. 7. We will mobilize the patient with occupational and physical therapy. 8. Check her TSH level. 9. I informed the patient that her excessive somnolence and lethargy is most likely secondary to iatrogenic polypharmacy. I spent 75 minutes in the care of this patient intensive care unit patient. MD ARCHIE Mae/KATARZYNA /[id number] MTDBruce
[2020-06-08 05:25] LABS: BASOPHILS % 0.2 % (0.0-1.0); HEMATOCRIT 32.9 % (34.2-44.1); LYMPHOCYTES # (AUTO) 1.1 (1.0-3.2); LYMPHOCYTES % 26.7 % (18.0-39.1); MEAN CORPUSCULAR HEMOGLOBIN 27.2 pg (28-32); MEAN CORPUSCULAR HGB CONC 30.4 g/dL (31-35); MEAN CORPUSCULAR VOLUME 89.4 fL (81-99); MONOCYTES % 0.7 % (4.4-11.3); NEUTROPHILS % 71.7 % (38.7-80.0); PLATELET COUNT 371 x10e3/uL (140-360); RED BLOOD COUNT 3.68 x10e6/uL (3.6-5.1); RED CELL DISTRIBUTION WIDTH 14.7 % (11.7-14.4)
[2020-06-08] MEDS: LEVOTHYROXINE SODIUM 50 MCG TAB PO SCH (05:40)
[2020-06-08 05:46] LABS: ALANINE AMINOTRANSFERASE < 6 IU/L (0-55); ALBUMIN 3.4 g/dL (3.5-5.0); ALBUMIN/GLOBULIN RATIO 1.1 (0.8-2.0); ALKALINE PHOSPHATASE 71 IU/L (40-150); ANION GAP 15.5 mmol/L (8-16); BLOOD UREA NITROGEN 12 mg/dL (7-26); BUN/CREATININE RATIO 6 (6-25); CALCIUM 8.4 mg/dL (8.4-10.2); CARBON DIOXIDE 24 mmol/L (22-29); CHLORIDE 104 mmol/L (98-107); CREATININE, SERUM 1.92 mg/dL (0.57-1.11); EST GLOMERULAR FILTRATION RATE 31 ML/MIN (60-); GLUCOSE 137 mg/dL (74-118); POTASSIUM 4.5 mmol/L (3.5-5.1); SODIUM 139 mmol/L (136-145)
[2020-06-08] MEDS ORDERED: VANCOMYCIN 1GM/NS 250 ML 250 ML IV ONE (07:30)
--- NOTE | 2020-06-08 07:50 | Diagnostic Imaging Report ---
EXAMINATION: CHEST SINGLE (PORTABLE) INDICATION: Left basilar atelectasis COMPARISON: Chest x-ray 06/07/2020; abdominal CT 11/24/2019 FINDINGS: TUBES and LINES: None. LUNGS: Normal lung volumes. Subtle left basilar haziness No consolidations. PLEURA: No pleural effusion or pneumothorax. HEART AND MEDIASTINUM: The cardiomediastinal silhouette is unremarkable. Aortic calcifications. BONES AND SOFT TISSUES: No acute osseous lesion. Soft tissues are unremarkable. UPPER ABDOMEN: No free air under the diaphragm. IMPRESSION: Subtle left basilar haziness can be due to scarring/atelectasis. Signed by: Elroy Mederos DO on 06/08/2020 7:47 AM
[2020-06-08] MEDS: CEFEPIME 1GM/NS 0.9% 50 ML 50 ML IV SCH (08:58)
[2020-06-08] MEDS: PANTOPRAZOLE SOD 40 MG TABEC PO SCH ×2 (08:58→16:20)
[2020-06-08] MEDS: GABAPENTIN 100 MG CAP PO SCH ×3 (08:59→20:56)
[2020-06-08] MEDS: METHYLPREDNISOLONE SOD SUCC 40 MG/ML VIAL 1ML IV SCH (08:59)
[2020-06-08] MEDS: DESVENLAFAXINE SUCCINATE 50 MG TAB.SR.24H PO SCH (08:59)
[2020-06-08] MEDS: METOPROLOL SUCCINATE 50 MG TAB XL PO SCH (08:59)
[2020-06-08] MEDS: DOCUSATE SODIUM 100 MG CAP PO SCH ×2 (08:59→16:21)
[2020-06-08] MEDS: FERROUS SULFATE 325 MG TAB PO SCH (08:59)
[2020-06-08] MEDS: SODIUM CHLORIDE 0.9% 1000ML 1,000 ML IV SCH ×2 (11:30→20:56)
[2020-06-08] MEDS: ACETAMINOPHEN 325 MG TAB PO PRN (12:36)
--- NOTE | 2020-06-08 12:54 | Progress Note ---
DATE: 06/08/2020 CHIEF COMPLAINT/HISTORY OF PRESENT ILLNESS: This is a 69-year-old woman, whose primary treating diagnosis was sepsis secondary to urinary tract infection and acute on chronic renal insufficiency secondary to acute tubular necrosis. Also, her excessive somnolence was secondary to polypharmacy from her multiple sedating medications. The patient is doing much better today. The patient voiced no complaints. Today's white blood cell count is 4200 with 71% segmented neutrophils. Hemoglobin is 10 g/dL. Platelet count is 331,000. The patient's BUN and creatinine today are 12 and 1.92 respectively. TSH today is 1.475. REVIEW OF SYSTEMS: As per HPI. PHYSICAL EXAMINATION: GENERAL: She is awake, alert. She is fully oriented. She is in no distress. She is pleasant and cooperative on exam. VITAL SIGNS: Blood pressure 154/66, heart rate 112, respiratory rate 18, temperature is 99.2, oxygen saturation is 100% on 2 L oxygen. INTEGUMENT: Skin is warm and dry. No pallor, jaundice or diaphoresis. HEENT: Anterior sclerae. Moist mucous membranes. NECK: Supple. CARDIOVASCULAR: Tachycardic rate with regular rhythm. LUNGS: No rales. No rhonchi or wheezes. ABDOMEN: Obese, yet benign. EXTREMITIES: Trace edema in the bilateral lower legs. NEUROLOGIC: Intact. No deficits appreciated. DIAGNOSES: 1. Sepsis secondary to urinary tract infection, resolving. 2. Acute on chronic renal insufficiency secondary to acute tubular necrosis, resolving. 3. Rheumatoid arthritis. 4. Chronic diastolic congestive heart failure. 5. Polypharmacy. 6. Extreme obesity, BMI of 43. PLAN: 1. Transfer patient to a [facility] surgical floor. 2. Discontinue telemetry. 3. Mobilize patient with physical therapy. 4. Follow urine cultures. 5. Continue intravenous antibiotics. 6. Continue intravenous fluids. 7. Follow renal function and electrolytes. 8. We will limit the number of sedating medications. I spent 35 minutes in the care of this intensive care unit patient. MD ARCHIE Mae/KATARZYNA /[id number] FATMATA
--- NOTE | 2020-06-08 13:34 | Progress Note ---
DATE: SUBJECTIVE: The patient is feeling better. She has less dizziness. She is out of bed and sitting in a chair. PHYSICAL EXAMINATION: VITAL SIGNS: Blood pressure is 122/55 and the heart rate is 110. Saturation is 98%. HEENT: Shows no facial swelling or erythema. LYMPHATIC: Shows no submandibular, cervical, or supraclavicular adenopathy. CARDIAC: Reveals regular rate and rhythm with normal S1 and S2. LUNGS: Auscultation of lungs reveals rhonchorous breath sounds bilaterally. There is no wheezing. ABDOMEN: Soft and nontender. There is no rebound or guarding. EXTREMITIES: Show no leg edema or calf tenderness. There is no cyanosis or clubbing. SKIN: Shows no rashes. NEUROLOGICAL: Shows no focal abnormalities. LABORATORY DATA: The BUN to creatinine ratio is 12 to 1.92. Other electrolytes are within normal limits. The white blood cell count is 4.2 and the hemoglobin is 10. The platelet count is 371. RADIOGRAPHIC DATA: Chest x-ray shows some basal haziness in the left lower lobe. IMPRESSION: 1. Sjtat-ic-xgcopoe renal failure secondary to dehydration. 2. Metabolic encephalopathy. 3. Rheumatoid arthritis. 4. Chronic back pain. 5. Urinary tract infection. 6. Moderate obesity. 7. Chronic diastolic heart failure. PLAN: 1. Continue IV fluids as needed. 2. Monitor BUN and creatinine. 3. Transfer out of intensive care unit today. 4. Gradually restart the patient's Seroquel and gabapentin. Sadiq Serna MD [facility]/KATARZYNA /[id number]
[2020-06-08] MEDS ORDERED: HYDROCODONE/APAP 5MG-325MG TAB PO PRN (16:30)
[2020-06-08] MEDS ORDERED: CLONIDINE HCL 0.1 MG TAB PO ONE (21:30)
--- NOTE | 2020-06-08 21:32 | NUR ---
Patient arrived as transfer from ICU Rm 195 to Rm 208. Pt alert and oriented x3. Ambulatory in room with standby assist prn. Vaughn catheter in place for strict I & O's. No c/o pain or dyspnea. Latest BP elevated and pt will be medicated accordingly. Call cruz within reach.
[2020-06-09] VITALS (11 sets, daily range): BP systolic 127–195; BP diastolic 49–93
[2020-06-09] MEDS: CLONIDINE HCL 0.1 MG TAB PO PRN (02:05)
[2020-06-09] MEDS: LEVOTHYROXINE SODIUM 50 MCG TAB PO SCH (06:00)
[2020-06-09] MEDS: METOPROLOL SUCCINATE 50 MG TAB XL PO SCH ×3 (06:00→21:25)
[2020-06-09] MEDS: SODIUM CHLORIDE 0.9% 1000ML 1,000 ML IV SCH (06:33)
[2020-06-09 07:06] LABS: BASOPHILS # (AUTO) 0.1 (0.0-0.1); BASOPHILS % 0.7 % (0.0-1.0); HEMATOCRIT 29.3 % (34.2-44.1); HEMOGLOBIN 9.1 g/dL (12.0-16.0); LYMPHOCYTES # (AUTO) 2.2 (1.0-3.2); LYMPHOCYTES % 26.5 % (18.0-39.1); MEAN CORPUSCULAR HEMOGLOBIN 27.9 pg (28-32); MEAN CORPUSCULAR HGB CONC 31.1 g/dL (31-35); MEAN CORPUSCULAR VOLUME 89.9 fL (81-99); MONOCYTES # (AUTO) 0.8 (0.2-0.8); MONOCYTES % 9.5 % (4.4-11.3); NEUTROPHILS # (AUTO) 5.2 (2.1-6.9); NEUTROPHILS % 62.8 % (38.7-80.0); PLATELET COUNT 322 x10e3/uL (140-360); RED BLOOD COUNT 3.26 x10e6/uL (3.6-5.1); RED CELL DISTRIBUTION WIDTH 15.4 % (11.7-14.4)
[2020-06-09 07:30] LABS: ANION GAP 12.8 mmol/L (8-16); CALCIUM 8.2 mg/dL (8.4-10.2); CREATININE, SERUM 1.38 mg/dL (0.57-1.11); POTASSIUM 3.8 mmol/L (3.5-5.1)
[2020-06-09] MEDS: PANTOPRAZOLE SOD 40 MG TABEC PO SCH ×2 (07:30→16:30)
--- NOTE | 2020-06-09 08:03 | NUR ---
pt agitated, requesting her lines and serrato to be taken out. pt states she wants to go home now, calling her family asking them to come pick her up. paging Dr. Sheppard.
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
--- NOTE | 2020-06-09 08:31 | NUR ---
pt's ama removed per MD orders. tip intact. Addendum: 06/09/20 at 1748 by Hermelindo Tuttle RN pt refused placement of IV; no IV access at this time.
[2020-06-09] MEDS: GABAPENTIN 100 MG CAP PO SCH ×3 (09:00→21:25)
[2020-06-09] MEDS: FERROUS SULFATE 325 MG TAB PO SCH (09:00)
[2020-06-09] MEDS: METHYLPREDNISOLONE SOD SUCC 40 MG/ML VIAL 1ML IV SCH (09:00)
[2020-06-09] MEDS: DOCUSATE SODIUM 100 MG CAP PO SCH ×2 (09:00→17:00)
[2020-06-09] MEDS: CEFEPIME 1GM/NS 0.9% 50 ML 50 ML IV SCH (09:00)
[2020-06-09] MEDS: DESVENLAFAXINE SUCCINATE 50 MG TAB.SR.24H PO SCH (09:00)
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
[2020-06-09] MEDS ORDERED: ZIPRASIDONE 20 MG VIAL IM PRN (10:30)
[2020-06-09] MEDS ORDERED: QUETIAPINE FUMARATE 100 MG TAB PO ONE (10:30)
[2020-06-09] MEDS ORDERED: ZIPRASIDONE 20 MG VIAL IM ONE (11:00)
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
--- NOTE | 2020-06-09 11:30 | NUR ---
pt sleeping comfortably, respirations even, no s/s distress. in stable condition.
--- NOTE | 2020-06-09 19:20 | NUR ---
Patient visited in room during nursing rounds. Pt alert and oriented x3. Ambulatory in room with standby assist prn. Patient's older sister (Yesi) at bedside and was allowed to stay with patient by CNO. No c/o pain or dyspnea. Call cruz within reach.
[2020-06-09] MEDS ORDERED: QUETIAPINE FUMARATE 100 MG TAB PO SCH (21:00)
--- NOTE | 2020-06-09 21:20 | NUR ---
Spoke with patient and patient's sister (Yesi) at bedside. Explained to patient that tomorrow morning at 9AM, she is scheduled to receive IV antibiotic medication (Maxipime 1gm) and that she currently does not have any IV access. Patient refused (and Yesi as witness) a new IV placement tonight and decided she wants to talk to Dr. Sheppard tomorrow if IV still necessary or possibly change IV antibiotic to PO antibiotic. Nurse (Mundo) will pass this information to incoming day nurse tomorrow.
[2020-06-10] VITALS: BP 184/88
[2020-06-10 02:25] VITALS: BP 180/78
[2020-06-10] MEDS: CLONIDINE HCL 0.1 MG TAB PO PRN (02:28)
[2020-06-10 04:00] VITALS: BP 178/93
[2020-06-10] MEDS: LEVOTHYROXINE SODIUM 50 MCG TAB PO SCH (06:05)
[2020-06-10] MEDS: PANTOPRAZOLE SOD 40 MG TABEC PO SCH (06:05)
--- NOTE | 2020-06-10 06:20 | NUR ---
Explained to patient again the importance of having IV access so that she could receive her IV antibiotic this morning. Sister and patient agreed to have a new IV inserted this morning.
[2020-06-10 06:26] LABS: BASOPHILS % 0.5 % (0.0-1.0); EOSINOPHILS # (AUTO) 0.2 (0.0-0.4); EOSINOPHILS % 2.5 % (0.0-6.0); HEMATOCRIT 27.9 % (34.2-44.1); HEMOGLOBIN 8.8 g/dL (12.0-16.0); LYMPHOCYTES % 39.3 % (18.0-39.1); MEAN CORPUSCULAR HEMOGLOBIN 28.2 pg (28-32); MEAN CORPUSCULAR HGB CONC 31.5 g/dL (31-35); MEAN CORPUSCULAR VOLUME 89.4 fL (81-99); MONOCYTES # (AUTO) 0.7 (0.2-0.8); MONOCYTES % 9.1 % (4.4-11.3); NEUTROPHILS # (AUTO) 3.6 (2.1-6.9); NEUTROPHILS % 48.1 % (38.7-80.0); PLATELET COUNT 277 x10e3/uL (140-360); RED BLOOD COUNT 3.12 x10e6/uL (3.6-5.1); RED CELL DISTRIBUTION WIDTH 15.3 % (11.7-14.4)
[2020-06-10 06:39] LABS: ANION GAP 11.6 mmol/L (8-16); CALCIUM 8.3 mg/dL (8.4-10.2); CREATININE, SERUM 1.1 mg/dL (0.57-1.11); POTASSIUM 3.6 mmol/L (3.5-5.1)
[2020-06-10 07:39] VITALS: BP 170/67
[2020-06-10 08:28] VITALS: BP 170/67
[2020-06-10] MEDS: DOCUSATE SODIUM 100 MG CAP PO SCH (09:00)
[2020-06-10] MEDS: FERROUS SULFATE 325 MG TAB PO SCH (09:00)
[2020-06-10] MEDS: METOPROLOL SUCCINATE 50 MG TAB XL PO SCH (09:00)
[2020-06-10] MEDS: GABAPENTIN 100 MG CAP PO SCH (09:00)
[2020-06-10] MEDS: DESVENLAFAXINE SUCCINATE 50 MG TAB.SR.24H PO SCH (09:00)
[2020-06-10] MEDS: CEFEPIME 1GM/NS 0.9% 50 ML 50 ML IV SCH (09:00)
--- NOTE | 2020-06-10 10:00 | NUR ---
The pt. has received orders to discharge home and the has spoken to the family also.
[2020-06-10] MEDS ORDERED: CIPRO500 MG PO ×2 (10:41→11:10)
[2020-06-10] MEDS: ACETAMINOPHEN 325 MG TAB PO PRN (10:48)
--- NOTE | 2020-06-10 11:20 | NUR ---
MET W PT AND FAMILY MEMBER AT THE BEDSIDE. PT DISCHARGING HOME TODAY. ORDER RECEIVED TO [facility]. PT CALLED HER NURSE FOR AGENCY NAME; [facility] Rodriguez @ [phone]. NO ANSWER. CM CALLED LURDES AND LEFT VM W CONTACT INFO FOR HH AGENCY NAME. CALLED RIGHT BACK. PT IS ON SERVICE W [facility] @ [phone] / FAX: [phone] CHOICE LETTER WAS SIGNED FOR [facility]. REFERRAL FAXED TO [facility]. IMM LETTER EXPLAINED TO PT. PT VERBALIZED UNDERSTANDING. IMM LETTER SIGNED. COPY TO PT AND COPY TO CHART.
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
--- NOTE | 2020-06-10 11:36 | NUR ---
HOME HEALTH DISCHARGE NOTE PATIENT ADDRESS WHERE SERVICE WILL BE RECEIVED: [id number] [place] [address] PATIENT CONTACT NUMBER: [phone] NAME OF HOME HEALTH COMPANY: [employer] TELEPHONE/FAX NUMBER OF COMPANY: [facility]: [phone] / FAX: [phone] ADDRESS OF COMPANY: [address] [place] [id number] SERVICES TO RECEIVE: [facility] ANTICIPATED DATE SERVICES WILL BEGIN: 06/11/2020 Please call the company above if you have not received a call to schedule a home visit within 24 hours of discharge.
[2020-06-10 11:42] VITALS: BP 163/73
--- NOTE | 2020-06-10 11:54 | NUR ---
The pt. received discharge orders and iv was removed. She is provided a ride home per her sister. The pt was escorted to private car.
[2020-06-10] MEDS ORDERED: CIPROFLOXACIN 250 MG TAB PO SCH (12:00)
== END 2020-06-10 12:01 | disposition home health service (06) | DRG 871 ==
LOC: ER 00:47 → ERHOLD 02:08 → ICU 04:00 → MED/SURG2 06-08 21:38
PROVIDERS: ADMIT Internal Medicine; ATTEND Internal Medicine
DX: A41.9 Sepsis, unspecified organism (principal); N17.0 Acute kidney failure with tubular necrosis; G93.41 Metabolic encephalopathy; J15.6 Pneumonia due to other Gram-negative bacteria; I50.32 Chronic diastolic (congestive) heart failure; Z68.42 Body mass index [BMI] 45.0-49.9, adult; N39.0 Urinary tract infection, site not specified; I13.0 Hypertensive heart and chronic kidney disease with heart failure and stage 1 through stage 4 chronic kidney disease, or unspecified chronic kidney disease; M06.9 Rheumatoid arthritis, unspecified; R65.20 Severe sepsis without septic shock; E66.01 Morbid (severe) obesity due to excess calories; N18.3 Chronic kidney disease, stage 3 (moderate); Z88.5 Allergy status to narcotic agent; E03.9 Hypothyroidism, unspecified; F32.9 Major depressive disorder, single episode, unspecified; G47.33 Obstructive sleep apnea (adult) (pediatric); Z83.3 Family history of diabetes mellitus; T43.595A Adverse effect of other antipsychotics and neuroleptics, initial encounter; T40.2X5A Adverse effect of other opioids, initial encounter; G62.9 Polyneuropathy, unspecified; G47.00 Insomnia, unspecified; Z96.652 Presence of left artificial knee joint; E86.0 Dehydration; R44.1 Visual hallucinations; D63.8 Anemia in other chronic diseases classified elsewhere
CPT/HCPCS: 36415; 51700; 70450; 71045; 80048; 80053; 81001; 82550; 82553; 83605; 83880; 84443; 84484; 85025; 85610; 87040; 87086; 93005; 97139; 99251; 99284; J0692; J2543; J2920; J3370; J7030; U0002

== ENCOUNTER → 2022-05-12 | Day surgery (SDC) | payer MEDICARE, OTHER ==
[2022-05-11 13:23] LABS: BASOPHILS # (AUTO) 0.1 (0.0-0.1); BASOPHILS % 0.7 % (0.0-1.0); HEMATOCRIT 35.4 % (34.2-44.1); HEMOGLOBIN 10.9 g/dL (12.0-16.0); LYMPHOCYTES # (AUTO) 1.8 (1.0-3.2); MEAN CORPUSCULAR HEMOGLOBIN 27.2 pg (28-32); MEAN CORPUSCULAR HGB CONC 30.8 g/dL (31-35); MEAN CORPUSCULAR VOLUME 88.3 fL (81-99); MONOCYTES # (AUTO) 0.6 (0.2-0.8); NEUTROPHILS % 66.9 % (38.7-80.0); PLATELET COUNT 274 x10e3/uL (140-360); RED BLOOD COUNT 4.01 x10e6/uL (3.6-5.1); RED CELL DISTRIBUTION WIDTH 14.6 % (11.7-14.4)
[~2022-05-12] MED LIST changes: +FENTANYL CITRATE/PF 100MCG/2 ML INJ ONE; +GABAPENTIN300 MG PO; +LEVOCETIRIZINE D5 MG PO; +METOCLOPRAMIDE HCL 10 MG/2ML VIAL ONE; +PROPOFOL IV EMULSION 10 MG/ML 20 ML VIAL ONE; +QUETIAPINE FUM100 MG PO
[2022-05-12 18:30] VITALS: BP 158/90
[2022-05-12 18:55] LABS: % IRON SATURATION 13 % (15-50); IRON 24 ug/dL (50-170); TOTAL IRON BINDING CAPACITY 185 ug/dL (261-478); TRANSFERRIN 132 mg/dL (180-382)
== END | disposition home or self-care (01) ==
LOC: OR 13:51
PROVIDERS: ATTEND Internal Medicine Gastroenterology
DX: K29.50 Unspecified chronic gastritis without bleeding (principal); K29.80 Duodenitis without bleeding; K31.1 Adult hypertrophic pyloric stenosis; K20.90 Esophagitis, unspecified without bleeding; K44.9 Diaphragmatic hernia without obstruction or gangrene; K28.9 Gastrojejunal ulcer, unspecified as acute or chronic, without hemorrhage or perforation; Z86.010 Personal history of colon polyps; K59.00 Constipation, unspecified; Z71.3 Dietary counseling and surveillance; R63.4 Abnormal weight loss; I10 Essential (primary) hypertension; M06.9 Rheumatoid arthritis, unspecified; M19.90 Unspecified osteoarthritis, unspecified site; E03.9 Hypothyroidism, unspecified; R06.02 Shortness of breath; F41.9 Anxiety disorder, unspecified; Z88.6 Allergy status to analgesic agent; Z01.810 Encounter for preprocedural cardiovascular examination; Z01.812 Encounter for preprocedural laboratory examination; Z20.822 Contact with and (suspected) exposure to COVID-19; Z79.899 Other long term (current) drug therapy; Z68.37 Body mass index [BMI] 37.0-37.9, adult
CPT/HCPCS: 0223U; 36415 ×2; 43239; 43245; 82607; 82746; 83540; 84466; 85025; 85045; 93005; C9113; J2704; J2765; J3010